=== PATIENT | male | born 1955 | race Caucasian/White ===

== ENCOUNTER → 2017-11-30 15:04 | Outpatient (CLI) | payer OTHER, SELFPAY ==
[2017-11-30 15:15] LABS: Mucous, Urine 0 SEEN /hpf (<or=2+)
[2017-11-30 15:37] LABS: Color, Urine Yellow (Yellow); Glucose, Dipstick Normal (Normal); Ketone-Dipstick Negative (Negative); Leukocyte Esterase-Dipstick 500 /ul (Negative); Nitrite-Dipstick Negative (Negative); Occult Blood-Urine 250 /ul (Negative); Protein-Dipstick 30 mg/dl (Negative); Urine Bilirubin Dipstick Negative (Negative); Urine Clarity Cloudy (Clear); Urine Urobilinogen Normal (Normal)
[2017-11-30 15:51] LABS: Bacteria 2+ /hpf (None Seen); Red Blood Cells-Urine 50-100 SEEN /hpf (0-5); Squamous Epithelial Cells - UA 0-5 SEEN /hpf (0-5); White Blood Cells >100 SEEN /hpf (0-5)
== END ==
PROVIDERS: Visit Provider Physician Assistant Medical
DX: R10.9 Unspecified abdominal pain (principal)
CPT/HCPCS: 81001; 87077; 87086; 87088; 87186

== ENCOUNTER → 2020-01-17 | Outpatient (CLI) | payer MEDICARE, OTHER, SELFPAY ==
[2017-12-10 15:55] VITALS: BMI 29.0
== END | disposition home or self-care (01) ==
LOC: LABSPEC 15:14
PROVIDERS: PCP Family Medicine; Referring Provider Otolaryngology Otolaryngology/Facial Plastic Surgery; Visit Provider Otolaryngology Otolaryngology/Facial Plastic Surgery
DX: J32.9 Chronic sinusitis, unspecified (principal)
CPT/HCPCS: 87070; 87205

== ENCOUNTER 2021-11-28 07:51 | Outpatient (RCR) | payer MEDICARE, OTHER, SELFPAY ==
--- NOTE | 2021-11-28 10:20 | HP.PTEVAL_ITS ---
Patient's Visit Information FLORIAN STRONG is a 66 year old M referred to Physical Therapy by DEE CHILDRESS with a diagnosis of NEUROPATHIC PAIN , DDD ,LS,SPONDYLOSIS OF LUMBAR. Date of Evaluation: 11/28/21 Physical Therapist: Lennox Judd, PT, Cert MDT, OCS - Visit Plan Frequency: 2x /Week Duration: 4 Weeks Plan: PT INTERVENTIONS LUMBAR FLEXION ,DLS ,POSTURAL EX'S AND LOWER EXTREMITY FLEXABLITY - Subjective This 66 y/o male presents to physical therapy for low back pain. Patient has had lumbar radiculopathy 2019 with no apparent reason or mechanism of injury. Patient had MRI several years had spondylothesis . Patient seen DR Childress pain management. Patient symptoms symmetrical lumbar with tingling in feet and calf. Aggravating factors walking, standing ,bending ,extension and twisting. Alleviating factors sitting and rest. Coughing/sneezing -. Bowel bladder-. C/O tingling/paresthesia/tingling feet. Patient sleeping okay . Patient stopped ex's. Patient has had injections in past 2019. No MEDS or recent diagnostics. Pa tient symptoms affects QOL and function. SOCIAL: single. VOCATION: retired - Pain Bilateral Back Pain Intensity (Out of 10): 1 Pain Intensity Range: 10 - Objective POSTURE: mild forward posture. GAIT: reciprocal pattern. NEURO: c/o paresthesia/tingling feet ,reflexes L3-4,L4-5,L5-S1 2/3. PALAPTION: unremarkable. SYMMETRIES: align. FLEXABILITY: hamstrings severe tight. LUMBAR ROM: flexion mod tight ,extension mod/severe ,side glides mod tight - Special Tests L/S Slump test left side: Negative L/S Slump test right side: Negative L/S Left Straight Leg Raise: Negative L/S Right Straight Leg Raise: Negative - Balance/Special Test Scores Oswestry Low Back Score: 24 - Goals Goal 1:: This patient will be I with HEP Goal Time Frame: 4-6 Weeks Goal 2:: Patient will demonstrate 50% improvement with decrease pain and improved function with ADL's Goal Time Frame: 4-6 Weeks Goal 3:: Patient improve lumbar ROM for function of recovery to aid in lifting Goal Time Frame: 4-6 Weeks Goal 4:: Patient demonstrate improvement of flexibility hamstrings to aid in function of recovery to tie shoes Goal Time Frame: 4-6 Weeks Goal 5:: Patient to improve in back oswestry score by 5 points to improve QOL. Goal Time Frame: 4-6 Weeks - Rehabilitation Potential Physical Therapy Diagnosis: This patient has LUMBAR RADICULOPATHY with symptoms in bilateral feet increases with position, motion testing ,better with siting and worse with walking and standing thus benefit from skilled PT Rehabilitation Potential: Good - Anticipated Interventions Patient/Client Instruction: Educate patient on: Condition, Plan of Care For the Purpose of:: To decrease pain, To increase ROM, To improve muscle performance and motor function, To improve ability to perform ADL's, To increase tolerance to activity/condition/position, To improve ability of physical actions for home/community/work/leisure, To improve health of tissue, To decrease soft tissue restriction, To increase flexibility/ROM, To prevent re-injury Therapeutic Exercise to Include: Strength training, Body mechanics, Postural training, Flexibilty training, Dynamic Lumbar Stabilization For the Purpose of:: To decrease pain, To increase ROM, To improve muscle performance and motor function, To increase tolerance to activity/condition/position, To improve ability of physical actions for home/community/work/leisure, To improve health of tissue, To decrease soft tissue restriction, To increase flexibility/ROM, To prevent re-injury, To improve tolerance to ADL's Thank you for the opportunity to evaluate your patient. For Medicare and Medicare HMO plans, please review the plan of care and approve it. It will need to be FAXED BACK to us at [phone] for Medicare purposes. For Medicare only, by signing this I certify the plan of care. Please let me know if there are questions or concerns regarding this plan of care. Physician Signature: Date:
--- NOTE | 2022-03-12 12:48 | HP.PT.NRP ---
FLORIAN STRONG was seen in my office for initial evaluation on 11/28/21. The following Plan of Care was established for this patient: Initial Frequency: 2x /Week Initial Duration: 4 Weeks Patient/Client Instruction: Educate patient on: Condition, Plan of Care For the Purpose of:: To decrease pain, To increase ROM, To improve muscle performance and motor function, To improve ability to perform ADL's, To increase tolerance to activity/condition/position, To improve ability of physical actions for home/community/work/leisure, To improve health of tissue, To decrease soft tissue restriction, To increase flexibility/ROM, To prevent re-injury Therapeutic Exercise to Include: Strength training, Body mechanics, Postural training, Flexibilty training, Dynamic Lumbar Stabilization For the Purpose of:: To decrease pain, To increase ROM, To improve muscle performance and motor function, To increase tolerance to activity/condition/position, To improve ability of physical actions for home/community/work/leisure, To improve health of tissue, To decrease soft tissue restriction, To increase flexibility/ROM, To prevent re-injury, To improve tolerance to ADL's This patient was last seen in our office . Pertinent comments regarding their Physical therapy will appear below: Patient seen for PT for intial evaluation and HEP At this point I will be discontinuing this patient from physical therapy. I would be happy to see this patient again in the future if found appropriate by the physician. Thank you! Lennox Judd, PT, Cert MDT, OCS Balance/Gait/Functional tests - Balance/Special Test Scores Oswestry Low Back Score: 24
== END 2021-11-28 19:00 | disposition home or self-care (01) ==
LOC: PT 07:51
PROVIDERS: PCP Family Medicine
DX: M79.2 Neuralgia and neuritis, unspecified (principal); M51.37 Other intervertebral disc degeneration, lumbosacral region; M47.816 Spondylosis without myelopathy or radiculopathy, lumbar region
CPT/HCPCS: 97110; 97161

== ENCOUNTER → 2023-02-04 | Outpatient (CLI) | payer MEDICARE, OTHER, SELFPAY ==
--- NOTE | 2023-02-04 13:25 | CT_ITS ---
STUDY: CT MAXILLOFACIAL SINUSES REASON FOR EXAM: Male, 67 years old. SINUSITIS RADIATION DOSAGE (If Supplied By Facility): CTDIvol = ( 33.06 ) mGy, DLP = ( 862.77 ) mGycm TECHNIQUE: The patient was scanned in a multi detector CT scanner. High resolution axial imaging was performed without the administration of intravenous contrast material. Sagittal and coronal images were reconstructed. Individualized dose optimization techniques were used for this CT. COMPARISON: None. FINDINGS: FRONTAL SINUSES: Normal aeration, without mucosal inflammatory disease. ETHMOIDAL SINUSES: Normal aeration, without mucosal inflammatory disease. MAXILLARY SINUSES: Normal aeration, without mucosal inflammatory disease. SPHENOIDAL SINUSES: Normal aeration, without mucosal inflammatory disease. There is patency of the bilateral maxillary infundibuli with normal uncinate processes, ethmoid bullae, and hiatus semilunaris. Normal bilateral middle turbinates. Normal bilateral inferior turbinates. There is a right sided nasal septal deviation, but without a nasal septal spur. There is a 1.1 cm x 1.3 cm soft tissue prominence in the left anterior nasal airway. This may represent polyposis. The visualized osseous structures are normal. The visualized bilateral orbital contents are normal. CT/Sinus/Facial Bone IMPRESSION: Focal soft tissue density in the anterior left nasal cavity as described. Nasal septal deviation towards the right side of the midline. Electronically Signed: Syed Gonsalez MD at 14:28 EST ,
== END | disposition home or self-care (01) ==
PROVIDERS: Referring Provider Otolaryngology; Visit Provider Otolaryngology
DX: J33.0 Polyp of nasal cavity (principal); J32.8 Other chronic sinusitis
CPT/HCPCS: 70486

== ENCOUNTER 2023-02-28 08:48 | Emergency (ER) | payer MEDICARE, OTHER, SELFPAY ==
[2023-02-28 08:49] VITALS: BP 151/89; PULSE 81; RESP 14; TEMP 36.8; O2SAT 98; BMI 25.4
--- NOTE | 2023-02-28 09:15 | ED.VIS.GI ---
HPI HPI - GI History of Present Illness Chief Complaint: Abd Pain Informant: patient Narrative Narrative: Patient has been having intermittent abdominal pain for the last 3 to 4 days that he has never had before. It is within 15 minutes of eating some things but not everything. He states he does not have a very poor diet and he is healthy, takes no prescriptions. He noticed that he gets a lot of rumbling in his abdomen and then pain just left of epigastrium. No radiation or migration, seems to always occur at the same area feels like an ache. Denies any nausea or vomiting, no changes in bowel movements including blood or melena, no urine issues. No back pain. No chest discomfort, fevers. He states his left costal margin hurts, at the same area where he states his abdominal pain occurs, which is not currently present, but he states he accidentally fell against this area of his rib cage about a month ago. Patient states he tried to get into his PCP but he is going on vacation and the patient is leaving town to go to [place] to see his children after this weekend, which is the reason he presents here to have this evaluated. He has not tried any home treatments. This morning he had a smoothie with some vegetables in it and experienced no discomfort. Last night he had a smoothie that he made with cranberries and it reproduce the discomfort fairly significantly again without any nausea or vomiting. He states he has been under an immense amount of stress lately. He takes no anti-inflammatories [id number] and does not drink any alcohol. PFSH PFS Medical History no medical history no medical history Home Medications NK 12/10/17 [History Last Taken Unknown] pantoprazole 40 mg tablet,delayed release 40 mg PO DAILY #30 tabs 02/28/23 [Rx Last Taken Unknown] sucralfate 1 gram tablet (Carafate) 1 g PO TID 1 week #21 tabs 02/28/23 [Rx Last Taken Unknown] Allergy/AdvReac Type Severity Reaction Status Date / Time No Known Allergies Allergy Verified 02/28/23 08:49 Social History Smoking Status: Never smoker alcohol intake: never ROS ROS ED Constitutional Constitutional ED: Denies chills or fever(s) Eyes Eyes: Denies change in vision or diplopia ENT ENT ED: Denies rhinorrhea or sore throat Cardiovascular Cardiovascular: Denies chest pain or palpitations Respiratory/Chest Respiratory/Chest: Denies cough or dyspnea Gastrointestinal Gastrointestinal: Reports abdominal pain; Denies diarrhea, melena, nausea or vomiting Genitourinary Genitourinary ED: Denies dysuria or hematuria Musculoskeletal Musculoskeletal: Denies back pain or neck pain Integumentary Denies abscess or rash Neurologic Neurologic: Denies headache(s), paresthesias or weakness Psychiatric Psychiatric: Denies anxiety or suicidal thoughts EXAM Physical Exam Const Vital Signs: 02/28/23 08:49 Temperature 98.2 F Temperature Source Temporal Pulse Rate 81 Respiratory Rate 14 Blood Pressure 151/89 H Blood Pressure Mean 109 Pulse Ox 98 Oxygen Delivery Method Room Air Positive well nourished and well developed General Appearance ED: well developed and NAD HEENT Reports moist mucous membranes normocephalic and atraumatic Eyes PERRL and EOMs intact bilaterally Neck full ROM and supple Resp normal respiratory effort and clear to auscultation bilaterally Cardio regular rate, regular rhythm and no murmurs GI non-tender and non-distended Auscultation: normoactive bowel sounds Palpation: soft Back/Spine no CVA tenderness General Back: other FROM Extremity normal to inspection General Extremety ED: Negative for edema, pulses abnormal or tenderness General Extremity: Negative for edema or pulses abnormal Neuro oriented x3, CN's II-XII intact bilaterally and no sensory deficits noted Sensorium / Orientation: awake and alert Motor Exam: strength 5/5 throughout Skin no rashes or lesions noted and no wounds MDM MDM MDM Narrative Medical decision making narrative: Labs obtained and are all noted and unremarkable. This includes liver enzymes and lipase. While we were waiting for these results we gave him oral Protonix 40 mg and he states about an hour later he noticed he was feeling much better from it although he admitted to me prior to getting this that he was not having any stomach discomfort at that time. He is reassured, he will be prescribed a month of pantoprazole and 5-7 days of Carafate and advised to follow-up when he gets back from his trip. He is comfortable with that plan. Lab Data Attestation: I reviewed the patient's lab results. Labs: Laboratory Results - last 24 hr 02/28/23 09:15 WBC 8.6 RBC 5.57 Hgb 17.6 H Hct 52.2 MCV 93.7 MCH 31.6 MCHC 33.7 RDW Std Deviation 48.2 H RDW Coeff of Leda 14.0 Plt Count 195 MPV 11.9 Immature Gran % (Auto) 0.300 Neut % (Auto) 66.5 Lymph % (Auto) 24.1 [place] % (Auto) 7.8 Eos % (Auto) 0.7 Baso % (Auto) 0.6 Absolute Neuts (auto) 5.7 Absolute Lymphs (auto) 2.08 Nucleated RBC % 0 Sodium 137 Potassium 3.9 Chloride 105 Carbon Dioxide 29.0 Anion Gap 3 L BUN 21 H Creatinine 0.96 Estim Creat Clear Calc 77.35 Est GFR (MDRD) Af Amer 100 Est GFR (MDRD) Non-Af 82 BUN/Creatinine Ratio 21.9 H Glucose 103 Calcium 9.8 Total Bilirubin 1.10 H AST 15 ALT 33 Alkaline Phosphatase 53 Total Protein 7.8 Albumin 4.2 Globulin 3.6 Albumin/Globulin Ratio 1.2 Lipase 29 Discharge Plan Triage Chief Complaint: Abd Pain ED Provider: Karlo Calderon Dx/Rx/DC Orders Clinical Impression: Abdominal pain, acute, left upper quadrant, Dyspepsia Instructions: Abdominal Pain, ED Gastritis Ulcer No Abx Prescriptions: New pantoprazole 40 mg tablet,delayed release (DR/EC) 40 mg PO DAILY Qty: 30 1RF sucralfate [Carafate] 1 gram tablet 1 g PO TID 7 Days Qty: 21 0RF No Action NK Primary Care Provider: Care Physician,No Primary Referrals: Jovi Gallo DO [Non-Staff] - 1-2 Weeks Disposition Disposition: Home, Self Care
[2023-02-28] MEDS: Pantoprazole Sodium 40 MG Tablet PO (09:18)
[2023-02-28 09:24] LABS: Absolute Lymphocyte Count 2.08 X10^3/uL (0.83-4.51); Absolute Neutrophil Count 5.7 X10^3/uL (2.0-7.7); Basophil# 0.05 X10^3/uL; Basophil% 0.6 % (0-1); Eosinophil# 0.06 X10^3/uL; Eosinophils% 0.7 % (0-5); Hematocrit 52.2 % (40-54); Hemoglobin 17.6 g/dL (13.0-16.5); Lymphocyte # 2.08 X10^3/ul (0.83-4.51); Lymphocyte % 24.1 % (19-41); Mean Corp Hgb Conc 33.7 g/dL (32-36); Mean Corpuscular Hgb 31.6 pg (27.0-32.0); Mean Corpuscular Volume 93.7 fL (80-94); Mean Platelet Vol. 11.9 fl (6.2-12.0); Monocyte# 0.67 X10^3/uL; Monocyte% 7.8 % (0-10); NRBC Flagged by Analyzer 0 % (0-5); Neutrophil # 5.74 X10^3/uL (2.7-7.7); Neutrophil % 66.5 % (47-70); Platelet Count 195 K/mm3 (150-450); RBC Distribution Width SD 48.2 fl (35.1-43.9); Red Blood Count 5.57 M/mm3 (4.6-6.2); White Blood Count 8.6 K/mm3 (4.4-11.0)
[2023-02-28 09:42] LABS: ALB/GLOB Ratio 1.2 RATIO (0.9-2.4); AST(SGOT) 15 U/L (15-37); Alanine Aminotransfer ALT/SGPT 33 U/L (16-61); Albumin, Serum 4.2 g/dL (3.2-5.0); Alkaline Phosphatase 53 U/L (45-117); Anion Gap 3 (5-15); BUN 21 mg/dL (7-18); BUN/Creat Ratio 21.9 RATIO (10-20); Calcium,Total 9.8 mg/dL (8.5-10.1); Chloride 105 mmol/L (98-107); Creatinine, Serum 0.96 mg/dL (0.70-1.30); EST Glomerular Filtration Rate 82 mL/min (>60); Est Glom Filt Rate - Afr Amer 100 mL/min (>60); Estimated Creatinine Clearance 77.35 ml/min; Globulin 3.6 g/dL (2.2-4.2); Glucose 103 mg/dL (74-106); Lipase 29 U/L (13-75); Potassium 3.9 mmol/L (3.5-5.1); Protein, Total 7.8 g/dL (6.4-8.2); Sodium Level 137 mmol/L (136-145)
[2023-02-28 10:45] VITALS: RESP 16
[2023-02-28 11:00] VITALS: RESP 16
== END 2023-02-28 11:01 | disposition home or self-care (01) ==
PROVIDERS: Emergency Provider Emergency Medicine; Visit Provider Emergency Medicine
DX: R10.12 Left upper quadrant pain (principal); R10.13 Epigastric pain
CPT/HCPCS: 80053; 83690; 85025; 99282

== ENCOUNTER 2023-03-05 07:46 | Emergency (ER) | payer MEDICARE, OTHER, SELFPAY ==
[2023-03-05 07:47] VITALS: BP 134/78; PULSE 86; RESP 14; TEMP 36.6; O2SAT 98; BMI 25.0
--- NOTE | 2023-03-05 07:54 | EX.ED.DYSGE1 ---
HPI History of Present Illness Chief Complaint: Abd [facility] Home Medications NK 12/10/17 [History Last Taken Unknown] pantoprazole 40 mg tablet,delayed release 40 mg PO DAILY #30 tabs 02/28/23 [Rx Last Taken Unknown] sucralfate 1 gram tablet (Carafate) 1 g PO TID 1 week #21 tabs 02/28/23 [Rx Last Taken Unknown] Allergy/AdvReac Type Severity Reaction Status Date / Time No Known Allergies Allergy Verified 02/28/23 08:49 Social History Smoking Status: Never smoker alcohol intake: never EXAM Physical Exam Const Vital Signs: 03/05/23 07:47 Temperature 97.8 F Temperature Source Temporal Pulse Rate 86 Respiratory Rate 14 Blood Pressure 134/78 H Blood Pressure Mean 96 Pulse Ox 98 Oxygen Delivery Method Room Air MDM MDM MDM Narrative Medical decision making narrative: HISTORY OF PRESENT ILLNESS: 67-year-old male here for abdominal pain. States he was seen recently for similar and had blood work done. He states he is leaving for vacation and is concerned that he continues to have intermittent stomachache and loudness. Pain is not worse with exertion. It is worse after food. Intermittent. Is located in epigastrium. Denies history abdominal surgeries. Does not drink alcohol. States is concerned because he is travel to [place] and wants to be checked out before this occurs. REVIEW OF SYSTEMS: Pertinent positives: Abdominal pain Pertinent negatives: Chest pain, shortness of breath, urinary complaints, melena hematochezia PHYSICAL EXAM: Nursing triage notes reviewed, Vital signs reviewed Constitutional: please see mdm HENT: MMM Eyes: Pupils equal round and reactive to light, Extraocular muscles intact Neck: No stridor, no JVD, full neck ROM Lungs: Clear to auscultation, No wheezing or rales. No increased work of breathing, no conversational dyspnea, no accessory muscle use, no nasal flaring. No respiratory distress noted Heart: Regular rate and rhythm, No murmurs, No rubs and No gallops, 2+ distal pulses (radial, femoral, posterior tibial) in all extremities Abdomen: Soft, there is no tenderness, rigidity, rebound or guarding, no obvious peritoneal signs, no palpable pulsatile abdominal masses, no auscultated abdominal bruit : No CVAT Extremities: No edema Neuro: No focal neurological deficits, cranial nerves II through XII intact, 5/5 strength in all extremities. Intact sensation to light touch in all extremities, 2+ reflexes bilateral patella tendons. Normal gait. No ataxia. Skin: No rash or lesions noted MEDICAL DECISION MAKING: Chief Complaint: Abdominal pain External records reviewed: Seen in the ED on 02/28/2023. Abdominal exam at that time was benign he was diagnosed with dyspepsia left upper quadrant pain. Labs at that time showed no leukocytosis, no significant anemia, no signs of hepatobiliary pathology, no signs of electrolyte disturbance, no sign of pancreatitis. Patient was discharged Factors affecting care: GERD, dyspepsia Social determinants of health: Denies alcohol History obtained from others: none Consults: none MDM Narrative: Patient was hemodynamically stable, afebrile, nontoxic-appearing. No focal cardiopulmonary normalities. Abdomen soft nontender with mild epigastric discomfort. I considered the following differential diagnosis: Ruptured viscus, small bowel obstruction, hepatobiliary production, GERD, gastritis, atypical presentation of ACS I obtained a broad lab and imaging workup to further elucidate etiology patient complaints. I gave symptomatic treatments for fluids, Zofran, Pepcid and a GI cocktail. Patient refused medicines. ALL IMAGES (IF OBTAINED) HAVE BEEN PERSONALLY REVIEWED AND INTERPRETED BY MYSELF. EKG with normal sinus rhythm, normal axis, normal intervals, no STEMI CBC without leukocytosis, severe anemia, no thrombocytopenia. CMP without evidence of acute kidney injury, significant electrolyte abnormality, anion gap, no evidence hepatobiliary pathology. High-sensitivity troponin is negative, no evidence of myocardial ischemia CT scan abdomen pelvis shows no evidence of acute intra-abdominal pathology such as perforation or obstruction. The synthesis of the patient's history, physical exam, labs and images suggest no acute life-limiting etiology including occult ACS, obstruction perforation, hepatobiliary pathology etc. No clear aspiration with patient's pain I suspect he is got gastritis versus peptic ulcer disease and requires close GI follow-up. I further recommend the patient continue home PPI. The patient and/or family, caregivers express understanding. The patient and/or family, caregivers agrees with the plan. Shared decision making: I will have a discussion with the patient and or visitors regarding risk/benefits of further testing or admission. They will be made aware of of the risk/benefits inherent in this decision they will be given the opportunity to voice understanding. Total critical care time today provided was at least 0 minutes. This excludes separately billable procedures. Critical care time (if documented) is secondary to the patient having high probability of clinically significant/life threatening deterioration in the patient's condition which required my urgent intervention. Impression: 1. Epigastric abdominal pain 2. History of GERD 3. Fatty liver 4. Diverticulosis Dispo: Discharge Lab Data Labs: Laboratory Results - last 24 hr 03/05/23 08:45 WBC 6.6 RBC 5.35 Hgb 17.5 H Hct 50.7 MCV 94.8 H MCH 32.7 H MCHC 34.5 RDW Std Deviation 47.8 H RDW Coeff of Leda 13.8 Plt Count 187 MPV 11.9 Immature Gran % (Auto) 0.300 Neut % (Auto) 69.8 Lymph % (Auto) 20.1 Bland % (Auto) 8.4 Eos % (Auto) 0.8 Baso % (Auto) 0.6 Absolute Neuts (auto) 4.6 Absolute Lymphs (auto) 1.32 Nucleated RBC % 0 Sodium 137 Potassium 3.9 Chloride 104 Carbon Dioxide 29.0 Anion Gap 4 L BUN 15 Creatinine 0.92 Estim Creat Clear Calc 80.71 Est GFR (MDRD) Af Amer 104 Est GFR (MDRD) Non-Af 86 BUN/Creatinine Ratio 16.3 Glucose 102 Calcium 9.6 Total Bilirubin 0.70 AST 17 ALT 27 Alkaline Phosphatase 51 Troponin I High Sens 42 Total Protein 7.9 Albumin 4.2 Globulin 3.7 Albumin/Globulin Ratio 1.1 Radiography Diagnostic Testing: Clinical Impression(s) from Imaging Studies Abdomen/Pelvis CT 03/05/23 08:30 IMPRESSION: Fatty infiltration of the liver. Scattered sigmoid diverticula. Prostatic enlargement with indentation of the bladder base. Mild degree of diffuse bladder wall thickening. Electronically Signed: Syed Gonsalez MD at 10:03 EST , Discharge Plan Triage Chief Complaint: Abd Pain ED Provider: Luke Stout Dx/Rx/DC Orders Instructions: ED Abdominal Pain Unkn Cause Male... Prescriptions: No Action NK pantoprazole 40 mg tablet,delayed release (DR/EC) 40 mg PO DAILY Qty: 30 1RF sucralfate [Carafate] 1 gram tablet 1 g PO TID 7 Days Qty: 21 0RF Primary Care Provider: Pan Barba Referrals: Friend,DO Sid [Med Staff - Active Staff] - Activity Restrictions/Additional Instructions: Thank you for trusting us with your care today! Please take Tylenol (2 pills, 650 mg), ibuprofen (2 pills, 400 mg) every 6 hours as needed for pain and fever control. Please return to the emergency department if your symptoms change or worsen. Please follow with your primary care physician for further outpatient evaluation and management. Disposition Disposition: Home, Self Care
--- NOTE | 2023-03-05 08:30 | CT_ITS ---
STUDY: CT ABDOMEN AND PELVIS WITH CONTRAST REASON FOR EXAM: Male, 67 years old. Epigastric abdominal pain RADIATION DOSAGE (If Supplied By Facility): CTDIvol = ( 14.74 ) mGy, DLP = ( 982.54 ) mGycm TECHNIQUE: Transaxial images were obtained from the dome of the diaphragm to the symphysis pubis without oral contrast. IV 100mL Isovue-300 was administered. Sagittal and coronal images were reconstructed. Individualized dose optimization techniques were used for this CT. COMPARISON: None. FINDINGS: The visualized lung bases are unremarkable. The visualized portions of the heart are within normal limits. There is decreased attenuation of the liver consistent with steatosis. Normal gallbladder and extrahepatic biliary system. Normal spleen. Normal pancreas. Normal bilateral adrenal glands. Normal right kidney. Normal left kidney. Normal visualized stomach. Normal small intestine. There are scattered colonic diverticula consistent with diverticulosis. The appendix is visualized and appears normal. There is scattered atherosclerotic calcification of the abdominal aorta, without a demonstrated aneurysm. Normal inferior vena cava. Normal retroperitoneum. Mild degree of diffuse bilateral wall thickening. There is enlargement of the prostate gland. The prostate measures 4.3 cm x 5.7 cm. This causes indentation at the bladder base. There is a right-sided inguinal hernia containing adipose tissue. There are mild degenerative changes of the visualized lumbar spine. CT/Abdomen/Pelvis W IV Cont ONLY IMPRESSION: Fatty infiltration of the liver. Scattered sigmoid diverticula. Prostatic enlargement with indentation of the bladder base. Mild degree of diffuse bladder wall thickening. Electronically Signed: Syed Gonsalez MD at 10:03 RUST ,
--- NOTE | 2023-03-05 08:30 | EKG12_ITS ---
Test Reason : ABD PAIN Blood Pressure : / mmHG Vent. Rate : 064 BPM Atrial Rate : 064 BPM P-R Int : 150 ms QRS Dur : 088 ms QT Int : 400 ms P-R-T Axes : 006 001 001 degrees QTc Int : 412 ms Normal sinus rhythm Normal ECG Confirmed by MINI SAENZ, PADMINI ([id number]), managing editor MEGAN GRIMES ([id number]) on 03/10/2023 1:45:15 P M Referred By: Confirmed By:WARREN MORSE MD
--- NOTE | 2023-03-05 08:32 | NURSING ---
NO OLD EKGS
[2023-03-05 08:51] LABS: Absolute Lymphocyte Count 1.32 X10^3/uL (0.83-4.51); Absolute Neutrophil Count 4.6 X10^3/uL (2.0-7.7); Basophil# 0.04 X10^3/uL; Basophil% 0.6 % (0-1); Eosinophil# 0.05 X10^3/uL; Eosinophils% 0.8 % (0-5); Hematocrit 50.7 % (40-54); Hemoglobin 17.5 g/dL (13.0-16.5); Lymphocyte # 1.32 X10^3/ul (0.83-4.51); Lymphocyte % 20.1 % (19-41); Mean Corp Hgb Conc 34.5 g/dL (32-36); Mean Corpuscular Hgb 32.7 pg (27.0-32.0); Mean Corpuscular Volume 94.8 fL (80-94); Mean Platelet Vol. 11.9 fl (6.2-12.0); Monocyte# 0.55 X10^3/uL; Monocyte% 8.4 % (0-10); NRBC Flagged by Analyzer 0 % (0-5); Neutrophil % 69.8 % (47-70); Platelet Count 187 K/mm3 (150-450); RBC Distribution Width CV 13.8 % (11.6-14.6); RBC Distribution Width SD 47.8 fl (35.1-43.9); Red Blood Count 5.35 M/mm3 (4.6-6.2); White Blood Count 6.6 K/mm3 (4.4-11.0)
[2023-03-05 09:08] LABS: ALB/GLOB Ratio 1.1 RATIO (0.9-2.4); AST(SGOT) 17 U/L (15-37); Alanine Aminotransfer ALT/SGPT 27 U/L (16-61); Albumin, Serum 4.2 g/dL (3.2-5.0); Alkaline Phosphatase 51 U/L (45-117); Anion Gap 4 (5-15); BUN 15 mg/dL (7-18); BUN/Creat Ratio 16.3 RATIO (10-20); Calcium,Total 9.6 mg/dL (8.5-10.1); Chloride 104 mmol/L (98-107); Creatinine, Serum 0.92 mg/dL (0.70-1.30); EST Glomerular Filtration Rate 86 mL/min (>60); Est Glom Filt Rate - Afr Amer 104 mL/min (>60); Estimated Creatinine Clearance 80.71 ml/min; Globulin 3.7 g/dL (2.2-4.2); Glucose 102 mg/dL (74-106); Potassium 3.9 mmol/L (3.5-5.1); Protein, Total 7.9 g/dL (6.4-8.2); Sodium Level 137 mmol/L (136-145); Troponin-I HS 42 pg/mL (3.0-78.0)
[2023-03-05 11:31] LABS: Bacteria 0 SEEN /hpf (None Seen); Mucous, Urine 0 SEEN /hpf (<or=2+); Red Blood Cells-Urine 0 SEEN /hpf (0-5); White Blood Cells 0 SEEN /hpf (0-5)
[2023-03-05 11:33] LABS: Color, Urine Yellow (Yellow); Glucose, Dipstick Normal (Normal); Ketone-Dipstick 15 mg/dl (Negative); Leukocyte Esterase-Dipstick 25 /ul (Negative); Nitrite-Dipstick Negative (Negative); Occult Blood-Urine Negative /ul (Negative); Protein-Dipstick 30 mg/dl (Negative); Urine Bilirubin Dipstick Negative (Negative); Urine Clarity Sl. Cloudy (Clear); Urine Urobilinogen Normal (Normal); Urine pH 6.5 (5.0 - 8.0)
[2023-03-05] MEDS: Mag Hydrox/Al Hydrox/Simeth 30 ML UDC PO (11:35)
[2023-03-05 11:57] LABS: Squamous Epithelial Cells - UA 0-5 SEEN /hpf (0-5)
== END 2023-03-05 12:00 | disposition home or self-care (01) ==
PROVIDERS: Emergency Provider Emergency Medicine; PCP Family Medicine; Visit Provider Emergency Medicine
DX: K21.9 Gastro-esophageal reflux disease without esophagitis (principal); K57.30 Diverticulosis of large intestine without perforation or abscess without bleeding; K76.0 Fatty (change of) liver, not elsewhere classified; Z79.899 Other long term (current) drug therapy
CPT/HCPCS: 74177; 80053; 81001; 84484; 85025; 93005; 99282; J7030; Q9967; A4216; J2405; J3490

== ENCOUNTER 2024-02-25 11:48 | Emergency (ER) | payer MEDICARE, OTHER, SELFPAY ==
[2024-02-25 11:49] VITALS: BP 169/89; PULSE 92; RESP 15; TEMP 36.4; O2SAT 97; BMI 25.1
--- NOTE | 2024-02-25 12:54 | EKG12_ITS ---
Test Reason : GEN ILLNESS Blood Pressure : */* mmHG Vent. Rate : 80 BPM Atrial Rate : 80 BPM P-R Int : 156 ms QRS Dur : 84 ms QT Int : 384 ms P-R-T Axes : 61 56 38 degrees QTcB Int : 442 ms Normal sinus rhythm Nonspecific ST abnormality Abnormal ECG Confirmed by Kel Valdovinos ([id number]), subeditor LINA FLORES ([id number]) on 02/26/2024 1:06:41 PM Referred By: Confirmed By: Kel Valdovinos
[2024-02-25 13:20] LABS: Bacteria 0 SEEN /hpf (None Seen); Mucous, Urine 0 SEEN /hpf (<or=2+); Red Blood Cells-Urine 0 SEEN /hpf (0-5); Squamous Epithelial Cells - UA 0 SEEN /hpf (0-5); White Blood Cells 0 SEEN /hpf (0-5)
[2024-02-25 13:20] LABS: Absolute Lymphocyte Count 1.77 X10^3/uL (0.83-4.51); Absolute Neutrophil Count 4.9 X10^3/uL (2.0-7.7); Basophil# 0.05 X10^3/uL; Basophil% 0.7 % (0-1); Eosinophil# 0.16 X10^3/uL; Eosinophils% 2.2 % (0-5); Hematocrit 51.5 % (40-54); Hemoglobin 17.9 g/dL (13.0-16.5); Lymphocyte # 1.77 X10^3/ul (0.83-4.51); Lymphocyte % 23.8 % (19-41); Mean Corp Hgb Conc 34.8 g/dL (32-36); Mean Corpuscular Volume 94.8 fL (80-94); Mean Platelet Vol. 11.8 fl (6.2-12.0); Monocyte# 0.55 X10^3/uL; Monocyte% 7.4 % (0-10); NRBC Flagged by Analyzer 0 % (0-5); Neutrophil # 4.87 X10^3/uL (2.7-7.7); Neutrophil % 65.4 % (47-70); Platelet Count 187 K/mm3 (150-450); RBC Distribution Width CV 13.8 % (11.6-14.6); RBC Distribution Width SD 48.3 fl (35.1-43.9); Red Blood Count 5.43 M/mm3 (4.6-6.2); White Blood Count 7.4 K/mm3 (4.4-11.0)
[2024-02-25 13:28] LABS: Color, Urine Yellow (Yellow); Glucose, Dipstick Normal (Normal); Ketone-Dipstick Negative (Negative); Leukocyte Esterase-Dipstick 25 /ul (Negative); Nitrite-Dipstick Negative (Negative); Occult Blood-Urine Negative /ul (Negative); Protein-Dipstick 30 mg/dl (Negative); Urine Bilirubin Dipstick Negative (Negative); Urine Clarity Clear (Clear); Urine Urobilinogen Normal (Normal)
[2024-02-25 13:30] LABS: Anion Gap 5 (5-15); BUN 26 mg/dL (7-18); BUN/Creat Ratio 31.6 RATIO (10-20); Calcium,Total 9.5 mg/dL (8.5-10.1); Chloride 104 mmol/L (98-107); Creatinine, Serum 0.82 mg/dL (0.70-1.30); EST Glomerular Filtration Rate 98 mL/min (>60); Est Glom Filt Rate - Afr Amer 119 mL/min (>60); Estimated Creatinine Clearance 89.28 ml/min; Glucose 110 mg/dL (74-106); Potassium 3.6 mmol/L (3.5-5.1); Sodium Level 139 mmol/L (136-145)
[2024-02-25 14:39] VITALS: BP 135/81; PULSE 76; RESP 15; O2SAT 96
--- NOTE | 2024-02-25 14:46 | EX.ED.DYSGE1 ---
HPI History of Present Illness Chief Complaint: General Illness Narrative Narrative: Patient presents for evaluation well check. 6 months ago lost his father, he has had retina surgery x 2 along with cataracts. He is planning on visiting his children in [place] for which there is [address] Plans on driving leaving tomorrow. He has been having increasing anxiety thoughts. There is no suicidal homicidal ideations. He states a week ago had a screening stress test out of his choice without symptoms that were negative. States yesterday had tingling around his mouth and he was breathing fast. He states he had plans of driving himself straight to [place] not make any stops. He states he was going to ask a friend if they would go with him. Denies cough symptoms denies recent vomiting diarrhea denies urinary symptoms. Denies chest pains. He states he was seen here a year ago for GI symptoms seen and evaluated felt better with the medicines denies abdominal pain. PFSH PFS Home Medications ?Medication ?Instructions ?Recorded ?Last Taken ?Type NK 12/10/17 Unknown History pantoprazole 40 mg tablet,delayed 40 mg PO DAILY #30 tabs 02/28/23 Unknown Rx release sucralfate 1 gram tablet (Carafate) 1 g PO TID 1 week #21 tabs 02/28/23 Unknown Rx Allergy/AdvReac Type Severity Reaction Status Date / Time No Known Allergies Allergy Verified 02/25/24 11:49 Social History Smoking Status: Never smoker alcohol intake: never ROS ROS ED Constitutional Constitutional ED: Denies chills, fever(s) or sweats Eyes Eyes: Denies change in vision ENT ENT ED: Denies dysphagia or sore throat Cardiovascular Cardiovascular: Denies chest pain, leg edema, palpitations or racing heartbeat Respiratory/Chest Respiratory/Chest: Denies cough, dyspnea or dyspnea on exertion Gastrointestinal Gastrointestinal: Denies abdominal pain, diarrhea, nausea or vomiting Genitourinary Genitourinary ED: Denies dysuria, hematuria or urinary frequency Musculoskeletal Musculoskeletal: Denies back pain, extremity pain or neck pain Integumentary Denies rash or wounds Neurologic Neurologic: Denies headache(s), paresthesias or weakness Psychiatric Psychiatric: Reports anxiety; Denies suicidal ideation or suicidal thoughts EXAM Physical Exam Const Vital Signs: 02/25/24 11:49 12/04/24 12:53 02/25/24 14:39 Temperature 97.5 F L Temperature Source Temporal Pulse Rate 92 76 Respiratory Rate 15 15 Respiratory Effort Normal Non-Labored Respiratory Pattern Normal Blood Pressure 169/89 H 135/81 H Blood Pressure Mean 115 99 Pulse Ox 97 96 Oxygen Delivery Method Room Air Room Air Positive well nourished and well developed General Appearance ED: well developed and NAD HEENT Reports moist mucous membranes normocephalic and atraumatic Eyes EOMs intact bilaterally and conjunctivae normal General Eye ED: Yes normal appearance of both eyes Neck no lymphadenopathy and supple General: Negative for tenderness Chest Wall Chest: Negative for tenderness Resp normal respiratory effort and normal air movement Effort and Inspection: symmetric chest movement; Negative for respiratory distress Cardio regular rate, regular rhythm and no murmurs Peripheral Pulses: pulses 2+ throughout GI normal to inspection, nondistended, normoactive bowel sounds and non-tender Palpation: Negative for guarding or rebound tenderness present Back/Spine no CVA tenderness and no thoracic nor lumbar tenderness Extremity normal to inspection General Extremety ED: Negative for edema or tenderness General Extremity: Negative for edema Neuro oriented x3 and no sensory deficits noted Sensorium / Orientation: awake and alert Psych Psych Narrative: No suicidal homicidal ideations. Cooperative, answering questions appropriately. Skin no rashes or lesions noted and no wounds MDM MDM MDM Narrative Medical decision making narrative: Interventions / MDM: Differential diagnosis: Will check, anxiety Diagnosis considered but do not suspect: N/A My EKG interpretation: Sinus rate of 80, no ST or T wave changes. Imaging independently reviewed and interpreted by myself: N/A External documents reviewed: N/A Test considered but not ordered:N/A ED course: Presenting for a well check increased anxiety. He does not have any suicidal homicidal ideations. He lost his father 6 months ago, recent surgeries and plan to travel to see his children in [place]. Will check EKG labs and urine. 1400: Labs are normal hemoglobin 7.9 stable from previous white count 7.4. Electrolytes are normal urine test negative for any infections. EKG with no acute findings. Reassured he states he wanted some referrals with his anxiety symptoms. Discussed with social work in the ED who will discuss with him. We discussed the possibility of flying to see his children side of driving, he states since being in the ED he contact his children and his plan is to fly out to see them. 1515: Patient evaluate by social work, he was given additional resources locally and in [place] for him to follow-up with. He is happy with his care here. All his questions were answered. Re-evaluation: stable Disposition discussed with patient/family/significant other: Patient Case discussed with consulting clinician: work This note was generated with [employer] dictation software. It may contain incorrect words, spelling, and punctuation that were not noted in checking the note before signing. Lab Data Attestation: I reviewed the patient's lab results. Labs: Laboratory Results - last 24 hr 02/25/24 02/25/24 13:10 13:16 WBC 7.4 RBC 5.43 Hgb 17.9 H Hct 51.5 MCV 94.8 H MCH 33.0 H MCHC 34.8 RDW Std Deviation 48.3 H RDW Coeff of Leda 13.8 Plt Count 187 MPV 11.8 Immature Gran % (Auto) 0.500 Neut % (Auto) 65.4 Lymph % (Auto) 23.8 [place] % (Auto) 7.4 Eos % (Auto) 2.2 Baso % (Auto) 0.7 Absolute Neuts (auto) 4.9 Absolute Lymphs (auto) 1.77 Nucleated RBC % 0 Sodium 139 Potassium 3.6 Chloride 104 Carbon Dioxide 29.0 Anion Gap 5 BUN 26 H Creatinine 0.82 Estim Creat Clear Calc 89.28 Est GFR (MDRD) Af Amer 119 Est GFR (MDRD) Non-Af 98 BUN/Creatinine Ratio 31.6 H Glucose 110 H Calcium 9.5 Urine Color Yellow Urine Clarity Clear Urine pH 6.0 Ur Specific [place] 1.020 Urine Protein 30 H Urine Glucose (UA) Normal Urine Ketones Negative Urine Occult Blood Negative Urine Nitrite Negative Urine Bilirubin Negative Urine Urobilinogen Normal Ur Leukocyte Esterase 25 H Urine RBC 0 SEEN Urine WBC 0 SEEN Ur Squamous Epith Cells 0 SEEN Urine Bacteria 0 SEEN Urine Mucus 0 SEEN Discharge Plan Triage Chief Complaint: General Illness ED Provider: Iker Brink Dx/Rx/DC Orders Clinical Impression: Visit for well man health check, Anxiety Instructions: Anxiety Disorders Tx Prescriptions: No Action NK pantoprazole 40 mg tablet,delayed release (DR/EC) 40 mg PO DAILY Qty: 30 1RF sucralfate [Carafate] 1 gram tablet 1 g PO TID 7 Days Qty: 21 0RF Primary Care Provider: Care Physician,No Primary Referrals: Care Physician,No Primary [Primary Care Provider] - Activity Restrictions/Additional Instructions: EKG normal. Labs normal hemoglobin 17.9. This is stable from previous. EKG normal. You were seen by social work in the ED to help with additional resources. As discussed you plan on flying to see your children in [place]. I recommend this plan. Print Language: Tongan Disposition Disposition: Home, Self Care
[2024-02-25 15:29] VITALS: BP 139/77; PULSE 62; RESP 15; TEMP 36.4; O2SAT 99
--- NOTE | 2024-02-25 18:36 | CM.ED ---
Social Work Reason for visit: ED provider felt patient would benefit from counseling resources Patient told SW that he was planning a trip to [place] to see his kids but was feeling anxious the last few days and decided to come to the ER to get checked out to ensure he was medically healthy enough to travel. Patient shared that his anxiety is not new, that he has had anxious feelings on and off throughout his life.? Patient stated he had seen a counselor about ten years ago and did find it helpful.?? Resources for local counseling offered, patient accepting of same.? Patient also given information regarding coping skills for anxiety, [facility] resources and a crisis number in [place], [place] should he need immediate resources on his trip. Erin Paz, SENIOR [employer]BILE APPLICATION DEVELOPER, BUILDING ESTIMATOR
== END 2024-02-25 15:30 | disposition home or self-care (01) ==
PROVIDERS: Emergency Provider Emergency Medicine; Visit Provider Emergency Medicine
DX: Z00.00 Encounter for general adult medical examination without abnormal findings (principal); Z71.84 Encounter for health counseling related to travel; F41.9 Anxiety disorder, unspecified
CPT/HCPCS: 80048; 81001; 85025; 93005; 99283; A4216

== ENCOUNTER 2024-10-25 08:49 | Emergency (ER) | payer MEDICARE, OTHER, SELFPAY ==
[2024-10-25 08:49] VITALS: BP 139/86; PULSE 90; RESP 14; TEMP 36.2; O2SAT 98; BMI 25.6
--- NOTE | 2024-10-25 09:20 | EDS_ITS ---
HPI History of Present Illness Chief Complaint: Back Narrative Narrative: Patient is a 69-year-old male presenting to the emergency department for left- sided back pain for the past 2 weeks. Patient has a past medical history of back pain for the past 5 or 6 years that comes and goes. Patient also has a past medical history of peptic ulcer. Patient denies any trauma to his back. Denies any IV drug use, saddle anesthesia, bowel or bladder retention or incontinence. Denies any weakness in his lower extremities. Denies any fever or chills. States that the pain worsens when he is ambulating and improves when he is at rest. Denies taking any medications for his symptoms prior to arrival. States that the pain is mainly on the left lower back and radiates down the side of his leg. No significant weight loss recently. PFSH [facility] Home Medications ?Medication ?Instructions ?Recorded ?Last Taken ?Type pantoprazole 40 mg tablet,delayed 40 mg PO DAILY #30 t abs 02/28/23 Unknown Rx release sucralfate 1 gram tablet (Carafate) 1 g PO TID 1 week #21 tabs 02/28/23 Unknown Rx cyclobenzaprine 5 mg tablet 5 mg PO QHS PRN muscle spa sm #14 10/25/24 Unknown Rx tabs ibuprofen 200 mg capsule (Motrin 400 mg (2 x 200 mg) P O Q6H PRN 10/25/24 Unknown Rx IB) pain #30 caps lidocaine 5 % topical patch 1 patch topical DAILY #15 ea 10/25/24 Unknown Rx (Lidoderm) Allergy/AdvReac Type Severity Reaction Status Date / Time No Known Allergies Allergy Verified 10/25/24 08:50 Social History Smoking Status: Never smoker alcohol intake: never ROS ROS ED ROS Narrative See HPI EXAM Physical Exam Narrative Exam Narrative: Vital signs: Reviewed General: Alert and oriented. No acute distress HEENT: Head is normocephalic and atraumatic, sinuses nontender, pupils equal round and reactive. Nares are patent. Oropharynx and throat exams normal. Neck: Supple without lymphadenopathy nontender Cardiovascular: Regular rate and rhythm, no murmurs. No rubs or gallops. Normal S1 and S2 Respiratory: Clear to auscultation bilaterally. No wheezes, rales, rhonchi Abdominal: Soft and tender. Normal bowel sounds. No guarding or rebound. Nonsurgical abdomen. No CVA tenderness. Extremities: No tenderness. No bruising. Normal range of motion. Normal sensation. Skin: No rash or redness. Neurological: Cranial nerves II through XII are grossly intact. Normal strength and sensation. Strength in bilateral lower extremities is 5 out of 5. Normal flexion extension at the hips and knees. Sensation intact in bilateral lower extremities. Normal cerebellar function The rest of the physical exam is unremarkable Back: No midline cervical, thoracic or lumbar spinal tenderness to palpation. No step-offs or deformities. There is mild paraspinal tenderness to palpation in the left lumbar region and some SI joint tenderness. No erythema or overlying skin changes. Const Vital Signs: 10/25/24 08:49 Temperature 97.1 F L Temperature Source Temporal Pulse Rate 90 Respiratory Rate 14 Blood Pressure 139/86 H Blood Pressure Mean 103 Pulse Ox 98 Oxygen Delivery Method Room Air MDM MDM MDM Narrative Medical decision making narrative: States patient is a 69-year-old male presenting to emergency department for acute on chronic back pain. Patient was seen and examined. Vitals are stable. Patient resting bed comfortably in no acute distress. Patient has no red flag back pain signs described in the HPI. He states the pain is worse with ambulation. There is no midline spinal tenderness on exam and it is all in the SI joint and in the paraspinal muscles. I suspect this is MSK with a component of sciatica. Patient states that he is had side effects to steroids in the past and does not want these. He has had a peptic ulcer in the past but this was years ago and it was nonbleeding. Patient states that he is not been taking any medications for his pain due to concerns about side effects with the peptic ulcer. I explained that a short dose of NSAIDs is appropriate for this. I prescribed him Tylenol, Toradol and a lidocaine patch here in the ED. For home I prescribed him these medications along with Flexeril. At this time I do not think patient needs any imaging of the spine. He does not have any fever, midline tenderness or any weight loss concerning for any malignancy or abscess. Patient is feeling better with the Toradol. A BMP was also added on given the patient was endorsing some intermittent tingling down his leg which I explained is likely sciatica however yes that his electrolytes be checked. They are within normal limits. Kidney function around his baseline. Patient was prescribed a medication for home and instructed to return to the ED with any new or worsening symptoms as discussed. Patient struck to follow-up with PCP as soon as possible. Patient agreeable to plan. Ambulated out of department without difficulty. Lab Data Labs: Laboratory Results - last 24 hr 10/25/24 10:18 Sodium 135 Potassium 4.9 Chloride 101 Carbon Dioxide 22.3 Anion Gap 12 BUN 25 H Creatinine 0.79 Estim Creat Clear Calc 90.20 Est GFR (MDRD) Non-Af 95 BUN/Creatinine Ratio 32.2 H Glucose 97 Calcium 9.5 Discharge Plan Triage Chief Complaint: Back ED Provider: Bernadine Haile Dx/Rx/DC Orders Clinical Impression: Back pain of lumbar region with sciatica Instructions: ED Back Pain (Acute or Chronic), ED Back Sprain/Strain, ED Sciatica Prescriptions: New ibuprofen [Motrin IB] 200 mg capsule 400 mg PO Q6H PRN (Reason: pain) Qty: 30 0RF cyclobenzaprine 5 mg tablet 5 mg PO QHS PRN (Reason: muscle spasm) Qty: 14 0RF lidocaine [Lidoderm] 5 % adhesive patch,medicated 1 patch topical DAILY Qty: 15 0RF Rx Instructions: leave on most painful area for up to 12 hrs No Action pantoprazole 40 mg tablet,delayed release (DR/EC) 40 mg PO DAILY Qty: 30 1RF sucralfate [Carafate] 1 gram tablet 1 g PO TID 7 Days Qty: 21 0RF Primary Care Provider: Care Physician,No Primary Referrals: Care Physician,No Primary [Primary Care Provider] - Activity Restrictions/Additional Instructions: Please follow-up with your primary care doctor in the next 3 to 5 days. Return to the ED with any new or worsening symptoms as discussed including fever, chills, worsening back pain, issues urinating or having bowel movements or numbness/weakness in your legs. You can take 650 mg of Tylenol every 6 hours as needed. You can also take ibuprofen 600 mg every 8 hours. Apply the lidocaine patch for 12 hours and make sure to remove it after this time. You can take the Flexeril as well however do not take it prior to driving it can make you sleepy, dizzy and lightheaded. Print Language: Telugu Disposition Disposition: Home, Self Care
[2024-10-25] MEDS: Lidocaine 5% Patch 1 PATCH TOPICAL (09:24)
[2024-10-25 10:51] LABS: Anion Gap 12 (5-15); BUN 25 mg/dL (4-19); BUN/Creat Ratio 32.2 RATIO (10-20); Calcium,Total 9.5 mg/dL (7.6-11.0); Carbon Dioxide 22.3 mmol/L (21.0-32.0); Chloride 101 mmol/L (98-108); Estimated Creatinine Clearance 90.20 ml/min (50-250); Glucose 97 mg/dL (70-99); Potassium 4.9 mmol/L (3.3-5.1)
[2024-10-25 11:25] VITALS: BP 132/84; PULSE 86; RESP 16; TEMP 36.6; O2SAT 99
--- OUTSIDE RECORDS SUMMARY | 2024-10-25 18:32 | XMS RPT_ITS | CCD ---
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 Name Role Phone JORDEN, JAYRAM Unavailable Unavailable JORDEN, JAYRAM Unavailable Unavailable JORDEN, JAYRAM Unavailable Unavailable [facility] Unavailable Unavailable [facility] Unavailable Unavailable JORDEN, JAYRAM Unavailable Unavailable SCOTT CASILLAS JR Unavailable Unavailable LAVELLE FRENCH Referring Unavailable No, Referral Unavailable Unavailable Demian Barba MD Primary Care Provider Demian Barba MD Primary Care Provider No, Referral Unavailable Unavailable Demian Barba MD Primary Care Provider No, Referral Unavailable Unavailable Sabino Hernandez DO, Anthony Victor Primary Care Provi santo Sabino Hernandez DO, Anthony Victor Primary Care Provi santo Unavailable Primary Care Provider Unavailabl BETY Harrell Attending Unavailable SELF, SELF Referring Unavailable KUMINS, LUIS F Primary Care Unavailable SHAHZAD PEREZ Attending Unavailable KUMINS, LUIS F Primary Care Unavailable JARVIS STACK Attending Unavailable YADY HERRERA Referring Unavailable KUMINS, LUIS F Primary Care Unavailable KUMINS, LUIS F Primary Care Unavailable FELIPE GALLO Attending Unavailable THI PINO Attending Unavailable KUMINS, LUIS F Primary Care Unavailable KUMINS, LUIS F Primary Care Unavailable CHARLEEN MORALEZ Attending Unavailable KUMINS, LUIS F Primary Care Unavailable CHARLEEN MORALEZ Attending Unavailable FELIPE GALLO Referring Unavailable KUMINS, LUIS F Primary Care Unavailable KUMINS, LUIS F Primary Care Unavailable YADY HERRERA Referring Unavailable SELF Referring Unavailable KUMINS, LUIS F Primary Care Unavailable MARJAN GAR Attending Unavailable KUMINS, LUIS F Primary Care Unavailable RICCI ARIZA Attending Unavailable MICHAEL GALLEGOS Attending Unavailable JOVI GALLO JR Primary Care Unavail able Iker Brink Attending Unavailable Care Physician, No Primary Primary Care Unava ilable Care Physician, No Primary Primary Care Unava ilable RAMON STOLL Attending Unavailable RAMON STOLL Referring Unavailable RAMON STOLL Attending Unavailable RAMON STOLL Referring Unavailable Pan Barba Primary Care Unavailable JOSE FRANCISCO ZAMORANO Attending Unavaillucina GALLO JR, JOVI ANAYA Primary Care Unavail able Care Physician, No Primary Primary Care Provider Unavailable Lazara SAENZ, Dr. Colindres Emergency Provider Unavailab le Allergies Allergy Classification Reported Allergen(s) Allergy Type Date of Onset Reaction(s) Facility (20 sources) [facility]; Translations: [[facility]] Propensity to adverse reactions (disorder) 8 Intolerance [facility] Repository (20 sources) gabapentin; Translations: [GABAPENTIN] Drug Allergy 9 Mental Status Change [facility] Work Phone: Medications Current Medications Medication Drug Class(es) Dates Sig (Normalized) Sig (Original) amoxicillin 875 mg / clavulanate 125 mg oral tablet (1 source) Penicillin-class Antibacterial Start: 01-27-2023 End: 02-03-2023 take 1 tablet by mouth twice daily amoxicillin-clavu lanate potassium (AUGMENTIN) 875-125 mg per tablet Indications: Acute sinusitis, recurrence not specified, unspecified location Take 1 tablet by mouth two times a day for 7 days. 14 tablet 0 01/27/2023 02/03/2023 Active Comment on above: Take 1 tablet by cindy two times a day for 7 days. clindamycin 10 mg/ml topical solution (20 sources) Lincosamide Antibacterial Start: 01-13-2023 End: 02-28-2024 clindamycin (CLEOCIN) 1 % external solution Apply to affected areas on neck when needed after shaving 60 mL 3 02/28/2024 Active Start: 12-24-2021 clindamycin (C LEOCIN) 1 % external solution Apply to affected areas on neck when needed after shaving 60 mL 3 12/24/2021 Active Start: 01-29-2021 clindamycin (C LEOCIN) 1 % external solution Apply to affected areas on neck when needed after shaving 60 mL 3 01/29/2021 Active Comment on above: Apply to affected ar eas on neck when needed after shaving cyclobenzaprine hydrochloride 5 mg oral tablet (1 source) Muscle Relaxant Start: take 1 tablet by mouth at bedtime as needed for muscle spasms Cyclobenzaprine 5 mg tablet Active 5 mg PO AT BEDTIME as needed for muscle spasm 14 0 October 25, 2024 12:00am fluticasone propionate 0.05 mg/actuat metered dose nasal spray (20 sources) Corticosteroid Start: End: fluticasone 50 MCG/ACT Suspension nasal spray Indications: Chronic rhinitis 2 sprays by Nasal route 2 times daily. 16 g 03/25/2024 03/25/2025 Active Start: 01-27-2023 End: 03-03-2024 take 2 spray(s) nasal route once daily fluticasone (FLONASE ALLERGY RELIEF) 50 mcg/actuation nasal spray Indications: Acute sinusitis, recurrence not specified, unspecified location Use 2 Sprays in each nostril once daily. 16 g 01/27/2023 03/03/2024 Discontinued Comment on above: Use 2 Sprays in each nostril once daily. ibuprofen 200 mg oral capsule (1 source) Nonsteroidal Anti-inflammatory Drug Start: 10-25-2024 Ibuprofen (Motrin Ib) 200 mg capsule Active 400 mg PO EVERY 6 HOURS as needed for pain 30 0 October 25, 2024 12:00am ketoconazole 20 mg/ml medicated shampoo (20 sources) Azole Antifungal Start: 01-20-2024 ketoconazole (NIZORAL) 2 % shampoo Use as directed on affected areas of scalp and face 2-3x/week. 120 mL 3 01/20/2024 Active Start: 01-13-2023 End: 01-18-2025 ketoconazole (NIZORAL) 2 % c ream Apply generous layer to clean, dry skin 1-2 times daily. 30 g 3 01/20/2024 01/18/2025 Active Start: 01-13-2023 End: 03-07-2023 ketoconazole (NIZORAL) 2 % s hampoo Apply to affected areas on face and scalp and rinse off in the shower 120 mL 3 01/13/2023 03/07/2023 Discontinued Start: 06-18-2022 End: 06-17-2023 ketoconazole (NIZORAL) 2 % c ream Apply generous layer to clean, dry skin once daily. 30 g 3 06/18/2022 06/17/2023 Active Comment on above: Apply generous layer to clean, dry skin once daily. Apply generous layer to clean, dry skin 1-2 times daily. Apply to affected ar eas on face and scalp and rinse off in the shower lidocaine 0.05 mg/mg medicated patch (1 source) Antiarrhythmic, Amide Local Anesthetic Start: 5 Lidocaine (Lidoderm) 5 % adhesive patch,medicated Active 1 NMA TOPICAL DAILY 15 0 October 25, 2024 12:00am leave on most painful area for up to 12 hrs Grace (Nk) (4 sources) Start: 8 Grace (Nk) Active December 09, 2017 11:00pm omeprazole 40 mg delayed release oral capsule (4 sources) Proton Pump Inhibitor Start: 4 End: 5 take 1 capsule by mouth once daily omeprazole (PRILOSEC) 40 mg capsule Take 1 capsule by mouth once daily. 90 capsule 3 03/03/2024 02/26/2025 Active pantoprazole 40 mg delayed release oral tablet (8 sources) Proton Pump Inhibitor Start: 3 End: 4 take 1 tablet by mouth once daily Pantoprazole 40 mg tablet,delayed release (DR/EC) Active 40 mg PO DAILY 30 February 28, 2023 1:00am Comment on above: Take 40 mg by mouth once daily. sucralfate 1000 mg oral tablet (3 sources) Aluminum Complex Start: 3 take 1 tablet by mouth three times daily Sucralfate (Carafate) 1 gram tablet Active 1 g PO THREE TIMES A DAY 21 7 0 February 28, 2023 1:00am tamsulosin hydrochloride 0.4 mg oral capsule (1 source) alpha-Adrenergic Sarthak Start: 5 End: 5 take 1 capsule by mouth once daily at bedtime tamsulosin (FLOMAX) 0.4 mg Take 1 capsule by mouth daily at bedtime. 30 capsule 3 10/18/2024 11/17/2024 Active Completed/Discontinued Medications Medication Drug Class(es) Dates Sig (Normalized) Sig (Original) aspirin 81 mg delayed release oral tablet (2 sources) Platelet Aggregation Inhibitor, Nonsteroidal Anti-inflammatory Drug End: 10-31-2021 take 1 tablet by mouth once daily aspirin, enteric coated (ASPIRIN, ENTERIC COATED) 81 mg EC tablet Take 81 mg by mouth once daily. 0 10/31/2021 Discontinued Comment on above: Take 81 mg by mouth once daily. atorvastatin 80 mg oral tablet (2 sources) HMG-CoA Reductase Inhibitor Start: 03-25-2019 End: 10-31-2021 take 1 tablet by mouth once daily atorvastatin (LIPITOR) 80 mg tablet Indications: Mixed hyperlipidemia Take 1 tablet by mouth once daily. 30 tablet 11 03/25/2019 10/31/2021 Discontinued Comment on above: Take 1 tablet by cindy once daily. CPAP/BIPAP/OTHER (20 sources) Start: 05-16-2022 End: 03-03-2024 CPAP/BIPAP/OTHER Indications: ZULEMA (obstructive sleep apnea) [id number] [employer] [facility] [facility] ([phone]) Please start with nasal or nasal pillow mask . 1 Each 05/16/2022 03/03/2024 Discontinued Start: 05-16-2022 End: 09-30-2049 CPAP/BIPAP/OTHER Indications : ZULEMA (obstructive sleep apnea) [id number] [employer] [facility] ([phone]) Please start with nasal or nasal pillow mask . 1 Each 05/16/2022 09/30/2049 Active Start: 05-16-2022 End: 09-30-2049 CPAP/BIPAP/OTHER Indications : ZULEMA (obstructive sleep apnea) [employer] [id number] [employer] [facility] [facility] [employer] ([phone]) Please start with nasal or nasal pillow mask . 1 Each 0 05/16/2022 09/30/2049 Active Comment on above: [id number] [employer] [facility] [employer] ([phone]) Please start with nasal or nasal pillow mask . iv contrast (will be provided with radiology test) (11 sources) Start: End: inject 1 dose intravenously once iv contrast (will be provided with radiology test) MRI Brain Inject, intravenously, once for 1 dose.No IV access, insert saline lock prior to beginning of sedation, infusion, injection of imaging exam.Discontinue saline lock post exam. If Pt. has a central line or IVAD, may access for administration according to line specific nursing protocol.Once exam is complete flush line and de-access according to line specific nursing protocol in the MR contrast administration guidelines link 1 Each 11/13/2023 03/03/2024 Discontinued Start: 11-13-2023 inject 1 dose intravenously on ce iv contrast (will be provided with radiology test) MRI Brain Inject, intravenously, once for 1 dose.No IV access, insert saline lock prior to beginning of sedation, infusion, injection of imaging exam.Discontinue saline lock post exam. If Pt. has a central line or IVAD, may access for administration according to line specific nursing protocol.Once exam is complete flush line and de-access according to line specific nursing protocol in the MR contrast administration guidelines link 1 Each 11/13/2023 Active nitrofurantoin, macrocrystals 25 mg / nitrofurantoin, monohydrate 75 mg oral capsule (5 sources) Nitrofuran Antibacterial Start: 12-02-2017 End: 12-09-2017 take 1 capsule by mouth every twelve hours at mealtime Nitrofurantoin Monohyd/M-Cryst 100 mg capsule Discontinued 1 NMA PO Q12H 14 7 0 December 02, 2017 12:00am December 08, 2017 12:00am December 09, 2017 12:09am administer with a meal/food; swallow whole; do not open, crush, dissolve , or chew Problems Active Problems Problem Classification Problem Date Documented Date Episodic/Chronic Abdominal pain (7 sources) Left upper quadrant pain; Translations: [Left upper quadrant pain] 02-28-2023 Episodic Adjustment disorders (20 sources) Stress; Translations: [Reaction to severe stress, unspecified] Onset: 12-02-2019 12-02-2019 Chronic Allergic reactions (2 sources) Solar degeneration; Translations: [Other skin changes due to chronic exposure to nonionizing radiation] Onset: 07-21-2024 07-21-2024 Episodic Anxiety disorders (20 sources) Generalized anxiety disorder; Translations: [Generalized anxiety disorder] Onset: 04-05-2018 Resolved: 05-19-2018 04-05-2018 Chronic Asthma (20 sources) Asthma; Translations: [Unspecified asthma, uncomplicated] 12-26-2017 Chronic Disorders of lipid metabolism (20 sources) Mixed hyperlipidemia; Translations: [Mixed hyperlipidemia] Onset: 05-05-2018 05-05-2018 Chronic Esophageal disorders (20 sources) Gastroesophageal reflux disease; Translations: [Gastro-esophageal reflux disease without esophagitis] 12-26-2017 Chronic Esophageal disorders (1 source) Esophageal disorders; Translations: [Gastroesophageal reflux disease with esophagitis without hemorrhage] Onset: 12-26-2017 Essential hypertension (20 sources) Hypertensive disorder; Translations: [Essential (primary) hypertension] Onset: 12-26-2017 12-26-2017 Chronic Genitourinary symptoms and ill-defined conditions (6 sources) Nocturia; Translations: [Nocturia] Onset: 10-18-2024 02-28-2024 Episodic Hyperplasia of prostate (3 sources) Benign prostatic hypertrophy with outflow obstruction; Translations: [Benign prostatic hyperplasia with lower urinary tract symptoms] Onset: 10-18-2024 02-27-2024 Chronic Miscellaneous mental health disorders (20 sources) Psychophysiologic insomnia; Translations: [Psychophysiologic insomnia] Onset: 09-16-2016 09-16-2016 Chronic Other and unspecified benign neoplasm (5 sources) Multiple benign melanocytic nevi ; Translations: [Melanocytic nevi, unspecified] Episodic Other and unspecified benign neoplasm (1 source) Lipoma of back; Translations: [Benign lipomatous neoplasm of skin and subcutaneous tissue of trunk] Episodic Other and unspecified benign neoplasm (1 source) Blue nevus of skin; Translations: [Other benign neoplasm of skin, unspecified] Episodic Other and unspecified benign neoplasm (4 sources) Senile angioma; Translations: [Hemangioma of skin and subcutaneous tissue] Episodic Other and unspecified benign neoplasm (1 source) Hemangioma of skin and subcutaneous tissue; Translations: [Carranza angioma] Onset: 07-21-2024 Episodic Other and unspecified benign neoplasm (1 source) Melanocytic nevi, unspecified; Translations: [Multiple benign nevi] Onset: 07-21-2024 Episodic Other ear and sense organ disorders (20 sources) Sensorineural hearing loss, bilateral; Translations: [Sensorineural hearing loss, bilateral] Onset: 06-05-2018 06-05-2018 Chronic Other ear and sense organ disorders (1 source) Hearing loss; Translations: [Other specified hearing loss, unspecified ear] 10-16-2023 Chronic Other ear and sense organ disorders (1 source) Asymmetrical sensorineural hearing loss; Translations: [Sensorineural hearing loss, bilateral] 11-13-2023 Chronic Other ear and sense organ disorders (1 source) Bilateral hearing loss; Translations: [Sensorineural hearing loss, unilateral, right ear, with restricted hearing on the contralateral side] 11-13-2023 Chronic Other ear and sense organ disorders (1 source) Asymmetrical hearing loss; Translations: [Other specified hearing loss, bilateral] 03-25-2024 Chronic Other ear and sense organ disorders (3 sources) Other specified hearing loss, bilateral; Translations: [Other specified hearing loss, bilateral] Onset: 03-25-2024 Chronic Other ear and sense organ disorders (1 source) Sensorineural hearing loss, bilateral; Translations: [Sensorineural hearing loss (SNHL) of both ears] Onset: 06-05-2018 Chronic Other ear and sense organ disorders (1 source) Bilateral tinnitus; Translations: [Tinnitus, bilateral] Episodic Other ear and sense organ disorders (1 source) Tinnitus of vascular origin; Translations: [Pulsatile tinnitus, left ear] 11-13-2023 Episodic Other ear and sense organ disorders (1 source) Hyperacusis; Translations: [Hyperacusis, unspecified ear] 11-13-2023 Episodic Other ear and sense organ disorders (1 source) Bilateral subjective tinnitus of ears; Translations: [Tinnitus, bilateral] 02-03-2024 Episodic Other ear and sense organ disorders (1 source) Ear sensations - finding; Translations: [Other specified disorders of ear, bilateral] 03-25-2024 Episodic Other ear and sense organ disorders (1 source) Bilateral hyperacusis of ears; Translations: [Hyperacusis, bilateral] 03-25-2024 Episodic Other ear and sense organ disorders (2 sources) Other specified disorders of ear, bilateral; Translations: [Other specified disorders of ear, bilateral] Onset: 03-25-2024 Episodic Other ear and sense organ disorders (2 sources) Hyperacusis, bilateral; Translations: [Hyperacusis, bilateral] Onset: 03-25-2024 Episodic Other inflammatory condition of skin (3 sources) Seborrheic dermatitis; Translations: [Seborrheic dermatitis, unspecified] Episodic Other inflammatory condition of skin (1 source) Intertrigo; Translations: [Erythema intertrigo] 07-02-2023 Episodic Other male genital disorders (1 source) Hemospermia; Translations: [Hematospermia] 10-18-2024 Episodic Other male genital disorders (1 source) Hematospermia; Translations: [Hematospermia] Onset: 10-18-2024 Episodic Other nervous system disorders (20 sources) Piriformis syndrome; Translations: [Lesion of sciatic nerve, unspecified lower limb] Onset: 11-25-2018 11-25-2018 Chronic Other screening for suspected conditions (not mental disorders or infectious disease) (20 sources) Cardiovascular stress test abnormal; Translations: [Abnormal result of other cardiovascular function study] Onset: 05-05-2018 05-05-2018 Episodic Other screening for suspected conditions (not mental disorders or infectious disease) (1 source) Elevated prostate specific antigen [PSA]; Translations: [Elevated prostate specific antigen (PSA)] Onset: 01-23-2018 Other skin disorders (5 sources) Seborrheic keratosis; Translations: [Other seborrheic keratosis] Episodic Other skin disorders (3 sources) Lentiginosis; Translations: [Other melanin hyperpigmentation] Episodic Other skin disorders (2 sources) Actinic keratosis; Translations: [Actinic keratosis] 07-10-2023 Episodic Other skin disorders (1 source) Other seborrheic keratosis; Translations: [Seborrheic keratosis] Onset: 07-21-2024 Episodic Other skin disorders (1 source) Other melanin hyperpigmentation; Translations: [Lentigines] Onset: 07-21-2024 Episodic Other skin disorders (1 source) Actinic keratosis; Translations: [Actinic keratosis] Onset: 07-21-2024 Episodic Other upper respiratory disease (20 sources) Allergic disposition; Translations: [Other allergic rhinitis] 12-26-2017 Chronic Other upper respiratory disease (2 sources) Chronic rhinitis; Translations: [Chronic rhinitis] Onset: 03-25-2024 03-25-2024 Chronic Other upper respiratory disease (1 source) Chronic rhinitis; Translations: [Chronic rhinitis] Onset: 03-25-2024 Chronic Other upper respiratory disease (1 source) Other allergic rhinitis; Translations: [Environmental and seasonal allergies] Onset: 12-26-2017 Chronic Other upper respiratory disease (2 sources) Deviated nasal septum; Translations: [Deviated nasal septum] 01-27-2023 Episodic Other upper respiratory infections (1 source) Chronic sinusitis; Translations: [Other chronic sinusitis] 02-07-2023 Chronic Other upper respiratory infections (1 source) Acute sinusitis; Translations: [Acute sinusitis, unspecified] 01-27-2023 Episodic Residual codes; unclassified (3 sources) Obstructive sleep apnea syndrome; Translations: [Obstructive sleep apnea (adult) (pediatric)] Chronic Residual codes; unclassified (1 source) Insomnia co-occurrent and due to medical condition; Translations: [Insomnia due to medical condition] Chronic Residual codes; unclassified (1 source) Obstructive sleep apnea (adult) (pediatric); Translations: [ZULEMA (obstructive sleep apnea)] Onset: 09-19-2023 Chronic Residual codes; unclassified (20 sources) Insomnia; Translations: [Insomnia, unspecified] 12-26-2017 Episodic Residual codes; unclassified (1 source) Frequent night waking; Translations: [Insomnia, unspecified] Episodic Spondylosis; intervertebral disc disorders; other back problems (20 sources) Lumbar spondylosis; Translations: [Spondylosis without myelopathy or radiculopathy, lumbar region] Onset: 07-28-2018 07-28-2018 Chronic Spondylosis; intervertebral disc disorders; other back problems (20 sources) Radiculopathy, lumbar region; Translations: [Spinal stenosis of lumbar region] Onset: 07-24-2018 07-28-2018 Episodic Spondylosis; intervertebral disc disorders; other back problems (1 source) Spinal stenosis, lumbar region without neurogenic claudication; Translations: [Spinal stenosis of lumbar region, unspecified whether neurogenic claudication present] Onset: 07-24-2018 Unclassified (2 sources) Unknown / UNK(Unknown) Onset: 01-02-2018 Unclassified (1 source) Full Body Skin Check Onset: 01-20-2024 Varicose veins of lower extremity (20 sources) Varicose veins of bilateral lower limbs; Translations: [Asymptomatic varicose veins of bilateral lower extremities] Onset: 07-01-2018 07-01-2018 Episodic Past or Other Problems Problem Classification Problem Date Documented Da te Episodic/Chronic Inflammatory conditions of male genital organs (20 sources) Prostatitis; Translations: [Inflammatory disease of prostate, unspecified] Onset: 03-24-2003 12-26-2017 Episodic Other acquired deformities (20 sources) Lumbar spondylolisthesis; Translations: [Spondylolisthesis, lumbar region] Onset: 07-28-2018 07-28-2018 Episodic Other connective tissue disease (20 sources) Pain in buttock; Translations: [Myalgia, other site] Onset: 06-09-2018 06-09-2018 Episodic Other ear and sense organ disorders (20 sources) Subjective tinnitus; Translations: [Tinnitus, unspecified ear] Onset: 09-16-2016 09-16-2016 Episodic Other ear and sense organ disorders (20 sources) Tinnitus of right ear; Translations: [Tinnitus, right ear] Onset: 06-05-2018 06-05-2018 Episodic Other ear and sense organ disorders (1 source) Tinnitus, bilateral; Translations: [Subjective tinnitus of both ears] Onset: 09-16-2016 Episodic Other non-epithelial cancer of skin (20 sources) History of malignant neoplasm of skin excluding melanoma; Translations: [Personal history of other malignant neoplasm of skin] Onset: 03-24-2014 Episodic Other upper respiratory disease (20 sources) Mass of nose; Translations: [Other specified disorders of nose and nasal sinuses] Onset: 01-31-2023 01-31-2023 Episodic Residual codes; unclassified (2 sources) Other specified health status; Translations: [Other specified conditions influencing health status] Onset: 09-19-2023 09-19-2023 Episodic Unclassified (1 source) Elevated prostate specific antigen (PSA) Onset: 01-23-2018 Results Test Name Value Interpretation Reference Range Facility Anion gap in Serum or Plasma Ordered By: Bernadine Haile on 10-25-2024 Anion gap [Moles/Vol] 12 mmol/L - [facility] BUN/creatinine ratioOrdered By: Bernadine Haile on 10-25-2024 Urea nitrogen/Creatinine [Mass ratio] 32.2 mg/mg High 01-10 [facility] Carbon dioxide, total [Moles /volume] in Central venous bloodOrdered By: Bernadine Haile on 10-25-2024 CO2 [Moles/Vol] 22.3 mmol/L 21.0-32.0 [facility] Chloride assayOrdered By: Cezar Haile on 10-25-2024 Chloride [Moles/Vol] 101 mmol/L 98-108 [facility] Glomerular filtration rate ( GFR) estimation/1.73 sq m using serum, plasma, or whole bOrdered By: Bernadine Haile on 10-25-2024 GFR/1.73 sq M.predicted among non-blacks MDRD (S/P/Bld) [Vol rate/Area] 95 mL/min/{1.73_m2} >60 [facility] Comment on above: mL/min/1.73m2 CKD-EP I Creatinine Equation (2020) Potassium measurement (mass/ volume)Ordered By: Bernadine Haile on 10-25-2024 Potassium (Unsp spec) [Mass/Vol] 4.9 mmol/L 3.3-5.1 [facility] Comment on above: Hemolysis present, R esults could be affected. Serum creatinine measurement (mass/volume)Ordered By: Bernadine Haile on 10-25-2024 Creatinine [Mass/Vol] 0.79 mg/dL 0.70-1.20 [facility] Serum glucose measurement (m ass/volume)Ordered By: Bernadine Haile on 10-25-2024 Glucose [Mass/Vol] 97 mg/dL 70-99 [facility] Serum or plasma calcium edu urement (mass/volume)Ordered By: Bernadine Haile on 10-25-2024 Calcium [Mass/Vol] 9.5 mg/dL 7.6-11.0 [facility] Serum or plasma urea nitroge n measurement (mass/volume)Ordered By: Bernadine Haile on 10-25-2024 Urea nitrogen [Mass/Vol] 25 mg/dL High 4-19 [facility] Sodium levelOrdered By: Meir Haile on 10-25-2024 Sodium [Moles/Vol] 135 mmol/L 133-145 [facility] CNOVon 10-18-2024 CNOV Office Visit ([facility] ) -- OVIATT,FLORIAN ([id number]) 1955 M Date Time Provider Department 10/18/24 1:00 PM JOSE FRANCISCO ZAMORANO During your visit today, we recorded the following information about you: Jose Francisco Zamorano MD 10/18/2024 10:46 PM Signed [facility] UROLOGY ESTABLISHED PATIENT CLINIC NOTE [facility]OL [place] [facility] Recording using [employer] software for draft documentation of the visit was discussed with the patient/authorized bilingual inside sales representative; all questions welcomed and answered. Patient/authorized bilingual inside sales representative agreed to proceed PATIENT INFO: Florian Portillo AGE: [id number] year old PCP: Jovi Gallo Jr, DO IMPRESSION/PLAN: 1. Hematospermia - ICD9: 608.82, ICD10: R36.1 (primary diagnosis) -Reassurance provided that this should resolve on its own. Encourage patient to ejaculate at least 10 times between now and follow-up in 6 weeks, with close observation 2. Urinary frequency - ICD9: 788.41, ICD10: R35.0 -Possibly induced by BPH. Recommend trial of tamsulosin 0.4 mg nightly. 3. Microscopic hematuria - ICD9: 599.72, ICD10: R31.29 -Send urine for microscopy 4. Benign prostatic hyperplasia with incomplete bladder emptying - ICD9: 600.01, 788.21, ICD10: N40.1, R39.14 -Recommend starting tamsulosin as above 5. Prostate cancer screening - ICD9: V76.44, ICD10: Z12.5 REASON FOR VISIT: blood in semen HPI: Florian Portillo returns for continuing evaluation and management. Hematopsermia: - Noticed dark discoloration in semen after a single recent ejaculation; no visible hematuria or hematospermia prior to this episode. - Denies associated pain during ejaculation. - No history of hematospermia. - Denies use of anticoagulants. Urinary Frequency: - Nocturia 1-2 times per night. - Daytime urinary frequency with small volumes. - Symptoms present for several years; patient has adapted to them. - Recent digital rectal exam by Dr. Gallo revealed an enlarged prostate. - PSA levels stable over the past 6 years. - Denies previous use of medication for urinary symptoms. Obstructive Sleep Apnea: - Diagnosed with ZULEMA; difficulty adapting to CPAP mask. - Currently having a sleep device made by a dentist. - Reports waking up 8-10 times per night, not always due to the need to urinate. history: Previous elevation in PSA, last followed by urology in February 2024 Remote history of prostatitis 2017 MRI showed PI-RADS 3 lesion UROLOGICAL DATA: Urinalysis: GLUCOSE UA (POCT) Negative 10/18/2024 BILIRUBIN UA (POCT) Negative 10/18/2024 KETONE UA (POCT) Negative 10/18/2024 SPECIFIC GRAVITY UA (POCT) 1.015 10/18/2024 HEMOGLOBIN/BLOOD UA (POCT) Value: Trace-intact 10/18/2024 PH UA (POCT) 6.0 10/18/2024 PROTEIN UA (POCT) Negative 10/18/2024 UROBILINOGEN UA (POCT) 0.2 10/18/2024 NITRITE UA (POCT) Negative 10/18/2024 LEUKOCYTES UA (POCT) Negative 10/18/2024 COLOR UA (POCT) Yellow 10/18/2024 CLARITY UA (POCT) Clear 10/18/2024 Post Void Residual, Ultrasound: N/A cc OTHER DATA: PSA (ng/mL) Date Value 02/27/2024 6.63 12/26/2017 6.14 PSA, Percent Free (%) Date Value 12/26/2017 14 No results found for: ISOPSA Creatinine Date Value Ref Range Status 06/30/2018 0.97 0.73 - 1.22 mg/dL Final 12/26/2017 0.89 0.73 - 1.22 mg/dL Final Testosterone (ng/dL) Date Value 12/26/2017 441 PMHx/PSHx: see above, otherwise unchanged Rx: reviewed and unchanged ROS: see above, otherwise unchanged Labs: None Imaging: None MEDICATIONS: Current Outpatient Medications Medication Sig omeprazole (PRILOSEC) 40 mg capsule Take 1 capsule by mouth once daily. clindamycin (CLEOCIN) 1 % external solution Apply to affected areas on neck when needed after shaving ketoconazole (NIZORAL) 2 % shampoo Use as directed on affected areas of scalp and face 2-3x/week. ketoconazole (NIZORAL) 2 % cream Apply generous layer to clean, dry skin 1-2 times daily. tamsulosin (FLOMAX) 0.4 mg Take 1 capsule by mouth daily at bedtime. No current facility-administered medications for this visit. PHYSICAL EXAM: There were no vitals taken for this visit. There is no height or weight on file to calculate BMI. General: Well masculinized, well nourished male Psych: euthymic, NAD Neuro: AANDOx3 Inguinal: No lesions, adenopathy, or hernias Phallus: normal, circumcised, no lesions Meatus: orthotopic, patent, no discharge Scrotum: no lesions, normal rugae Testes: Descended, nontender, and no masses bilaterally DENILSON reveals a 35 g prostate without nodularity or tenderness, normal anal sphincter tone FOLLOW UP: 6 weeks Jose Francisco Zamorano M.D, MS Associate Staff [facility] Jose Francisco Zamorano MD 10/18/2024 1:27 PM Signed The drug you're being put on is TAMSULOSIN It is used to treat Benign Prostatic Hyperplasia (BPH), otherwi (more content not included)... Normal [facility] UA DIP, URINE (POC)on 2024 BILIRUBIN UA (POCT) Negative Negative [facility] CLARITY UA (POCT) Clear [facility] COLOR UA (POCT) Yellow [facility] GLUCOSE UA (POCT) Negative Negative mg/dL [facility] Hemoglobin Ql (U) Trace-intact Abnormal Negative [facility] Interpretation and review of laboratory results Abnormal [facility] KETONE UA (POCT) Negative Negative mg/dL [facility] LEUKOCYTES UA (POCT) Negative [facility] NITRITE UA (POCT) Negative [facility] PH UA (POCT) 6 4.5 - 8.0 [facility] Protein Ql (U) Negative Negative mg/dL [facility] SPECIFIC GRAVITY UA (POCT) 1.015 1.005 - 1.030 [facility] UROBILINOGEN UA (POCT) 0.2 Lisa l E.U./dL [facility] Location:[facility], [address] [facility], [place], [place], [id number] [place] [address] POINT OF CARE [facility] Urinalysis complete panel (U )Ordered By: Sonya Abad on 10-18-2024 Bacteria LM.HPF (Urine sed) [#/Area] None Seen None Seen /HPF [facility] Bilirubin Ql (U) Negative Negative [facility] Clarity (Unsp spec) Clear Clear [facility] Color (U) Yellow Yellow [facility] Epithelial cells LM.HPF (Urine sed) [#/Area] None Seen /HPF [facility] Glucose Test strip (U) [Mass/Vol] Negative Negative [facility] Hemoglobin Ql (U) Negative Negative [facility] Ketones Ql (U) Negative Negative [facility] Leukocyte esterase Test strip Ql (U) Negative Negative [facility] Nitrite Ql (U) Negative Negative [facility] pH (U) 6 [pH] 5.0 - 8.0 [facility] Protein (U) [Mass/Vol] Negative Negative [facility] RBC LM.HPF (Urine sed) [#/Area] 0-3 /HPF 0-3 /HPF [facility] Specific gravity (U) [Rel density] 1.015 1.005 - 1.030 [facility] Urobilinogen Ql (U) Negative Negative [facility] WBC LM.HPF (Urine sed) [#/Area] 0-5 /HPF 0-5 /HPF [facility] Urinalysis complete panel (U )on 10-18-2024 Bacteria LM.HPF (Urine sed) [#/Area] None Seen Normal None Seen [facility] Comment on above: Order Comment: Speci men Type: URINE SPECIMEN Ordering Facility: [facility] Address: [address] [place] [address] Performed By: #### 2 4356-8 #### [facility] CLIA [id number] [address] [place] [address] [place] Bilirubin Ql (U) Negative Normal Negative [facility] Comment on above: Order Comment: Speci men Type: URINE SPECIMEN Ordering Facility: [facility] Address: [address] [place] [address] Performed By: #### 2 4356-8 #### [facility] CLIA [id number] [address] [place] [address] [place] Clarity (Unsp spec) Clear Normal Clear [facility] Comment on above: Order Comment: Speci men Type: URINE SPECIMEN Ordering Facility: [facility] Address: [address] [place] [address] Performed By: #### 2 4356-8 #### [facility] CLIA [id number] [address] [place] [address] [place] Color (U) Yellow Normal Yellow [facility] Comment on above: Order Comment: Speci men Type: URINE SPECIMEN Ordering Facility: [facility] Address: [address] [place] [address] Performed By: #### 2 4356-8 #### [facility] CLIA [id number] [address] [place] [address] [place] Epithelial cells LM.HPF (Urine sed) [#/Area] None Seen Normal [facility] Comment on above: Order Comment: Speci men Type: URINE SPECIMEN Ordering Facility: [facility] Address: [address] [place] [address] Performed By: #### 2 4356-8 #### [facility] CLIA [id number] [address] [place] [address] [place] Glucose Test strip (U) [Mass/Vol] Negative Normal Negative [facility] Comment on above: Order Comment: Speci men Type: URINE SPECIMEN Ordering Facility: [facility] Address: [address] [place] [address] Performed By: #### 2 4356-8 #### [facility] CLIA [id number] [address] [place] [address] [place] Hemoglobin Ql (U) Negative Normal Negative [facility] Comment on above: Order Comment: Speci men Type: URINE SPECIMEN Ordering Facility: [facility] Address: [address] [place] [address] Performed By: #### 2 4356-8 #### [facility] CLIA [id number] [address] [place] [address] [place] Ketones Ql (U) Negative Normal Negative [facility] Comment on above: Order Comment: Speci men Type: URINE SPECIMEN Ordering Facility: [facility] Address: [address] [place] [address] Performed By: #### 2 4356-8 #### [facility] CLIA [id number] [address] [place] [address] Leukocyte esterase Test strip Ql (U) Negative Normal Negative [facility] Comment on above: Order Comment: Speci men Type: URINE SPECIMEN Ordering Facility: [facility] Address: [address] [place] [address] Performed By: #### 2 4356-8 #### [facility] CLIA [id number] [address] [place] [address] [place] Nitrite Ql (U) Negative Normal Negative [facility] Comment on above: Order Comment: Speci men Type: URINE SPECIMEN Ordering Facility: [facility] Address: [address] [place] [address] Performed By: #### 2 4356-8 #### [facility] CLIA [id number] [address] [place] [address] [place] pH (U) 6.0 [pH] Normal 5.0-8.0 [facility] Comment on above: Order Comment: Speci men Type: URINE SPECIMEN Ordering Facility: [facility] Address: [address] [place] [address] Performed By: #### 2 4356-8 #### [facility] CLIA [id number] [address] [place] [address] [place] Protein (U) [Mass/Vol] Negative Normal Negative [facility] Comment on above: Order Comment: Speci men Type: URINE SPECIMEN Ordering Facility: [facility] Address: [address] [place] [address] Performed By: #### 2 4356-8 #### [facility] CLIA [id number] [address] [place] [address] [place] RBC LM.HPF (Urine sed) [#/Area] 0-3 /HPF Normal 0-3 /HPF [facility] Comment on above: Order Comment: Speci men Type: URINE SPECIMEN Ordering Facility: [facility] Address: [address] [place] [address] Performed By: #### 2 4356-8 #### [facility] CLIA [id number] [address] [place] [address] Specific gravity (U) [Rel density] 1.015 Normal 1.005-1.030 [facility] Comment on above: Order Comment: Speci men Type: URINE SPECIMEN Ordering Facility: [facility] Address: [address] [place] [address] Performed By: #### 2 4356-8 #### [facility] CLIA [id number] [address] [place] [address] [place] Urobilinogen Ql (U) Negative Normal Negative [facility] Comment on above: Order Comment: Speci men Type: URINE SPECIMEN Ordering Facility: [facility] Address: [address] [place] [address] Performed By: #### 2 4356-8 #### [facility] CLIA [id number] [address] [place] [address] [place] WBC LM.HPF (Urine sed) [#/Area] 0-5 /HPF Normal 0-5 /HPF [facility] Comment on above: Order Comment: Speci men Type: URINE SPECIMEN Ordering Facility: [facility] Address: [address] [place] [address] Performed By: #### 2 4356-8 #### [facility] CLIA [id number] [address] [place] [address] [place] CNOVon 07-21-2024 CNOV Office Visit (DERMBD ) -- FLORIAN PORTILLO ([id number]) 1955 [place] Date Time Provider Department 07/21/24 9:15 AM THI PINO During your visit today, we recorded the following information about you: Melvin VivMARY 07/21/2024 9:[address] Pino's Favorite Daily Sunscreens For Dry skin - Olay sensitive mineral SPF sunscreen SPF 30 Vanicream Broad Spectrum SPF 50+ (mineral)- Best for sensitive skin. Makeup may not set well when applying over this product. [place] Posay Toleriane Double Repair Face Moisturizer UV (chemical) solarsciences tinted mineral (mineral)- we have [facility] at [facility] Vanicream face moisturizer with mineral sunscreen SPF 30 CeraVe Hydrating mineral sheer tint sunscreen (check that it has tint)- 30 SPF. Has iron oxide tint For Normal/ Oily Glassie Joshua's zinc oxide sunscreen lotion SPF 40 Neutrogena mineral invisible daily defense face liquid (has iron oxide tint) Cetaphil Sheer Mineral Face Sunscreen [place] Niya-Posay Anthelios GUTIÉRREZ Mineral Elta UV Clear Maelove The Sun Protector (SPF 30)- can also work as a primer under makeup For Darker Skintypes - [place] Posay tinted mineral (mineral)- has iron oxide tint - Neutrogena UV tint (comes in 4 tint levels)- Mineral Has iron oxide tint Sunscreens that are a little easier to put on kids Vanicream Broad spectrum SPF 50- See above. Just rubs in very easily and is good for sensitive skin Neutrogena Sheer Zinc Mineral Sunscreen Stick Glassie Joshua's mineral spray (has fragrance, so I do not recommend for anyone with sensitive skin) Olay sensitive mineral SPF sunscreen SPF 30 Scalp Sunscreen - Color Science Allgood on mineral sunscreen SPF 50 Reapplication during the day over makeup - Color Science Allgood on Mineral sunscreen SPF 50 Department of Dermatology SKIN CARE AFTER CRYOSURGERY Post - Operative Instructions The skin's response to cryosurgery (freezing) can be mild to more severe, depending on the depth of the freeze and the location of the area treated. You may have only mild redness and swelling with a little discomfort of significant discoloration and blistering with considerable discomfort. A burning sensation in the skin may last from several minutes to several hours after the procedure. Follow these instructions when caring for an area treated by cryosurgery: MINOR RESPONSE: The area may sting or burn for a short time after treatment. The treated area will be red in color at first then turn brown and flaky as it heals and the upper layer of skin sloughs off. Gently cleanse the area with soap and water. Pat dry and apply a thin film of: Vaseline. Do this at least once a day to prevent infection. MAJOR RESPONSE: Follow instructions as stated for minor response. The area may sting and burn for several hours after treatment. To relieve throbbing and pain, elevate the treatment area. Acetaminophen (Tylenol) may be taken every 3 to 4 hours for discomfort. A blister will form in the area of freezing. It may be filled with clear fluid or blood. This response is not unusual. Do not break the blister unless it becomes uncomfortable. You may prick the blister with a sterile needle or pin to remove the fluid. Leave the skin intact. Cleanse twice a day with soap and water and apply Vaseline to prevent infection and a thick scab from forming. All treated areas usually heal within 3 to 4 weeks. Please call [phone] to speak to one of the nurses if you have any question. For emergencies after 4:30 PM or weekends, please call [phone] and ask for the dermatology surgical fellow regional marketing manager Thi Pino DO 07/21/2024 10:09 AM Signed [facility] Department of Dermatology Chief Complaint: Patient presents with: Full Body Skin Check Date of last visit to [facility] Dermatology: 01-20-2024 Dr.Jon Perez (New to Thi Pino DO) History of Present Illness: Florian Portillo is a 68 year old male Patient is here for: # FBSC PERTINENT PAST DERMATOLOGIC HISTORY: - Personal History of Skin Cancer: Yes - 2020 BCC- Left Nasal Tip- Mohs- Dr.Jon Perez - Personal History of Atypical Moles: No - Personal History of Extensive Sun Exposure/Blistering Sunburns:No - History of tanning bed usage: No - Does patient use sunscreen Yes - Is the patient immunosuppressed: No FAMILY HISTORY: - Family History of Skin Cancer: Yes- Father BCC REVIEW OF SYSTEMS: Patient feels well and denies any recent fevers, chills, or night sweats. PHYSICAL EXAM: - General: well appearing, in no acute distress - Neurology: alert and oriented times three - Psychiatry: appropriate mood/affect Skin: Pierre phototype: II Skin exam performed of Face (including eyes, ears, lips), Scalp/hair, Neck, Chest, Abdomen, Back, Bilateral upper extremities, Hands/nails, Bilateral lower extremities, Feet/toenails, Buttoc (more content not included)... Normal [facility] 03-03-2024 [facility] Telephone (GASTPE) -- FLORIAN PORTILLO ([id number]) 1955 M Date Time Provider Department 03/03/24 [facility], PROVIDER GASTPE During your visit today, we recorded the following information about you: Keara Fraire MA 03/03/2024 12:28 PM Signed Pt called regarding upcoming appt at 1pm and said he is having an issue accessing Zoom through [employer]. It sounds like possibly his internet is not working / is being very slow. He said he was on his ipad but has zoom on his phone, I told him to try accessing it through his phone, he said he would try and call back. Keara Fraire MA Allergies As of Date: 03/03/2024 Noted Allergy Reaction GABAPENTIN 03/03/2019 1 - Mental Status Change Comments: Foggy, dizzyness RAGWEED 01/02/2018 5 - Intolerance Date Reviewed: 02/27/2024 Reviewed by: Marialuisa Kang MA - Fully Assessed Reason for Visit: Appointment [[id number]] Prescriptions as of 03/03/2024 - clindamycin (CLEOCIN) 1 % external solution Apply to affected areas on neck when needed after shaving - ketoconazole (NIZORAL) 2 % shampoo Use as directed on affected areas of scalp and face 2-3x/week. - ketoconazole (NIZORAL) 2 % cream Apply generous layer to clean, dry skin 1-2 times daily. - iv contrast (will be provided with radiology test) MRI Brain Inject, intravenously, once for 1 dose.No IV access, insert saline lock prior to beginning of sedation, infusion, injection of imaging exam.Discontinue saline lock post exam. If Pt. has a central line or IVAD, may access for administration according to line specific nursing protocol.Once exam is complete flush line and de-access according to line specific nursing protocol in the MR contrast administration guidelines link - fluticasone (FLONASE ALLERGY RELIEF) 50 mcg/actuation nasal spray Use 2 Sprays in each nostril once daily. - CPAP/BIPAP/OTHER New [employer] [id number] ([phone]) Please start with nasal or nasal pillow mask . Meds Comments as of 05/26/2018: 05/26/18 The medications are managed by this patient by: PATIENT LUANN CLINTON, COA Problem List As Of Date 03/03/2024 Noted Resolved Subjective tinnitus [H93.19] 09/16/2016 Psychophysiologic insomnia [F51.04] 09/16/2016 Chronic insomnia [F51.04] 06/12/2017 Anxiety disorder [F41.9] 05/19/2018 GERD (gastroesophageal reflux disease) [K21.9] HTN (hypertension) [I10] Insomnia [G47.00] Environmental and seasonal allergies [J30.89] Asthma [J45.909] Basal cell carcinoma [C44.91] 03/24/2014 Prostatitis [N41.9] 03/24/2003 Generalized anxiety disorder [F41.1] 04/05/2018 Obsessive thinking [F42.8] 04/05/2018 Abnormal stress test [R94.39] 05/05/2018 Mixed hyperlipidemia [E78.2] 05/05/2018 Sensorineural hearing loss (SNHL) of both ears *06/05/2018 Tinnitus of right ear [H93.11] 06/05/2018 Gluteal pain [M79.18] 06/09/2018 Elevated PSA [R97.20] Varicose veins of both lower extremities [I83.9* Spondylolisthesis of lumbar region [M43.16] 07/28/2018 Spinal stenosis, lumbar region without neurogen*07/28/2018 Foraminal stenosis of lumbar region [M48.061] 07/28/2018 Bilateral lumbar radiculopathy [M54.16] 07/28/2018 Lumbar spondylosis [M47.816] 07/28/2018 Sacroiliitis (HCC) [M46.1] 11/25/2018 Piriformis syndrome [G57.00] 11/25/2018 Situational stress [F43.9] 12/02/2019 History of basal cell carcinoma [Z85.828] 09/06/2020 Nasal mass [J34.89] 01/31/2023 Encounter Status:Closed by EKARA FRAIRE on 03/03/24 [facility] Stu 03-02-2024 CNPN Telephone (UROLIN) -- FLORIAN PORTILLO ([id number]) 1955 M Date Time Provider Department 03/02/24 FELIPE GALLO During your visit today, we recorded the following information about you: Gladis Iglesias 03/02/2024 1:22 PM Signed Patient walked in and need his lab test results from 02/27/2024 Patient is having issues with mychart and need to know the results before leaving town Please contact patient at [phone] Maia Arias RN 03/03/2024 1:16 PM Signed Called and spoke to patient. Patient was inquiring about his lab results. Could not see due to mychart. Read message from dr Gallo indicating patient PSA was stable and that patient was okay to not pursue further at this time. Recommend follow up in one year per office visit note. Patient notified. No further questions verbalized understanding Maia Arias RN Allergies As of Date: 03/02/2024 Noted Allergy Reaction GABAPENTIN 03/03/2019 1 - Mental Status Change Comments: Foggy, dizzyness RAGWEED 01/02/2018 5 - Intolerance Date Reviewed: 02/27/2024 Reviewed by: Marialuisa Kang MA - Fully Assessed Reason for Visit: Results, Lab [1201] Prescriptions as of 03/03/2024 - omeprazole (PRILOSEC) 40 mg capsule Take 1 capsule by mouth once daily. - clindamycin (CLEOCIN) 1 % external solution Apply to affected areas on neck when needed after shaving - ketoconazole (NIZORAL) 2 % shampoo Use as directed on affected areas of scalp and face 2-3x/week. - ketoconazole (NIZORAL) 2 % cream Apply generous layer to clean, dry skin 1-2 times daily. Meds Comments as of 05/26/2018: 05/26/18 The medications are managed by this patient by: PATIENT LUANN JONNYJAIRO, COA Problem List As Of Date 03/02/2024 Noted Resolved Subjective tinnitus [H93.19] 09/16/2016 Psychophysiologic insomnia [F51.04] 09/16/2016 Chronic insomnia [F51.04] 06/12/2017 Anxiety disorder [F41.9] 05/19/2018 GERD (gastroesophageal reflux disease) [K21.9] HTN (hypertension) [I10] Insomnia [G47.00] Environmental and seasonal allergies [J30.89] Asthma [J45.909] Basal cell carcinoma [C44.91] 03/24/2014 Prostatitis [N41.9] 03/24/2003 Generalized anxiety disorder [F41.1] 04/05/2018 Obsessive thinking [F42.8] 04/05/2018 Abnormal stress test [R94.39] 05/05/2018 Mixed hyperlipidemia [E78.2] 05/05/2018 Sensorineural hearing loss (SNHL) of both ears *06/05/2018 Tinnitus of right ear [H93.11] 06/05/2018 Gluteal pain [M79.18] 06/09/2018 Elevated PSA [R97.20] Varicose veins of both lower extremities [I83.9* Spondylolisthesis of lumbar region [M43.16] 07/28/2018 Spinal stenosis, lumbar region without neurogen*07/28/2018 Foraminal stenosis of lumbar region [M48.061] 07/28/2018 Bilateral lumbar radiculopathy [M54.16] 07/28/2018 Lumbar spondylosis [M47.816] 07/28/2018 Sacroiliitis (HCC) [M46.1] 11/25/2018 Piriformis syndrome [G57.00] 11/25/2018 Situational stress [F43.9] 12/02/2019 History of basal cell carcinoma [Z85.828] 09/06/2020 Nasal mass [J34.89] 01/31/2023 Encounter Status:Closed by MAIA ARIAS on 03/03/24 Normal [facility] Stu 03-01-2024 CNPN Telephone (GASTPE) -- FLORIAN PORTILLO ([id number]) 1955 M Date Time Provider Department 03/01/24 [facility], PROVIDER GASTPE During your visit today, we recorded the following information about you: Keara Fraire MA 03/01/2024 9:11 AM Signed Pt called to schedule OV due to ulcer. Scheduled with BS on 03/[address] [facility]. Keara Fraire MA Allergies As of Date: 03/01/2024 Noted Allergy Reaction GABAPENTIN 03/03/2019 1 - Mental Status Change Comments: Foggy, dizzyness RAGWEED 01/02/2018 5 - Intolerance Date Reviewed: 02/27/2024 Reviewed by: Marialuisa Kang MA - Fully Assessed Reason for Visit: Appointment [186] Prescriptions as of 03/01/2024 - clindamycin (CLEOCIN) 1 % external solution Apply to affected areas on neck when needed after shaving - ketoconazole (NIZORAL) 2 % shampoo Use as directed on affected areas of scalp and face 2-3x/week. - ketoconazole (NIZORAL) 2 % cream Apply generous layer to clean, dry skin 1-2 times daily. - iv contrast (will be provided with radiology test) MRI Brain Inject, intravenously, once for 1 dose.No IV access, insert saline lock prior to beginning of sedation, infusion, injection of imaging exam.Discontinue saline lock post exam. If Pt. has a central line or IVAD, may access for administration according to line specific nursing protocol.Once exam is complete flush line and de-access according to line specific nursing protocol in the MR contrast administration guidelines link - fluticasone (FLONASE ALLERGY RELIEF) 50 mcg/actuation nasal spray Use 2 Sprays in each nostril once daily. - CPAP/BIPAP/OTHER New Autopap [id number] [employer] ([phone]) Please start with nasal or nasal pillow mask . Meds Comments as of 05/26/2018: 05/26/18 The medications are managed by this patient by: PATIENT LUANN MARY BETH, COA Problem List As Of Date 03/01/2024 Noted Resolved Subjective tinnitus [H93.19] 09/16/2016 Psychophysiologic insomnia [F51.04] 09/16/2016 Chronic insomnia [F51.04] 06/12/2017 Anxiety disorder [F41.9] 05/19/2018 GERD (gastroesophageal reflux disease) [K21.9] HTN (hypertension) [I10] Insomnia [G47.00] Environmental and seasonal allergies [J30.89] Asthma [J45.909] Basal cell carcinoma [C44.91] 03/24/2014 Prostatitis [N41.9] 03/24/2003 Generalized anxiety disorder [F41.1] 04/05/2018 Obsessive thinking [F42.8] 04/05/2018 Abnormal stress test [R94.39] 05/05/2018 Mixed hyperlipidemia [E78.2] 05/05/2018 Sensorineural hearing loss (SNHL) of both ears *06/05/2018 Tinnitus of right ear [H93.11] 06/05/2018 Gluteal pain [M79.18] 06/09/2018 Elevated PSA [R97.20] Varicose veins of both lower extremities [I83.9* Spondylolisthesis of lumbar region [M43.16] 07/28/2018 Spinal stenosis, lumbar region without neurogen*07/28/2018 Foraminal stenosis of lumbar region [M48.061] 07/28/2018 Bilateral lumbar radiculopathy [M54.16] 07/28/2018 Lumbar spondylosis [M47.816] 07/28/2018 Sacroiliitis (HCC) [M46.1] 11/25/2018 Piriformis syndrome [G57.00] 11/25/2018 Situational stress [F43.9] 12/02/2019 History of basal cell carcinoma [Z85.828] 09/06/2020 Nasal mass [J34.89] 01/31/2023 Encounter Status:Closed by KEARA FRAIRE on 03/01/24 [facility] Stu 02-29-2024 CNPN Telephone (HLPRAD) -- FLORIAN PORTILLO ([id number]) 1955 Date Time Provider Department 02/29/24 KATJA KAHN ENOC During your visit today, we recorded the following information about you: Katja Kahn MD 02/29/2024 4:29 PM Signed 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 Called back left voicemail. Katja Kahn MD (This note may have been partially generated using Palmer Hargreaves voice recognition system and could be subject to dictation errors. If clarification is needed regarding the context or content of this note please contact me). Keara Muhammad 2024 3:01 PM Signed Seen with Charleen Moralez CNP on 04/15/2024. Keara Muhammad Allergies As of Date: 02/29/2024 Noted Allergy Reaction GABAPENTIN 03/03/2019 1 - Mental Status Change Comments: Foggy, dizzyness RAGWEED 01/02/2018 5 - Intolerance Date Reviewed: 02/27/2024 Reviewed by: Marialiusa Kang MA - Fully Assessed Prescriptions as of 2024 - omeprazole (PRILOSEC) 40 mg capsule Take 1 capsule by mouth once daily. - clindamycin (CLEOCIN) 1 % external solution Apply to affected areas on neck when needed after shaving - ketoconazole (NIZORAL) 2 % shampoo Use as directed on affected areas of scalp and face 2-3x/week. - ketoconazole (NIZORAL) 2 % cream Apply generous layer to clean, dry skin 1-2 times daily. Meds Comments as of 05/26/2018: 05/26/18 The medications are managed by this patient by: PATIENT LUANN MARY BETH, COA Problem List As Of Date 02/29/2024 Noted Resolved Subjective tinnitus [H93.19] 09/16/2016 Psychophysiologic insomnia [F51.04] 09/16/2016 Chronic insomnia [F51.04] 06/12/2017 Anxiety disorder [F41.9] 05/19/2018 GERD (gastroesophageal reflux disease) [K21.9] HTN (hypertension) [I10] Insomnia [G47.00] Environmental and seasonal allergies [J30.89] Asthma [J45.909] Basal cell carcinoma [C44.91] 03/24/2014 Prostatitis [N41.9] 03/24/2003 Generalized anxiety disorder [F41.1] 04/05/2018 Obsessive thinking [F42.8] 04/05/2018 Abnormal stress test [R94.39] 05/05/2018 Mixed hyperlipidemia [E78.2] 05/05/2018 Sensorineural hearing loss (SNHL) of both ears *06/05/2018 Tinnitus of right ear [H93.11] 06/05/2018 Gluteal pain [M79.18] 06/09/2018 Elevated PSA [R97.20] Varicose veins of both lower extremities [I83.9* Spondylolisthesis of lumbar region [M43.16] 07/28/2018 Spinal stenosis, lumbar region without neurogen*07/28/2018 Foraminal stenosis of lumbar region [M48.061] 07/28/2018 Bilateral lumbar radiculopathy [M54.16] 07/28/2018 Lumbar spondylosis [M47.816] 07/28/2018 Sacroiliitis (HCC) [M46.1] 11/25/2018 Piriformis syndrome [G57.00] 11/25/2018 Situational stress [F43.9] 12/02/2019 History of basal cell carcinoma [Z85.828] 09/06/2020 Nasal mass [J34.89] 01/31/2023 Encounter Status:Closed by [facility]MAD [facility]UR[facility] -- BANDARFLORIAN ([id number]) 1955 M Date Time Provider Department 02/27/24 9:00 AM FELIPE GALLO During your visit today, we recorded the following information about you: Felipe Gallo MD 02/28/2024 11:48 PM Signed [facility] UROLOGY NEW PATIENT CLINIC NOTE SERVICE DATE: 02/26/2024 SERVICE TIME: 3:44 PM NAME: Florian Portillo ASSESSMENT/PLAN 1. Nocturia - ICD9: 788.43, ICD10: R35.1 (primary diagnosis) 2. Encounter for prostate cancer screening - ICD9: V76.44, ICD10: Z12.5 3. BPH with obstruction/lower urinary tract symptoms - ICD9: 600.01, 599.69, ICD10: N40.1, N13.8 68 year old/male with isolated nocturia. ZULEMA. Hx elevated PSA and remote prostatitis. MRI 2018 with PIRADs3 lesion. -Agree with ZULEMA treatment -Discussed isolated NTF 1x - not concerning - likely due to ZULEMA and age -Check PSA given Hx elevated PSA and PIRADs3 lesion on MRI (never worked up) - stop checking if normal/stable -Reassurance provided re testicular sensitivity - this is not bothersome to him and does not necessarily need intervention until it becomes so -Try scrotal support -Avoid NSAIDs if this flares up given Hx ulcer recently - tylenol ok -RTC 1 year Felipe Gallo MD PhD Time: I spent a total of 30 minutes on the date of the service reviewing patient history and preparing for the visit, gathering a history, performing an examination, ordering and interpreting tests, prescribing medication, counseling the patient, coordinating care, and/or completing appropriate documentation. Subjective CHIEF COMPLAINT I've got sleep apnea real bad HISTORY OF PRESENT ILLNESS Mr. Portillo is a 68 year old male who presents for evaluation for urinary frequency for 6 months. -Hx ZULEMA - unable to use CPAP -Reports difficulty sleeping as a result -Reports NTF 1x per night - this does not wake him up, but rather out of convenience -No daytime urinary issues -No hematuria -Nonsmoker -No recent PSA -Does report testicular sensitivity when exercising - NOT pain, just sensitive PAST MEDICAL HISTORY PAST MEDICAL HISTORY Diagnosis Date Anxiety disorder sertraline discontinued in 2014 Basal cell carcinoma [address] Aleman Environmental and seasonal allergies flonase effective HTN (hypertension) Prostatitis 2003, 2014 Raynaud disease Varicose veins of both lower extremities PAST SURGICAL HISTORY PAST SURGICAL HISTORY Procedure Laterality Date CARDIAC CATH 2003 EGD BIOPSY SING OR MULT 03/07/2023 LASIK Bilateral 2004 SCRN COLONOSCOP 2007, 2018 normal SKIN BIOPSY HX 2015 basal cell, right posterior neck TONSILLECTOMY HX 1963 FAMILY HISTORY FAMILY HISTORY Problem Relation Age of Onset Alcohol/Drug Mother at 73 Hypertension Mother other (Tobacco) Mother other (Hip fracture) Mother Heart Father age 92, arrhythmia (still driving) Kidney Disease Father CRI other ( in fire) Brother at 21 None Other ages 40, 28, 24, 17 None Brother age 63 Diabetes Maternal Grandfather SOCIAL HISTORY Social History Tobacco Use Smoking status: Former Current packs/day: 0.00 Average packs/day: 1 pack/day for 1.5 years (1.5 ttl pk-yrs) Types: Cigarettes Start date: 12/31/1973 Quit date: 07/02/1975 Years since quittin.6 Smokeless tobacco: Never Vaping Use Vaping status: Never Used Substance Use Topics Alcohol use: No Drug use: Never 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 ketoconazole (NIZORAL) 2 % cream Apply generous layer to clean, dry skin 1-2 times daily. clindamycin (CLEOCIN) 1 % external solution Apply to affected areas on neck when needed after shaving iv contrast (will be provided with radiology test) MRI Brain Inject, intravenously, once for 1 dose.No IV access, insert saline lock prior to beginning of sedation, infusion, injection of imaging exam.Discontinue saline lock post exam. If Pt. has a central line or IVAD, may access for administration according to line specific nursing protocol.Once exam is complete flush line and de-access according to line specific nursing protocol in the MR contrast administration guidelines link fluticasone (FLONASE ALLERGY RELIEF) 50 mcg/actuation nasal spray Use 2 Sprays in each nostril once daily. (Patient taking differently: Use 2 Sprays in each nostril as needed (prn).) CPAP/BIPAP/OTHER New Autopap [id number] [facility] [employer] ([phone]) Please start with nasal or nasal pillow mask . (Patient not taking: Reported on 11/13/2023) No current facility-administered medications for this visit. CURRENT ALLERGIES Allergies As of Date: 02/27/2024 (more content not included)... Normal [facility] Stu 02-27-2024 [facility] Tele[facility] (ASHLEY[facility]) -- FLORIAN PORTILLO ([id number]) 1955 M Date Time Provider Department 02/27/24 SHAHZAD PEREZ During your visit today, we recorded the following information about you: Nicole Machuca 02/27/2024 4:40 PM Signed Pt is calling asking if the medication clindamycin (CLEOCIN) 1 % external solution [Pharmacy Med Name: CLINDAMYCIN PH 1% SOLUTION] could be refilled. Please advise Shahzad Perez MD 02/28/2024 2:55 PM Signed The following approved medication requests have been transmitted electronically. Requested Prescriptions Signed Prescriptions Disp Refills clindamycin (CLEOCIN) 1 % external solution 60 mL 3 Sig: Apply to affected areas on neck when needed after shaving Authorizing Provider: SHAHZAD PEREZ MD Allergies As of Date: 02/27/2024 Noted Allergy Reaction GABAPENTIN 03/03/2019 1 - Mental Status Change Comments: Foggy, dizzyness RAGWEED 01/02/2018 5 - Intolerance Date Reviewed: 02/27/2024 Reviewed by: Marialuisa Kang MA - Fully Assessed Reason for Visit: Refill Request [94] Order(s):clindamycin (CLEOCIN) 1 % external solutionApply to affected areas on neck when needed after shavingDisp: 60 mLRfl: 3 Prescriptions as of 02/28/2024 - clindamycin (CLEOCIN) 1 % external solution Apply to affected areas on neck when needed after shaving - ketoconazole (NIZORAL) 2 % shampoo Use as directed on affected areas of scalp and face 2-3x/week. - ketoconazole (NIZORAL) 2 % cream Apply generous layer to clean, dry skin 1-2 times daily. - iv contrast (will be provided with radiology test) MRI Brain Inject, intravenously, once for 1 dose.No IV access, insert saline lock prior to beginning of sedation, infusion, injection of imaging exam.Discontinue saline lock post exam. If Pt. has a central line or IVAD, may access for administration according to line specific nursing protocol.Once exam is complete flush line and de-access according to line specific nursing protocol in the MR contrast administration guidelines link - fluticasone (FLONASE ALLERGY RELIEF) 50 mcg/actuation nasal spray Use 2 Sprays in each nostril once daily. - CPAP/BIPAP/OTHER New Autopap [id number] [facility] [employer] ([phone]) Please start with nasal or nasal pillow mask . Meds Comments as of 05/26/2018: 05/26/18 The medications are managed by this patient by: PATIENT LUANN CLINTON, JAYDON Problem List As Of Date 02/27/2024 Noted Resolved Subjective tinnitus [H93.19] 09/16/2016 Psychophysiologic insomnia [F51.04] 09/16/2016 Chronic insomnia [F51.04] 06/12/2017 Anxiety disorder [F41.9] 05/19/2018 GERD (gastroesophageal reflux disease) [K21.9] HTN (hypertension) [I10] Insomnia [G47.00] Environmental and seasonal allergies [J30.89] Asthma [J45.909] Basal cell carcinoma [C44.91] 03/24/2014 Prostatitis [N41.9] 03/24/2003 Generalized anxiety disorder [F41.1] 04/05/2018 Obsessive thinking [F42.8] 04/05/2018 Abnormal stress test [R94.39] 05/05/2018 Mixed hyperlipidemia [E78.2] 05/05/2018 Sensorineural hearing loss (SNHL) of both ears *06/05/2018 Tinnitus of right ear [H93.11] 06/05/2018 Gluteal pain [M79.18] 06/09/2018 Elevated PSA [R97.20] Varicose veins of both lower extremities [I83.9* Spondylolisthesis of lumbar region [M43.16] 07/28/2018 Spinal stenosis, lumbar region without neurogen*07/28/2018 Foraminal stenosis of lumbar region [M48.061] 07/28/2018 Bilateral lumbar radiculopathy [M54.16] 07/28/2018 Lumbar spondylosis [M47.816] 07/28/2018 Sacroiliitis (HCC) [M46.1] 11/25/2018 Piriformis syndrome [G57.00] 11/25/2018 Situational stress [F43.9] 12/02/2019 History of basal cell carcinoma [Z85.828] 09/06/2020 Nasal mass [J34.89] 01/31/2023 Prescriptions ordered this encounter Disp Refills Start End CLINDAMYCIN PHOSPHATE 1 % TOPICAL SO* 60 mL 3 02/28/2024 Sig: Apply to affected areas on neck when needed after shaving Medications Discontinued During This Encounter Prescriptions - clindamycin (CLEOCIN) 1 % external solution (Discontinued) Apply to affected areas on neck when needed after shaving Encounter Status:Closed by SHAHZAD PEREZ on 02/28/24 Normal [facility] PROSTATE-SPECIFIC ANTIGEN DI AGNOSTICon 02-27-2024 Prostate specific Ag [Mass/Vol] 6.63 ng/mL High NINF - 2.60 ng/mL [facility] Comment on above: Total PSA test metho dology used is the Electrochemiluminescence Immunoassay by [employer]. Total PSA values by differing methodologies cannot be interchanged. For an individual patient, the significance of a PSA level should be interpreted in a broad clinical context, including age, race, family history, digital rectal exam, prostate size, results of prior testing (prostate biopsy, free PSA, PCA3), and use of 5-alpha reductase inhibitors. Considering the high incidence of asymptomatic cancer in the general population that may not pose an ultimate risk to a patient, the decision to recommend urological evaluation or prostate biopsy should be individualized after consideration of all these factors. REFERENCE: Robin Mancia M.D., M.P.H., Jovi Olson M.D., Ph.D., Casey Marques M.D., Kassy Delacruz, M.P.H., Lauren Garza, Sc.Armando. Effect of Verification Bias on Screening for Prostate Cancer by Measurement of Prostatic Specific Antigen. N Engl J Med 2003,349:335-42. PSA [facility] 02-27-2024 Prostate specific Ag [Mass/Vol] 6.63 ng/mL High <2.60 [facility] Comment on above: Order Comment: Speci men Type: BLOOD SPECIMENOrdering Facility: [facility] Address: [address] [place] [address] Result Comment: Radhaa alexandrea PSA test methodology used is the Electrochemiluminescence Immunoassay by [employer]. Total PSA values by differing methodologies cannot be interchanged. For an individual patient, the significance of a PSA level should be interpreted in a broad clinical context, including age, race, family history, digital rectal exam, prostate size, results of prior testing (prostate biopsy, free PSA, PCA3), and use of 5-alpha reductase inhibitors. Considering the high incidence of asymptomatic cancer in the general population that may not pose an ultimate risk to a patient, the decision to recommend urological evaluation or prostate biopsy should be individualized after consideration of all these factors. REFERENCE: Robin Mancia M.D., M.P.H., Jovi Olson M.D., Ph.D., Casey Marques M.D., Kassy Delacruz, M.P.H., Lauren Garza Sc.D. Effect of Verification Bias on Screening for Prostate Cancer by Measurement of Prostatic Specific Antigen. N Engl J Med 2003,349:335-42. Performed By: #### 2 857-1 ####[facility] LABCLIA [id number] [place] [address] [place] Prostate specific Ag [Mass/V ol]on 02-27-2024 Interpretation and review of laboratory results Abnormal [facility] UA DIP, URINE (POC)on 2023 BILIRUBIN UA (POCT) Negative Negative Ismael [facility] CLARITY UA (POCT) Clear [facility] COLOR UA (POCT) Yellow [facility] GLUCOSE UA (POCT) Negative Negative mg/dL [facility] Hemoglobin Ql (U) Negative Negative [facility] KETONE UA (POCT) Negative Negative mg/dL [facility] LEUKOCYTES UA (POCT) Negative [facility] NITRITE UA (POCT) Negative Negative [facility] PH UA (POCT) 7.5 4.5 - 8.0 [facility] Protein Ql (U) Negative Negative mg/dL [facility] SPECIFIC GRAVITY UA (POCT) 1.015 1.005 - 1.030 [facility] UROBILINOGEN UA (POCT) 0.2 Lisa l E.U./dL [facility] Location:[address], [place], [place], [address] [place] [address] POINT OF CARE [facility] 12 Lead EKGon 02-25-2024 12 Lead EKG [facility] Services [address] [place] [address] 12 Lead EKG 02/25/24 1323 MR#: [id number] Acct: [id number] Name: FLORIAN PORTILLO Rep #: [id number] : 1955 68 From: Jarvis Valdovinos MD Attending Dr: Status: DEP ER Ordering Dr: Iker Brink DO Date: 02/25/24 Location: ED Sex: M C Admitted: Test Reason : GEN ILLNESS Blood Pressure : */* mmHG Vent. Rate : 80 BPM Atrial Rate : 80 BPM P-R Int : 156 ms QRS Dur : 84 ms QT Int : 384 ms P-R-T Axes : 61 56 38 degrees QTcB Int : 442 ms Normal sinus rhythm Nonspecific ST abnormality Abnormal ECG Confirmed by Jarvis Valdovinos ([id number]), marketing editor LINA FLORES ([id number]) on 02/26/2024 1:06:41 PM Referred By: Confirmed By: Jarvis aVldovinos 02/26/24 1306 Date Jarvis Valdovinos MD CC: Dr. Iker Brink, DO; No Primary Care Physician Signed Normal [facility] Basic Metabolic Profile (BMP )on 02-25-2024 BUN/CRE 31.6 RATIO High 10-20 [facility] Comment on above: Performed By: #### L 100.0100, L500.2500 #### [facility] Laboratory [address] [place], [address] CA,Total 9.5 mg/dL Normal 8.5-10.1 [facility] Comment on above: Performed By: #### L 100.0100, L500.2500 #### [facility] [address] [place], [address] Chloride [Moles/Vol] 104 mmol/L Normal 98-107 [facility] Comment on above: Performed By: #### L 100.0100, L500.2500 #### [facility] [address] [place], [address] CO2 [Moles/Vol] 29.0 mmol/L Normal 21.0-32.0 [facility] Comment on above: Performed By: #### L 100.0100, L500.2500 #### [facility] [address] [place], [address] Creatinine [Mass/Vol] 0.82 mg/dL Normal 0.70-1.30 [facility] Comment on above: Result Comment: The validity of the calculated GFR GFRAA in patients over 70 years has not been determined. Clinical correlation is essential. Performed By: #### L 100.0100, L500.2500 #### [facility] [address] [place], [address] ECRCL 89.28 ml/min Normal [facility] Comment on above: Performed By: #### L 100.0100, L500.2500 #### [facility] [address] [place], [address] EST GFR - AA 119 mL/min Normal >60 [facility] Comment on above: Result Comment: Afri can [place] GFR Calc Performed By: #### L 100.0100, L500.2500 #### [facility] [address] [place], [address] GAP 5 Normal 5-15 [facility] Comment on above: Performed By: #### L 100.0100, L500.2500 #### [facility] [address] [place], [address] GFR/1.73 sq M.predicted among non-blacks MDRD (S/P/Bld) [Vol rate/Area] 98 mL/min/{1.73_m2} Normal >60 [facility] Comment on above: Result Comment: Non- GFR Calc Performed By: #### L 100.0100, L500.2500 #### [facility] [address] [place], [address] Glucose [Mass/Vol] 110 mg/dL High 74-106 [facility] Comment on above: Result Comment: Fast ing Glucose result from 100 to 125 mg/dL suggests IMPAIRED HOMEOSTASIS per A.D.A. criteria. Performed By: #### L 100.0100, L500.2500 #### [facility] [address] [place], [address] Potassium [Moles/Vol] 3.6 mmol/L Normal 3.5-5.1 [facility] Comment on above: Performed By: #### L 100.0100, L500.2500 #### [facility] [address] [place], [address] Sodium [Moles/Vol] 139 mmol/L Normal 136-145 [facility] Comment on above: Performed By: #### L 100.0100, L500.2500 #### [facility] [address] [place], [address] Urea nitrogen [Mass/Vol] 26 mg/dL High 7-18 [facility] Comment on above: Performed By: #### L 100.0100, L500.2500 #### [facility] [address] [place], [address] CBC W/Diff, Automatedon 12-0 4-2023 Absolute Lymph 1.77 X10 3/uL Normal 0.83-4.51 [facility] Comment on above: Performed By: #### L 100.0100, L500.2500 #### [facility] [address] [place], [address] Absolute Neut 4.9 X10 3/uL Normal 2.0-7.7 [facility] Comment on above: Performed By: #### L 100.0100, L500.2500 #### [facility] [address] [place], [address] Basophils/100 WBC (Bld) 0.7 % Normal 0-1 [facility] Comment on above: Performed By: #### L 100.0100, L500.2500 #### [facility] [address] [place], [address] Eosinophils/100 WBC (Bld) 2.2 % Normal 0-5 [facility] Comment on above: Performed By: #### L 100.0100, L500.2500 #### [facility] [address] [place], [address] Erythrocyte distribution width (RBC) [Ratio] 13.8 % Normal 11.6-14.6 [facility] Comment on above: Performed By: #### L 100.0100, L500.2500 #### [facility] [address] [place], [address] Hematocrit (Bld) [Volume fraction] 51.5 % Normal 40-54 [facility] Comment on above: Performed By: #### L 100.0100, L500.2500 #### [facility] [address] [place], [address] Hemoglobin (Bld) [Mass/Vol] 17.9 g/dL High 13.0-16.5 [facility] Comment on above: Performed By: #### L 100.0100, L500.2500 #### [facility] [address] [place], [address] IG% 0.500 Normal 0.0-0.9 [facility] Comment on above: Result Comment: IG% - Immature Granulocytes (promyelocytes, myelocytes and metamyelocytes) > 1% indicates that a LEFT SHIFT is Present. Performed By: #### L 100.0100, L500.2500 #### [facility] [address] [place], [address] Lymphocytes/100 WBC (Bld) 23.8 % Normal 19-41 [facility] Comment on above: Performed By: #### L 100.0100, L500.2500 #### [facility] [address] [place], [address] MCH (RBC) [Entitic mass] 33.0 pg High 27.0-32.0 [facility] Comment on above: Performed By: #### L 100.0100, L500.2500 #### [facility] [address] [place], [address] MCHC (RBC) [Mass/Vol] 34.8 g/dL Normal 32-36 [facility] Comment on above: Performed By: #### L 100.0100, L500.2500 #### [facility] [address] [place], [address] MCV (RBC) [Entitic vol] 94.8 fL High 80-94 [facility] Comment on above: Performed By: #### L 100.0100, L500.2500 #### [facility] [address] [place], [address] Monocytes/100 WBC (Bld) 7.4 % Normal 0-10 [facility] Comment on above: Performed By: #### L 100.0100, L500.2500 #### [facility] [address] [place], [address] Neutrophils/100 WBC (Bld) 65.4 % Normal 47-70 [facility] Comment on above: Performed By: #### L 100.0100, L500.2500 #### [facility] [address] [place], [address] Nucleated RBC (Bld) [#/Vol] 0 10*3/uL Normal 0-5 [facility] Comment on above: Performed By: #### L 100.0100, L500.2500 #### [facility] [address] [place], [address] Platelet mean volume (Bld) [Entitic vol] 11.8 fL Normal 6.2-12.0 [facility] Comment on above: Performed By: #### L 100.0100, L500.2500 #### [facility] [address] [place], [address] Platelets (Bld) [#/Vol] 187 10*3/uL Normal 150-450 [facility] Comment on above: Performed By: #### L 100.0100, L500.2500 #### [facility] [address] [place], [address] RBC (Bld) [#/Vol] 5.43 10*6/uL Normal 4.6-6.2 [facility] Comment on above: Performed By: #### L 100.0100, L500.2500 #### [facility] [address] [place], [address] RDW SD 48.3 fl High 35.1-43.9 [facility] Comment on above: Performed By: #### L 100.0100, L500.2500 #### [facility] [address] [place], [address] WBC (Bld) [#/Vol] 7.4 10*3/uL Normal 4.4-11.0 [facility] Comment on above: Performed By: #### L 100.0100, L500.2500 #### [facility] [address] [place], [address] Emergency Department Summary on 02-25-2024 Emergency Department Summary [facility] Medical Records Department [address] [place] [address] Emergency Department Summary 02/25/24 MR#: [id number] Acct: [id number] Name: FLORIAN PORTILLO Rep #: [id number] : 1955 68 From: Iker Collins PCP: Care Physician,No Primary Status:REG ER Location: ED HPI History of Present Illness Chief Complaint: General Illness Narrative Narrative: Patient presents for evaluation well check. States 6 months ago lost his father, he has had retina surgery x 2 along with cataracts. He is planning on visiting his children in [place] for which there is [address] Plans on driving leaving tomorrow. He has been having increasing anxiety thoughts. There is no suicidal homicidal ideations. He states a week ago had a screening stress test out of his choice without symptoms that were negative. States yesterday had tingling around his mouth and he was breathing fast. He states he had plans of driving himself straight to [place] not make any stops. He states he was going to ask a friend if they would go with him. Denies cough symptoms denies recent vomiting diarrhea denies urinary symptoms. Denies chest pains. He states he was seen here a year ago for GI symptoms seen and evaluated felt better with the medicines denies abdominal pain. PFSH PFSH Home Medications ???Medication ???Instructions ???Recorded ???Last Taken ???Type NK 12/10/17 Unknown History pantoprazole 40 mg tablet,delayed 40 mg PO DAILY #30 tabs 02/28/23 Unknown Rx release sucralfate 1 gram tablet (Carafate) 1 g PO TID 1 week #21 tabs 02/28/23 Unknown Rx Allergy/AdvReac Type Severity Reaction Status Date / Time No Known Allergies Allergy Verified 02/25/24 11:49 Social History Smoking Status: Never smoker alcohol intake: never ROS ROS ED Constitutional Constitutional ED: Denies chills, fever(s) or sweats Eyes Eyes: Denies change in vision ENT ENT ED: Denies dysphagia or sore throat Cardiovascular Cardiovascular: Denies chest pain, leg edema, palpitations or racing heartbeat Respiratory/Chest Respiratory/Chest: Denies cough, dyspnea or dyspnea on exertion Gastrointestinal Gastrointestinal: Denies abdominal pain, diarrhea, nausea or vomiting Genitourinary Genitourinary ED: Denies dysuria, hematuria or urinary frequency Musculoskeletal Musculoskeletal: Denies back pain, extremity pain or neck pain Integumentary Denies rash or wounds Neurologic Neurologic: Denies headache(s), paresthesias or weakness Psychiatric Psychiatric: Reports anxiety; Denies suicidal ideation or suicidal thoughts EXAM Physical Exam Const Vital Signs: 02/25/24 11:49 02/25/24 12:53 02/25/24 14:39 Temperature 97.5 F L Temperature Source Temporal Pulse Rate 92 76 Respiratory Rate 15 15 Respiratory Effort Normal Non-Labored Respiratory Pattern Normal Blood Pressure 169/89 H 135/81 H Blood Pressure Mean 115 99 Pulse Ox 97 96 Oxygen Delivery Method Room Air Room Air Positive well nourished and well developed General Appearance ED: well developed and NAD HEENT Reports moist mucous membranes normocephalic and atraumatic Eyes EOMs intact bilaterally and conjunctivae normal General Eye ED: Yes normal appearance of both eyes Neck no lymphadenopathy and supple General: Negative for tenderness Chest Wall Chest: Negative for tenderness Resp normal respiratory effort and normal air movement Effort and Inspection: symmetric chest movement; Negative for respiratory distress Cardio regular rate, regular rhythm and no murmurs Peripheral Pulses: pulses 2+ throughout GI normal to inspection, nondistended, normoactive bowel sounds and non-tender Palpation: Negative for guarding or rebound tenderness present Back/Spine no CVA tenderness and no thoracic nor lumbar tenderness Extremity normal to inspection General Extremety ED: Negative for edema or tenderness General Extremity: Negative for edema Neuro oriented x3 and no sensory deficits noted Sensorium / Orientation: awake and alert Psych Psych Narrative: No suicidal homicidal ideations. Cooperative, answering questions appropriately. Skin no rashes or lesions noted and no wounds MDM MDM MDM Narrative Medical decision making narrative: Interventions / MDM: Differential diagnosis: Will check, anxiety Diagnosis considered but do not suspect: N/A My EKG interpretation: Sinus rate of 80, no ST or T wave changes. Imaging independently reviewed and interpreted by myself: N/A External documents reviewed: N/A Test considered but not ordered:N/A ED course: Presenting for a well check increased anxiety. He does not have any suicidal homicidal ideations. He lost his father 6 months ago, recent surge (more content not included)... Normal [facility] Urinalysis, Completeon 02-24 BACTERIA 0 SEEN Normal None Seen [facility] Comment on above: Order Comment: CLEAN CATCH Performed By: #### L 400.0001 #### [facility] [address] [place], [address] EPI,SQUAMOUS 0 SEEN Normal 0-5 [facility] Comment on above: Order Comment: CLEAN CATCH Performed By: #### L 400.0001 #### [facility] [address] [place], [address] Mucus Ql (Urine sed) 0 SEEN Normal [facility] Comment on above: Order Comment: CLEAN CATCH Performed By: #### L 400.0001 #### [facility] [address] [place], [address] RBC 0 SEEN Normal 0-5 [facility] Comment on above: Order Comment: CLEAN CATCH Performed By: #### L 400.0001 #### [facility] [address] [place], [address] WBC 0 SEEN Normal 0-5 [facility] Comment on above: Order Comment: CLEAN CATCH Performed By: #### L 400.0001 #### [facility] [address] [place], [address] [facility] Ventricular Rate : 76 BPM Atrial Rate : 76 BPM P-R Interval : 184 ms QRS Duration : 86 ms Q-T Interval : 384 ms QTC Calculation(Bazett) : 432 ms Calculated P [place] : 54 degrees Calculated R [place] : 3 degrees Calculated T [place] : 7 degrees SINUS RHYTHM WITH PREMATURE ATRIAL COMPLEXES IN A PATTERN OF BIGEMINY NONSPECIFIC ST ABNORMALITY ABNORMAL ECG Confirmed by IRIS PAYNE MD ([id number]) on 04/06/2024 8:30:34 AM NAME : FLORIAN PORTILLO PID : [id number] : 1955 Gender : Male Race : ORD : [id number] Procedure Date : Feb 18 2024 11:32:02 Edit Date : Apr 06 2024 08:30:40 Diagnosis: SINUS RHYTHM WITH PREMATURE ATRIAL COMPLEXES IN A PATTERN OF BIGEMINY NONSPECIFIC ST ABNORMALITY ABNORMAL ECG Confirmed by IRIS PAYNE MD ([id number]) on 04/06/2024 8:30:34 AM Test Reason : pt gets dizzy when laying flat, slightly sitting up above 45degr Location : 314 : J14 01 Overread By : IRIS PAYNE MD Edited By : IRIS PAYNE MD Referred By : YADY HERRERA Acquired by : CASSIE UMANZOR [facility] EXEC STRESS ECHO (AMBULATORY ONLY)on 02-18-2024 EXEC STRESS ECHO (AMBULATORY ONLY) Stress ECG Report: Stress Echo [facility] J1-5 Date of service: 02/18/2024 12:53:16 PM BUREAU CHIEF Ordering physician: YADY HERRERA presidential support specialist: Idalia Lopez Fellow: Arun Lance MD Interpreting physician: Mendel Verma MD Patient name: MR. FLORIAN PORTILLO Age: 68 years Gender: M History of hypertension and dyslipidemia. Height: 180.30 cm BSA: 2.02 m Weight: 81.50 kg BMI: 25.1 kg/m Indication: Abnormal result of cardiovascular function study Stress ECG Conclusion: Conclusion: Abnormal due to ST depression Stress ECG Summary: The patient's resting heart rate was 86 bpm and blood pressure was 138/82 mmHg. The patient exercised according to the cycle protocol. The estimated end-exercise MET level achieved was 5.9, which is within the 50th to 70th percentile for age and sex. The test was terminated due to general fatigue and the total exercise time was 12 minutes and 9 seconds. No symptoms provoked during stress. The maximum heart rate was 164 bpm, which is 110% of the predicted heart rate for age. This is an adequate heart rate response. Peak blood pressure was 196/80 mmHg. The double product achieved was [id number]. Resting ECG: Normal Sinus Rhythm Exercise Protocol: cycle Cycle work-rate increment: 10 [place]/min Cycle Exercise Table: +------+----+-----+------- ---+---+---+---+----+---+- ---+ Stage RPM VILLALTA Time (min) HR SYS VINCE RPE SOB METS +------+----+-----+------- ---+---+---+---+----+---+- ---+ 1 60.0 20.0 2.0 101 134 76 6.0 0.0 1.0 +------+----+-----+------- ---+---+---+---+----+---+- ---+ 2 60.0 40.0 4.0 110 158 80 7.0 1.0 1.9 +------+----+-----+------- ---+---+---+---+----+---+- ---+ 3 60.0 60.0 6.0 127 170 82 9.0 2.0 2.9 +------+----+-----+------- ---+---+---+---+----+---+- ---+ 4 60.0 80.0 8.0 137 182 82 11.0 2.0 3.9 +------+----+-----+------- ---+---+---+---+----+---+- ---+ 5 60.0 100.0 10.0 151 188 86 13.0 4.0 4.8 +------+----+-----+------- ---+---+---+---+----+---+- ---+ 6 60.0 120.0 12.0 164 196 80 15.0 5.0 5.8 +------+----+-----+------- ---+---+---+---+----+---+- ---+ +-----+----+-----+-------- --+---+---+---+----+---+-- --+ RPM VILLALTA Time (min) HR SYS VINCE RPE SOB METS +-----+----+-----+-------- --+---+---+---+----+---+-- --+ Final 60.0 140.0 12.15 164 196 80 18.0 6.0 5.9 +-----+----+-----+-------- --+---+---+---+----+---+-- --+ +------+ ---+ + Stage ST: Lead, [place], MM Arrhythmias +------+ ---+ + 2 Rare PVC (<3/min) +---+---------+---+ INF [place] 0.5 +---+---------+---+ +------+ ---+ + 3 Occas PVC (3-7/min) and Rare V.Couplet +---+---------+---+ INF [place] 0.5 +---+---------+---+ V5 [place] 0.5 +---+---------+---+ V6 [place] 0.5 +---+---------+---+ +------+ ---+ + 4 +---+---------+---+ INF [place] 0.5 +---+---------+---+ V5 [place] 0.5 +---+---------+---+ V6 [place] 0.5 +---+---------+---+ ANT [place] 0.5 +---+---------+---+ +------+ ---+ + 5 +---+---------+---+ INF [place] 0.5 +---+---------+---+ V5 [place] 0.5 +---+---------+---+ V6 [place] 0.5 +---+---------+---+ ANT [place] 0.5 +---+---------+---+ +------+ ---+ + 6 Rare PVC (<3/min) +---+ +---+ INF [place]sloping 1.0 +---+ +---+ V5 [place]sloping 1.0 +---+ +---+ V6 [place]sloping 1.0 +---+ +---+ ANT [place]sloping 1.0 +---+ +---+ +------+ ---+ + +-----+ --+ ST: Lead, [place], MM +-----+ --+ Final +---+ +-- -+ INF [place]sloping 1.0 +---+ +---+ V5 [place]sloping 1.0 +---+ +---+ V6 [place]sl[place] 1.0 +---+ +---+ ANT [place] 1.0 +---+ +---+ +-----+ --+ Recovery Table: +------+ +---+--- +---+ Stage Time (min) HR SYS VINCE +------+ +---+--- +---+ 1 1.0 142 +------+ +---+--- +---+ 2 2.0 122 +------+ +---+--- +---+ 3 3.0 111 +------+ +---+--- +---+ 4 5.0 107 118 72 +------+ +---+--- +---+ 5 7.0 104 +------+ +---+--- +---+ +----- (more content not included)... Normal [facility] CNPNon 02-16-2024 CNPN Telephone (LIZA) -- LULFLORIAN HOLDEN ([id number]) 1955 M Date Time Provider Department 02/16/24 JARVIS STACK During your visit today, we recorded the following information about you: Scarlet Spencer 02/16/2024 8:07 AM Addendum Patient would like lab requests per Dr. Stack sent to the [facility]. Thank you Pt called again looking for these blood work labs to be put in from Dr. Stack. Please call the patient when the orders are placed to save him another trip to the lab without the orders being there. Ph.[phone] Thanks, Remi Salgado 02/18/2024 2:20 PM Signed pt has came to Q-2 About Labs not being in the system. Sent message to Aristeo Santiago MA 02/20/2024 8:29 AM Signed Patient is seen in [facility] by Dr. tSack. Allergies As of Date: 02/16/2024 Noted Allergy Reaction GABAPENTIN 03/03/2019 1 - Mental Status Change Comments: Foggy, dizzyness RAGWEED 01/02/2018 5 - Intolerance Date Reviewed: 02/05/2024 Reviewed by: Joslyn Betancur OCCA - Fully Assessed Reason for Visit: Orders [541] Cmt: Patient is requesting labs to be sent to the [facility] so he can have them drawn. Prescriptions as of 02/24/2024 - ketoconazole (NIZORAL) 2 % shampoo Use as directed on affected areas of scalp and face 2-3x/week. - ketoconazole (NIZORAL) 2 % cream Apply generous layer to clean, dry skin 1-2 times daily. - iv contrast (will be provided with radiology test) MRI Brain Inject, intravenously, once for 1 dose.No IV access, insert saline lock prior to beginning of sedation, infusion, injection of imaging exam.Discontinue saline lock post exam. If Pt. has a central line or IVAD, may access for administration according to line specific nursing protocol.Once exam is complete flush line and de-access according to line specific nursing protocol in the MR contrast administration guidelines link - fluticasone (FLONASE ALLERGY RELIEF) 50 mcg/actuation nasal spray Use 2 Sprays in each nostril once daily. - clindamycin (CLEOCIN) 1 % external solution Apply to affected areas on neck when needed after shaving - CPAP/BIPAP/OTHER New [id number] ([phone]) Please start with nasal or nasal pillow mask . Meds Comments as of 05/26/2018: 05/26/18 The medications are managed by this patient by: PATIENT LUANN MARY BETH, COA Problem List As Of Date 02/16/2024 Noted Resolved Subjective tinnitus [H93.19] 09/16/2016 Psychophysiologic insomnia [F51.04] 09/16/2016 Chronic insomnia [F51.04] 06/12/2017 Anxiety disorder [F41.9] 05/19/2018 GERD (gastroesophageal reflux disease) [K21.9] HTN (hypertension) [I10] Insomnia [G47.00] Environmental and seasonal allergies [J30.89] Asthma [J45.909] Basal cell carcinoma [C44.91] 03/24/2014 Prostatitis [N41.9] 03/24/2003 Generalized anxiety disorder [F41.1] 04/05/2018 Obsessive thinking [F42.8] 04/05/2018 Abnormal stress test [R94.39] 05/05/2018 Mixed hyperlipidemia [E78.2] 05/05/2018 Sensorineural hearing loss (SNHL) of both ears *06/05/2018 Tinnitus of right ear [H93.11] 06/05/2018 Gluteal pain [M79.18] 06/09/2018 Elevated PSA [R97.20] Varicose veins of both lower extremities [I83.9* Spondylolisthesis of lumbar region [M43.16] 07/28/2018 Spinal stenosis, lumbar region without neurogen*07/28/2018 Foraminal stenosis of lumbar region [M48.061] 07/28/2018 Bilateral lumbar radiculopathy [M54.16] 07/28/2018 Lumbar spondylosis [M47.816] 07/28/2018 Sacroiliitis (HCC) [M46.1] 11/25/2018 Piriformis syndrome [G57.00] 11/25/2018 Situational stress [F43.9] 12/02/2019 History of basal cell carcinoma [Z85.828] 09/06/2020 Nasal mass [J34.89] 01/31/2023 Encounter Status:Closed by ARISTEO LOZADA on 02/20/24 [facility] 02-06-2024 CNPN Telephone (DDQ) -- FLORIAN PORTILLO ([id number]) 1955 M Date Time Provider Department 02/06/24 ANNIE CRUZ DDQ During your visit today, we recorded the following information about you: Brandan Sheets 02/06/2024 4:31 PM Signed Pt symptom free x 1 year. Recent cervical strain injury, Steroid or NSAID being prescribed/recommended by ortho (Dr. Griffin not [facility] [phone]) and pt wondering if he should avoid and if so what alternatives he could consider in light of last year's scope and subsequent treatment. Please advise. Annie Cruz MD 02/06/2024 4:59 PM Signed Discussed with patient Avoid nsaids (History of duodenal ulcer) Recommend tylenol/acetaminophen Allergies As of Date: 02/06/2024 Noted Allergy Reaction GABAPENTIN 03/03/2019 1 - Mental Status Change Comments: Foggy, dizzyness RAGWEED 01/02/2018 5 - Intolerance Date Reviewed: 02/05/2024 Reviewed by: Joslyn Betancur OCCA - Fully Assessed Prescriptions as of 04/20/2024 - omeprazole (PRILOSEC) 40 mg capsule Take 1 capsule by mouth once daily. - clindamycin (CLEOCIN) 1 % external solution Apply to affected areas on neck when needed after shaving - ketoconazole (NIZORAL) 2 % shampoo Use as directed on affected areas of scalp and face 2-3x/week. - ketoconazole (NIZORAL) 2 % cream Apply generous layer to clean, dry skin 1-2 times daily. Meds Comments as of 05/26/2018: 05/26/18 The medications are managed by this patient by: PATIENT LUANN MARY BETH, COA Problem List As Of Date 02/06/2024 Noted Resolved Subjective tinnitus [H93.19] 09/16/2016 Psychophysiologic insomnia [F51.04] 09/16/2016 Chronic insomnia [F51.04] 06/12/2017 Anxiety disorder [F41.9] 05/19/2018 GERD (gastroesophageal reflux disease) [K21.9] HTN (hypertension) [I10] Insomnia [G47.00] Environmental and seasonal allergies [J30.89] Asthma [J45.909] Basal cell carcinoma [C44.91] 03/24/2014 Prostatitis [N41.9] 03/24/2003 Generalized anxiety disorder [F41.1] 04/05/2018 Obsessive thinking [F42.8] 04/05/2018 Abnormal stress test [R94.39] 05/05/2018 Mixed hyperlipidemia [E78.2] 05/05/2018 Sensorineural hearing loss (SNHL) of both ears *06/05/2018 Tinnitus of right ear [H93.11] 06/05/2018 Gluteal pain [M79.18] 06/09/2018 Elevated PSA [R97.20] Varicose veins of both lower extremities [I83.9* Spondylolisthesis of lumbar region [M43.16] 07/28/2018 Spinal stenosis, lumbar region without neurogen*07/28/2018 Foraminal stenosis of lumbar region [M48.061] 07/28/2018 Bilateral lumbar radiculopathy [M54.16] 07/28/2018 Lumbar spondylosis [M47.816] 07/28/2018 Sacroiliitis (HCC) [M46.1] 11/25/2018 Piriformis syndrome [G57.00] 11/25/2018 Situational stress [F43.9] 12/02/2019 History of basal cell carcinoma [Z85.828] 09/06/2020 Nasal mass [J34.89] 01/31/2023 Encounter Status:Closed by BRANDAN SHEETS on 04/20/24 [facility] CNPN Telephone (EXEPMN) -- FLORIAN PORTILLO ([id number]) 1955 Date Time Provider Department 02/06/24 YADY HERRERA EXEPMN During your visit today, we recorded the following information about you: Edd Beckett RN 02/06/2024 10:09 AM Signed Previsit call completed. confirmed. Reviewed department guidelines/changes with pt in regard to covid 19-pt verbalized understanding. Additional consults: none Q: sent by email to pt during call *Pt needs scheduled for stress echo and CT calcium score per nursing note from 03/2023. Noted on triage sheet. Edd Beckett RN 02/06/2024 10:53 AM Signed Called to inform pt stress echo was scheduled for 2:30PM on 02/09. Pt very appreciative. Allergies As of Date: 02/06/2024 Noted Allergy Reaction GABAPENTIN 03/03/2019 1 - Mental Status Change Comments: Foggy, dizzyness RAGWEED 01/02/2018 5 - Intolerance Date Reviewed: 02/05/2024 Reviewed by: Joslyn Betancur OCCA - Fully Assessed Reason for Visit: Nurse Triage Call [185] Cmt: [facility] Prescriptions as of 02/06/2024 - ketoconazole (NIZORAL) 2 % shampoo Use as directed on affected areas of scalp and face 2-3x/week. - ketoconazole (NIZORAL) 2 % cream Apply generous layer to clean, dry skin 1-2 times daily. - iv contrast (will be provided with radiology test) MRI Brain Inject, intravenously, once for 1 dose.No IV access, insert saline lock prior to beginning of sedation, infusion, injection of imaging exam.Discontinue saline lock post exam. If Pt. has a central line or IVAD, may access for administration according to line specific nursing protocol.Once exam is complete flush line and de-access according to line specific nursing protocol in the MR contrast administration guidelines link - fluticasone (FLONASE ALLERGY RELIEF) 50 mcg/actuation nasal spray Use 2 Sprays in each nostril once daily. - clindamycin (CLEOCIN) 1 % external solution Apply to affected areas on neck when needed after shaving - CPAP/BIPAP/OTHER New Autopap [id number] [employer] ([phone]) Please start with nasal or nasal pillow mask . Meds Comments as of 05/26/2018: 05/26/18 The medications are managed by this patient by: PATIENT LUANN MARY BETH, COA Problem List As Of Date 02/06/2024 Noted Resolved Subjective tinnitus [H93.19] 09/16/2016 Psychophysiologic insomnia [F51.04] 09/16/2016 Chronic insomnia [F51.04] 06/12/2017 Anxiety disorder [F41.9] 05/19/2018 GERD (gastroesophageal reflux disease) [K21.9] HTN (hypertension) [I10] Insomnia [G47.00] Environmental and seasonal allergies [J30.89] Asthma [J45.909] Basal cell carcinoma [C44.91] 03/24/2014 Prostatitis [N41.9] 03/24/2003 Generalized anxiety disorder [F41.1] 04/05/2018 Obsessive thinking [F42.8] 04/05/2018 Abnormal stress test [R94.39] 05/05/2018 Mixed hyperlipidemia [E78.2] 05/05/2018 Sensorineural hearing loss (SNHL) of both ears *06/05/2018 Tinnitus of right ear [H93.11] 06/05/2018 Gluteal pain [M79.18] 06/09/2018 Elevated PSA [R97.20] Varicose veins of both lower extremities [I83.9* Spondylolisthesis of lumbar region [M43.16] 07/28/2018 Spinal stenosis, lumbar region without neurogen*07/28/2018 Foraminal stenosis of lumbar region [M48.061] 07/28/2018 Bilateral lumbar radiculopathy [M54.16] 07/28/2018 Lumbar spondylosis [M47.816] 07/28/2018 Sacroiliitis (HCC) [M46.1] 11/25/2018 Piriformis syndrome [G57.00] 11/25/2018 Situational stress [F43.9] 12/02/2019 History of basal cell carcinoma [Z85.828] 09/06/2020 Nasal mass [J34.89] 01/31/2023 Encounter Status:Closed by EDD BECKETT on 02/06/24 [facility] CNOVon 02-05-2024 CNOV Office Visit (WELLMQ ) -- FLORIAN PORTILLO ([id number]) 1955 M Date Time Provider Department 02/05/24 1:30 PM JARVIS STACK [facility] During your visit today, we recorded the following information about you: Pulse Blood pressure Weight Height 99/minute 152/73 81.5 kg 1.803 m Jarvis Stack MD 02/05/2024 2:47 PM Signed Pt seen, and assessments reviewed I spent a total of 75 minutes on the date of the service which included 10 min of chart review Pt got here by driving Florian Portillo 68 year old male has relatively recent onset of feeling he Subjective AND CC: wants to be optimal health and worries about losing aspects of memory going forward has purpose of taking care of self 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 loves to exercise and to watch CAVs Social History Tobacco Use Smoking status: Former Current packs/day: 0.00 Average packs/day: 1 pack/day for 1.5 years (1.5 ttl pk-yrs) Types: Cigarettes Start date: 12/31/1973 Quit date: 07/02/1975 Years since quittin.6 Smokeless tobacco: Never Vaping Use Vaping status: Never Used Substance Use Topics Alcohol use: No Drug use: Never 22 yrs with 3 daughters and 1 son (44 first marriage [place], 34 [place] ,30 ,23 [place] 2nd ) children who live in ; no 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 ketoconazole (NIZORAL) 2 % cream Apply generous layer to clean, dry skin 1-2 times daily. iv contrast (will be provided with radiology test) MRI Brain Inject, intravenously, once for 1 dose.No IV access, insert saline lock prior to beginning of sedation, infusion, injection of imaging exam.Discontinue saline lock post exam. If Pt. has a central line or IVAD, may access for administration according to line specific nursing protocol.Once exam is complete flush line and de-access according to line specific nursing protocol in the MR contrast administration guidelines link fluticasone (FLONASE ALLERGY RELIEF) 50 mcg/actuation nasal spray Use 2 Sprays in each nostril once daily. (Patient not taking: Reported on 11/13/2023) clindamycin (CLEOCIN) 1 % external solution Apply to affected areas on neck when needed after shaving CPAP/BIPAP/OTHER New Autopap [id number] [employer] [facility] [employer] ([phone]) Please start with nasal or nasal pillow mask . (Patient not taking: Reported on 11/13/2023) ALLERGIES Allergen Reactions Gabapentin Mental Status Change Foggy, dizzyness Ragweed Intolerance Practitoner referral note: ZULEMA (obstructive sleep apnea) +2 more Dx Sleep Apnea; Referred by Self Reason for Visit Progress Notes Ricci Ariza APRN.LAND SURVEYOR ASSISTANT (Nurse Practitioner) Neurology Expand All Collapse All [facility] Virtual Visit Follow up/ Established patient visit Date of last visit : 10/31/2021 I have communicated my name and active licensure. The patient's identity and physical location were verified at the time of this visit. Either the patient or their legal bilingual inside sales representative has been informed of the risks and benefits of -- and alternatives to -- treatment through a remote evaluation and consents to proceed with the evaluation remotely. IMPRESSION: Zulema (obstructive sleep apnea) (primary encounter diagnosis) Insomnia due to medical condition Frequent nocturnal awakening Florian Portillo is a 66 year old male with a PMH of HTN, HLD, asthma, hearing loss, GERD, spinal stenosis, OCD and anxiety who [facility] U[facility] and insomnia follow up. A Polysomnogram performed on 03/11/2021 revealed UARS with AHI of 0, however of note RDIs in the moderate to severe range (15.6-90). Of note sleep efficiency of 14%. -Mr. Portillo presents today to discuss his sleep study results. He had a lot of difficulty sleeping the night of the study with a sleep efficiency of 14%. He knows sleep continues to cause him problems and would like to get it treated. UARS was diagnosed the night of his previous study. He'd like to avoid in lab as he has a 95 year old parent that he helps caregive for. -Continue to suspect ZULEMA from his symptoms of nocturnal awakenings, severe snoring and un refreshing sleep. Will have HST ordered for multiple days at home as he's worried he will not be able to sleep well the night of the study. Order [facility] sent to [facility] PLAN: - Home Sleep Apnea Test (HST) to evaluate for obstructive sleep apnea. Order sent to [facility] - Discussed with the patient the possible diagnosis, causes, and conditions associated with (more content not included)... Normal [facility] CNOVon 01-20-2024 CNOV Office Visit (DERBMN ) -- FLORIAN PORTILLO ([id number]) 1955 M Date Time Provider Department 01/20/24 8:40 AM SHAHZAD PEREZ During your visit today, we recorded the following information about you: Shahzad Perez MD 02/01/2024 12:32 PM Signed Established Patient DAKOTAH: 07/02/2023 Chief Complaint: FBSC History of Present Ilness: Florian Portillo is a 68 year old male Patient is here for: 1) FBSC with no LOC's. - intermittent scaling bilateral eyebrows -Rash on chin (was prescribed ketoconazole and that helps at times) Pertinent Past Medical History: -Personal History of Skin Cancer: Yes BCC nasal tip 2020 Specialty Problems Dermatology Problems Basal cell carcinoma History of basal cell carcinoma Pertinent Family medical history: History of melanoma No Review of Systems: Constitutional: Denies fever, chills, night sweats, unintentional weight loss. Skin per HPI. No other new/concerning skin growth. Physical Exam: General: well appearing, of stated age, in no acute distress Neurology: alert and oriented times three Psychiatry: in a happy mood Skin: Pierre skin type: II Skin exam performed of face, scalp, ears, eyelids, lips, neck, chest, abdomen, back, bilateral upper extremities, hands, fingers, fingernails, bilateral lower extremities, feet, toes, toenails. Skin exam normal with the exception of: Assessment and Plan: # (L21.9) Seborrheic dermatitis - discussed that condition could possible worsen with weather or stress - Continue ketoconazole 2% shampoo or cream a few times weekly - Continue hydrocortisone 1% cream BID as needed for flares (Z85.828) Hx of nonmelanoma skin cancer (primary encounter diagnosis) Comment: No suspicious lesions noted today - reassured Plan: Discussed signs of melanoma and non-melanoma skin cancer. Educated self skin exam. Discussed importance of sun protection. (L82.1) Seborrheic keratosis Benign nevi Carranza angiomas Comment: Discussed the benign nature of these lesions Plan: Reassurance - no treatment needed Patient verbalizes understanding and agrees with treatment plan and will contact us with any further questions or concerns. Return to clinic 6 or sooner if something concerning arises. The documentation for this note was completed by Patricia Catherine RN acting as scribe for Shahzad Perez MD. January 20, 2024 9:11 AM. I agree with the Chief Complaint, ROS, and Past Histories independently gathered by the clinical direct support worker and the remaining scribed note accurately describes my personal service to the patient. 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 - ketoconazole (NIZORAL) 2 % cream Apply generous layer to clean, dry skin 1-2 times daily. - iv contrast (will be provided with radiology test) MRI Brain Inject, intravenously, once for 1 dose.No IV access, insert saline lock prior to beginning of sedation, infusion, injection of imaging exam.Discontinue saline lock post exam. If Pt. has a central line or IVAD, may access for administration according to line specific nursing protocol.Once exam is complete flush line and de-access according to line specific nursing protocol in the MR contrast administration guidelines link - fluticasone (FLONASE ALLERGY RELIEF) 50 mcg/actuation nasal spray Use 2 Sprays in each nostril once daily. - clindamycin (CLEOCIN) 1 % external solution Apply to affected areas on neck when needed after shaving - CPAP/BIPAP/OTHER New Autopap [id number] [facility] [employer] ([phone]) Please start with nasal or nasal pillow mask . Meds Comments as of 05/26/2018: 05/26/18 The medications are managed by this patient by: PATIENT LUANN CLINTONJAYDON Problem List As Of Date 01/20/2024 Noted Resolved Subjective tinnitus [H93.19] 09/16/2016 Psychophysiologic insomnia [F51.04] 09/16/2016 Chronic insomnia [F51.04] 06/12/2017 Anxiety disorder [F41.9] 05/19/2018 GERD (gastroesophageal reflux disease) [K21.9] HTN (hypertension) [I10] Insomnia [G47.00] (more content not included)... Normal [facility] CNOVon 11-13-2023 CNOV Office Visit (OTOLMN ) -- FLORIAN PORTILLO ([id number]) 1955 M Date Time Provider Department 11/13/23 9:30 AM MARJAN GAR OTOLMN During your visit today, we recorded the following information about you: Marjan Gar MD 11/13/2023 12:30 PM Signed New Otology Patient Visit [facility] AND Neurotology 11/13/2023 Referral Consultation requested by Self found for an opinion regarding {Hearing Loss ,otalgia, and ear fullness . My final recommendations will be communicated back to the requesting physician by way of shared Medical record or letter to requesting physician via US mail. Chief Complaint:New Patient Visit for otalgia, ear fullness, and hearing loss History of Present Illness: Florian Portillo is a 68 year old male who presents with a medical history of ear fullness, otalgia, tinnitus and hearing loss. Was seen by local ENT and was given nasal steroid spray. This did not help. Cerumen was removed. Left worse than right. Patient scheduled to see Dr. Mims on 12/04/23 for tinnitus evaluation. 1 month ago began hearing thumping sound in left ear. He notes this is intermittent, symptom was not present during visit. He wears ear plugs. He denies loudness causing dizziness or hearing his own pulse. He adds that these symptoms are affecting his social life as well as his work.Was seen by ENT and they removed cerumen from the ears. Now he reports that everything is loud, such as his voice and chewing. Was prescribed Flonase, which he used for one week and reports that it seemed to help. He stopped using it due to being unsure if he was supposed to continue. He was diagnosed with hearing loss approximately 10 years ago, but adds that he does not notice a decrease in his ability to hear. Hearing Loss: Audiogram revealed hearing loss approximately 10 years ago Tinnitus: Right ear for 10 years Vertigo/ Dysequilibrium: denies Facial Movement: Intact Facial Sensation: Intact Headache: denies Otalgia: fullness that is more like pressure but not defined pain Otorrhea: denies FH Intracranial Tumors: denies having any Otologic Risk Factors: Noise Exposure: reports barking dogs, playing loud music Ototoxin Exposure: denies Head Trauma: denies Otologic Family History: denies Otitis Media: denies Otologic Surgery: reports PMH: PAST MEDICAL HISTORY No date: Anxiety disorder Comment: sertraline discontinued in 2014 2015: Basal cell carcinoma No date: Elevated PSA Comment: Dr. Aleman No date: Environmental and seasonal allergies Comment: flonase effective No date: HTN (hypertension) 2003, 2015: Prostatitis No date: Raynaud disease No date: Varicose veins of both lower extremities PSH: PAST SURGICAL HISTORY 2004: CARDIAC CATH 03/07/2023: EGD BIOPSY SING OR MULT 2004: LASIK; Bilateral 2007, 2019: SCRN COLONOSCOP Comment: normal 2014: SKIN BIOPSY HX Comment: basal cell, right posterior neck 1963: TONSILLECTOMY HX Meds: Current Outpatient Medications Medication Instructions clindamycin (CLEOCIN) 1 % external solution Apply to affected areas on neck when needed after shaving CPAP/BIPAP/OTHER New Autopap [id number] [facility] [employer] ([phone]) Please start with nasal or nasal pillow mask . fluticasone (FLONASE ALLERGY RELIEF) 50 mcg/actuation nasal spray 2 Sprays, EACH NOSTRIL, DAILY ketoconazole (NIZORAL) 2 % cream Apply generous layer to clean, dry skin 1-2 times daily. Allergies: ALLERGIES Allergen Reactions Gabapentin Mental Status Change Foggy, dizzyness Ragweed Intolerance SH -Smoking: Tobacco Use: Medium Risk (09/19/2023) Patient History Smoking Tobacco Use: Former Smokeless Tobacco Use: Never Passive Exposure: Not on file FH family history includes Alcohol/Drug in his mother; Diabetes in his maternal grandfather; in fire in his brother; Heart in his father; Hip fracture in his mother; Hypertension in his mother; Kidney Disease in his father; None in his brother and another family member; Tobacco in his mother. Review of Systems A review of systems was performed and was negative except as indicated above. Physical Exam There were no vitals taken for this visit. Constitutional: Well appearing, no acute distress, oriented, conversant Ears: Patient?s ears were examined under the microscope given prior complex history of ear symptoms necessitating use. Left Pinna:normal External auditory canal:ear canal exam:impacted by cerumen. Removed under the microscope with curette atraumatically. Tympanic membrane: intact without perforation without retraction Right Pinna:normal External auditory canal: impacted by cerumen. Removed under the microscope with curette atraumatically. Tympanic membrane: intact without perforation without retraction Neuro: Extraocular movements intact V1-V3 (more content not included)... Normal [facility] 11-10-2023 [facility] Tele[facility] (OTOLMN) -- FLORIAN PORTILLO ([id number]) 1955 M Date Time Provider Department 11/10/23 ALANA CONRAD OTOLAZ During your visit today, we recorded the following information about you: Alana Conrad RN 11/10/2023 5:26 PM Signed Spoke with patient who confirmed he will bring his outside audiogram to the 11/13/[address] Gar. Alana Conrad RN Allergies As of Date: 11/10/2023 Noted Allergy Reaction GABAPENTIN 03/03/2019 1 - Mental Status Change Comments: Foggy, dizzyness RAGWEED 01/02/2018 5 - Intolerance Date Reviewed: 09/19/2023 Reviewed by: Ricci Ariza APRN.LAND SURVEYOR ASSISTANT - Fully Assessed Prescriptions as of 11/10/2023 - ketoconazole (NIZORAL) 2 % cream Apply generous layer to clean, dry skin 1-2 times daily. - fluticasone (FLONASE ALLERGY RELIEF) 50 mcg/actuation nasal spray Use 2 Sprays in each nostril once daily. - clindamycin (CLEOCIN) 1 % external solution Apply to affected areas on neck when needed after shaving - CPAP/BIPAP/OTHER New [employer]opap [id number] [employer] ([phone]) Please start with nasal or nasal pillow mask . Facility-Administered Medications as of 11/10/2023 - lidocaine (PF) 10 mg/mL (1 %) 1-2 mg injection (XYLOCAINE) - lactated ringers iv infusion Meds Comments as of 05/26/2018: 05/26/18 The medications are managed by this patient by: PATIENT LUANN MARY BETH, CO[place] Problem List As Of Date 11/10/2023 Noted Resolved Subjective tinnitus [H93.19] 09/16/2016 Psychophysiologic insomnia [F51.04] 09/16/2016 Chronic insomnia [F51.04] 06/12/2017 Anxiety disorder [F41.9] 05/19/2018 GERD (gastroesophageal reflux disease) [K21.9] HTN (hypertension) [I10] Insomnia [G47.00] Environmental and seasonal allergies [J30.89] Asthma [J45.909] Basal cell carcinoma [C44.91] 03/24/2014 Prostatitis [N41.9] 03/24/2003 Generalized anxiety disorder [F41.1] 04/05/2018 Obsessive thinking [F42.8] 04/05/2018 Abnormal stress test [R94.39] 05/05/2018 Mixed hyperlipidemia [E78.2] 05/05/2018 Sensorineural hearing loss (SNHL) of both ears *06/05/2018 Tinnitus of right ear [H93.11] 06/05/2018 Gluteal pain [M79.18] 06/09/2018 Elevated PSA [R97.20] Varicose veins of both lower extremities [I83.9* Spondylolisthesis of lumbar region [M43.16] 07/28/2018 Spinal stenosis, lumbar region without neurogen*07/28/2018 Foraminal stenosis of lumbar region [M48.061] 07/28/2018 Bilateral lumbar radiculopathy [M54.16] 07/28/2018 Lumbar spondylosis [M47.816] 07/28/2018 Sacroiliitis (HCC) [M46.1] 11/25/2018 Piriformis syndrome [G57.00] 11/25/2018 Situational stress [F43.9] 12/02/2019 History of basal cell carcinoma [Z85.828] 09/06/2020 Nasal mass [J34.89] 01/31/2023 Encounter Status:Closed by ALANA CONRAD on 11/10/23 [facility] 10-28-2023 CNPN Telephone (HNQ) -- FLORIAN PORTILLO ([id number]) 1955 M Date Time Provider Department 10/28/23 MARJAN GAR A HNQ During your visit today, we recorded the following information about you: Raisa Jacques 10/28/2023 2:10 PM Signed Spoke with pt and clarified that he needs to be seen for tinnitus, pt had an audiogram done locally and elected to cancel all his audiograms he had scheduled at [facility]. Pt was given email address to email audiogram results, pt understood. Allergies As of Date: 10/28/2023 Noted Allergy Reaction GABAPENTIN 03/03/2019 1 - Mental Status Change Comments: Foggy, dizzyness RAGWEED 01/02/2018 5 - Intolerance Date Reviewed: 09/19/2023 Reviewed by: Ricci Ariza APRN.LAND SURVEYOR ASSISTANT - Fully Assessed Reason for Visit: Appointment [186] Prescriptions as of 10/28/2023 - ketoconazole (NIZORAL) 2 % cream Apply generous layer to clean, dry skin 1-2 times daily. - fluticasone (FLONASE ALLERGY RELIEF) 50 mcg/actuation nasal spray Use 2 Sprays in each nostril once daily. - clindamycin (CLEOCIN) 1 % external solution Apply to affected areas on neck when needed after shaving - CPAP/BIPAP/OTHER New [employer] [id number] [employer] ([phone]) Please start with nasal or nasal pillow mask . Facility-Administered Medications as of 10/28/2023 - lidocaine (PF) 10 mg/mL (1 %) 1-2 mg injection (XYLOCAINE) - lactated ringers iv infusion Meds Comments as of 05/26/2018: 05/26/18 The medications are managed by this patient by: PATIENT LUANN CLINTON, [facility] Problem List As Of Date 10/28/2023 Noted Resolved Subjective tinnitus [H93.19] 09/16/2016 Psychophysiologic insomnia [F51.04] 09/16/2016 Chronic insomnia [F51.04] 06/12/2017 Anxiety disorder [F41.9] 05/19/2018 GERD (gastroesophageal reflux disease) [K21.9] HTN (hypertension) [I10] Insomnia [G47.00] Environmental and seasonal allergies [J30.89] Asthma [J45.909] Basal cell carcinoma [C44.91] 03/24/2014 Prostatitis [N41.9] 03/24/2003 Generalized anxiety disorder [F41.1] 04/05/2018 Obsessive thinking [F42.8] 04/05/2018 Abnormal stress test [R94.39] 05/05/2018 Mixed hyperlipidemia [E78.2] 05/05/2018 Sensorineural hearing loss (SNHL) of both ears *06/05/2018 Tinnitus of right ear [H93.11] 06/05/2018 Gluteal pain [M79.18] 06/09/2018 Elevated PSA [R97.20] Varicose veins of both lower extremities [I83.9* Spondylolisthesis of lumbar region [M43.16] 07/28/2018 Spinal stenosis, lumbar region without neurogen*07/28/2018 Foraminal stenosis of lumbar region [M48.061] 07/28/2018 Bilateral lumbar radiculopathy [M54.16] 07/28/2018 Lumbar spondylosis [M47.816] 07/28/2018 Sacroiliitis (HCC) [M46.1] 11/25/2018 Piriformis syndrome [G57.00] 11/25/2018 Situational stress [F43.9] 12/02/2019 History of basal cell carcinoma [Z85.828] 09/06/2020 Nasal mass [J34.89] 01/31/2023 Encounter Status:Closed by RAISA JACQUES on 10/28/23 [facility] 09-23-2023 CNPN Telephone (EXEPMN) -- FLORIAN PORTILLO ([id number]) 1955 M Date Time Provider Department 09/23/23 YADY HERRERA EXEPMN During your visit today, we recorded the following information about you: Lauren Clay 09/23/2023 9:59 AM Signed Opened in error Allergies As of Date: 09/23/2023 Noted Allergy Reaction GABAPENTIN 03/03/2019 1 - Mental Status Change Comments: Foggy, dizzyness RAGWEED 01/02/2018 5 - Intolerance Date Reviewed: 09/19/2023 Reviewed by: Ricci Ariza APRN.LAND SURVEYOR ASSISTANT - Fully Assessed Prescriptions as of 10/27/2023 - ketoconazole (NIZORAL) 2 % cream Apply generous layer to clean, dry skin 1-2 times daily. - fluticasone (FLONASE ALLERGY RELIEF) 50 mcg/actuation nasal spray Use 2 Sprays in each nostril once daily. - clindamycin (CLEOCIN) 1 % external solution Apply to affected areas on neck when needed after shaving - CPAP/BIPAP/OTHER New Autopap [id number] [facility] [employer] ([phone]) Please start with nasal or nasal pillow mask . Facility-Administered Medications as of 10/27/2023 - lidocaine (PF) 10 mg/mL (1 %) 1-2 mg injection (XYLOCAINE) - lactated ringers iv infusion Meds Comments as of 05/26/2018: 05/26/18 The medications are managed by this patient by: PATIENT LUANN CLINTON, [place] Problem List As Of Date 09/23/2023 Noted Resolved Subjective tinnitus [H93.19] 09/16/2016 Psychophysiologic insomnia [F51.04] 09/16/2016 Chronic insomnia [F51.04] 06/12/2017 Anxiety disorder [F41.9] 05/19/2018 GERD (gastroesophageal reflux disease) [K21.9] HTN (hypertension) [I10] Insomnia [G47.00] Environmental and seasonal allergies [J30.89] Asthma [J45.909] Basal cell carcinoma [C44.91] 03/24/2014 Prostatitis [N41.9] 03/24/2003 Generalized anxiety disorder [F41.1] 04/05/2018 OCD (obsessive compulsive disorder) [F42.9] 04/05/2018 Abnormal stress test [R94.39] 05/05/2018 Mixed hyperlipidemia [E78.2] 05/05/2018 Sensorineural hearing loss (SNHL) of both ears *06/05/2018 Tinnitus of right ear [H93.11] 06/05/2018 Gluteal pain [M79.18] 06/09/2018 Anxiety disorder [F41.9] Elevated PSA [R97.20] Varicose veins of both lower extremities [I83.9* Spondylolisthesis of lumbar region [M43.16] 07/28/2018 Spinal stenosis, lumbar region without neurogen*07/28/2018 Foraminal stenosis of lumbar region [M48.061] 07/28/2018 Bilateral lumbar radiculopathy [M54.16] 07/28/2018 Lumbar spondylosis [M47.816] 07/28/2018 Sacroiliitis (HCC) [M46.1] 11/25/2018 Piriformis syndrome [G57.00] 11/25/2018 Situational stress [F43.9] 12/02/2019 History of basal cell carcinoma [Z85.828] 09/06/2020 Nasal mass [J34.89] 01/31/2023 Encounter Status:Closed by LAUREN CLAY on 10/27/23 Normal [facility] SURGICAL PATHOLOGYOrdered By : Scott Prado on 03-10-2023 Case Report Surgical Pathology R eport Case: [id number] Authorizing Provider: Annie Cruz MD Collected: 03/07/2023 12:49 PM Ordering Location: [facility] Received: 03/07/2023 09:41 PM [place] Pathologist: Scott Prado MD Specimens: A) - STOMACH BIOPSY, cb r/o hpylori B) - ESOPHAGUS BIOPSY, distal cb [facility] Work Phone: FINAL DIAGNOSIS s0eafAVxQKQgqZTsEXAi NFxhbn IyJVCrsIGcQ5BqscbgADljUI0w LJ8bbAupwGThkIDhKYRoMjNtx2 xzr513jSQjv6rkTDTzJwD4bFEj OGQutPJfC103j8zen8ofetUfpV C9tBeuFRCkwqmiPgA5RTuaCHUp swwpUTq7BDxgHNNzlWZ9OYJvhS RjZ3GqVWFmCA2lxnr1PPG0VZmt JVLaGcS1PZJfzFDkTOKotSqtXP whn487YVR7SoBxQJXtuyYjxEft fN6rOeCgFLJYPxARrZ6tSRIdCF AfuH9ry8l0FEytaeLuZNELWTB7 xosjLAFdfZFvbS33nRMcLKAyXX TbrJaqmDscSOB9kPLxxXUxg8Jr XPkscErmvw8yTAfqK34si2KqAc EqNi9bey9smDl9fB0xeUHwUJQh nxYQKmEBhUU1UOrwWXIfcScqI8 LuMMDmgP8bs0r9LQpvkrMiOLXV DGE8poblSDYxppEnv1B9mxQyPq 31aKJlDW40B37sUWS9fIUmRGOt bz9yjXOmjS2vmOLgqRX3cP7bYX DdRGtleRd7WOSxj8SzqM44RIH5 aY9gkVOnZPNeeMyxz7buUL7fEC A6o7ArDNZdYN3pqVNfJBOxzeYG WXjnTWEjGYzwYnNdY6roNVZ2 [facility] Work Phone: Gross Description t5ixyPScXQDwmWBlMRIk NFxhbn OjBUQmpDGtA8VvpsbbTCgfFJ1v MN5vqFwnyUBkwGXpBSIfDgFod5 gvw827oAJaa6arTMEcRfI4gYJy PNAjoKOmN748h1seu2yvlqRhpN D0yYikGLRzstyiNjI8PWvxVLSb ztaoZGm7ARlsMIMdyXQ6VODycU UaI5JaMVPeKQ8ajev6SZG7LEbx ELJiChJ7TXJwfJQfPFRsdCedCT fdg338GNJ6HwCjj6gnLQChaYDr ANJ2XOnqoZBbIOQaPVIeHGxxjX IaQEKqEHFxJEFyQRgiwyC8y2gb KAUnqTFgKDO1WBwnxPUqEJRxKF QmMFnpJjLCVmEdGsK0LJg9MEAu XWXdLJl0XCbdC7GRKLCgWLYvGM R8OeUgWgM5MFs6BMQTBm3xAPL6 MmDgEeihZjLpPSC4EGkkUDs6EB MwNKqwflDqEAakAatzUYlmB06s cGFyZFxwbGFpblxmczIyIEEuIF OGT14LM4trYlqHDAJLWEPstkhe BMIcQBXdEyLaKQQgO5zgJdSaJM LtTQipCXFlBwTbWlTsKEr8HIKq qX3dZu0lhVAwfS5tKDOlHPS4nt OkaHDzKWFok2ZpmIXxAGYst7I9 JPYcb0O3NEFwX2tbTMokaZdwWg D0zfXrWcYsdMFgPgEnpISvFaLh P35sGDZhbWUcuTbvf8VnuIv5qP ZiIUjwQX2yKSBkVOWnTBO6KV3e jJKpMFMtukTgc1AlPXjbaOooJC AiNgL0YUQcjIFiAIW4AY0bzFll NAR2BXlnFDBeT2QvA4KaJQkpTW Z2XUFsYkGtBMLhKI3ECeMqMRL7 GUobGUXbJyH5PUh1PWHJYyTjHp YjBRPjNTbwFRWtYUo3TSq6LIhH OrMmCSm4LpIdSZHkZLX0IOapPK BcXHQgMiBcXHNzIDMgXFxmbCBc KP3fwFofMWGgDNYeQVX6KRQbuF JNz4VuOAUcJnFfAbZILiXUP71T SEFHVVMgQklPUFNZXHBhclxwYX PgSISpQrTfQKXoS3ezTcBjWUTw SOkmVHHaQmNvBfPeBCc9AJWgoS 3mNq9bnRUxjP7dnJJjx12sDCHr JSZxDQ7rVLZtue9iwz77fmcif9 9dcWZ2uZYofFNslKZtc9PecD3o ZYKjZCC6KBMnJoP8OXEoVfLfrT 8xTT23YQzkeECjbJXkgBX0BMBu hA9dt02rJXHzo3ItbVThVdXwsI RaXMFgdtSbgIOkHMxmk7WyHUC8 IU3ypjQ1oB3bUVMnecYbld0nYI ZgmZYIfLT3ZJrlxfYqP7oydcpm CPD4ILGmVYS0I2asSYDGibDcAQ JMmNA4HSlpxvNkBA1KUIT0OAr1 WYWzoqjlZTHub3VdKYcxeKbbQU NhMzAgSlQgMTIvMTYvMjAyMyAz AhGmIAZSl0tdaGysn6LmjQFqAF 09TJJqvGUmJHJ5BE6pcZnfOOS2 [facility] Work Phone: Performing Lab a9utrUKqZYArmWZgZdIe MDAwXG Qvv6fpFCTdwFRtRhGrRmSjFhOf LjwoxNCnQPWbSnVby2xhg093vC Cbo5uvWMBgSrS2tGDaBTHqyZQp M736CUCzUZsun0otd6EuNTPnjJ Qnf3F5UQRQwkqaiZm1zXgtC89x d0B9FqzoG4jmNBIgTXLmG8JcBS 1eTUMtFod0HPI4FVI7USPfMQJp Q8NlYL2aFGZqbOEzRHp2r0kgyT yaZOPcCJC6u6hzUIeekgWrBH4m zk2xwZy3a4jqazLkFEIoPGStpE CCUFMmE1YiiBryXc7xlIb3kQjn OjaaTTK4Lae8OF8lwt15orv1wY agSIAmuyydAdK3GOexGZTquzer NRq3WKngEUDjeKP7SMOcsTKyO1 WtYVTyXV9fhwe7QCD2CUuzPZYf TvT6ONToyUOfTRPjfUkkAUnrs0 81PLE6GfRlRB6sK6Zfm2N6iS1t lACdQRDdgYEsNaLyRKCrzn2akK CiGMkrq2PfHTD9wjF9pNSdrFPy PPWqVL69Oppmw1CcSomqw8KxO2 0doEI9DPejo5pdCM7gNjW6eoOq URnbc0gwkD3tArJ3ERhcSI9yZN 5tXLHvbX2xcwdqJSPqKoUqswbw UKZacAzabaGpPg6zlGkoUHH2RV nkA4tqnD0lEgJ2FFlvH0lyhD8j JFn0JIlguZI0ENSizJ9pDB9oab ocq7csHYqlPRvyIUZrplS5bvC8 SKCumFMbL4VztO7lDIHbML0wdy mio0miZXF3ZQnpJNTsQBU4BuNh NAWhj9Itrvj5OrDov0ZmtUZnDG xlK64cs972AAYcgnNvP4vbuOEl dppqyIRzecmfRAqfavJ6UVCzNX BsYWluXGYxXGZzMjJcbGFuZzEw MzNcaGljaFxmMVxkYmNoXGYxXG lrS4bpUxUmWyAvQcEPiQEaxv5y oYszUDdorHZlwOJkpET1cL9cIO ZrtdErzb5lHTRmuNFArOV7IRlm pkTmP5gghykjHKQlgAO0cJO8XT teq9GrfJSqXNJbAKQhTCKSn6Qr iY4yMWGkJKFIqAP3GLdtpgCaWU 0YFST6GMMtQROfEDWFZGAtUCX9 MUP7YCz9UHuyxYJjUNTqtsqvOB JkXHBsYWluXGYwXGZzMjRccGxh sZ1jMjNtNkUpGahxDL4sDOVzW6 yirCUuIMCxQRZkK3kfXqVzyV4u aFxmMVxjZjJcZnMyMlxsdHJjaC YOIRZaaeR6b1Z5IHmyhYGguxpl MVxmczIyXGxhbmcxMDMzXGhpY2 doDzLpSLZyaNfzBWwmh2PzBALm UOTmIoEaJCmdRCO5p1G0RZ4fkd ouSg1aDIGqCQKlH64pBYINSoUy XHBhcn0= [facility] Work Phone: [facility] Work Phone: EGD Study observation Paola barrera 03-07-2023 [facility] Patient Name: Florian Portillo Procedure Date: 03/07/2023 11:55 AM Date of : 1955 Admit Type: Outpatient Age: 67 Room: [place] [address] Gender: Male Note Status: Finalized Attending MD: Annie Cruz MD, [id number] Procedure: Upper GI endoscopy Indications: Epigastric abdominal distress, Abdominal bloating, Eructation Providers: Annie Cruz MD, Yumiko Mayers RN, Missy Iyer RN Patient Profile: Refer to note in patient chart for documentation of history and physical. Referring Physician: Jovi Gallo Jr (Referring MD) Medicines: Monitored Anesthesia Care Complications: No immediate complications. Requesting Provider: Procedure: Pre-Anesthesia Assessment: - Prior to the procedure, a History and Physical was performed, and patient medications, allergies and sensitivities were reviewed. The patient's tolerance of previous anesthesia was reviewed. - The risks and benefits of the procedure and the sedation options and risks were discussed with the patient. All questions were answered and informed consent was obtained. - Patient identification and proposed procedure were verified prior to the procedure by the physician, the nurse, the fitness specialist and the electrical instrumentation technician. The procedure was verified in the procedure room. - ASA Grade Assessment: II - A patient with mild systemic disease. - After reviewing the risks and benefits, the patient was deemed in satisfactory condition to undergo the procedure in an ambulatory setting. - Monitored anesthesia care was determined to be medically necessary for this procedure based on review of the patient's medical history, medications, and prior anesthesia history. After obtaining informed consent, the endoscope was passed under direct vision. Throughout the procedure, the patient's blood pressure, pulse, and oxygen saturations were monitored continuously. The Endoscope was introduced through the mouth, and advanced to the second part of duodenum. I was present and participated during the entire procedure, including non-shah portions, and during the administration and monitoring of Moderate Sedation. The upper GI endoscopy was accomplished without difficulty. The patient tolerated the procedure well. Moderate Sedation: MAC anesthesia was administered by the anesthesia team. Total Procedure Duration: 0 hours 3 minutes 33 seconds Findings: Localized mucosal changes characterized by velvet appearnce patchy mucosa (two) were found in the upper third of the esophagus. LA Grade A (one or more mucosal breaks less than 5 mm, not extending between tops of 2 mucosal folds) esophagitis was found at the gastroesophageal junction. Biopsies were taken with a cold forceps for histology. Estimated blood loss was minimal. The entire examined stomach was normal. Biopsies were taken with a cold forceps for Helicobacter pylori testing. Estimated blood loss was minimal. One non-bleeding linear duodenal ulcer with no stigmata of bleeding was found in the duodenal bulb. The lesion was 4 mm in largest dimension. The second portion of the duodenum was normal. Impression: - Velvet appearnce patchy mucosa (two) mucosa in the esophagus consistent with esophageal inlet patch (benign). - LA Grade A esophagitis. Biopsied. - Normal stomach. Biopsied. - Non-bleeding duodenal ulcer with no stigmata of bleeding. - Normal second portion of the duodenum. Recommendation: - Discharge patient to home (ambulatory). - Patient has a contact number available for emergencies. The signs and symptoms of potential delayed complications were discussed with the patient. Return to normal acti (more content not included)... [employer] [facility] Radiology Study observation (narrative) [facility] Absolute lymphocyte countOrd ered By: Luke Stout on 03-05-2023 Lymphocytes Auto (Unsp spec) [#/Vol] 1.32 10*3/uL 0.83-4.51 [facility] Basophil percentageOrdered B y: Luke Stout on 03-05-2023 Basophil percentage 0 SEEN /hpf 0-5 [facility] Basophils/100 WBC (Bld) 0.6 % 0-1 [facility] Bilirubin [Mass/Vol] 0.70 mg/dL 0.20-1.00 [facility] Comment on above: For patients on eltr ombopag therapy, use of [employer] TBIL is not recommended. Chloride [Moles/Vol] 104 mmol/L 98-107 [facility] Eosinophils/100 WBC (Bld) 0.8 % 0-5 [facility] Glucose [Mass/Vol] 102 mg/dL 74-106 [facility] Comment on above: Fasting Glucose resu lt from 100 to 125 mg/dL suggests IMPAIRED HOMEOSTASIS per A.D.A. criteria. Neutrophils (Bld) [#/Vol] 4.6 10*3/uL 2.0-7.7 [facility] Neutrophils/100 WBC (Bld) 69.8 % 47-70 [facility] Potassium [Moles/Vol] 3.9 mmol/L 3.5-5.1 [facility] Protein [Mass/Vol] 7.9 g/dL 6.4-8.2 [facility] Sodium [Moles/Vol] 137 mmol/L 136-145 [facility] WBC (Bld) [#/Vol] 6.6 10*3/uL 4.4-11.0 [facility] Bilirubin Test strip Ql (U)O rdered By: Luke Stout on 03-05-2023 Bilirubin Ql (U) Negative Negative [facility] Blood erythrocytes count (nu mber/volume)Ordered By: Luke Stout on 03-05-2023 RBC (Bld) [#/Vol] 5.35 10*6/uL 4.6-6.2 [facility] Blood hemoglobin measurement (mass/volume)Ordered By: Luke Stout on 03-05-2023 Hemoglobin (Bld) [Mass/Vol] 17.5 g/dL 13.0-16.5 [facility] Blood lymphocytes/100 leukoc ytesOrdered By: Luke Stout on 03-05-2023 Lymphocytes/100 WBC (Bld) 20.1 % 19-41 [facility] Blood monocytes/100 leukocyt esOrdered By: Luke Stout on 03-05-2023 Monocytes/100 WBC (Bld) 8.4 % 0-10 [facility] Blood platelet mean volumeOr dered By: Luke Stout on 03-05-2023 Platelet mean volume (Bld) [Entitic vol] 11.9 fL 6.2-12.0 [facility] Determination of erythrocyte mean corpuscular volume (MCV)Ordered By: Luke Stout on 03-05-2023 MCV (RBC) [Entitic vol] 94.8 fL 80-94 [facility] Hematocrit Auto (Bld) [Volum e fraction]Ordered By: Luke Stout on 03-05-2023 Hematocrit (Bld) [Volume fraction] 50.7 % 40-54 [facility] Ketones Test strip Ql (U)Ord ered By: Luke Stout on 03-05-2023 Ketones Ql (U) 15 mg/dl Negative [facility] Laboratory - Chemistry and C hemistry - challengeOrdered By: Luke Stout on 03-05-2023 ALP [Catalytic activity/Vol] 51 U/L 45-117 [facility] ALT [Catalytic activity/Vol] 27 U/L 16-61 [facility] CO2 [Moles/Vol] 29.0 mmol/L 21.0-32.0 [facility] Globulin (S) [Mass/Vol] 3.7 g/dL 2.2-4.2 [facility] Urea nitrogen/Creatinine [Mass ratio] 16.3 mg/mg 10-20 [facility] Laboratory - Hematology and Cell countsOrdered By: Luke Stout on 03-05-2023 Erythrocyte distribution width (RBC) [Entitic vol] 47.8 fL 35.1-43.9 [facility] Erythrocyte distribution width (RBC) [Ratio] 13.8 % 11.6-14.6 [facility] Immature granulocytes/100 WBC (Bld) 0.300 % 0.0-0.9 [facility] Comment on above: IG% - Immature Granu locytes (promyelocytes, myelocytes and metamyelocytes) > 1% indicates that a LEFT SHIFT is Present. MCH (RBC) [Entitic mass] 32.7 pg 27.0-32.0 [facility] Nucleated RBC/100 WBC (Bld) [Ratio] 0 % 0-5 [facility] MCHC Auto (RBC) [Mass/Vol]Or dered By: Luke Stout on 03-05-2023 MCHC (RBC) [Mass/Vol] 34.5 g/dL 32-36 [facility] Mucus LM Ql (Urine sed)Order ed By: Luke Stout on 03-05-2023 Mucus Ql (Urine sed) 0 SEEN /hpf [facility] Nitrite Test strip Ql (U)Ord ered By: Luke Stout on 03-05-2023 Nitrite Ql (U) Negative Negative [facility] No Panel InformationOrdered By: Luke Stout on 03-05-2023 Estimated Creatinine Clearance Calc 80.71 ml/min [facility] Estimated GFR (MDRD) Amer 104 mL/min >60 [facility] Comment on above: GFR Calc Estimated GFR (MDRD) Non-Af Amer 86 mL/min >60 [facility] Comment on above: Non- GFR Calc Troponin I High Sensitivity 42 pg/mL 3.0-78.0 [facility] Comment on above: Please Note: New [employer] t Units and Gender Specific Reference Ranges. For more information see Policy Stat [employer] High Sensitivity Troponin (TNIH) and attachments. Platelets bldOrdered By: Maxi Stout on 03-05-2023 Platelets (Bld) [#/Vol] 187 10*3/uL 150-450 [facility] Protein Test strip Ql (U)Ord ered By: Luke Stout on 03-05-2023 Protein Ql (U) 30 mg/dl Negative [facility] Serum or plasma albumin edu urement (mass/volume)Ordered By: Luke Stout on 03-05-2023 Albumin [Mass/Vol] 4.2 g/dL 3.2-5.0 [facility] Serum or plasma albumin/glob ulin mass ratioOrdered By: Luke Stout on 03-05-2023 Albumin/Globulin [Mass ratio] 1.1 {ratio} 0.9-2.4 [facility] Serum or plasma calcium edu urement (mass/volume)Ordered By: Luke Stout on 03-05-2023 Calcium [Mass/Vol] 9.6 mg/dL 8.5-10.1 [facility] Serum or plasma creatinine m easurement (mass/volume)Ordered By: Luke Stout on 03-05-2023 Creatinine [Mass/Vol] 0.92 mg/dL 0.70-1.30 [facility] Comment on above: The validity of the calculated GFR & GFRAA in patients over 70 years has not been determined. Clinical correlation is essential. Serum or plasma urea nitroge n measurement (mass/volume)Ordered By: Luke Stout on 03-05-2023 Urea nitrogen [Mass/Vol] 15 mg/dL 7-18 [facility] Squamous epithelial cells de tection in urine sediment by light microscopyOrdered By: Luke Stout on 03-05-2023 Epithelial cells.squamous LM Ql (Urine sed) 0-5 SEEN /hpf 0-5 [facility] Thin prep Papanicolaou smear with manual screeningOrdered By: Luke Stout on 03-05-2023 Thin prep Papanicolaou smear with manual screening 17 U/L 15-37 [facility] Thin prep Papanicolaou smear with manual screening 4 5-15 [facility] Urine blood detectionOrdered By: Luke Stout on 03-05-2023 RBC Ql (U) Negative Negative [facility] RBC Ql (U) 0 SEEN /hpf 0-5 [facility] Urine clarityOrdered By: Maxi Stout on 03-05-2023 Clarity (U) Sl. Cloudy Clear [facility] Urine color determinationOrd ered By: Luke Stout on 03-05-2023 Color (U) Yellow Yellow [facility] Urine glucose detectionOrder ed By: Luke Stout on 03-05-2023 Glucose Ql (U) Normal mg/dl Normal [facility] Urine leukocyte esterase det ection by dipstickOrdered By: Luke Stout on 03-05-2023 Leukocyte esterase Test strip Ql (U) 25 /ul Negative [facility] Urine pHOrdered By: Luke vincent on 03-05-2023 pH (U) 6.5 [pH] 5.0 - 8.0 [facility] Urine sediment bacteria coun t by microscopy (number/high power field)Ordered By: Luke Stout on 03-05-2023 Bacteria LM.HPF (Urine sed) [#/Area] 0 /[HPF] None Seen [facility] Urine specific gravity measu rementOrdered By: Luke Stout on 03-05-2023 Specific gravity (U) [Rel density] 1.010 1.002-1.030 [facility] Urobilinogen Auto test strip Ql (U)Ordered By: Luke Stout on 03-05-2023 Urobilinogen Ql (U) Normal mg/dl Normal [facility] Absolute lymphocyte countOrd ered By: Karlo Calderon on 02-28-2023 Lymphocytes Auto (Unsp spec) [#/Vol] 2.08 10*3/uL 0.83-4.51 [facility] Basophil percentageOrdered B y: Karlo Calderon on 02-28-2023 Basophils/100 WBC (Bld) 0.6 % 0-1 [facility] Bilirubin [Mass/Vol] 1.10 mg/dL 0.20-1.00 [facility] Comment on above: For patients on eltr ombopag therapy, use of [employer] TBIL is not recommended. Chloride [Moles/Vol] 105 mmol/L 98-107 [facility] Eosinophils/100 WBC (Bld) 0.7 % 0-5 [facility] Glucose [Mass/Vol] 103 mg/dL 74-106 [facility] Comment on above: Fasting Glucose resu lt from 100 to 125 mg/dL suggests IMPAIRED HOMEOSTASIS per A.D.A. criteria. Neutrophils (Bld) [#/Vol] 5.7 10*3/uL 2.0-7.7 [facility] Neutrophils/100 WBC (Bld) 66.5 % 47-70 [facility] Potassium [Moles/Vol] 3.9 mmol/L 3.5-5.1 [facility] Protein [Mass/Vol] 7.8 g/dL 6.4-8.2 [facility] Sodium [Moles/Vol] 137 mmol/L 136-145 [facility] WBC (Bld) [#/Vol] 8.6 10*3/uL 4.4-11.0 [facility] Blood erythrocytes count (nu mber/volume)Ordered By: Karlo Calderon on 02-28-2023 RBC (Bld) [#/Vol] 5.57 10*6/uL 4.6-6.2 [facility] Blood hemoglobin measurement (mass/volume)Ordered By: Karlo Calderon on 02-28-2023 Hemoglobin (Bld) [Mass/Vol] 17.6 g/dL 13.0-16.5 [facility] Blood lymphocytes/100 leukoc ytesOrdered By: Karlo Calderon on 02-28-2023 Lymphocytes/100 WBC (Bld) 24.1 % 19-41 [facility] Blood monocytes/100 leukocyt esOrdered By: Karlo Calderon on 02-28-2023 Monocytes/100 WBC (Bld) 7.8 % 0-10 [facility] Blood platelet mean volumeOr dered By: Karlo Calderon on 02-28-2023 Platelet mean volume (Bld) [Entitic vol] 11.9 fL 6.2-12.0 [facility] Determination of erythrocyte mean corpuscular volume (MCV)Ordered By: Karlo Calderon on 02-28-2023 MCV (RBC) [Entitic vol] 93.7 fL 80-94 [facility] Hematocrit Auto (Bld) [Volum e fraction]Ordered By: Karlo Calderon on 02-28-2023 Hematocrit (Bld) [Volume fraction] 52.2 % 40-54 [facility] Laboratory - Chemistry and C hemistry - challengeOrdered By: Karlo Calderon on 02-28-2023 ALP [Catalytic activity/Vol] 53 U/L 45-117 [facility] ALT [Catalytic activity/Vol] 33 U/L 16-61 [facility] CO2 [Moles/Vol] 29.0 mmol/L 21.0-32.0 [facility] Globulin (S) [Mass/Vol] 3.6 g/dL 2.2-4.2 [facility] Lipase [Catalytic activity/Vol] 29 U/L 13-75 [facility] Comment on above: Please note:LIPASE r evised reference range effective 22. New Lipase methodology. Expected to produce lower values than the previous assay method. NEW Reference Range: 13 - 75 U/L Urea nitrogen/Creatinine [Mass ratio] 21.9 mg/mg 10-20 [facility] Laboratory - Hematology and Cell countsOrdered By: Karlo Calderon on 02-28-2023 Erythrocyte distribution width (RBC) [Entitic vol] 48.2 fL 35.1-43.9 [facility] Erythrocyte distribution width (RBC) [Ratio] 14.0 % 11.6-14.6 [facility] Immature granulocytes/100 WBC (Bld) 0.300 % 0.0-0.9 [facility] Comment on above: IG% - Immature Granu locytes (promyelocytes, myelocytes and metamyelocytes) > 1% indicates that a LEFT SHIFT is Present. MCH (RBC) [Entitic mass] 31.6 pg 27.0-32.0 [facility] Nucleated RBC/100 WBC (Bld) [Ratio] 0 % 0-5 [facility] MCHC Auto (RBC) [Mass/Vol]Or dered By: Karlo Calderon on 02-28-2023 MCHC (RBC) [Mass/Vol] 33.7 g/dL 32-36 [facility] No Panel InformationOrdered By: Karlo Calderon on 02-28-2023 Estimated Creatinine Clearance Calc 77.35 ml/min [facility] Estimated GFR (MDRD) Amer 100 mL/min >60 [facility] Comment on above: GFR Calc Estimated GFR (MDRD) Non-Af Amer 82 mL/min >60 [facility] Comment on above: Non- GFR Calc Platelets bldOrdered By: Brenda Calderon on 02-28-2023 Platelets (Bld) [#/Vol] 195 10*3/uL 150-450 [facility] Serum or plasma albumin edu urement (mass/volume)Ordered By: Karlo Calderon on 02-28-2023 Albumin [Mass/Vol] 4.2 g/dL 3.2-5.0 [facility] Serum or plasma albumin/glob ulin mass ratioOrdered By: Karlo Calderon on 02-28-2023 Albumin/Globulin [Mass ratio] 1.2 {ratio} 0.9-2.4 [facility] Serum or plasma calcium edu urement (mass/volume)Ordered By: Karlo Calderon on 02-28-2023 Calcium [Mass/Vol] 9.8 mg/dL 8.5-10.1 [facility] Serum or plasma creatinine m easurement (mass/volume)Ordered By: Karlo Calderon on 02-28-2023 Creatinine [Mass/Vol] 0.96 mg/dL 0.70-1.30 [facility] Comment on above: The validity of the calculated GFR & GFRAA in patients over 70 years has not been determined. Clinical correlation is essential. Serum or plasma urea nitroge n measurement (mass/volume)Ordered By: Karlo Calderon on 02-28-2023 Urea nitrogen [Mass/Vol] 21 mg/dL 7-18 [facility] Thin prep Papanicolaou smear with manual screeningOrdered By: Karlo Calderon on 02-28-2023 Thin prep Papanicolaou smear with manual screening 15 U/L 15-37 [facility] Thin prep Papanicolaou smear with manual screening 3 5-15 [facility] HISTORY PHYSICALon 9 HISTORY PHYSICAL HNO ID: [id number] Author: Julia Quan Service: Pain Management Author Type: Physician Type: HANDP Filed: 01/29/2019 11:48 AM Note Text: PROCEDURAL SEDATION HISTORY AND PHYSICAL EXAM SERVICE DATE: 01/29/2019 SERVICE TIME: 11:00 Subjective HPI: This is a 63 year old male who presents with intermittent, aching low back pain with tingling to bilateral feet, especially to toesL>R, and numbness to bottom of feet. Pain is rated as a 4/10 currently. PAST ANESTHESIA HISTORY: No history of adverse event PAST MEDICAL HISTORY Diagnosis Date - Anxiety disorder sertraline discontinued in 2014 - Asthma childhood - Basal cell carcinoma 2014 - Elevated PSA Dr. Aleman - Environmental and seasonal allergies flonase effective - GERD (gastroesophageal reflux disease) - HTN (hypertension) - Insomnia seeing Rachelle Fernandez in sleep med - Prostatitis 2003, 2014 - Raynaud disease - Varicose veins of both lower extremities PAST SURGICAL HISTORY Procedure Laterality Date - CARDIAC CATH 2004 - LASIK Bilateral 2003 - SCRN COLONOSCOP 2007, 2018 normal - SKIN BIOPSY HX 2015 basal cell, right posterior neck - TONSILLECTOMY HX 1963 Prior to Admission medications as of 11/25/18 1146 Medication Sig Last Dose Taking meloxicam (MOBIC) 15 mg tablet Take 1 tablet by mouth once daily. as necessary gabapentin (NEURONTIN) 300 mg capsule Take 1 capsule by mouth daily at bedtime for 30 days. aspirin, enteric coated (ASPIRIN, ENTERIC COATED) 81 mg EC tablet Take 81 mg by mouth once daily. multivitamin tablet Take 1 tablet by mouth once daily. fluticasone propionate (FLONASE NASAL) Use in the nose once daily. ALLERGIES Allergen Reactions - Ragweed Intolerance REVIEW OF SYSTEMS GENERAL: No weight loss, malaise or fevers RESPIRATORY: Negative for cough, hemoptysis, wheezing, COPD, dyspnea or shortness of breath CARDIOVASCULAR: Negative for chest pain, CHF or palpitations GI: No nausea, vomiting, or diarrhea Objective PHYSICAL EXAM: GENERAL: Alert, no distress, cooperative AIRWAY: Airway Visualization of Uvula: Yes Mouth opening greater than 2 fingerbreadths: Yes Neck Full Range of Motion: Yes LUNGS: Lungs clear to auscultation, Good diaphragmatic excursion CARDIAC: Normal S1 and S2; no rubs, murmurs, or gallops Assessment/Plan ASA Class: ASA Class:: Patient with mild systemic disease Active Problems: * No active hospital problems. * Resolved Problems: * No resolved hospital problems. * Provisional Diagnosis/Treatment Plan: Bilateral lumbar radiculopathy/Transforamin al SI SIGNATURE: Jasmina Judd APRN.CNP PATIENT NAME: Florian Portillo DATE: January 29, 2019 TIME: 10:41 AM PAGER: The History and Physical (completed in the past 30 days) has been reviewed and the patient has been examined. The contents accurately reflect the patient's condition with the following additions or revisions since the HANDP was completed. Today?s examination indicates no changes. This HANDP can be found in the attached. I have personally reviewed the risks, benefits, alternatives, expectations and personnel with the patient and have answered their questions. We are ready to proceed with the procedure as planned. SIGNATURE: Dr. Quan PATIENT NAME: Florian Portillo DATE: January 29, 2019 11:48 AM [facility] NURSING PROGon 01-29-2019 NURSING PROG HNO ID: [id number] Author: Caro Castro (Rn) MALIKA Rhodes Service: Nursing Author Type: Registered Nurse Type: Nursing Progress Note Filed: 01/29/2019 1:57 PM Note Text: 1215 Pt states he was told by office that he could drive home after procedure. Dr. Quan here and spoke with pt. Pt states he lives in [facility], and has no one to pick him up today. Instructed pt that he will be able to drive himself home after several hours of observation. 1245 Pt doing well, ambulated in Phase II and to BR. No weakness or tingling noted. 1345 Continues to do well. No weakness in extremities. Ambulates well. Dr. Quan notified. OK for discharge if condition undchanged [facility] OPERATIVE NOon 01-29-2019 OPERATIVE NO HNO ID: [id number] Author: Julia Quan Service: Pain Management Author Type: Physician Type: Operative Report Filed: 01/29/2019 12:16 PM Note Text: OPERATIVE/PROCEDURE REPORT LOG ID: [id number] SURGERY/PROCEDURE DATE: 01/29/2019 INCISION/PROCEDURE START TIME: 12:07 PM INCISION CLOSE/PROCEDURE END TIME: 12:12 PM PRE-OP/PRE-PROCEDURE DIAGNOSIS: Bilateral lumbar radiculopathy [M54.16] POST-OP/POST-PROCEDURE DIAGNOSIS: Bilateral lumbar radiculopathy [M54.16] SURGERY/PROCEDURE(S): Procedure(s) (LRB): INJECTION(S) STEROID TRANSFORAMINAL EPIDURAL W/ IMAGING GUIDANCE LUMBAR (Bilateral) SURGEON(S)/PROCEDURALIST(S ) AND BOATBUILDER APPRENTICE WOOD(S): Surgeon(s) and Role: * Julia Quan - Primary No Additional Casing Soaker(s): None, I performed the entire procedure. ANESTHESIA: Local SEDATION: None SEDATION START TIME: SEDATION END TIME: SUBJECTIVE: Florian Portillo is a 63 year old male presents to [facility] with complaints of lower back pain and lower extremity pain. The patient is overall improved with the injections. INDICATIONS: suspected radicular pain at the L4-L5 SURGERY/PROCEDURE DETAILS: The patient was transported to the fluoroscopy suite and was placed in a prone position on the fluoroscopy table with a pillow under the abdomen to reduce the lumbar lordosis.The patient was monitored using pulse oximetry, intermittent blood pressure reading and 3-lead EKG. Using sterile technique, the skin over the lumbar spine was prepped with povidone-iodine and draped. The bilateral L4-L5 neural foramen/foramina was/were identified under fluoroscopy in an oblique view with the superior articular process of the inferior vertebral body aligned with the pedicle. The skin and the subcutaneous tissues at the entry site were anesthetized with 2 ml of lidocaine 0.5%.A 20 gauge, 6 inch Tuohy needle was advanced coaxially under intermittent AP and lateral fluoroscopic guidance toward the 6 o?clock position of the pedicle. The final needle position in the neural foramen was confirmed using a PA lateral fluoroscopic imaging. After negative aspiration of blood or CSF, 1 ml of iohexal 300 was injected with live fluoroscopy. An outline of the spinal nerve with proximal spread of the contrast through the neural foramen into the anterior epidural space was confirmed. A solution of 0.5% lidocaine 2 ml and 20 mg triamcinolone was injected at each side for a total volume of 4 ml and 40 mg steroid. The injection site was cleaned and dried and a sterile dressing was applied. The patient was taken to the post-block recovery area for further observation. FINDINGS: Technically adequate procedure COMPLICATIONS: None ESTIMATED BLOOD LOSS: minimal SPECIMENS: None IMPLANTABLE DEVICES: None DRAINS: None ASSESSMENT: Bilateral lumbar radiculopathy [M54.16] PLAN: The effect of the procedure will be evaluated at the next visit. Follow-up Appointment: 3-4 weeks for an office visit SIGNATURE: Julia Quan MD PATIENT NAME: Florian Portillo DATE: January 29, 2019 TIME: 12:14 PM PAGER/CONTACT #: [facility] HOSPon 11-25-2018 [facility] Patient:Jatinder Portillo MRN: Height:5' 11(1.803 m) Weight:No patient weight recorded within the last 30 days. Outpatient Medications as of 01/29/19: meloxicam (MOBIC) 15 mg tablet gabapentin (NEURONTIN) 300 mg capsule aspirin, enteric coated (ASPIRIN, ENTERIC COATED) 81 mg EC tablet multivitamin tablet fluticasone propionate (FLONASE NASAL) Admission/Clinic Administered Medications as of 01/29/19: lactated ringers infusion Problem List: Subjective tinnitus [H93.19] Psychophysiologic insomnia [F51.04] Chronic insomnia [F51.04] GERD (gastroesophageal reflux disease) [K21.9] HTN (hypertension) [I10] Insomnia [G47.00] Environmental and seasonal allergies [J30.89] Asthma [J45.909] Basal cell carcinoma [C44.91] Prostatitis [N41.9] Generalized anxiety disorder [F41.1] OCD (obsessive compulsive disorder) [F42.9] Abnormal stress test [R94.39] Mixed hyperlipidemia [E78.2] Sensorineural hearing loss (SNHL) of both ears [H90.3] Tinnitus of right ear [H93.11] Gluteal pain [M79.18] Anxiety disorder [F41.9] Elevated PSA [R97.20] Varicose veins of both lower extremities [I83.93] Spondylolisthesis of lumbar region [M43.16] Spinal stenosis, lumbar region without neurogenic claudication [M48.061] Foraminal stenosis of lumbar region [M48.061] Bilateral lumbar radiculopathy [M54.16] Lumbar spondylosis [M47.816] Sacroiliitis (HCC) [M46.1] Piriformis syndrome [G57.00] Allergies: Ragweed Date Verified: 01/29/19 Lab Values No results within the last 30 days for the following basenames: K,HCT Progress Notes ([facility]): Princess Dietrich CMA 01/28/2019 2:50 PM Sign at close encounter PHMA TEAMLET DOCUMENTATION Provider Action/FYI: PSR Action/FYI: - due for BP nurse visit Health Maintenance Due: BP CONTROLLED (<130/80) due on 08/10/1971 PNEUMOVAX AGE 65 AND OVER WITH 5YR LOOKBACK(1) due on 2018 Teamlet has identified patient by name and date of . Team: Dr. Freda Sánchez ? Last Office Visit:09/02/2018 ? Next Office Visit: Visit date not found ? Last BP/Labs: Blood Pressure: Last 3 Encounter BP Readings: Date: BP: 11/25/2018 140/80 08/19/2018 144/90 07/28/2018 135/78 Lipids: Cholesterol, Total (mg/dL) Date Value 12/26/2017 166 HDL Cholesterol (mg/dL) Date Value 12/26/2017 53 LDL Cholesterol (mg/dL) Date Value 12/26/2017 91 Triglyceride (mg/dL) Date Value 12/26/2017 108 HGB A1C: Lab Results Component Value Date HBA1C 5.4 12/26/2017 TSH: TSH (uU/mL) Date Value 06/30/2018 1.650 12/26/2017 2.710 ) Care Gap: HTN Hyperlipidemia Asthma Plan: ? Confirm PCP / Status - unknwon ? Type of appointment needed: bp nurse visit ? Consultation Appointments: n/a Labs, HM and Immunization: Health Maintenance Due: BP CONTROLLED (<130/80) due on 08/10/1971 PNEUMOVAX AGE 65 AND OVER WITH 5YR LOOKBACK(1) due on 2018 LINDA Tao CMA 01/28/2019 2:50 PM Sign at close encounter POPULATION HEALTH LICENSED DISPENSING OPTICIAN QUICKNOTE Provider Action/FYI: 1st attempt - [employer] message sent. Patient identified by name and . Princess Dietrich CMA Progress Notes ([facility] Luis F Hickman MD 01/15/2019 7:50 PM Signed Telemedicine Visit - [facility] Virtual Visit Note Patient seen on [facility] Online platform. Location of patient: [place] Demian Barba MD History of Present Illness Florian Portillo is a 63 year old year old male who presents for the past 1 day(s) with symptoms that are: Constant Patient had influenza and zoster vaccines yesterday. Mild soreness at site of injection. No redness or swelling. Last night, he developed generalized bodyaches, generalized GUTIÉRREZ, low grade fevers and chills. No URI symptoms. Tmax 99.6. Denies trouble breathing, wheezing, swelling of throat/lips/tongue/face, hives. Hydrating well. Tylenol with relief. PAST MEDICAL HISTORY Diagnosis Date - Anxiety disorder sertraline discontinued in 2014 - Asthma childhood - Basal cell carcinoma 2014 - Elevated PSA Dr. Aleman - Environmental and seasonal allergies flonase effective - GERD (gastroesophageal reflux disease) - HTN (hypertension) - Insomnia seeing Rachelle Fernandez in sleep med - Prostatitis 2003, 2014 - Raynaud disease - Varicose veins of both lower extremities PAST SURGICAL HISTORY Procedure Laterality Date - CARDIAC CATH 2004 - LASIK Bilateral 2003 - SCRN COLONOSCOP 2007, 2018 normal - SKIN BIOPSY HX 2015 basal cell, right posterior neck - TONSILLECTOMY HX 1963 FAMILY HISTORY Problem Relation Age of Onset - Alcohol/Drug Mother at 73 - Hypertension Mother - other (Tobacco) Mother - other (Hip fracture) Mother - Heart Father age 90, arrhythmia (still driving) - Kidney Disease Father CRI - other ( in fire) Brother at 21 - None Other ages 40, 28, 24, 17 - None Brother age 63 - Diabetes Maternal Grandfather Social History Socioeconomic History Marital status: Spouse name: Not on file Number of children: Not on file Years of education: Not on file Highest education level: Not on file Occupational History 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, 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 [employer] Social Needs Financial resource strain: Not on file Food insecurity: Worry: Not on file Inability: Not on file Transportation needs: Medical: Not on file Non-medical: Not on file Tobacco Use Smoking status: Former Smoker Packs/day: 1.00 Years: 1.50 Pack years: 1.5 Types: Cigarettes Quit date: 07/02/1975 Years since quittin.5 Smokeless tobacco: Never Used Substance and Sexual Activity Alcohol use: No Drug use: Never Sexual activity: Not Currently Partners: Female Lifestyle Physical activity: Days per week: Not on file Minutes per session: Not on file Stress: Not on file Relationships Social connections: Talks on phone: Not on file Gets together: Not on file Attends sabianism service: Not on file Active member of club or organization: Not on file Attends meetings of clubs or organizations: Not on file Relationship status: Not on file Intimate partner violence: Fear of current or ex partner: Not on file Emotionally abused: Not on file Physically abused: Not on file Forced sexual activity: Not on file Other Topics Concerns: Not on file Social History Narrative in 2002 to Susan in good health. living in [place] due to job. Daughters Shahana thompson 1977 (from first marriage), Yvette thompson 1989, June; son Casey thompson 2000 (all from second marriage). Special diet DASH diet Sleep concerns 6-8 hours, working with Dr Fernandez Exercise regimen cardio 1 hr 3x/wk, weights 1 hr 3x/wk Daily Caffeine intake 1+ bottles unsweetened green tea daily. Current Outpatient Medications: meloxicam (MOBIC) 15 mg tablet Take 1 tablet by mouth once daily. as necessary gabapentin (NEURONTIN) 300 mg capsule Take 1 capsule by mouth daily at bedtime for 30 days. aspirin, enteric coated (ASPIRIN, ENTERIC COATED) 81 mg EC tablet Take 81 mg by mouth once daily. multivitamin tablet Take 1 tablet by mouth once daily. fluticasone propionate (FLONASE NASAL) Use in the nose once daily. No current facility-administered medications for this visit. ALLERGIES Allergen Reactions - Ragweed Intolerance Video Exam (Examination performed via Video enabled technology) General appearance: Alert, oriented, pleasant, in NAD :Yes Ill appearing :No Lethargic appearing :No Respiratory distress :No ASSESSMENT/PLAN: 1. Immunization reaction, initial encounter - ICD9: E949.9, ICD10: T50.Z95A Suspect immunization reaction Hydration, symptomatic treatments - Return if symptoms persist or worsen, or if new symptoms develop. Luis F Hickman MD If you let us know who your primary care provider is, we will send them a notification of today's visit through our electronic medical records system. Since not all providers have access to our notifications, we strongly encourage you to share the following record of today's visit with your primary care provider at your next visit. This will help in providing you the best care. [facility] HISTORY PHYSICALon 9 HISTORY PHYSICAL HNO ID: [id number] Author: Sandra Lee Service: General Internal Medicine Author Type: Nurse Practitioner Type: HANDP Filed: 08/07/2018 1:45 PM Note Text: PROCEDURAL SEDATION HISTORY AND PHYSICAL EXAM SERVICE DATE: 08/07/2018 SERVICE TIME: 1333 Subjective HPI: This is a 62 year old male who presents with CC of intermittent numbness and tingling in bilateral toes, feet and lower legs at times, positional. He currently is not having this in his current position in the bed. Denies CP, SOB and any recent illness PAST ANESTHESIA HISTORY: No history of adverse event PAST MEDICAL HISTORY Diagnosis Date - Anxiety disorder sertraline discontinued in 2014 - Asthma childhood - Basal cell carcinoma 2014 - Elevated PSA Dr. Aleman - Environmental and seasonal allergies flonase effective - GERD (gastroesophageal reflux disease) - HTN (hypertension) - Insomnia seeing Rachelle Fernandez in sleep med - Prostatitis 2003, 2014 - Raynaud disease - Varicose veins of both lower extremities PAST SURGICAL HISTORY Procedure Laterality Date - CARDIAC CATH 2004 - LASIK Bilateral 2003 - SCRN COLONOSCOP 2007, 2018 normal - SKIN BIOPSY HX 2015 basal cell, right posterior neck - TONSILLECTOMY HX 1963 Prior to Admission medications as of 08/07/18 1330 Medication Sig Last Dose Taking Omeprazole 40 mg capsule Take 1 capsule by mouth once daily. 08/07/2018 at Unknown time Yes aspirin, enteric coated (ASPIRIN, ENTERIC COATED) 81 mg EC tablet Take 81 mg by mouth once daily. 08/06/2018 at Unknown time Yes meloxicam (MOBIC) 15 mg tablet Take 1 tablet by mouth once daily. as necessary Unknown at Unknown time gabapentin (NEURONTIN) 300 mg capsule Take 1 capsule by mouth daily at bedtime for 30 days. Unknown at Unknown time NIFEDipine 16% Apply to toes daily Unknown at Unknown time atorvastatin (LIPITOR) 10 mg tablet Take 1 tablet by mouth once daily. Unknown at Unknown time multivitamin tablet Take 1 tablet by mouth once daily. Unknown at Unknown time fluticasone propionate (FLONASE NASAL) Use in the nose once daily. Unknown at Unknown time ALLERGIES Allergen Reactions - Ragweed Intolerance Objective 151/88 100% 77bpm PHYSICAL EXAM: The remainder of the physical exam is noncontributory. GENERAL: Alert, no distress, cooperative AIRWAY: Airway Visualization of Uvula: Yes Mouth opening greater than 2 fingerbreadths: Yes Neck Full Range of Motion: Yes LUNGS: Lungs clear to auscultation, Good diaphragmatic excursion CARDIAC: Normal S1 and S2; no rubs, murmurs, or gallops Assessment/Plan ASA Class: ASA Class:: Patient with mild systemic disease Provisional Diagnosis/Treatment Plan: per Dr. Quan: Foraminal stenosis of lumbar region, bilateral lumbar radiculopathy SEDATION GOAL: Moderate SIGNATURE: Sandra Lee APRN.CNP PATIENT NAME: Florian Portillo DATE: August 07, 2018 TIME: 1:33 PM PAGER: [phone] [facility] OPERATIVE NOon 08-07-2018 OPERATIVE NO HNO ID: [id number] Author: Julia Quan Service: Pain Management Author Type: Physician Type: Operative Report Filed: 08/07/2018 2:09 PM Note Text: OPERATIVE/PROCEDURE REPORT LOG ID: [id number] SURGERY/PROCEDURE DATE: 08/07/2018 INCISION/PROCEDURE START TIME: 1:58 PM INCISION CLOSE/PROCEDURE END TIME: 2:04 PM PRE-OP/PRE-PROCEDURE DIAGNOSIS: Bilateral lumbar radiculopathy [M54.16] POST-OP/POST-PROCEDURE DIAGNOSIS: Bilateral lumbar radiculopathy [M54.16] SURGERY/PROCEDURE(S): Procedure(s) (LRB): INJECTION(S) STEROID TRANSFORAMINAL EPIDURAL W/ IMAGING GUIDANCE LUMBAR (Bilateral) SURGEON(S)/PROCEDURALIST(S ) AND BOATBUILDER APPRENTICE WOOD(S): Surgeon(s) and Role: * Julia Quan - Primary No Additional Casing Soaker(s): None, I performed the entire procedure. ANESTHESIA: Local SEDATION: None SEDATION START TIME: SEDATION END TIME: 2:06 PM SUBJECTIVE: Florian Portillo is a 62 year old male presents to the Pain Management Center with complaints of lower back pain and lower extremity pain. INDICATIONS: suspected radicular pain at the L4-L5 SURGERY/PROCEDURE DETAILS: The patient was transported to the fluoroscopy suite and was placed in a prone position on the fluoroscopy table with a pillow under the abdomen to reduce the lumbar lordosis.The patient was monitored using pulse oximetry, intermittent blood pressure reading and 3-lead EKG. Using sterile technique, the skin over the lumbar spine was prepped with povidone-iodine and draped. The bilateral L4-L5 neural foramen/foramina was/were identified under fluoroscopy in an oblique view with the superior articular process of the inferior vertebral body aligned with the pedicle. The skin and the subcutaneous tissues at the entry site were anesthetized with 2 ml of lidocaine 0.5%.A 20 gauge, 6 inch Tuohy needle was advanced coaxially under intermittent AP and lateral fluoroscopic guidance toward the 6 o?clock position of the pedicle. The final needle position in the neural foramen was confirmed using a PA lateral fluoroscopic imaging. After negative aspiration of blood or CSF, 1 ml of iohexal 300 was injected with live fluoroscopy. An outline of the spinal nerve with proximal spread of the contrast through the neural foramen into the anterior epidural space was confirmed. A solution of 0.5% lidocaine 2 ml and 20 mg triamcinolone was injected at each side for a total volume of 4 ml and 40 mg steroid. The injection site was cleaned and dried and a sterile dressing was applied. The patient was taken to the post-block recovery area for further observation. FINDINGS: Technically adequate procedure COMPLICATIONS: None ESTIMATED BLOOD LOSS: minimal SPECIMENS: None IMPLANTABLE DEVICES: None DRAINS: None ASSESSMENT: Bilateral lumbar radiculopathy [M54.16] PLAN: The effect of the procedure will be evaluated at the next visit. Follow-up Appointment: 3-4 weeks for an office visit SIGNATURE: Julia Quan MD PATIENT NAME: Florian Portillo DATE: August 07, 2018 TIME: 2:08 PM PAGER/CONTACT #: [facility] 07-28-2018 [facility] Patient:Jatinder Portillo MRN: Height:5' 9.291(1.76 m) Weight:182 lb 11.2 oz (82.872 kg) Outpatient Medications as of 08/07/18: meloxicam (MOBIC) 15 mg tablet gabapentin (NEURONTIN) 300 mg capsule Omeprazole 40 mg capsule aspirin, enteric coated (ASPIRIN, ENTERIC COATED) 81 mg EC tablet NIFEDipine 16% atorvastatin (LIPITOR) 10 mg tablet multivitamin tablet fluticasone propionate (FLONASE NASAL) Admission/Clinic Administered Medications as of 08/07/18: Patient has no admission medications. Problem List: Subjective tinnitus [H93.19] Psychophysiologic insomnia [F51.04] Chronic insomnia [F51.04] GERD (gastroesophageal reflux disease) [K21.9] HTN (hypertension) [I10] Insomnia [G47.00] Environmental and seasonal allergies [J30.89] Asthma [J45.909] Basal cell carcinoma [C44.91] Prostatitis [N41.9] Generalized anxiety disorder [F41.1] OCD (obsessive compulsive disorder) [F42.9] Abnormal stress test [R94.39] Mixed hyperlipidemia [E78.2] Sensorineural hearing loss (SNHL) of both ears [H90.3] Tinnitus of right ear [H93.11] Gluteal pain [M79.18] Anxiety disorder [F41.9] Elevated PSA [R97.20] Varicose veins of both lower extremities [I83.93] Spondylolisthesis of lumbar region [M43.16] Spinal stenosis, lumbar region without neurogenic claudication [M48.061] Foraminal stenosis of lumbar region [M99.83] Bilateral lumbar radiculopathy [M54.16] Lumbar spondylosis [M47.816] Allergies: Ragweed Date Verified: 08/07/18 Lab Values No results within the last 30 days for the following basenames: K,HCT Progress Notes ([facility]): Ban Sykes Mgr 07/31/2018 10:59 AM Signed /Patient scheduled for 08/07/18.Ban Freemanr Progress Notes ([facility]): Erlin Jackman RN 07/31/2018 9:02 AM Signed Patient scheduled 08/04 for transforaminal epidural at the L4 5 level bilaterally . He lives in [place] and his is out of town. He has no one can drive him home. He can drive himself here. He offers to stay in a local Hotel if that would help. I said we still would need a familiy member or friend or someone to be with him post injection. He was offered to be done under Local , but I will check with Dr. Quan and get back to patient. I asked him to continue to look for someone to be with him. Erlin Jackman RN 07/31/2018 11:00 AM Signed Patient secured ride on 08/07. Per Dr. Quan We can do him under local. ?Keep him in recovery for at least an hour. ?No driving on that day he would need to spend the night in a hotel nearby. ?Maybe can take a taxi or over from the center to the [facility]. ?There is some small hotels less than a mile from the surgery Center . But since patient secured ride we will just go with that date change. [facility] MRI LUMBAR SPINE WO IVCONon 07-24-2018 MRI LUMBAR SPINE WO IVCON * * *Final Report* * * DATE OF EXAM: Jul 24 2018 10:33AM LUM 0303 - MRI LUMBAR SPINE WO IVCON / PROCEDURE REASON: multiple diagnoses * * * * Physician Interpretation * * * * EXAMINATION: MRI LUMBAR SPINE WO IVCON CLINICAL HISTORY: Lumbar stenosis, lumbar radiculopathy. TECHNIQUE: Routine lumbosacral spine MR protocol without gadolinium. MQ: [id number] COMPARISON: Prior lumbar spine radiographs dated 06/08/2018. RESULT: Counting reference: Lumbosacral junction. For the purposes of this report, L4-5 is considered the level of the iliac crest and assume there are 5 lumbar-type vertebrae. Anatomic variant: None. Alignment: Grade 1 anterolisthesis of L4 on L5 is seen measuring approximately 4 mm. Bone marrow signal/fracture: No evidence of pathologic marrow infiltration. No evidence of prior fracture. Conus: The conus is within normal limits of signal intensity and morphology. Paraspinal soft tissues: Paraspinal soft tissues are within normal limits. Lower thoracic spine: Visualized lower thoracic canal and foramina are patent. T12-L1: Canal and foramina are patent. L1-L2: Canal and foramina are patent. L2-L3: Canal and foramina are patent L3-L4: Mild bulging annulus and mild facet degenerative change. No canal or foraminal narrowing. L4-L5: Disc uncovering associated with above-described anterolisthesis is seen. Moderate left and mild right foraminal narrowing. Mild canal stenosis. Moderate facet degenerative changes. L5-S1: Mild bulging annulus and mild facet degenerative change noted. Mild right foraminal narrowing. No canal stenosis or left foraminal narrowing. Sacrum and iliac wings: The visualized sacrum and iliac wings are within normal limits. IMPRESSION: Degenerative changes, most significant at the lower lumbar levels. Moderate left and mild right foraminal narrowing as well as mild canal stenosis seen at L4-L5. Mild right foraminal narrowing seen at L5-S1. Otherwise, unremarkable MRI lumbar spine without contrast. Anatomic Thoracic/Lumbar Variant: None. L4-5 is considered the level of the iliac crest and assume there are 5 lumbar-type vertebrae. Health Promotion Coordinator: [facility] Transcribe Date/Time: Jul 24 2018 10:39A Dictated by : MUKESH TRUJILLO MD This examination was interpreted and the report reviewed and electronically signed by: MUKESH TRUJILLO MD on Jul 24 2018 10:42AM EST [id number] [facility] 01-23-2018 [facility] ([facility]) FLORIAN PORTILLO ([id number]) 1955 MDate Time Provider Dxsrjqqwpa83/2/18 1:00 PM CONCHITA ALEMAN During your visit today, we recorded the following information about you:Conchita Aleman DO, MBA 01/23/2018 1:35 PM Signed??[facility]CH[facility] UROLOGYVIRTUAL PATIENT VISITPATIENT INFO: Florian Portillo 62 year oldREFERRING M.D.: SelfPCP: Scott Casillas Jr, [facility] Complaint: Elevated PSAHPIVIRTUAL VISIT TO REVIEW MRI RESULTSNo complaintsHere for evaluation for elevated PSAHx of prostatitis in the pastRecently [facility] the [facility] previous medical recordsNegative prostate biopsy 14 [place]TI about [place] month ago - treated with CiproExecutive Physical done last week - PSA 6.14States that his PSA was as high as 20 in the pastNo hematuria1-Duration: 04399-Fyuyylxy: prostate3-Severity: N/A4-Quality: Not applicable5-Context: N/A6-Timing: N/A7-Modifying factors: No treatment prior to referral8-Associated signs AND symptoms: no additional symptomsIPSS: HIM: PATHOLOGY:N/ALAB:WBC (k/uL)Date Value12/26/2017 6.19RBC (m/uL)Date Value12/26/2017 5.46Hemoglobin (g/dL)Date Value12/26/2017 17.5 (H)Hematocrit (%)Date Value12/26/2017 51.2 (H)MCV (fL)Date Value12/26/2017 93.8MCH (pG)Date Value12/26/2017 32.1MCHC (g/dL)Date Value12/26/2017 34.2RDW-CV (%)Date Value12/26/2017 13.7Platelet Count (k/uL)Date Value12/26/2017 200MPV (fL)Date Value12/26/2017 12.2Neut% (%)Date Value12/26/2017 55.9Lymph% (%)Date Value12/26/2017 31.8Mono% (%)Date Value12/26/2017 8.6Eosin% (%)Date Value12/26/2017 2.9Baso% (%)Date Value12/26/2017 0.8Abs Neut (ANC) (k/uL)Date Value12/26/2017 3.45Abs [place] (k/uL)Date Value12/26/2017 0.53Abs Eosin (k/uL)Date Value12/26/2017 0.18Abs Baso (k/uL)Date Value12/26/2017 0.05CreatinineDate Value Ref Range Zdmcyp4012/26/2017 0.89 0.73 - 1.22 mg/dL Final PSA (ng/mL)Date Value12/26/2017 6.14 pH, UrineDate Value Ref Range Anvtka9312/26/2017 6.0 4.5 - 8.0 Final Specific [place], UrDate Value Ref Range Fijxzv7212/26/2017 1.016 1.005 - 1.030 Final Glucose, UrineDate Value Ref Range Degwvf1412/26/2017 Negative Negative mg/dL Final Bilirubin, UrineDate Value Ref Range Jyfknp2012/26/2017 Negative Negative Final Ketones, UrineDate Value Ref Range Idhypr6912/26/2017 Negative Negative Final Hemoglobin/ Blood,UrDate Value Ref Range Vibzau8012/26/2017 Negative Negative Final Protein, UrineDate Value Ref Range Fhiigx1812/26/2017 Negative Negative mg/dL Final Urobilinoge nDate Value Ref Range Oaurwi7912/26/2017 Normal Normal Final NitritesDat e Value Ref Range Eqdcbh4112/26/2017 Negative Negative Final WBC, UrineDate Value Ref Range Nhjulf3812/26/2017 0-5 0 - 5 /HPF Final IMAGING:MRI PROSTATE:IMPRESSION:0.6 CM PI-RADS 3 LESION OF THE LEFT MIDPOSTERIOR MEDIAL PERIPHERAL ZONEWITHOUT EXTRA PROSTATIC INVOLVEMENT.NO OSSEOUS METASTATIC LESION.ALLERGIES:ALLERGIES Allergen Reactions- Ragweed IntoleranceMEDICATIONS:iv contrast (will be provided with radiology test) MRI Prostate Inject,intravenously, once for 1 dose. No IV access, insert saline lock prior to thebeginning of sedation, infusion, injection of imaging exam. Discontinue salinelock post exam. If Pt. has a central line or IVAD, may access foradministration according to line specific nursing protocol. Once exam iscomplete flush line and de-access according to line specific nursing protocolin the MR contrast administration guidelines link.atorvastatin (LIPITOR) 10 mg tablet Take 1 tablet by mouth once daily.multivitamin tablet Take 1 tablet by mouth once daily.fluticasone propionate (FLONASE NASAL) Use in the nose once daily.omega-3/dha/epa/fish oil (OMEGA-3 FISH OIL ORAL) Take by mouth.sertraline (ZOLOFT) 25 mg tablet Take 1 tablet by mouth once daily.NAPROXEN SODIUM (ALEVE ORAL) Take by mouth as needed.Does the patient take any herbal medications?: NoMedication list reviewed and reconciled with patient: YesHISTORIESPAST MEDICAL HISTORYDiagnosis Date- Anxiety disorder sertraline discontinued in 2014- Asthma childhood- Basal cell carcinoma 2014- Environmental and seasonal allergies flonase effective- GERD (gastroesophageal reflux disease)- HTN (hypertension)- Insomnia seeing Rachelle Fernandez in sleep med- Prostatitis 2003, 2014PAST SURGICAL HISTORYProcedure Laterality Date- CARDIAC CATH 2003- LASIK Bilateral 2003- SCRN COLONOSCOP 2007 normal- SKIN BIOPSY HX 2014 basal cell, right posterior neck- TONSILLECTOMY HX 1963FAMILY HISTORYProblem Relation Age of Onset- Alcohol/Drug Mother at 73- Hypertension Mother- other (Tobacco) Mother- other (Hip fracture) Mother- Heart Father age 90, arrhythmia (still driving)- Kidney Disease Father CRI- other ( in fire) Brother at 21- None Other ages 40, 28, 24, 17- None Brother age 63- Diabetes Maternal GrandfatherNegative family history: NoSOCIAL HISTORYSocial HistorySubstance Use Topics- Smoking status: Former Smoker Packs/day: 1.00 Years: 2.00 Types: Cigarettes Quit date: 1981- Smokeless tobacco: Never Used- Alcohol use NoSmoking Status Reviewed: YesNo question data found.REVIEW OF SYSTEMSGeneral:No weight loss, malaise or fevers., SEE HPIHEENT:Negative for frequent or significant headaches, No changes in hearing orvision, no nose bleeds or other nasal problemsNeck:Negative for lumps, goiter, pain and significant neck swellingRespiratory: Negative for cough, wheezing or shortness of breath.Cardiovascular: Negative for chest pain, leg swelling or palpitations.Gastrointesti nal: Negative for abdominal discomfort, blood in stools or blackstools or change in bowel habitsGenitourinary: No history of dysuria, frequency or incontinenceMusculoskeleta l: Negative for joint pain or swelling, back pain or muscle pain.Skin:Negative for lesions, rash, and itching.Psychologic: No dissatisfaction with life, depression or suicidal thoughtsThe remainder of the ROS was negative.PHYSICAL EXAMINATIONVIRTUAL VISITPVR: NAIMPRESSION/PLAN:Elevated PSA6.14Previous hx of negative prostate biopsy in the pastNo family hx of prostate cancerPSA has been as high as 20 but no records to reviewNo records from previous urologist - Dr. Iris Tylerstate MRI - one 6 mm PI-RADS 3 lesionWe have discussed the role of MRI fusion biopsyLikely this lesion is scar tissue and will be difficult to find since it is 6 mmRecommend PSA in 6 monthsDO Rosa M Horvath to: Scott Casillas Jr, MDReferring Provider: SCOTT CASILLAS JR [[id number]]Allergies As of Date: 01/23/2018 Noted Allergy ReactionRAGWEED 01/02/2018 5 - IntoleranceDate Reviewed: 01/23/2018Reviewed by: Conchita Aleman - Fully AssessedPrimary Visit Diagnosis:Elevated prostate specific antigen (PSA) [R97.20]Order(s):PSA/PROST SPECAG DIAG [SQPSA] Order #: [id number] FUTUREPrescriptions as of 01/23/2018 Sig: IV CONTRAST (RADIOLOGY PROCED* MRI Prostate Inject, intraven* ATORVASTATIN 10 MG TABLET Take 1 tablet by mouth once d* MULTIVITAMIN TABLET Take 1 tablet by mouth once d* FLONASE NASAL Use in the nose once daily. OMEGA-3 FISH OIL ORAL Take by mouth. SERTRALINE 25 MG TABLET Take 1 tablet by mouth once d* Patient not taking: Reported on 12/10/2017 ALEVE ORAL Take by mouth as needed.Problem List As Of Date 01/23/2018 Noted Resolved Subjective tinnitus [H93.19] INVALID FOR* Psychophysiologic insomnia [F51.04] INVALID FOR* Chronic insomnia [F51.04] INVALID FOR* More... Anxiety disorder [F41.9] GERD (gastroesophageal reflux disease) [K21.9] HTN (hypertension) [I10] Insomnia [G47.00] Environmental and seasonal allergies [J30.89] More... Asthma [J45.909] More... Basal cell carcinoma [C44.91] INVALID FOR* Prostatitis [N41.9] INVALID FOR*Follow-up and Disposition History RecordedLetter TextEncounter Number: [id number] Status:Closed by CONCHITA ALEMAN on 01/23/18 Normal [facility] PROGRESSon 01-23-2018 Protein mass conc HNO ID: [id number] thor: Conchita AlemanSerewelinae: (none)Author Type: PhysicianType: Progress NotesFiled: 01/23/2018 1:35 PMNote Text:??[facility] InstituteCH[facility] UROLOGYVIRTUAL PATIENT VISITPATIENT INFO: Florian Portillo 62 year oldREFERRING Elsa: SelfPCP: Scott Casillas Jr, [facility] Complaint: Elevated PSAHPIVIRTUAL VISIT TO REVIEW MRI RESULTSNo complaintsHere for evaluation for elevated PSAHx of prostatitis in the pastRecently moved to the [facility] previous medical recordsNegative prostate biopsy 14 [place] ago [place]Recent UTI about a month ago - treated with CiproExecutive Physical done last week - PSA 6.14States that his PSA was as high as 20 in the pastNo hematuria1-Duration: 32701-Ekjtuwsc: prostate3-Severity: N/A4-Quality: Not applicable5-Context: N/A6-Timing: N/A7-Modifying factors: No treatment prior to referral8-Associated signs AND symptoms: no additional symptomsIPSS: HIM: PATHOLOGY:N/ALAB:WBC (k/uL)Date Value12/26/2017 6.19RBC (m/uL)Date Value12/26/2017 5.46Hemoglobin (g/dL)Date Value12/26/2017 17.5 (H)Hematocrit (%)Date Value12/26/2017 51.2 (H)MCV (fL)Date Value12/26/2017 93.8MCH (pG)Date Value12/26/2017 32.1MCHC (g/dL)Date Value12/26/2017 34.2RDW-CV (%)Date Value12/26/2017 13.7Platelet Count (k/uL)Date Value12/26/2017 200MPV (fL)Date Value12/26/2017 12.2Neut% (%)Date Value12/26/2017 55.9Lymph% (%)Date Value12/26/2017 31.8Mono% (%)Date Value12/26/2017 8.6Eosin% (%)Date Value12/26/2017 2.9Baso% (%)Date Value12/26/2017 0.8Abs Neut (ANC) (k/uL)Date Value12/26/2017 3.45Abs [place] (k/uL)Date Value12/26/2017 0.53Abs Eosin (k/uL)Date Value12/26/2017 0.18Abs Baso (k/uL)Date Value12/26/2017 0.05CreatinineDate Value Ref Range Dhvqrk7912/26/2017 0.89 0.73 - 1.22 mg/dL Final PSA (ng/mL)Date Value12/26/2017 6.14 pH, UrineDate Value Ref Range Rgvkii1112/26/2017 6.0 4.5 - 8.0 Final Specific [place], UrDate Value Ref Range Pppvxv7612/26/2017 1.016 1.005 - 1.030 Final Glucose, UrineDate Value Ref Range Tnhqei6912/26/2017 Negative Negative mg/dL Final Bilirubin, UrineDate Value Ref Range Vhoeon5912/26/2017 Negative Negative Final Ketones, UrineDate Value Ref Range Eodbuk9812/26/2017 Negative Negative Final Hemoglobin/ Blood,UrDate Value Ref Range Bhdivp0712/26/2017 Negative Negative Final Protein, UrineDate Value Ref Range Twqoax8512/26/2017 Negative Negative mg/dL Final Urobilinoge nDate Value Ref Range Aivlsu9212/26/2017 Normal Normal Final NitritesDat e Value Ref Range Jiezkv7012/26/2017 Negative Negative Final WBC, UrineDate Value Ref Range Mfnsqz7412/26/2017 0-5 0 - 5 /HPF Final IMAGING:MRI PROSTATE:IMPRESSION:0.6 CM PI-RADS 3 LESION OF THE LEFT MIDPOSTERIOR MEDIAL PERIPHERAL ZONEWITHOUT EXTRA PROSTATIC INVOLVEMENT.NO OSSEOUS METASTATIC LESION.ALLERGIES:ALLERGIES Allergen Reactions- Ragweed IntoleranceMEDICATIONS:iv contrast (will be provided with radiology test) MRI Prostate Inject,intravenously, once for 1 dose. No IV access, insert saline lock prior tothe beginning of sedation, infusion, injection of imaging exam.Discontinue saline lock post exam. If Pt. has a central line or IVAD, mayaccess for administration according to line specific nursing protocol.Once exam is complete flush line and de-access according to line specificnursing protocol in the MR contrast administration guidelines link.atorvastatin (LIPITOR) 10 mg tablet Take 1 tablet by mouth once daily.multivitamin tablet Take 1 tablet by mouth once daily.fluticasone propionate (FLONASE NASAL) Use in the nose once daily.omega-3/dha/epa/fish oil (OMEGA-3 FISH OIL ORAL) Take by mouth.sertraline (ZOLOFT) 25 mg tablet Take 1 tablet by mouth once daily.NAPROXEN SODIUM (ALEVE ORAL) Take by mouth as needed.Does the patient take any herbal medications?: NoMedication list reviewed and reconciled with patient: YesHISTORIESPAST MEDICAL HISTORYDiagnosis Date- Anxiety disorder sertraline discontinued in 2014- Asthma childhood- Basal cell carcinoma 2014- Environmental and seasonal allergies flonase effective- GERD (gastroesophageal reflux disease)- HTN (hypertension)- Insomnia seeing Rachelle Fernandez in sleep med- Prostatitis 2003, 2014PAST SURGICAL HISTORYProcedure Laterality Date- CARDIAC CATH 2003- LASIK Bilateral 2003- SCRN COLONOSCOP 2007 normal- SKIN BIOPSY HX 2014 basal cell, right posterior neck- TONSILLECTOMY HX 1963FAMILY HISTORYProblem Relation Age of Onset- Alcohol/Drug Mother at 73- Hypertension Mother- other (Tobacco) Mother- other (Hip fracture) Mother- Heart Father age 90, arrhythmia (still driving)- Kidney Disease Father CRI- other ( in fire) Brother at 21- None Other ages 40, 28, 24, 17- None Brother age 63- Diabetes Maternal GrandfatherNegative family history: NoSOCIAL HISTORYSocial HistorySubstance Use Topics- Smoking status: Former Smoker Packs/day: 1.00 Years: 2.00 Types: Cigarettes Quit date: 1981- Smokeless tobacco: Never Used- Alcohol use NoSmoking Status Reviewed: YesNo question data found.REVIEW OF SYSTEMSGeneral:No weight loss, malaise or fevers., SEE HPIHEENT:Negative for frequent or significant headaches, No changes inhearing or vision, no nose bleeds or other nasal problemsNeck:Negative for lumps, goiter, pain and significant neck swellingRespiratory: Negative for cough, wheezing or shortness of breath.Cardiovascular: Negative for chest pain, leg swelling or palpitations.Gastrointesti nal: Negative for abdominal discomfort, blood in stools orblack stools or change in bowel habitsGenitourinary: No history of dysuria, frequency or incontinenceMusculoskeleta l: Negative for joint pain or swelling, back pain or musclepain.Skin:Negative for lesions, rash, and itching.Psychologic: No dissatisfaction with life, depression or suicidalthoughtsThe remainder of the ROS was negative.PHYSICAL EXAMINATIONVIRTUAL VISITPVR: NAIMPRESSION/PLAN:Elevated PSA6.14Previous hx of negative prostate biopsy in the pastNo family hx of prostate cancerPSA has been as high as 20 but no records to reviewNo records from previous urologist - Dr. Iris Israel MRI - one 6 mm PI-RADS 3 lesionWe have discussed the role of MRI fusion biopsyLikely this lesion is scar tissue and will be difficult to find since itis 6 mmRecommend PSA in 6 monthsDO Rosa M Horvath to: Scott Casillas Jr, MD Normal [facility] Vital Signs Date Time Vital Sign Value Performing Clinician Faci lity 10-25-2024 11:25-0400 Body temperature 97.9 [degF] No Primary Care Physician [facility] 10-25-2024 11:25-0400 Diastolic blood pressure 84 mm[Hg] No Primary Care Physician [facility] 10-25-2024 11:25-0400 Heart rate 86 /min No Primary Care Physician [facility] 10-25-2024 11:25-0400 Respiratory rate 16 /min No Primary Care Physician [facility] 10-25-2024 11:25-0400 SaO2% (BldA) [Mass fraction] 99 % No Primary Care Physician [facility] 10-25-2024 11:25-0400 Systolic blood pressure 132 mm[Hg] No Primary Care Physician [facility] 10-25-2024 08:49-0400 Body height 180.34 cm No Primary Care Physician [facility] 10-25-2024 08:49-0400 Body mass index (BMI) [Ratio] 25.6 kg/m2 No Primary Care Physician [facility] 10-25-2024 08:49-0400 Body weight 83.4 kg No Primary Care Physician [facility] 03-25-2024 09:43-0500 Body mass index (BMI) [Ratio] 24.97 kg/m2 Bety Guillaume MD Work Phone: [facility] 03-25-2024 09:43-0500 Body weight 81.19 kg Bety Guillaume MD Work Phone: [facility] 03-25-2024 09:43-0500 Heart rate 100 /min Bety Guillaume MD Work Phone: [facility] 03-25-2024 09:43-0500 SaO2% (BldA) [Mass fraction] 99 % Bety Guillaume MD Work Phone: [facility] 02-05-2024 13:13-0500 Body height 180.3 cm Jarvis Stack MD Work Phone: [facility] 02-05-2024 13:13-0500 Body mass index (BMI) [Ratio] 25.06 kg/m2 Jarvis Stack MD Work Phone: [facility] 02-05-2024 13:13-0500 Body weight 81.5 kg Jarvis Stack MD Work Phone: [facility] 02-05-2024 13:13-0500 Diastolic blood pressure 73 mm[Hg] Jarvis Stack MD Work Phone: [facility] 02-05-2024 13:13-0500 Heart rate 99 /min Jarvis Stack MD Work Phone: [facility] 02-05-2024 13:13-0500 Systolic blood pressure 152 mm[Hg] Jarvis Stack MD Work Phone: [facility] 03-07-2023 13:04-0500 Diastolic blood pressure 65 mm[Hg] Annie Cruz MD Work Phone: [facility] 03-07-2023 13:04-0500 Heart rate 67 /min Annie Cruz MD Work Phone: [facility] 03-07-2023 13:04-0500 Respiratory rate 18 /min Annie Cruz MD Work Phone: [facility] 03-07-2023 13:04-0500 SaO2% (BldA) [Mass fraction] 99 % Annie Cruz MD Work Phone: [facility] 03-07-2023 13:04-0500 Systolic blood pressure 117 mm[Hg] Annie Cruz MD Work Phone: [facility] 03-05-2023 07:47-0500 Body height 180.34 cm [facility] 03-05-2023 07:47-0500 Body mass index (BMI) [Ratio] 25 kg/m2 [facility] 03-05-2023 07:47-0500 Body temperature 97.8 [degF] [facility] 03-05-2023 07:47-0500 Body weight 81.46 kg [facility] 03-05-2023 07:47-0500 Diastolic blood pressure 78 mm[Hg] [facility] 03-05-2023 07:47-0500 Heart rate 86 /min [facility] 03-05-2023 07:47-0500 Respiratory rate 14 /min [facility] 03-05-2023 07:47-0500 SaO2% (BldA) [Mass fraction] 98 % [facility] 03-05-2023 07:47-0500 Systolic blood pressure 134 mm[Hg] [facility] 02-28-2023 11:00-0500 Respiratory rate 16 /min [facility] 02-28-2023 08:49-0500 Body height 180.34 cm [facility] 02-28-2023 08:49-0500 Body mass index (BMI) [Ratio] 25.4 kg/m2 [facility] 02-28-2023 08:49-0500 Body temperature 98.2 [degF] [facility] 02-28-2023 08:49-0500 Body weight 82.9 kg [facility] 02-28-2023 08:49-0500 Diastolic blood pressure 89 mm[Hg] [facility] 02-28-2023 08:49-0500 Heart rate 81 /min [facility] 02-28-2023 08:49-0500 SaO2% (BldA) [Mass fraction] 98 % [facility] 02-28-2023 08:49-0500 Systolic blood pressure 151 mm[Hg] [facility] 02-07-2023 09:14-0500 Body height 179.1 cm Mary Andrade MD Work Phone: [facility] 02-07-2023 09:14-0500 Heart rate 82 /min Mary Andrade MD Work Phone: [facility] 02-07-2023 09:14-0500 SaO2% (BldA) [Mass fraction] 100 % Mary Andrade MD Work Phone: [facility] Encounters Encounter Date Encounter Type Care Provider Facility Start: 10-25-2024 End: 10-25-2024 Emergency department patient visit No Primary Care Physician -Emergency Department Work Phone: Start: 10-18-2024 End: 10-18-2024 Patient encounter procedure Jose Francisco Zamorano MD Work Phone: Urology Comment on above: Hematospermia (Prima ry Dx); Urinary frequency; Microscopic hematuria; Benign prostatic hyperplasia with incomplete bladder emptying; Prostate cancer screening Start: 10-18-2024 End: 10-18-2024 ambulatory JOSE FRANCISCO ZAMORANO Facility:[id number] Start: 08-19-2024 ambulatory No Primary Car e Physician Facility:[facility] Start: 07-21-2024 End: 07-21-2024 Patient encounter procedure Thi Pino DO Work Phone: Dermatology Comment on above: Hx of nonmelanoma sk in cancer (Primary Dx); Skin exam, screening for cancer; Photoaging of skin; Seborrheic keratosis; Carranza angioma; Multiple benign nevi; Lentigines; Actinic keratosis Start: 07-21-2024 End: 07-21-2024 ambulatory THI PINO Facility:[facility] Start: 04-15-2024 End: 04-15-2024 ambulatory LUIS F DE PAZ Facility:[facility] Start: 04-15-2024 End: 04-15-2024 Patient encounter procedure Charleen Caban Kaleigh [employer] ASSISTANT Work Phone: [facility] Comment on above: Gastroesophageal ref lux disease, unspecified whether esophagitis present (Primary Dx) Start: 04-15-2024 End: 04-15-2024 Telemedicine consultation with patient Charleen Stoneregina BROWN Work Phone: [facility] Start: 03-27-2024 Encounter for genera l adult medical examination without abnormal findings Iker Brink [facility] Start: 03-25-2024 End: 03-25-[address] [facility] 45 minutes Bety Guillaume MD Work Phone: [facility] [place] Comment on above: Sensation of fullnes s in both ears (Primary Dx); Hyperacusis of both ears; Asymmetrical hearing loss; Chronic rhinitis Start: 03-25-2024 ambulatory BETY GUILLAUME Facility:[facility] Start: 03-03-2024 End: 03-03-2024 Telephone encounter Provider [facility] Comment on above: Appointment Start: 03-03-2024 End: 03-03-2024 ambulatory LUIS F DE PAZ Facility:[facility] Start: 03-03-2024 End: 03-03-2024 Patient encounter procedure Charleen Moralez CNP Work Phone: [facility] Comment on above: Gastroesophageal ref lux disease, unspecified whether esophagitis present (Primary Dx) Start: 03-03-2024 End: 03-03-2024 Telemedicine consultation with patient Charleen Moralez CNP Work Phone: [facility] Start: 03-02-2024 End: 03-03-2024 Telephone encounter Felipe Gallo MD Work Phone: Urology Comment on above: Results, Lab Start: 03-01-2024 End: 03-01-2024 Telephone encounter Provider [facility] Comment on above: Appointment Start: 02-29-2024 End: 2024 Telephone encounter Katja Kahn MD Work Phone: Provider Adult Start: 02-27-2024 End: 03-01-2024 Refill Shahzad Perez MD Work Phone: Dermatology Comment on above: Refill Request Start: 02-27-2024 End: 02-28-2024 Telephone encounter Shahzad Perez MD Work Phone: Dermatology Comment on above: Refill Request Start: 02-27-2024 End: 02-27-2024 ambulatory [facility] Facility:[facility] Start: 02-27-2024 End: 02-27-2024 Office outpatient new 45 minutes Felipe Gallo MD Work Phone: Urology Comment on above: Nocturia (Primary Dx ); Encounter for prostate cancer screening; BPH with obstruction/lower urinary tract symptoms Start: 02-25-2024 Physical examination No Primar y Care Physician [facility] Start: 02-25-2024 End: 02-25-2024 Emergency department patient visit Iker Brink Facility:[facility] Start: 02-18-2024 End: 02-18-2024 ambulatory [facility] Facility:[facility] Start: 02-18-2024 Encounter for genera l adult medical examination without abnormal findings LUIS F [facility] Start: 02-16-2024 End: 02-20-2024 Telephone encounter Jarvis Stack MD Work Phone: [facility] Comment on above: Orders (Patient is r equesting labs to be sent to the [facility] so he can have them drawn. ) Start: 02-06-2024 End: 04-20-2024 Telephone encounter Yady Herrera MD Work Phone: Internal Medicine Comment on above: Nurse Triage Call (E [facility]) Start: 02-05-2024 End: 02-05-2024 ambulatory [facility] Facility:[facility] Start: 02-05-2024 End: 02-05-2024 Patient encounter procedure Jarvis Stack MD Work Phone: Integrative Medicine Comment on above: Primary hypertension (Primary Dx); Chronic insomnia; Environmental and seasonal allergies; Mixed hyperlipidemia; Elevated PSA; Varicose veins of both lower extremities with pain; Abnormal stress test; Sensorineural hearing loss (SNHL) of both ears; Foraminal stenosis of lumbar region; History of basal cell carcinoma; Gastroesophageal reflux disease with esophagitis without hemorrhage; Subjective tinnitus of both ears Start: 01-20-2024 End: 01-20-2024 ambulatory [facility] Facility:[facility] Start: 01-20-2024 End: 01-20-2024 Patient encounter procedure Shahzad Perez MD Work Phone: Dermatology Comment on above: Hx of nonmelanoma sk in cancer (Primary Dx); Seborrheic keratosis; Seborrheic dermatitis; Carranza angioma; Multiple benign nevi Start: 11-13-2023 End: 11-13-2023 ambulatory [facility] Facility:[facility] Start: 11-13-2023 End: 11-13-2023 Patient encounter procedure Marjan Gar MD Work Phone: Otolaryngology Comment on above: Pulsatile tinnitus, left ear (Primary Dx); Hyperacusis, unspecified laterality; Tinnitus of right ear; Asymmetrical sensorineural hearing loss; Sensorineural hearing loss (SNHL) of right ear with restricted hearing of left ear Start: 11-10-2023 End: 11-10-2023 Telephone encounter Alana Conrad RN Otolaryngology Start: 10-28-2023 Telephone encounter Marjan hand MD Work Phone: Head and Neck Asher Comment on above: Appointment Start: 10-22-2023 End: 10-22-2023 ambulatory MICHAEL Roberts [facility] Facility:[facility] Start: 10-21-2023 End: 10-21-2023 [facility] Michael Guerreroland PSYD Work Phone: Neurology Comment on above: Generalized anxiety disorder (Primary Dx); Situational stress; Obsessive thinking Start: 10-16-2023 Orders Only Richard lin MD Work Phone: Head and Neck Asher Comment on above: Other specified hear ing loss, unspecified ear (Primary Dx) Start: 10-14-2023 ambulatory [facility] Facility :[facility] Start: 09-24-2023 Orders Only Iris Payne MD Work Phone: Cardiology Comment on above: Encounter for screen ing for cardiovascular disorders (Primary Dx) Start: 09-23-2023 Telephone encounter Yady riley MD Work Phone: Internal Medicine Start: 09-19-2023 End: 09-19-2023 Telemedicine consultation with patient Ricci Ariza APRN.LAND SURVEYOR ASSISTANT Work Phone: Neurology Start: 09-19-2023 End: 09-19-2023 ambulatory Ricci Ariza KIA.LAND SURVEYOR ASSISTANT Work Phone: Neurology Comment on above: ZULEMA (obstructive sle ep apnea) (Primary Dx); Difficulty using continuous positive airway pressure (CPAP) device; Chronic insomnia Start: 09-17-2023 ambulatory Julianna schneider PET CARE ATTENDANT.LAND SURVEYOR ASSISTANT Work Phone: Neurology Comment on above: Dental [facility] Start: 07-02-2023 End: 07-02-2023 Patient encounter procedure Shahzad Perez MD Work Phone: Dermatology Comment on above: Actinic keratosis (P rimary Dx); Multiple benign nevi; Seborrheic keratosis; Carranza angioma; Lentigines; Hx of nonmelanoma skin cancer; Skin exam, screening for cancer; Intertrigo; Seborrheic dermatitis Start: 03-10-2023 Telephone encounter Annie chadwick MD Work Phone: Gastroenterology Comment on above: Patient Question Start: 03-07-2023 End: 03-07-2023 Subsequent hospital visit by physician Annie Cruz MD Work Phone: [facility] Comment on above: Pain of upper abdome n [R10.10] Start: 03-05-2023 Telephone encounter [facility] Provider [facility] Comment on above: open access Start: 03-05-2023 End: 03-05-2023 Emergency department patient visit [facility] Work Phone: Start: 02-28-2023 End: 02-28-2023 Emergency department patient visit [facility]Emergency [facility] Work Phone: Start: 02-07-2023 End: 02-07-2023 Patient encounter procedure Mary Andrade MD Work Phone: Otolaryngology Comment on above: Nasal septal deviati on (Primary Dx); Other chronic sinusitis Start: 02-04-2023 End: 02-04-2023 ambulatory [facility] Work Phone: Start: 02-04-2023 End: 02-04-2023 Patient encounter procedure [facility]-Cat Scan, [facility] Work Phone: Start: 01-27-2023 End: 01-27-2023 Patient encounter procedure Susan Gibbs APRN.CNP Work Phone: Otolaryngology Comment on above: Acute sinusitis, rec urrence not specified, unspecified location (Primary Dx); Nasal septal deviation Start: 01-27-2023 Telephone encounter Pan Barba MD Work Phone: Family Medicine [place] Comment on above: Appointment Start: 07-03-2022 [facility] (Vis it Summary) Romero Kate External-Non[facility] Comment on above: Illness, unspecified - Other specified counseling Start: 07-03-2022 External Contact Romero Maldonado Provider EXTERNAL-NON [facility] Start: 06-17-2022 End: 06-17-2022 Patient encounter procedure Shahzad Perez MD Work Phone: Dermatology Comment on above: Seborrheic dermatiti s (Primary Dx); Carranza angioma; Lentigines; Multiple benign nevi; Seborrheic keratosis; History of nonmelanoma skin cancer Start: 05-13-2022 E-mail encounter latisha ayon caregiver Julianna Derasmalvin ADAM.KEVIN Work Phone: [facility] [place] [facility] Start: 05-13-2022 Follow-up encounter Julianna Lindsay lizy ADAM.KEVIN Work Phone: Neurology Comment on above: follow up Start: 03-12-2022 Telephone encounter Lauren Lam, CCC-A Work Phone: Otolaryngology Comment on above: model # Start: 03-07-2022 End: 03-07-2022 Patient encounter procedure Lauren Lam, CCC-A Work Phone: Audiology Comment on above: Tinnitus, bilateral (Primary Dx) Start: 11-28-2021 End: 11-28-2021 ambulatory [facility] Work Phone: Start: 11-28-2021 End: 11-28-2021 Discharged Recurring [facility]-Physical Therapy Start: 11-08-2021 ambulatory Julianna schneider APRN.KEVIN Work Phone: Neurology Comment on above: Sleep Test Start: 11-03-2021 ambulatory Julianna schneider APRN.KEVIN Work Phone: Neurology Comment on above: Home sleep Test Start: 10-31-2021 End: 10-31-2021 ambulatory Julianna Álvarez APRN.LAND SURVEYOR ASSISTANT Work Phone: Neurology Comment on above: ZULEMA (obstructive sle ep apnea) (Primary Dx); Insomnia due to medical condition; Frequent nocturnal awakening Start: 10-31-2021 End: 10-31-2021 Telemedicine consultation with patient Julianna Álvarez KIA.LAND SURVEYOR ASSISTANT Work Phone: [facility] Start: 06-25-2021 End: 06-25-2021 Patient encounter procedure Shahzad Perez MD Work Phone: Dermatology Comment on above: History of nonmelano ma skin cancer (Primary Dx); Multiple benign nevi; Seborrheic keratosis; Lipoma of back; Blue nevus Start: 07-24-2018 Patient encounter procedure [facility] Start: 01-23-2018 End: 01-23-2018 Patient encounter procedure [facility] Facility:[facility] Start: 01-02-2018 Patient encounter [facility] Procedures Date Procedure Procedure Detail Performing Clinician Start: 10-25-2024 Estimated creatinine clearance No Primar y Care Physician Start: 10-18-2024 Urnls dip stick/tablet reagent auto microscopy Jose Francisco Zamorano MD Work Phone: Start: 10-18-2024 Urnls dip stick/tablet rgnt auto w/o microscopy Jose Francisco Zamorano MD Work Phone: Start: 02-27-2024 Urnls dip stick/tablet rgnt auto w/o microscopy Felipe Gallo MD Work Phone: Start: 03-07-2023 Esophagogastroduodenoscopy transoral diagnostic Annie Cruz MD Work Phone: Start: 03-07-2023 Level iv surg pathology gross&microscopic exam Annie Cruz MD Work Phone: Start: 03-05-2023 Computed tomography of abdomen and pelvis with intravenous contrast Start: 02-04-2023 CT of face Start: 10-29-2021 Adult depression screening assessment Julianna Álvarez APRN.CNP Work Phone: Start: 12-01-2019 Adult depression screening assessment Shahzad Perez MD Work Phone: Start: 03-12-2019 Lipid 1996 panel - Serum or Plasma Teri Gibbs APRN.CNP Work Phone: Start: 06-23-2018 Colonoscopy Shahzad Perez MD Work Phone: Plan of Treatment Date Care Activity Detail Author Start: 09-30-2034 Urine microalbumin profile DTaP,Tdap,Td Vaccine (3 - Td or Tdap) [facility] Start: 06-23-2028 Colonoscopy COLONOSCOPY [facility] Start: 06-23-2028 COLORECTAL CANCER SCREENING COLORECTAL CANCER SCREENING [facility] Start: 06-23-2028 Screening for malignant neoplasm of colon [facility] Start: 01-09-2028 Tetanus vaccination TETANUS [facility] Start: 01-09-2028 Urine microalbumin profile [facility] Start: 01-20-2025 End: 01-20-2025 Patient encounter procedure 01/20/2025 9:30 AM EDT Office Visit Dermatology [address] [place] [address] [place] [address] [place], [place] [id number] [facility] Dermatology Comment on above: [facility] Start: 11-30-2024 End: 11-30-2024 Patient encounter procedure 11/30/2024 9:00 AM EDT Office Visit Urology [address] [place], [place] [id number] Jose Francisco Zamorano MD [address] [place] [address] bph follow up, new meds start Urology Comment on above: bph follow up, new meds start Start: 11-22-2024 Influenza vaccination [facility] Start: 10-25-2024 [facility] Start: 09-22-2024 End: 09-22-2024 Patient encounter procedure 09/22/2024 11:45 AM EDT Office [facility] [place] [address] [place] [address] Bety Guillaume MD [address] [place] [address] [facility] Start: 08-13-2024 End: 08-13-2024 Follow-up encounter 08/13/2024 7:00 AM EDT [facility] [address], [place] [address] Jarvis Stack MD [address] [facility] [place] [address] FOLLOW UP Integrative Medicine Comment on above: FOLLOW UP Start: 07-30-2024 End: 07-30-2024 Follow-up encounter 07/30/2024 3:00 PM EDT [facility] [address], [place] [address] Jarvis Stack MD [address] [place] [address] FOLLOW UP [facility] Comment on above: FOLLOW UP Start: 07-21-2024 End: 07-21-2024 Patient encounter procedure 07/21/2024 9:15 AM EDT Office Visit Dermatology [address] [place] [address] [address] [place] [address] [facility] Dermatology Comment on above: [facility] Start: 05-06-2024 End: 05-06-2024 Follow-up encounter 05/06/2024 3:30 PM EST [facility] [address] [place] [phone] Jarvis Stack MD [address] [place] [address] FOLLOW UP [facility] Comment on above: FOLLOW UP Start: 04-16-2024 End: 04-16-2024 Follow-up encounter 04/16/2024 3:30 PM EST [facility] [address] [place] [address] Jarvis Stack MD [address] [place] [address] FOLLOW UP [facility] Comment on above: FOLLOW UP Start: 03-25-2024 End: 03-25-2025 MR Internal auditory canal WO and W contrast IV MRI INTERNAL AUDITORY CANAL WITH AND WITHOUT CONTRAST Imaging Routine Asymmetrical hearing loss Expected: 03/25/2024, Expires: 03/25/2025 [facility] Comment on above: Expected: 03/25/2024, Expires: Start: 03-24-2024 Advance Directive Discussion Advance Directive Discussion [facility] Start: 03-12-2024 Lipid 1996 panel - Serum or Plasma Lipid Screening [facility] Start: 03-12-2024 Lipid panel Lipid Screening [facility] Start: 03-12-2024 LIPID SCREEN LIPID SCREEN [facility] Start: 03-03-2024 End: 03-03-2024 Patient encounter procedure 03/03/2024 1:00 PM EST Office Visit [facility] Gastroenterology [facility] [address] [facility] [address] [id number] Charleen Moralez, LAND SURVEYOR ASSISTANT [address] [facility] [place] [address] ulcer [facility] Gastroenterology [facility] Comment on above: ulcer Start: 02-20-2024 End: 02-20-2024 Nursing evaluation of patient and report 02/20/2024 11:00 AM EST Nurse Visit Internal Medicine [address] [address] Main, Bp [facility] [address] [place], [place] [id number] Exec Hold Bill Internal Medicine Comment on above: Exec Hold Bill Start: 02-20-2024 End: 02-20-2024 ambulatory 02/20/2024 7:15 AM EST Results Only [facility] A[facility] Station [address] [address] Exec Hold Bill [facility] A15 Draw Station Comment on above: Exec Hold Bill Start: 02-20-2024 End: 02-20-2024 Patient encounter procedure Internal Medicine Comment on above: reg self pay Exedc Hold Bill Exec Hold Bill Start: 02-11-2024 End: 02-11-2024 Patient encounter procedure 02/11/2024 9:00 AM EST Office Visit Cardiology [address] [place] [address] Abnormal stress ECG [R94.39] Cardiology Comment on above: Abnormal stress ECG [R94.39] Start: 02-11-2024 End: 02-11-2024 ambulatory 02/11/2024 8:15 AM EST Results Only Cardiology [address] [place] [address] EKG Cardiology Comment on above: EKG Start: 02-10-2024 End: 02-10-2024 Patient encounter procedure 02/10/2024 10:30 AM EST Office Visit Cardiology [address] [place] [address] Pt req bike Cardiology Comment on above: Pt req bike Start: 02-10-2024 End: 02-10-2024 ambulatory 02/10/2024 10:00 AM EST Results Only Cardiology [address] [place] [address] EKG Cardiology Comment on above: EKG Start: 02-06-2024 End: 02-06-2024 Patient encounter procedure 02/06/2024 1:00 PM EST Office Visit [facility] [address] [place] [phone] Jarvis Stack MD [address] [place] [address] NEW CONSULT [facility] Comment on above: NEW CONSULT Start: 01-20-2024 End: 01-20-2024 Patient encounter procedure 01/20/2024 8:40 AM EDT Office Visit Dermatology [address] [address] Shahzad Perez MD [address] [place] [address] [facility] Dermatology Comment on above: [facility] Start: 01-07-2024 End: 01-07-2024 Patient encounter procedure Internal Medicine Comment on above: Janet E[employer] Dysfu nction Self Pay Start: 01-06-2024 End: 01-06-2024 Patient encounter procedure 01/06/2024 8:40 AM EDT Office Visit Dermatology [address] [address] Shahzad Perez MD [address] [place] [address] [facility] Dermatology Comment on above: [facility] Start: 12-26-2023 End: 12-26-2023 Patient encounter procedure 12/26/2023 8:30 AM EDT Office Visit [facility] [address] [place] [address] Jarvis Stack MD [address] [place] [address] CONSULT Integrative Medicine Comment on above: CONSULT Start: 12-18-2023 End: 12-18-2023 Patient encounter procedure 12/18/2023 2:00 PM EDT Office Visit [facility] [address] [place] [address] Jarvis Stack MD [address] [place], [place] [id number] CONSULT Integr[facility] Comment on above: CONSULT Start: 12-08-2023 End: 12-08-2023 Patient encounter procedure 12/08/2023 8:55 AM EDT Office Visit Otolaryngology [address] [address] Mary Andrade MD [address] [place], [place] [id number] PAIN IN EARS/ETD Otolaryngology Comment on above: PAIN IN EARS/ETD Start: 12-04-2023 End: 12-04-2023 Patient encounter procedure 12/04/2023 12:30 PM EDT Office Visit Audiology [address] [address] Antonia Mims AUD [address] [place] [address] Tinnitus Eval Audiology Comment on above: Tinnitus Eval Start: 11-23-2023 COVID-19 VACCINE ( season) COVID-19 VACCINE ( season) [facility] Start: 11-23-2023 Covid-19 Vaccine ( season) Covid-19 Vaccine () [facility] Start: 11-23-2023 Covid-19 Vaccine () Covid-19 Vaccine () [facility] Start: 11-23-2023 Influenza vaccination Influenza Vaccine (#1) [facility] Start: 11-13-2023 End: 11-13-2023 Patient encounter procedure 11/13/2023 9:30 AM EDT Office Visit Otolaryngology [address] [address] Marjan Gar MD [address] [place] [address] ear pain and fullness, hearing loss Otolaryngology Comment on above: ear pain and fullness, hearing loss Start: 11-06-2023 End: 11-06-2023 Patient encounter procedure Audiology Comment on above: audio and hac - pt advised that order ne eded for medicare to pay for audio - said he would get one from his local ENT audio [facility] hac Start: 10-28-2023 End: 10-28-2023 Patient encounter procedure 10/28/2023 2:30 PM EDT Office Visit Cardiology [address] [place] [address] Chano Witt MD [address] [place] [address] cardiac evaluation Cardiology Comment on above: cardiac evaluation Start: 10-17-2023 End: 10-17-2023 Follow-up encounter 10/17/2023 1:00 PM EDT [facility] Neurology [address] [facility] [address] [place] [address] Michael Gallegos, PSYD [address] [place] [phone] follow up - struggling w/ in family Neurology Comment on above: follow up - struggling w/ in famil y Start: 10-09-2023 End: 10-09-2023 Patient encounter procedure 10/09/2023 2:15 PM EDT Office Visit Cardiology [address] [place] [address] Iris Payne MD [address] [place] [address] cardiac evaluation Cardiology Comment on above: cardiac evaluation Start: 10-09-2023 End: 10-09-2023 ambulatory 10/09/2023 1:45 PM EDT Results Only Cardiology [address] [place] [address] cardiac evaluation Cardiology Comment on above: cardiac evaluation Start: 03-24-2023 Advance Directive Discussion Advance Directive Discussion [facility] Start: 03-24-2023 Behavioral Health Screening Behavioral Health Screening [facility] Start: 03-05-2023 [facility] Start: 03-05-2023 [facility] Start: 02-28-2023 [facility] Start: 12-26-2022 PROSTATE CANCER SCREENING DISCUSSION PROSTATE CANCER SCREENING DISCUSSION [facility] Start: 11-22-2022 Covid-19 Vaccine () Covid-19 Vaccine () [facility] Start: 11-22-2022 Influenza vaccination Influenza Vaccine (#1) [facility] Start: 10-29-2022 Adult depression screening assessment DEPRESSION SCREENING [facility] Start: 03-24-2022 ADVANCE DIRECTIVE DISCUSSION ADVANCE DIRECTIVE DISCUSSION [facility] Start: 03-24-2022 DEPRESSION ASSESSMENT DEPRESSION ASSESSMENT [facility] Start: 11-22-2021 Influenza vaccination INFLUENZA (#1) [facility] Start: 06-30-2021 DIABETES SCREEN DIABETES SCREEN [facility] Start: 06-30-2021 Diabetes Screening Diabetes Screening [facility] Start: 05-18-2021 COVID-19 VACCINE (4 - Booster for Moderna series) COVID-19 VACCINE (4 - Booster for Moderna series) [facility] Start: 03-24-2021 ADVANCE DIRECTIVE DISCUSSION ADVANCE DIRECTIVE DISCUSSION [facility] Start: 03-24-2021 DEPRESSION ASSESSMENT DEPRESSION ASSESSMENT [facility] Start: 11-30-2020 Adult depression screening assessment DEPRESSION SCREENING [facility] Start: 08-20-2019 ANNUAL PCP TEAM CHRONIC DISEASE VISIT ANNUAL PCP TEAM CHRONIC DISEASE VISIT [facility] Start: 08-20-2019 PNEUMOCOCCAL: 65+ (2 - PPSV23 if available, else PCV20) PNEUMOCOCCAL: 65+ (2 - PPSV23 if available, else PCV20) [facility] Start: 08-20-2019 PNEUMOCOCCAL: 65+ (2 - PPSV23 or PCV20) PNEUMOCOCCAL: 65+ (2 - PPSV23 or PCV20) [facility] Start: 06-24-2019 Screening for malignant neoplasm of colon COLORECTAL CANCER SCREENING DISCUSSION [facility] Start: 03-11-2019 SHINGRIX VACCINE (2 of 2) SHINGRIX VACCINE (2 of 2) [facility] Start: 03-11-2019 Zoster vaccine hzv live for subcutaneous use ZOSTER (SHINGLES) VACCINE (2 of 2) [facility] Start: 10-14-2018 PNEUMOCOCCAL: 65+ (2 - PPSV23 if available, else PCV20) PNEUMOCOCCAL: 65+ (2 - PPSV23 if available, else PCV20) [facility] Start: 2018 PNEUMOVAX AGE 65 AND OVER WITH 5YR LOOKBACK (#1) PNEUMOVAX AGE 65 AND OVER WITH 5YR LOOKBACK (#1) [facility] Start: 07-22-2018 Medicare Annual Wellness Visit Medicare Annual Wellness Visit [facility] Start: 2013 RSV Vaccine (1 - 1-dose 60+ series) RSV Vaccine (1 - 1-dose 60+ series) [facility] Start: 2013 RSV Vaccine (1 - Risk 60-74 years 1-dose series) RSV Vaccine (1 - Risk 60-74 years 1-dose series) [facility] Start: 1998 COLOGUARD (FIT-DNA) COLOGUARD (FIT-DNA) [facility] Start: [address] COLONOGRAPHY [facility] Start: 1998 FECAL OCCULT BLOOD FECAL OCCULT BLOOD [facility] Start: 1998 Screening for malignant neoplasm of colon [facility] Start: 1998 SIGMOIDOSCOPY SIGMOIDOSCOPY [facility] Start: 1993 Lipid panel LIPID SCREENING [facility] Start: 08-10-1971 Annual PCP Team Chronic Disease Visit Annual PCP Team Chronic Disease Visit [facility] Start: 08-10-1971 BP CONTROLLED (<130/80) BP CONTROLLED (<130/80) [facility] Start: 08-10-1971 Depression Screening Depression Screening [facility] Start: 08-10-1971 SPIROMETRY SPIROMETRY [facility] Start: 1953 ABDOMINAL AORTIC ANEURYSM SCREENING ABDOMINAL AORTIC ANEURYSM SCREENING [facility] Start: 1953 Abdominal aortic aneurysm screening Abdominal Aortic Aneurysm Screening [facility] Start: 1953 Hepatitis C screening HEPATITIS C VIRUS SCREENING [facility] Binocular microscopy separate dx procedure IA BINOCULAR MICROSCOPY SEPARATE DX PROCEDURE IA Charge Routine Sensation of fullness in both ears 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 Ordered: 03/26/2024 [facility] Comment on above: Ordered: 03/26/2024 End: 12-12-2024 CT Temporal bone WO contrast CT TEMP BONES WO IVCON Radiology Routine Pulsatile tinnitus, left ear 1 Occurrences starting 11/13/2023 until 12/12/2024 [facility] Comment on above: 1 Occurrences starting 11/13/2023 until 12/12/2024 End: 09-23-2024 ECG COMPLETE ECG COMPLETE ECG Routine Encounter for screening for cardiovascular disorders 1 Occurrences starting 09/24/2023 until 09/23/2024 [facility] Work Phone: Comment on above: 1 Occurrences starting 09/24/2023 until 09/23/2024 End: 10-16-2024 HEARING TEST/AUDIOGRAM HEARING TEST/AUDIOGRAM Audiology Routine Other specified hearing loss, unspecified ear 1 Occurrences starting 10/16/2023 until 10/16/2024 [facility] Work Phone: Comment on above: 1 Occurrences starting 10/16/2023 until 10/16/2024 End: 10-31-2022 HOME SLEEP APNEA TEST (HSAT) HOME SLEEP APNEA TEST (HSAT) Procedures Routine ZULEMA (obstructive sleep apnea) Insomnia due to medical condition Frequent nocturnal awakening 1 Occurrences starting 10/31/2021 until 10/31/2022 [facility] Work Phone: Comment on above: 1 Occurrences starting 10/31/2021 until 10/31/2022 End: 12-13-2024 MR Brain WO and W contrast IV MRI BRAIN WO/W IVCON Radiology Routine Sensorineural hearing loss (SNHL) of right ear with restricted hearing of left ear 1 Occurrences starting 11/13/2023 until 12/13/2024 [facility] Work Phone: Comment on above: 1 Occurrences starting 11/13/2023 until 12/13/2024 End: 12-12-2024 MRA Head vessels WO contrast MRA BRAIN WO IVCON Radiology Routine Pulsatile tinnitus, left ear 1 Occurrences starting 11/13/2023 until 12/12/2024 [facility] Comment on above: 1 Occurrences starting 11/13/2023 until 12/12/2024 Patient Education [facility] Work Phone: Patient referral [facility] Work Phone: [facility] Immunizations Immunization Date Immunization Notes Care Provider [facility] 02-10-2023 influenza (aIIV4) vaccine, age 65+ yr, quadrivalent, PF (FLUAD QUAD) Yady Herrera MD Work Phone: [facility] 02-10-2023 influenza virus vacc ine, unspecified formulation Ricci Ariza PET CARE ATTENDANT.LAND SURVEYOR ASSISTANT Work Phone: [facility] 02-05-2022 influenza (aIIV4) vaccine, age 65+ yr, quadrivalent, PF (FLUAD QUAD) Yady Herrera MD Work Phone: [facility] 02-05-2022 influenza virus vacc ine, unspecified formulation Susan Gibbs APRN.LAND SURVEYOR ASSISTANT Work Phone: [facility] 02-21-2021 pneumococcal polysaccharide vaccine, 23 valent Yady Herrera MD Work Phone: [facility] 01-15-2021 influenza, high dose seasonal, preservative-free Shahzad Perez MD Work Phone: [facility] 01-14-2019 influenza, high dose seasonal, preservative-free Shahzad Perez MD Work Phone: [facility] 01-14-2019 zoster vaccine recombinant Shahzad Perez MD Work Phone: [facility] 01-14-2019 zoster vaccine, unspecified formulation Bety Guillaume MD Work Phone: [facility] 08-19-2018 pneumococcal conjuga te vaccine, 13 valent Shahzad Perez MD Work Phone: [facility] 01-08-2018 influenza, injectabl e, quadrivalent, contains preservative Shahzad Perez MD Work Phone: [facility] 01-08-2018 tetanus toxoid, redu jorge diphtheria toxoid, and acellular pertussis vaccine, adsorbed Shahzad Perez MD Work Phone: [facility] Payers Date Payer Category Payer Self-pay [id number] 2019 Private Health Insurance MMO MED ICARE SUPPLEMENT [id number] 2019 Unknown MMO MMO MEDICARE SUPPLEMENT [id number] 2019-Present [phone] [address] [place] [address] Indemnity [id number] 2018 Medicare MEDICARE MEDICAR E A AND B [id number] 2018-Present [phone] [address] [address] [place] [address] Medicare [id number] 2018 Medicare [id number] 2018 Unknown [id number] 2018 Medicare [id number] 2018 Unknown [id number] 1955 Unknown [id number] 1955 Unknown [id number] Unknown [id number] Unknown [id number] Unknown [id number] Social History Date Type Detail Facility Start: 03-14-2015 End: 02-27-2024 Tobacco smoking status NHIS Ex-smoker [facility] Start: 12-31-1973 End: 07-02-1975 History of tobacco use Current smoker [facility] Start: 12-31-1973 End: 07-02-1975 History of tobacco use Cigarette Smoker [facility] Start: 03-14-2015 End: 09-09-2022 Cigarettes smoked current (pack per day) - Reported 1 [facility] Start: 03-14-2015 End: 02-27-2024 Tobacco use and exposure Smokeless tobacco non-user [facility] Start: 01-08-2020 End: 10-18-2024 Alcohol intake Current non-drinker of alcohol (finding) [facility] Start: 1955 Sex Assigned At Not on file C [facility] Start: 10-19-2021 End: 10-29-2021 Exposure to SARS-CoV-2 (event) Not sure [facility] Start: 07-17-2018 End: 03-05-2023 Tobacco smoking status NHIS Unknown if ever smoked [facility] Start: 1955 Sex Assigned At Male [facility] Start: 10-31-2021 End: 09-09-2022 Tobacco use panel [facility] Adult Depression Screening Assessment 2 [facility] Start: 01-11-2020 End: 10-25-2024 Tobacco smoking status NHIS Never smoked tobacco [facility] Start: 04-23-2024 Alcoholic beverage intake Lifetime non-drinker (finding) [facility] How often to you hav e a drink containing alcohol? Never [facility] Start: 10-18-2024 Alcohol Comment quit 20 years ago [facility] Goals Date Patient Goal Desired Activity /State Personal health goal Clinical Notes 05-19-2018 to 10-25-2024 Patient InstructionsJose Francisco Zamorano MD - 10/18/2024 1:08 PM EDTTelephone Encounter - Keara Muhammad - 2024 3:00 PM EDTTelephone Encounter - Keara Muhammad - 2024 3:00 PM EDT Note Date & Type Note Facility 10-25-2024 Discharge summary [facility] 10-25-2024 Hospital Discharge instructions Additional Instructions Please follow-up with your primary care doctor in the next 3 to 5 days. Return to the ED with any new or worsening symptoms as discussed including fever, chills, worsening back pain, issues urinating or having bowel movements or numbness/weakness in your legs. You can take 650 mg of Tylenol every 6 hours as needed. You can also take ibuprofen 600 mg every 8 hours. Apply the lidocaine patch for 12 hours and make sure to remove it after this time. You can take the Flexeril as well however do not take it prior to driving it can make you sleepy, dizzy and lightheaded. [facility] Work Phone: 10-18-2024 Instructions Jose Francisco Zamorano MD - 10/18/2024 1:27 PM EDT The drug you're being put on is TAMSULOSIN It is used to treat Benign Prostatic Hyperplasia (BPH), otherwise known as an enlarged prostate. It is used to relax the muscles within the prostate gland. It can help to ease many symptoms associated with urinary difficulty, such as frequency, urgency, dribbling, weak urinary stream, and sensation of incomplete emptying of the bladder. Often the effects can be seen within 1 week, but can take up to 6 weeks. Your first dose of tamsulosin may make you feel dizzy or faint, so it is important that you take this medication before going to bed, unless directed otherwise. If you feel dizzy or weary, or if you start sweating, remain lying down until these symptoms have resolved. If the symptoms persist, stop the medication, and contact the prescribing doctor. A rare but known side effect of the medication may also be a reduction in your semen production. documented in this encounter [facility] 10-18-2024 Note HNO ID: [id number] Author: JOSE FRANCISCO ZAMORANO MD Service: ? Author Type: Physician Type: Progress Notes Filed: 10/18/2024 22:46 Note Text: [facility] UROLOGY ESTABLISHED PATIENT CLINIC NOTE UROL EMI SYLVESTER Recording using [employer] software for draft documentation of the visit was discussed with the patient/authorized bilingual inside sales representative; all questions welcomed and answered. Patient/authorized bilingual inside sales representative agreed to proceed PATIENT INFO: Florian Portillo AGE: [age] year old PCP: Jovi Gallo Jr, DO IMPRESSION/PLAN: 1. Hematospermia - ICD9: 608.82, ICD10: R36.1 (primary diagnosis) -Reassurance provided that this should resolve on its own. Encourage patient to ejaculate at least 10 times between now and follow-up in 6 weeks, with close observation 2. Urinary frequency - ICD9: 788.41, ICD10: R35.0 -Possibly induced by BPH. Recommend trial of tamsulosin 0.4 mg nightly. 3. Microscopic hematuria - ICD9: 599.72, ICD10: R31.29 -Send urine for microscopy 4. Benign prostatic hyperplasia with incomplete bladder emptying - ICD9: 600.01, 788.21, ICD10: N40.1, R39.14 -Recommend starting tamsulosin as above 5. Prostate cancer screening - ICD9: V76.44, ICD10: Z12.5 REASON FOR VISIT: blood in semen HPI: Florian Portillo returns for continuing evaluation and management. Hematopsermia: - Noticed dark discoloration in semen after a single recent ejaculation; no visible hematuria or hematospermia prior to this episode. - Denies associated pain during ejaculation. - No history of hematospermia. - Denies use of anticoagulants. Urinary Frequency: - Nocturia 1-2 times per night. - Daytime urinary frequency with small volumes. - Symptoms present for several years; patient has adapted to them. - Recent digital rectal exam by Dr. Gallo revealed an enlarged prostate. - PSA levels stable over the past 6 years. - Denies previous use of medication for urinary symptoms. Obstructive Sleep Apnea: - Diagnosed with ZULEMA; difficulty adapting to CPAP mask. - Currently having a sleep device made by a dentist. - Reports waking up 8-10 times per night, not always due to the need to urinate. history: Previous elevation in PSA, last followed by urology in February 2024 Remote history of prostatitis 2018 MRI showed PI-RADS 3 lesion UROLOGICAL DATA: Urinalysis: GLUCOSE UA (POCT) Negative 10/18/2024 BILIRUBIN UA (POCT) Negative 10/18/2024 KETONE UA (POCT) Negative 10/18/2024 SPECIFIC GRAVITY UA (POCT) 1.015 10/18/2024 HEMOGLOBIN/BLOOD UA (POCT) Value: Trace-intact 10/18/2024 PH UA (POCT) 6.0 10/18/2024 PROTEIN UA (POCT) Negative 10/18/2024 UROBILINOGEN UA (POCT) 0.2 10/18/2024 NITRITE UA (POCT) Negative 10/18/2024 LEUKOCYTES UA (POCT) Negative 10/18/2024 COLOR UA (POCT) Yellow 10/18/2024 CLARITY UA (POCT) Clear 10/18/2024 Post Void Residual, Ultrasound: N/A cc OTHER DATA: PSA (ng/mL) Date Value 02/27/2024 6.63 12/26/2017 6.14 PSA, Percent Free (%) Date Value 12/26/2017 14 No results found for: ISOPSA Creatinine Date Value Ref Range Status 06/30/2018 0.97 0.73 - 1.22 mg/dL Final 12/26/2017 0.89 0.73 - 1.22 mg/dL Final Testosterone (ng/dL) Date Value 12/26/2017 441 PMHx/PSHx: see above, otherwise unchanged Rx: reviewed and unchanged ROS: see above, otherwise unchanged Labs: None Imaging: None MEDICATIONS: Current Outpatient Medications Medication Sig omeprazole (PRILOSEC) 40 mg capsule Take 1 capsule by mouth once daily. clindamycin (CLEOCIN) 1 % external solution Apply to affected areas on neck when needed after shaving ketoconazole (NIZORAL) 2 % shampoo Use as directed on affected areas of scalp and face 2-3x/week. ketoconazole (NIZORAL) 2 % cream Apply generous layer to clean, dry skin 1-2 times daily. tamsulosin (FLOMAX) 0.4 mg Take 1 capsule by mouth daily at bedtime. No current facility-administered medications for this visit. PHYSICAL EXAM: There were no vitals taken for this visit. There is no height or weight on file to calculate BMI. General: Well masculinized, well nourished male Psych: euthymic, NAD Neuro: AANDOx3 Inguinal: No lesions, adenopathy, or hernias Phallus: normal, circumcised, no lesions Meatus: orthotopic, patent, no discharge Scrotum: no lesions, normal rugae Testes: Descended, nontender, and no masses bilaterally DENILSON reveals a 35 g prostate without nodularity or tenderness, normal anal sphincter tone FOLLOW UP: 6 weeks Jose Francisco Zamorano M.D, MS Associate Staff [facility] 10-18-2024 History of Present illness Narrative Images from the original note were not included. [facility] UROLOGY ESTABLISHED PATIENT CLINIC NOTE UROL [place] MOB Recording using [employer] software for draft documentation of the visit was discussed with the patient/authorized bilingual inside sales representative; all questions welcomed and answered. Patient/authorized bilingual inside sales representative agreed to proceed PATIENT INFO: Florian Portillo AGE: [age] year old PCP: Jovi Gallo Jr, DO IMPRESSION/PLAN: 1. Hematospermia - ICD9: 608.82, ICD10: R36.1 (primary diagnosis) -Reassurance provided that this should resolve on its own. Encourage patient to ejaculate at least 10 times between now and follow-up in 6 weeks, with close observation 2. Urinary frequency - ICD9: 788.41, ICD10: R35.0 -Possibly induced by BPH. Recommend trial of tamsulosin 0.4 mg nightly. 3. Microscopic hematuria - ICD9: 599.72, ICD10: R31.29 -Send urine for microscopy 4. Benign prostatic hyperplasia with incomplete bladder emptying - ICD9: 600.01, 788.21, ICD10: N40.1, R39.14 -Recommend starting tamsulosin as above 5. Prostate cancer screening - ICD9: V76.44, ICD10: Z12.5 REASON FOR VISIT: blood in semen HPI: Florian Portillo returns for continuing evaluation and management. Hematopsermia: - Noticed dark discoloration in semen after a single recent ejaculation; no visible hematuria or hematospermia prior to this episode. - Denies associated pain during ejaculation. - No history of hematospermia. - Denies use of anticoagulants. Urinary Frequency: - Nocturia 1-2 times per night. - Daytime urinary frequency with small volumes. - Symptoms present for several years; patient has adapted to them. - Recent digital rectal exam by Dr. Gallo revealed an enlarged prostate. - PSA levels stable over the past 6 years. - Denies previous use of medication for urinary symptoms. Obstructive Sleep Apnea: - Diagnosed with ZULEMA; difficulty adapting to CPAP mask. - Currently having a sleep device made by a dentist. - Reports waking up 8-10 times per night, not always due to the need to urinate. history: Previous elevation in PSA, last followed by urology in February 2024 Remote history of prostatitis 2018 MRI showed PI-RADS 3 lesion UROLOGICAL DATA: Urinalysis: GLUCOSE UA (POCT) Negative 10/18/2024 BILIRUBIN UA (POCT) Negative 10/18/2024 KETONE UA (POCT) Negative 10/18/2024 SPECIFIC GRAVITY UA (POCT) 1.015 10/18/2024 HEMOGLOBIN/BLOOD UA (POCT) Value: Trace-intact 10/18/2024 PH UA (POCT) 6.0 10/18/2024 PROTEIN UA (POCT) Negative 10/18/2024 UROBILINOGEN UA (POCT) 0.2 10/18/2024 NITRITE UA (POCT) Negative 10/18/2024 LEUKOCYTES UA (POCT) Negative 10/18/2024 COLOR UA (POCT) Yellow 10/18/2024 CLARITY UA (POCT) Clear 10/18/2024 Post Void Residual, Ultrasound: N/A cc OTHER DATA: PSA (ng/mL) Date Value 02/27/2024 6.63 12/26/2017 6.14 PSA, Percent Free (%) Date Value 12/26/2017 14 No results found for: ISOPSA Creatinine Date Value Ref Range Status 06/30/2018 0.97 0.73 - 1.22 mg/dL Final 12/26/2017 0.89 0.73 - 1.22 mg/dL Final Testosterone (ng/dL) Date Value 12/26/2017 441 PMHx/PSHx: see above, otherwise unchanged Rx: reviewed and unchanged ROS: see above, otherwise unchanged Labs: None Imaging: None MEDICATIONS: Current Outpatient Medications Medication Sig omeprazole (PRILOSEC) 40 mg capsule Take 1 capsule by mouth once daily. clindamycin (CLEOCIN) 1 % external solution Apply to affected areas on neck when needed after shaving ketoconazole (NIZORAL) 2 % shampoo Use as directed on affected areas of scalp and face 2-3x/week. ketoconazole (NIZORAL) 2 % cream Apply generous layer to clean, dry skin 1-2 times daily. tamsulosin (FLOMAX) 0.4 mg Take 1 capsule by mouth daily at bedtime. No current facility-administered medications for this visit. PHYSICAL EXAM: There were no vitals taken for this visit. There is no height or weight on file to calculate BMI. General: Well masculinized, well nourished male Psych: euthymic, NAD Neuro: A&Ox3 Inguinal: No lesions, adenopathy, or hernias Phallus: normal, circumcised, no lesions Meatus: orthotopic, patent, no discharge Scrotum: no lesions, normal rugae Testes: Descended, nontender, and no masses bilaterally DENILSON reveals a 35 g prostate without nodularity or tenderness, normal anal sphincter tone FOLLOW UP: 6 weeks Jose Francisco Zamorano M.D, MS Associate Staff [facility] documented in this encounter [facility] 2024 Telephone encounter Note Seen with Charleen Moralez CNP on 04/15/2024. Keara Muhammad [facility] 2024 Miscellaneous Notes Seen with Charleen Moralez CNP on 04/15/2024. Keara Muhammad 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 Called back left voicemail. Katja Kahn MD (This note may have been partially generated using Palmer Hargre[employer] voice recognition system and could be subject to dictation errors. If clarification is needed regarding the context or content of this note please contact me). documented in this encounter [facility] 07-21-2024 History of Present illness Narrative [facility] Department of Dermatology Chief Complaint: Patient presents with: Full Body Skin Check Date of last visit to [facility] Dermatology: 01-20-2024 Dr.Jon Perez (New to Thi Pino DO) History of Present Illness: Florian Portillo is a 68 year old male Patient is here for: # FBSC PERTINENT PAST DERMATOLOGIC HISTORY: - Personal History of Skin Cancer: Yes - 2020 BCC- Left Nasal Tip- Mohs- Dr.Jon Perez - Personal History of Atypical Moles: No - Personal History of Extensive Sun Exposure/Blistering Sunburns:No - History of tanning bed usage: No - Does patient use sunscreen Yes - Is the patient immunosuppressed: No FAMILY HISTORY: - Family History of Skin Cancer: Yes- Father BCC REVIEW OF SYSTEMS: Patient feels well and denies any recent fevers, chills, or night sweats. PHYSICAL EXAM: - General: well appearing, in no acute distress - Neurology: alert and oriented times three - Psychiatry: appropriate mood/affect Skin: Pierre phototype: II Skin exam performed of Face (including eyes, ears, lips), Scalp/hair, Neck, Chest, Abdomen, Back, Bilateral upper extremities, Hands/nails, Bilateral lower extremities, Feet/toenails, Buttocks Skin exam normal with the exception of: - Scattered reticulated light rubalcava macules in sun-exposed distribution c/w solar lentigines - Regular and symmetric brown macules and papules on the head, trunk and extremities c/w benign nevi - Scattered small carranza red papules throughout c/w carranza angioma - Few scattered brown stuck on papules and plaques on the head, trunk and extremities c/w seborrheic keratoses - Rough scaly papule to the Upper Forehead - Well healed scar to the Nasal Dorsum, no recurrence Lesions for monitoring (uniform, reassuring features under dermoscopy): 07-21-2024 Left Parietal Scalp 5 mm x 4 mm Blue Nevus ASSESSMENT AND PLAN: Photoaging and rhytides - Recommend OTC Neutrogena Rapid Wrinkle Repair - Recommend daily sun protection using broad-spectrum sunscreen (at least SPF 30 for day-to-day activities, SPF 50 or higher when outside for more prolonged periods), photoprotective clothing, and other photoprotective measures, such as seeking shade when possible. - Samples of Neutrogena Collagen Bank Moisturizer and Sunscreens provided Actinic Keratoses on the Upper Forehead -discussed premalignant etiology and tx options, recommend cryotherapy today -treated with LN2 Procedure Note Cryosurgery of pre-malignant lesion(s) Risks, benefits, alternatives, complications, and personnel required for cryosurgery reviewed with patient. Specifically, the risks of permanent scar, loss or darkening of skin color, blister and recurrence of lesion were discussed. Pt verbalizes understanding and wishes to proceed. Cryosurgery performed with Liquid Nitrogen via cryostat spray gun to Actinic Keratosis . 1 lesion(s) treated. Patient tolerated well. Post-op course explained and wound care instructions given. Return if lesions fail to fully resolve. # Benign Neoplasms (lentigines, seborrheic keratoses, angiomas) - Discussed benign etiology, no treatment needed at this time #Benign Melanocytic Nevi - Uniform appearance of dermoscopy - Reassurance to patient - No additional treatment is needed # Photoaging of skin # Screening for skin cancer # Hx of nonmelanoma skin cancer BCC - Patient inquired about SRT (Superficial Radiation Therapy)- Discussed use of treatment and answered patient questions regarding this therapy - Discussed signs of melanoma and non-melanoma skin cancer. - Recommend at least every 12 month follow up for FBSE by Dermatology and routine self examination - Advised daily sunscreen use (at least SPF30+, broad spectrum), large brimmed hat, protective clothing, and sun avoidance as often as possible - Discussed to contact clinic immediately for evaluation if any new, changing, or symptomatic lesions arise Patient verbalizes understanding and agrees with treatment plan and will contact us with any further questions or concerns. Return to clinic 6 months FBSC or sooner for any change in/worsening of condition or if any new/changing/symptomatic lesions arise. The documentation for this note was completed by Viv Charles LPN acting as scribe for Thi Pino DO. July 21, 2024 8:56 AM. I agree with the Chief Complaint, ROS, and Past Histories independently gathered by the clinical direct support worker and the remaining scribed note accurately describes my personal service to the patient. Thi Pino DO documented in this encounter [facility] 07-21-2024 Note HNO ID: [id number] Author: THI PINO DO Service: ? Author Type: Physician Type: Progress Notes Filed: 07/21/2024 10:09 Note Text: [facility] Department of Dermatology Chief Complaint: Patient presents with: Full Body Skin Check Date of last visit to [facility] Dermatology: 01-20-2024 Dr.Jon Perez (New to Thi Pino DO) History of Present Illness: Florian Portillo is a 68 year old male Patient is here for: # FBSC PERTINENT PAST DERMATOLOGIC HISTORY: - Personal History of Skin Cancer: Yes - 2020 BCC- Left Nasal Tip- Mohs- Dr.Jon Perez - Personal History of Atypical Moles: No - Personal History of Extensive Sun Exposure/Blistering Sunburns:No - History of tanning bed usage: No - Does patient use sunscreen Yes - Is the patient immunosuppressed: No FAMILY HISTORY: - Family History of Skin Cancer: Yes- Father BCC REVIEW OF SYSTEMS: Patient feels well and denies any recent fevers, chills, or night sweats. PHYSICAL EXAM: - General: well appearing, in no acute distress - Neurology: alert and oriented times three - Psychiatry: appropriate mood/affect Skin: Pierre phototype: II Skin exam performed of Face (including eyes, ears, lips), Scalp/hair, Neck, Chest, Abdomen, Back, Bilateral upper extremities, Hands/nails, Bilateral lower extremities, Feet/toenails, Buttocks Skin exam normal with the exception of: - Scattered reticulated light rubalcava macules in sun-exposed distribution c/w solar lentigines - Regular and symmetric brown macules and papules on the head, trunk and extremities c/w benign nevi - Scattered small carranza red papules throughout c/w carranza angioma - Few scattered brown stuck on papules and plaques on the head, trunk and extremities c/w seborrheic keratoses - Rough scaly papule to the Upper Forehead - Well healed scar to the Nasal Dorsum, no recurrence Lesions for monitoring (uniform, reassuring features under dermoscopy): 07-21-2024 Left Parietal Scalp 5 mm x 4 mm Blue Nevus ASSESSMENT AND PLAN: Photoaging and rhytides - Recommend OTC Neutrogena Rapid Wrinkle Repair - Recommend daily sun protection using broad-spectrum sunscreen (at least SPF 30 for day-to-day activities, SPF 50 or higher when outside for more prolonged periods), photoprotective clothing, and other photoprotective measures, such as seeking shade when possible. - Samples of Neutrogena Collagen Bank Moisturizer and Sunscreens provided Actinic Keratoses on the Upper Forehead -discussed premalignant etiology and tx options, recommend cryotherapy today -treated with LN2 Procedure Note Cryosurgery of pre-malignant lesion(s) Risks, benefits, alternatives, complications, and personnel required for cryosurgery reviewed with patient. Specifically, the risks of permanent scar, loss or darkening of skin color, blister and recurrence of lesion were discussed. Pt verbalizes understanding and wishes to proceed. Cryosurgery performed with Liquid Nitrogen via cryostat spray gun to Actinic Keratosis . 1 lesion(s) treated. Patient tolerated well. Post-op course explained and wound care instructions given. Return if lesions fail to fully resolve. # Benign Neoplasms (lentigines, seborrheic keratoses, angiomas) - Discussed benign etiology, no treatment needed at this time #Benign Melanocytic Nevi - Uniform appearance of dermoscopy - Reassurance to patient - No additional treatment is needed # Photoaging of skin # Screening for skin cancer # Hx of nonmelanoma skin cancer BCC - Patient inquired about SRT (Superficial Radiation Therapy)- Discussed use of treatment and answered patient questions regarding this therapy - Discussed signs of melanoma and non-melanoma skin cancer. - Recommend at least every 12 month follow up for FBSE by Dermatology and routine self examination - Advised daily sunscreen use (at least SPF30+, broad spectrum), large brimmed hat, protective clothing, and sun avoidance as often as possible - Discussed to contact clinic immediately for evaluation if any new, changing, or symptomatic lesions arise Patient verbalizes understanding and agrees with treatment plan and will contact us with any further questions or concerns. Return to clinic 6 months FBSC or sooner for any change in/worsening of condition or if any new/changing/symptomatic lesions arise. The documentation for this note was completed by Viv Charles LPN acting as scribe for Thi Pino DO. July 21, 2024 8:56 AM. I agree with the Chief Complaint, ROS, and Past Histories independently gathered by the clinical direct support worker and the remaining scribed note accurately describes my personal service to the patient. Thi Pino DO [facility] 07-21-2024 Instructions Viv Charels LPN - 07/21/2024 9:07 AM EDT Images from the original note were not included. Dr Pino's Favorite Daily Sunscreens For Dry skin - Olay sensitive mineral SPF sunscreen SPF 30 Vanicream Broad Spectrum SPF 50+ (mineral)- Best for sensitive skin. Makeup may not set well when applying over this product. [place] Toleriane Double Repair Face Moisturizer UV (chemical) solarsciences tinted mineral (mineral)- we have here at [facility] Vanicream face moisturizer with mineral sunscreen SPF 30 CeraVe Hydrating mineral sheer tint sunscreen (check that it has tint)- 30 SPF. Has iron oxide tint For Normal/ Oily Glassie Joshua's zinc oxide sunscreen lotion SPF 40 Neutrogena mineral invisible daily defense face liquid (has iron oxide tint) Cetaphil Sheer Mineral Face Sunscreen [place]-Posay Anthelios GUTIÉRREZ Mineral Elta UV Clear Maelove The Sun Protector (SPF 30)- can also work as a primer under makeup For Darker Skintypes - [place]ay tinted mineral (mineral)- has iron oxide tint - Neutrogena UV tint (comes in 4 tint levels)- Mineral Has iron oxide tint Sunscreens that are a little easier to put on kids Vanicream Broad spectrum SPF 50- See above. Just rubs in very easily and is good for sensitive skin Neutrogena Sheer Zinc Mineral Sunscreen Stick Glassie Joshua's mineral spray (has fragrance, so I do not recommend for anyone with sensitive skin) Olay sensitive mineral SPF sunscreen SPF 30 Scalp Sunscreen - Color Science Allgood on mineral sunscreen SPF 50 Reapplication during the day over makeup - Color Science Allgood on Mineral sunscreen SPF 50 Department of Dermatology SKIN CARE AFTER CRYOSURGERY Post - Operative Instructions The skin's response to cryosurgery (freezing) can be mild to more severe, depending on the depth of the freeze and the location of the area treated. You may have only mild redness and swelling with a little discomfort of significant discoloration and blistering with considerable discomfort. A burning sensation in the skin may last from several minutes to several hours after the procedure. Follow these instructions when caring for an area treated by cryosurgery: MINOR RESPONSE: The area may sting or burn for a short time after treatment. The treated area will be red in color at first then turn brown and flaky as it heals and the upper layer of skin sloughs off. Gently cleanse the area with soap and water. Pat dry and apply a thin film of: Vaseline. Do this at least once a day to prevent infection. MAJOR RESPONSE: Follow instructions as stated for minor response. The area may sting and burn for several hours after treatment. To relieve throbbing and pain, elevate the treatment area. Acetaminophen (Tylenol) may be taken every 3 to 4 hours for discomfort. A blister will form in the area of freezing. It may be filled with clear fluid or blood. This response is not unusual. Do not break the blister unless it becomes uncomfortable. You may prick the blister with a sterile needle or pin to remove the fluid. Leave the skin intact. Cleanse twice a day with soap and water and apply Vaseline to prevent infection and a thick scab from forming. All treated areas usually heal within 3 to 4 weeks. Please call [phone] to speak to one of the nurses if you have any question. For emergencies after 4:30 PM or weekends, please call [phone] and ask for the dermatology surgical fellow regional marketing manager documented in this encounter [facility] 04-15-2024 Note HNO ID: [id number] Author: CHARLEEN MORALEZ CNP Service: ? Author Type: Nurse Practitioner Type: Progress Notes Filed: 04/15/2024 13:20 Note Text: PATIENT NAME: Florian Portillo SERVICE DATE: 04/15/2024 SERVICE TIME: 12:42 PM REASON FOR VISIT follow up This visit was conducted as a virtual visit. I have communicated my name and active licensure. The patient's identity and physical location were verified at the time of this visit. Either the patient or their legal bilingual inside sales representative has been informed of the risks and benefits of -- and alternatives to -- treatment through a remote evaluation and consents to proceed with the evaluation remotely. ASSESSMENT AND PLAN - GERD Continue Omeprazole 40 mg daily Reviewed the reported issues with correction use Discussed with patient and all questions answered SUBJECTIVE Mr. Portillo is a 68 year old male who is seen for follow up Last visit he was having some GERD complaints and was not on a PPI Since being placed on PPI he reports he is feeling much better No nausea or vomiting Denies abdominal pain No NSAID use Moves his bowels normally No blood or rectal bleeding Weight is stable PAST MEDICAL HISTORY: PAST MEDICAL HISTORY Diagnosis Date Anxiety disorder sertraline discontinued in 2014 Basal cell carcinoma [address] Aleman Environmental and seasonal allergies flonase effective HTN (hypertension) Prostatitis 2003, 2014 Raynaud disease Varicose veins of both lower extremities PAST SURGICAL HISTORY: PAST SURGICAL HISTORY Procedure Laterality Date CARDIAC CATH 2003 EGD BIOPSY SING OR MULT 03/07/2023 LASIK Bilateral 2004 SCRN COLONOSCOP 2007, 2018 normal SKIN BIOPSY HX 2014 basal cell, right posterior neck TONSILLECTOMY HX 1963 SOCIAL HISTORY: Social History Tobacco Use Smoking status: Former Current packs/day: 0.00 Average packs/day: 1 pack/day for 1.5 years (1.5 ttl pk-yrs) Types: Cigarettes Start date: 12/31/1973 Quit date: 07/02/1975 Years since quittin.8 Smokeless tobacco: Never Vaping Use Vaping status: Never Used Substance Use Topics Alcohol use: No Drug use: Never FAMILY HISTORY: FAMILY HISTORY Problem Relation Age of Onset Alcohol/Drug Mother at 73 Hypertension Mother other (Tobacco) Mother other (Hip fracture) Mother Heart Father age 92, arrhythmia (still driving) Kidney Disease Father CRI other ( in fire) Brother at 21 None Other ages 40, 28, 24, 17 None Brother age 63 Diabetes Maternal Grandfather CURRENT ALLERGIES: Allergies As of Date: 04/15/2024 Allergen Noted Reaction GABAPENTIN 03/03/2019 Mental Status Change RAGWEED 01/02/2018 Intolerance Fully Assessed 03/03/2024 MEDICATIONS: Current Outpatient Medications on File Prior to Visit Medication Sig omeprazole (PRILOSEC) 40 mg capsule Take 1 capsule by mouth once daily. clindamycin (CLEOCIN) 1 % external solution Apply to affected areas on neck when needed after shaving ketoconazole (NIZORAL) 2 % shampoo Use as directed on affected areas of scalp and face 2-3x/week. ketoconazole (NIZORAL) 2 % cream Apply generous layer to clean, dry skin 1-2 times daily. No current facility-administered medications on file prior to visit. COMPLETE REVIEW OF SYSTEMS: GENERAL: No fever, weight loss or change in appetite RESPIRATORY: Negative for cough, wheezing or shortness of breath. CARDIOVASCULAR: No chest pain or palpitations. : No dysuria or hematuria All other systems reviewed and found to be negative except as noted above. OBJECTIVE PHYSICAL EXAM: There were no vitals taken for this visit. GENERAL: In no distress, cooperative SKIN: Skin warm, dry, pink. No jaundice. No rashes or lesions. HEAD/SINUSES: Normocephalic, atraumatic EYES: Conjunctivae pink, sclera anicteric ENT: Hearing is grossly intact. Mucous membranes pink, moist. NEURO: Alert, oriented x 3, speech clear and articulate, OVERTON, PSYCH: Mood and affect appropriate, relaxed DATA: Diagnostic tests reviewed for today's visit: 06/23/2018 Colonoscopy: Diverticulosis in the sigmoid and ascending . Stool in the sigmoid and ascending. 10 year recall 03/07/2023 EGD: Velvet appearnce patchy mucosa (two) mucosa in the esophagus consistent with esophageal inlet patch (benign). LA Grade A esophagitis. Normal stomach. Non-bleeding duodenal ulcer with no stigmata of bleeding. Normal second portion of the duodenum. SIGNATURE: Charleen Moralez CNP DATE: April 15, 2024 TIME: 12:42 PM [facility] 04-15-2024 History of Present illness Narrative PATIENT NAME: Florian Portillo SERVICE DATE: 04/15/2024 SERVICE TIME: 12:42 PM REASON FOR VISIT follow up This visit was conducted as a virtual visit. I have communicated my name and active licensure. The patient's identity and physical location were verified at the time of this visit. Either the patient or their legal bilingual inside sales representative has been informed of the risks and benefits of -- and alternatives to -- treatment through a remote evaluation and consents to proceed with the evaluation remotely. ASSESSMENT AND PLAN - GERD Continue Omeprazole 40 mg daily Reviewed the reported issues with specification manager use Discussed with patient and all questions answered SUBJECTIVE Mr. Portillo is a 68 year old male who is seen for follow up Last visit he was having some GERD complaints and was not on a PPI Since being placed on PPI he reports he is feeling much better No nausea or vomiting Denies abdominal pain No NSAID use Moves his bowels normally No blood or rectal bleeding Weight is stable PAST MEDICAL HISTORY: PAST MEDICAL HISTORY Diagnosis Date Anxiety disorder sertraline discontinued in 2014 Basal cell carcinoma [address] Aleman Environmental and seasonal allergies flonase effective HTN (hypertension) Prostatitis 2003, 2014 Raynaud disease Varicose veins of both lower extremities PAST SURGICAL HISTORY: PAST SURGICAL HISTORY Procedure Laterality Date CARDIAC CATH 2004 EGD BIOPSY SING OR MULT 03/07/2023 LASIK Bilateral 2004 SCRN COLONOSCOP 2007, 2018 normal SKIN BIOPSY HX 2015 basal cell, right posterior neck TONSILLECTOMY HX 1963 SOCIAL HISTORY: Social History Tobacco Use Smoking status: Former Current packs/day: 0.00 Average packs/day: 1 pack/day for 1.5 years (1.5 ttl pk-yrs) Types: Cigarettes Start date: 12/31/1973 Quit date: 07/02/1975 Years since quittin.8 Smokeless tobacco: Never Vaping Use Vaping status: Never Used Substance Use Topics Alcohol use: No Drug use: Never FAMILY HISTORY: FAMILY HISTORY Problem Relation Age of Onset Alcohol/Drug Mother at 73 Hypertension Mother other (Tobacco) Mother other (Hip fracture) Mother Heart Father age 92, arrhythmia (still driving) Kidney Disease Father CRI other ( in fire) Brother at 21 None Other ages 40, 28, 24, 17 None Brother age 63 Diabetes Maternal Grandfather CURRENT ALLERGIES: Allergies As of Date: 04/15/2024 Allergen Noted Reaction GABAPENTIN 03/03/2019 Mental Status Change RAGWEED 01/02/2018 Intolerance Fully Assessed 03/03/2024 MEDICATIONS: Current Outpatient Medications on File Prior to Visit Medication Sig omeprazole (PRILOSEC) 40 mg capsule Take 1 capsule by mouth once daily. clindamycin (CLEOCIN) 1 % external solution Apply to affected areas on neck when needed after shaving ketoconazole (NIZORAL) 2 % shampoo Use as directed on affected areas of scalp and face 2-3x/week. ketoconazole (NIZORAL) 2 % cream Apply generous layer to clean, dry skin 1-2 times daily. No current facility-administered medications on file prior to visit. COMPLETE REVIEW OF SYSTEMS: GENERAL: No fever, weight loss or change in appetite RESPIRATORY: Negative for cough, wheezing or shortness of breath. CARDIOVASCULAR: No chest pain or palpitations. : No dysuria or hematuria All other systems reviewed and found to be negative except as noted above. OBJECTIVE PHYSICAL EXAM: There were no vitals taken for this visit. GENERAL: In no distress, cooperative SKIN: Skin warm, dry, pink. No jaundice. No rashes or lesions. HEAD/SINUSES: Normocephalic, atraumatic EYES: Conjunctivae pink, sclera anicteric ENT: Hearing is grossly intact. Mucous membranes pink, moist. NEURO: Alert, oriented x 3, speech clear and articulate, OVERTON, PSYCH: Mood and affect appropriate, relaxed DATA: Diagnostic tests reviewed for today's visit: 06/23/2018 Colonoscopy: Diverticulosis in the sigmoid and ascending . Stool in the sigmoid and ascending. 10 year recall 03/07/2023 EGD: Velvet appearnce patchy mucosa (two) mucosa in the esophagus consistent with esophageal inlet patch (benign). LA Grade A esophagitis. Normal stomach. Non-bleeding duodenal ulcer with no stigmata of bleeding. Normal second portion of the duodenum. SIGNATURE: Charleen Moralez CNP DATE: April 15, 2024 TIME: 12:42 PM documented in this encounter [facility] 03-25-2024 History of Present illness Narrative This MA verified patients name and . DIVISION OF OTOLOGY, NEUROTOLOGY AND CRANIAL BASE SURGERY NEW PATIENT CONSULTATION Date: 03/25/2024 Patient: FLORIAN PORTILLO Attending Physician: Bety Guillaume MD PCP: No primary care provider on file. No primary provider on file. CC: Chief Complaint Patient presents with Hearing Loss Mostly right ear, left ear feels full, started in September, ringing in ears HPI: Mr. Florian Portillo is a 68 y.o. male referred by Self, Self hearing loss and tinnitus. Mr. Portillo reports the Sudden onset tinnitus in the right ear ~10 years ago. Saw an ENT at that time who dx a sudden hearing loss. He received Tinnitus since then. Tinnitus is stable and non-bothersome. Over the past 7-8 years he has heard a clicking with swallowing. This has been present since. He also reports his voice and chewing also seems louder. He described fluctuating hyperacusis and full feeling in the ear. Recently took a trip to [place] - He is intermittently sensitive to noise. Sensitivity is worse in the morning when clicking is present. Dr. Lynne recommended hearing aids. He's not sure if it may help. Left ear is more bothersome. Symptoms improves with popping his ear. Has bad sleep apneas. Did not tolerate a CPAP machine. He recently saw a dentist and is being fitted for a mouth piece. Poor sleep quality. He has used a steroid nasal spray which seemed to help. He stopped 3-4 months ago. This was Rx by a local ENT. Gordy recommended avoiding plugging his ears because it may make the nosie worse. [facility] hyperacusis clinic - considering a airline pilot/first officer study. Denies a history of headaches. No other sensitivities. No recent weight loss. Has not had an MRI. The past medical history, past surgical history, family history, social history, medications, allergies, and review of systems were reviewed today and are documented in IHIS &/or a scanned document completed by the patient (or guardian). PAST MEDICAL AND SURGICAL HISTORY Past Medical History: Diagnosis Date Skin cancer h/o Spondylisthesis 04/2018 No past surgical history on file. FAMILY HISTORY History reviewed. No pertinent family history. SOCIAL HISTORY Social History Socioeconomic History Marital status: Spouse name: Not on file Number of children: Not on file Years of education: Not on file Highest education level: Not on file Occupational History Not on file Tobacco Use Smoking status: Never Smokeless tobacco: Never Substance and Sexual Activity Alcohol use: Never Drug use: Never Sexual activity: Not on file Other Topics Concern Not on file Social History Narrative Not on file Social Determinants of Health Financial Resource Strain: Not on file Food Insecurity: Not on file Transportation Needs: Not on file Physical Activity: Not on file Stress: Not on file Social Connections: Not on file Intimate Partner Violence: Not on file Housing Stability: Not on file MEDICATIONS No current outpatient medications on file. No current facility-administered medications for this visit. ALLERGIES No Known Allergies Physical Exam: Pulse 100 Wt 81.2 kg (179 lb) SpO2 99% BMI 24.97 kg/m Smoking Status Never General: Appears healthy and comfortable. Alert, fully oriented, and cooperative. HEENT: - Eyes: Conjunctivae are clear, PERRL, EOMI, No spontaneous or gaze-evoked nystagmus - Nose: Chronic rhinitis, Severe right nasal deviation - Mouth: Moist oral mucosa - appears healthy, tonsillar fossa are symmetric, palate elevates midline - Face: Facial movements are full and symmetric Left- House-Brackman Grade 1/6 Right- House-Brackman Grade 1/6 - Neck: Soft, supple Psych: normal mood/affect Neuro: Moving all extr emities symmetrically, gait is grossly normal. Cranial nerves II-XII are grossly intact except for hearing loss as noted below. Ear Pinna: Left - External ear intact and fully developed Right - External ear intact and fully developed External canal: Left - Canal is patent, minimal cerumen, skin is healthy Right - Canal is patent, minimal cerumen, skin is healthy Tympanic Membranes: Left - Healthy - no retractions or perforations Right - Healthy - no retractions or perforations Middle Ears: Left - Appears well aerated Right - Appears well aerated Tuning Fork Exam (512 Hz): [place]: Equivocal Rinne Right: Air conduction > Bone conduction Rinne Left: Air conduction > Bone conduction Due to the patient's complaints, it was medically necessary to perform otologic examination using binocular microscopy. Procedure Note: Preoperative diagnosis: Need for Otologic Binocular Microscopy Postoperative diagnosis: Same Procedure: Bilateral Otologic Binocular Microscopy Surgeon: Bety Guillaume MD Anesthesia: None Indications and Consent: The patient is a 68 y.o. male who presents for bilateral otologic binocular microscopy. Prior to the procedure, the benefits and risks of otologic microscopy were discussed with the patient (and/or the consenting guardian), including but not limited to bleeding, infection, injury to skin of the ear canal, and the need for further procedure(s). The patient (guardian) understood and wished to proceed. Procedure/Findings: The right external auditory canal was visualized using the operating microscope. Findings are as documented in the physical exam portion of this note. A similar procedure was then performed on the left ear, and findings are documented in the physical exam portion of this note. EBL: None Complications: None Medical Decision Making: Data Reviewed: None Independent Interpretation of Tests: Audiometric Evaluation: * No recent audiometric evaluations were available for review during today's visit. Imaging: *No recent imaging of the internal auditory canals or temporal bones was available for review during the appointment. Surgical/Management Risk Factors: n/a Impression: Intermittent Eustachian tube dysfunction Described Pressure sensitivity with intermittent fullness Symptom anxiety Plan: Resume Flonase Discuss - Antianxiety med w PCP Avoid histamine blockers and Benzodiazepine Bety Guillaume MD Director Corporate Otology, Neurotology and Cranial Base Surgery Department of Otolaryngology [facility] [address] [place] [address] [facility] [address] Appointments: [phone] documented in this encounter [facility] 03-03-2024 Telephone encounter Note Called and spoke to patient. Patient was inquiring about his lab results. Could not see due to mychart. Read message from dr Gallo indicating patient PSA was stable and that patient was okay to not pursue further at this time. Recommend follow up in one year per office visit note. Patient notified. No further questions verbalized understanding Maia Arias RN [facility] 03-03-2024 Miscellaneous Notes Called and spoke to patient. Patient was inquiring about his lab results. Could not see due to mychart. Read message from dr Gallo indicating patient PSA was stable and that patient was okay to not pursue further at this time. Recommend follow up in one year per office visit note. Patient notified. No further questions verbalized understanding Maia Arias RN Patient walked in and need his lab test results from 02/27/2024 Patient is having issues with mychart and need to know the results before leaving town Please contact patient at [phone] documented in this encounter [facility] 03-03-2024 Note HNO ID: [id number] Author: CHARLEEN MORALEZ CNP Service: ? Author Type: Nurse Practitioner Type: Progress Notes Filed: 03/03/2024 13:19 Note Text: PATIENT NAME: Florian Portillo SERVICE DATE: 03/03/2024 SERVICE TIME: 1:00 PM REASON FOR VISIT GERD This visit was conducted as a virtual visit. I have communicated my name and active licensure. The patient's identity and physical location were verified at the time of this visit. Either the patient or their legal bilingual inside sales representative has been informed of the risks and benefits of -- and alternatives to -- treatment through a remote evaluation and consents to proceed with the evaluation remotely. ASSESSMENT AND PLAN - GERD Hx Esophagitis Hx non-bleeding duodenal ulcer Re-start Omeprazole 40 mg daily Follow up in 4-6 to see how patient is doing on medication Discussed diet as well All questions answered SUBJECTIVE Mr. Portillo is a 68 year old male who is seen for complaints of GERD Repotrs about a year ago was seen and had EGD and was noted he had a duodenal ulcer Was placed on Omeprazole for 2 months will improvement and resolved symptoms Currently having discomfort with eating again and burning No nausea or vomiting Is under a lot of stress with his moving and recently losing his father and he is currently living alone No NSAID use Denies change in his bowels No blood or rectal bleeding Weight is stable Reports was seen at [facility] recently for anxiety and had cardiac issues ruled out and did EKG and Stress test. Nothing in care everywhere PAST MEDICAL HISTORY: PAST MEDICAL HISTORY Diagnosis Date Anxiety disorder sertraline discontinued in 2014 Basal cell carcinoma [address] Aleman Environmental and seasonal allergies flonase effective HTN (hypertension) Prostatitis 2003, 2014 Raynaud disease Varicose veins of both lower extremities PAST SURGICAL HISTORY: PAST SURGICAL HISTORY Procedure Laterality Date CARDIAC CATH 2004 EGD BIOPSY SING OR MULT 03/07/2023 LASIK Bilateral 2004 SCRN COLONOSCOP 2007, 2018 normal SKIN BIOPSY HX 2015 basal cell, right posterior neck TONSILLECTOMY HX 1963 SOCIAL HISTORY: Social History Tobacco Use Smoking status: Former Current packs/day: 0.00 Average packs/day: 1 pack/day for 1.5 years (1.5 ttl pk-yrs) Types: Cigarettes Start date: 12/31/1973 Quit date: 07/02/1975 Years since quittin.7 Smokeless tobacco: Never Vaping Use Vaping status: Never Used Substance Use Topics Alcohol use: No Drug use: Never FAMILY HISTORY: FAMILY HISTORY Problem Relation Age of Onset Alcohol/Drug Mother at 73 Hypertension Mother other (Tobacco) Mother other (Hip fracture) Mother Heart Father age 92, arrhythmia (still driving) Kidney Disease Father CRI other ( in fire) Brother at 21 None Other ages 40, 28, 24, 17 None Brother age 63 Diabetes Maternal Grandfather CURRENT ALLERGIES: Allergies As of Date: 03/03/2024 Allergen Noted Reaction GABAPENTIN 03/03/2019 Mental Status Change RAGWEED 01/02/2018 Intolerance Fully Assessed 02/27/2024 MEDICATIONS: Current Outpatient Medications on File Prior to Visit Medication Sig clindamycin (CLEOCIN) 1 % external solution Apply to affected areas on neck when needed after shaving ketoconazole (NIZORAL) 2 % shampoo Use as directed on affected areas of scalp and face 2-3x/week. ketoconazole (NIZORAL) 2 % cream Apply generous layer to clean, dry skin 1-2 times daily. iv contrast (will be provided with radiology test) MRI Brain Inject, intravenously, once for 1 dose.No IV access, insert saline lock prior to beginning of sedation, infusion, injection of imaging exam.Discontinue saline lock post exam. If Pt. has a central line or IVAD, may access for administration according to line specific nursing protocol.Once exam is complete flush line and de-access according to line specific nursing protocol in the MR contrast administration guidelines link fluticasone (FLONASE ALLERGY RELIEF) 50 mcg/actuation nasal spray Use 2 Sprays in each nostril once daily. (Patient taking differently: Use 2 Sprays in each nostril as needed (prn).) CPAP/BIPAP/OTHER New Autopap [id number] [facility] ([phone]) Please start with nasal or nasal pillow mask . (Patient not taking: Reported on 11/13/2023) No current facility-administered medications on file prior to visit. COMPLETE REVIEW OF SYSTEMS: GENERAL: No fever, weight loss or change in appetite RESPIRATORY: Negative for cough, wheezing or shortness of breath. CARDIOVASCULAR: No chest pain or palpitations. : No dysuria or hematuria All other systems reviewed and found to be negative except as noted above. OBJECTIVE PHYSICAL EXAM: There were no vitals taken for this visit. GENERAL: In no distress, cooperative SKIN: Skin warm, dry, pink. No jaundice. No rashes or les (more content not included)... [facility] 03-03-2024 History of Present illness Narrative PATIENT NAME: Florian Portillo SERVICE DATE: 03/03/2024 SERVICE TIME: 1:00 PM REASON FOR VISIT GERD This visit was conducted as a virtual visit. I have communicated my name and active licensure. The patient's identity and physical location were verified at the time of this visit. Either the patient or their legal bilingual inside sales representative has been informed of the risks and benefits of -- and alternatives to -- treatment through a remote evaluation and consents to proceed with the evaluation remotely. ASSESSMENT AND PLAN - GERD Hx Esophagitis Hx non-bleeding duodenal ulcer Re-start Omeprazole 40 mg daily Follow up in 4-6 to see how patient is doing on medication Discussed diet as well All questions answered SUBJECTIVE Mr. Portillo is a 68 year old male who is seen for complaints of GERD Repotrs about a year ago was seen and had EGD and was noted he had a duodenal ulcer Was placed on Omeprazole for 2 months will improvement and resolved symptoms Currently having discomfort with eating again and burning No nausea or vomiting Is under a lot of stress with his moving and recently losing his father and he is currently living alone No NSAID use Denies change in his bowels No blood or rectal bleeding Weight is stable Reports was seen at [facility] recently for anxiety and had cardiac issues ruled out and did EKG and Stress test. Nothing in care everywhere PAST MEDICAL HISTORY: PAST MEDICAL HISTORY Diagnosis Date Anxiety disorder sertraline discontinued in 2014 Basal cell carcinoma [address] Aleman Environmental and seasonal allergies flonase effective HTN (hypertension) Prostatitis 2003, 2014 Raynaud disease Varicose veins of both lower extremities PAST SURGICAL HISTORY: PAST SURGICAL HISTORY Procedure Laterality Date CARDIAC CATH 2004 EGD BIOPSY SING OR MULT 03/07/2023 LASIK Bilateral 2004 SCRN COLONOSCOP 2007, 2018 normal SKIN BIOPSY HX 2015 basal cell, right posterior neck TONSILLECTOMY HX 1963 SOCIAL HISTORY: Social History Tobacco Use Smoking status: Former Current packs/day: 0.00 Average packs/day: 1 pack/day for 1.5 years (1.5 ttl pk-yrs) Types: Cigarettes Start date: 12/31/1973 Quit date: 07/02/1975 Years since quittin.7 Smokeless tobacco: Never Vaping Use Vaping status: Never Used Substance Use Topics Alcohol use: No Drug use: Never FAMILY HISTORY: FAMILY HISTORY Problem Relation Age of Onset Alcohol/Drug Mother at 73 Hypertension Mother other (Tobacco) Mother other (Hip fracture) Mother Heart Father age 92, arrhythmia (still driving) Kidney Disease Father CRI other ( in fire) Brother at 21 None Other ages 40, 28, 24, 17 None Brother age 63 Diabetes Maternal Grandfather CURRENT ALLERGIES: Allergies As of Date: 03/03/2024 Allergen Noted Reaction GABAPENTIN 03/03/2019 Mental Status Change RAGWEED 01/02/2018 Intolerance Fully Assessed 02/27/2024 MEDICATIONS: Current Outpatient Medications on File Prior to Visit Medication Sig clindamycin (CLEOCIN) 1 % external solution Apply to affected areas on neck when needed after shaving ketoconazole (NIZORAL) 2 % shampoo Use as directed on affected areas of scalp and face 2-3x/week. ketoconazole (NIZORAL) 2 % cream Apply generous layer to clean, dry skin 1-2 times daily. iv contrast (will be provided with radiology test) MRI Brain Inject, intravenously, once for 1 dose.No IV access, insert saline lock prior to beginning of sedation, infusion, injection of imaging exam.Discontinue saline lock post exam. If Pt. has a central line or IVAD, may access for administration according to line specific nursing protocol.Once exam is complete flush line and de-access according to line specific nursing protocol in the MR contrast administration guidelines link fluticasone (FLONASE ALLERGY RELIEF) 50 mcg/actuation nasal spray Use 2 Sprays in each nostril once daily. (Patient taking differently: Use 2 Sprays in each nostril as needed (prn).) CPAP/BIPAP/OTHER New Autopap [id number] [facility] ([phone]) Please start with nasal or nasal pillow mask . (Patient not taking: Reported on 11/13/2023) No current facility-administered medications on file prior to visit. COMPLETE REVIEW OF SYSTEMS: GENERAL: No fever, weight loss or change in appetite RESPIRATORY: Negative for cough, wheezing or shortness of breath. CARDIOVASCULAR: No chest pain or palpitations. : No dysuria or hematuria All other systems reviewed and found to be negative except as noted above. OBJECTIVE PHYSICAL EXAM: There were no vitals taken for this visit. GENERAL: In no distress, cooperative SKIN: Skin warm, dry, pink. No jaundice. No rashes or lesions. HEAD/SINUSES: Normocephalic, atraumatic EYES: Conjunctivae pink, sclera anicteric ENT: Hearing is grossly intact. Mucous membranes pink, moist. EXTREMITIES: No joint erythema or swelling. NEURO: Alert, oriented x 3, speech clear and articulate, [place], PSYCH: Mood and affect appropriate, relaxed DATA: Diagnostic tests reviewed for today's visit: 06/23/2018 Colonoscopy: Diverticulosis in the sigmoid and ascending . Stool in the sigmoid and ascending. 10 year recall 03/07/2023 EGD: Velvet appearnce patchy mucosa (two) mucosa in the esophagus consistent with esophageal inlet patch (benign). LA Grade A esophagitis. Normal stomach. Non-bleeding duodenal ulcer with no stigmata of bleeding. Normal second portion of the duodenum. SIGNATURE: Charleen Moralez CNP DATE: March 03, 2024 TIME: 1:00 PM documented in this encounter [facility] 03-03-2024 Telephone encounter Note Pt called regarding upcoming appt at 1pm and said he is having an issue accessing Zoom through [employer]. It sounds like possibly his internet is not working / is being very slow. He said he was on his ipad but has zoom on his phone, I told him to try accessing it through his phone, he said he would try and call back. Keara Fraire MA [facility] 03-03-2024 Miscellaneous Notes Pt called regarding upcoming appt at 1pm and said he is having an issue accessing Zoom through [employer]. It sounds like possibly his internet is not working / is being very slow. He said he was on his ipad but has zoom on his phone, I told him to try accessing it through his phone, he said he would try and call back. Keara Fraire MA documented in this encounter [facility] 03-02-2024 Telephone encounter Note Patient walked in and need his lab test results from 02/27/2024 Patient is having issues with mychart and need to know the results before leaving town Please contact patient at [phone] [facility] 03-01-2024 Telephone encounter Note Pt called to schedule OV due to ulcer. Scheduled with BS on 03/[address] [facility]. Keara Fraire MA [facility] 03-01-2024 Miscellaneous Notes Pt called to schedule OV due to ulcer. Scheduled with BS on 03/[address] [facility]. Keara Fraire MA documented in this encounter [facility] 03-01-2024 Telephone encounter Note Patient has 3 refills ordered [facility] 03-01-2024 Miscellaneous Notes Patient has 3 refills ordered documented in this encounter [facility] 02-29-2024 Telephone encounter Note 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 Called back left voicemail. Katja Kahn MD (This note may have been partially generated using [employer] voice recognition system and could be subject to dictation errors. If clarification is needed regarding the context or content of this note please contact me). [facility] Work Phone: 02-28-2024 Telephone encounter Note The following approved medication requests have been transmitted electronically. Requested Prescriptions Signed Prescriptions Disp Refills clindamycin (CLEOCIN) 1 % external solution 60 mL 3 Sig: Apply to affected areas on neck when needed after shaving Authorizing Provider: SHAHZAD PEREZ MD [facility] 02-28-2024 Miscellaneous Notes The following approved medication requests have been transmitted electronically. Requested Prescriptions Signed Prescriptions Disp Refills clindamycin (CLEOCIN) 1 % external solution 60 mL 3 Sig: Apply to affected areas on neck when needed after shaving Authorizing Provider: SHAHZAD PEREZ MD Pt is calling asking if the medication clindamycin (CLEOCIN) 1 % external solution [Pharmacy Med Name: CLINDAMYCIN PH 1% SOLUTION] could be refilled. Please advise documented in this encounter [facility] 02-27-2024 Telephone encounter Note Pt is calling asking if the medication clindamycin (CLEOCIN) 1 % external solution [Pharmacy Med Name: CLINDAMYCIN PH 1% SOLUTION] could be refilled. Please advise [facility] 02-27-2024 History of Present illness Narrative Images from the original note were not included. [facility] NEW PATIENT CLINIC NOTE SERVICE DATE: 02/26/2024 SERVICE TIME: 3:44 PM NAME: Florian Portillo ASSESSMENT/PLAN 1. Nocturia - ICD9: 788.43, ICD10: R35.1 (primary diagnosis) 2. Encounter for prostate cancer screening - ICD9: V76.44, ICD10: Z12.5 3. BPH with obstruction/lower urinary tract symptoms - ICD9: 600.01, 599.69, ICD10: N40.1, N13.8 68 year old/male with isolated nocturia. ZULEMA. Hx elevated PSA and remote prostatitis. MRI 2018 with PIRADs3 lesion. -Agree with ZULEMA treatment -Discussed isolated NTF 1x - not concerning - likely due to ZULEMA and age -Check PSA given Hx elevated PSA and PIRADs3 lesion on MRI (never worked up) - stop checking if normal/stable -Reassurance provided re testicular sensitivity - this is not bothersome to him and does not necessarily need intervention until it becomes so -Try scrotal support -Avoid NSAIDs if this flares up given Hx ulcer recently - tylenol ok -RTC 1 year Felipe Gallo MD PhD Time: I spent a total of 30 minutes on the date of the service reviewing patient history and preparing for the visit, gathering a history, performing an examination, ordering and interpreting tests, prescribing medication, counseling the patient, coordinating care, and/or completing appropriate documentation. Subjective CHIEF COMPLAINT I've got sleep apnea real bad HISTORY OF PRESENT ILLNESS Mr. Portillo is a 68 year old male who presents for evaluation for urinary frequency for 6 months. -Hx ZULEMA - unable to use CPAP -Reports difficulty sleeping as a result -Reports NTF 1x per night - this does not wake him up, but rather out of convenience -No daytime urinary issues -No hematuria -Nonsmoker -No recent PSA -Does report testicular sensitivity when exercising - NOT pain, just sensitive PAST MEDICAL HISTORY PAST MEDICAL HISTORY Diagnosis Date Anxiety disorder sertraline discontinued in 2014 Basal cell carcinoma [address] Aleman Environmental and seasonal allergies flonase effective HTN (hypertension) Prostatitis 2003, 2014 Raynaud disease Varicose veins of both lower extremities PAST SURGICAL HISTORY PAST SURGICAL HISTORY Procedure Laterality Date CARDIAC CATH 2004 EGD BIOPSY SING OR MULT 03/07/2023 LASIK Bilateral 2004 SCRN COLONOSCOP 2007, 2018 normal SKIN BIOPSY HX 2015 basal cell, right posterior neck TONSILLECTOMY HX 1963 FAMILY HISTORY FAMILY HISTORY Problem Relation Age of Onset Alcohol/Drug Mother at 73 Hypertension Mother other (Tobacco) Mother other (Hip fracture) Mother Heart Father age 92, arrhythmia (still driving) Kidney Disease Father CRI other ( in fire) Brother at 21 None Other ages 40, 28, 24, 17 None Brother age 63 Diabetes Maternal Grandfather SOCIAL HISTORY Social History Tobacco Use Smoking status: Former Current packs/day: 0.00 Average packs/day: 1 pack/day for 1.5 years (1.5 ttl pk-yrs) Types: Cigarettes Start date: 12/31/1973 Quit date: 07/02/1975 Years since quittin.6 Smokeless tobacco: Never Vaping Use Vaping status: Never Used Substance Use Topics Alcohol use: No Drug use: Never 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 ketoconazole (NIZORAL) 2 % cream Apply generous layer to clean, dry skin 1-2 times daily. clindamycin (CLEOCIN) 1 % external solution Apply to affected areas on neck when needed after shaving iv contrast (will be provided with radiology test) MRI Brain Inject, intravenously, once for 1 dose.No IV access, insert saline lock prior to beginning of sedation, infusion, injection of imaging exam.Discontinue saline lock post exam. If Pt. has a central line or IVAD, may access for administration according to line specific nursing protocol.Once exam is complete flush line and de-access according to line specific nursing protocol in the MR contrast administration guidelines link fluticasone (FLONASE ALLERGY RELIEF) 50 mcg/actuation nasal spray Use 2 Sprays in each nostril once daily. (Patient taking differently: Use 2 Sprays in each nostril as needed (prn).) CPAP/BIPAP/OTHER New Autopap [id number] [facility] ([phone]) Please start with nasal or nasal pillow mask . (Patient not taking: Reported on 11/13/2023) No current facility-administered medications for this visit. CURRENT ALLERGIES Allergies As of Date: 02/27/2024 Allergen Noted Reaction GABAPENTIN 03/03/2019 Mental Status Change RAGWEED 01/02/2018 Intolerance Fully Assessed 02/27/2024 REVIEW OF SYSTEMS A ROS was performed and pertinent negatives and positives can be found in the HPI Objective PHYSICAL EXAM There were no vitals filed for this visit. There is no height or weight on file to calculate BMI. The sensitive examination was discussed with the Patient or Patient's Authorized Livestock Buyer. As applicable, any other physician, advance practice provider, medical student, or other health professional student that will be observing or involved in the sensitive examination for educational or training purposes was discussed with the Patient or Authorized Livestock Buyer. The Patient or Authorized Livestock Buyer has agreed to proceed with the sensitive examination. (Sensitive examination includes inspection and/or palpation of the breasts, pelvis, prostate and anorectal regions) Exam: Consents Electrical Tester Battery: Declines General: Well-nourished Psychiatric: Normal affect Neurologic: A&Ox3 HEENT: Normocephalic, EOMI CV: Hemodynamically stable, warm and well-perfused Resp: Breathing comfortably on RA Abdomen: Soft, nontender, no masses, no organomegaly, no scars Extremities: No significant edema noted Skin: Skin color, texture, turgor normal Inguinal: No adenopathy, no hernia noted Phallus: circumcised, no palpable plaques, normal elasticity Meatus: Orthotopic Scrotum: No lesions, normal rugae Right Left Testicle 16mL 16mL Epididymis Palpable, unremarkable Palpable unremarkable Vas Deferens Palpable Palpable Varicocele Rectal exam: 60g prostate, symmetric, smooth, no nodules DATA Pertinent Labs Testosterone (ng/dL) Date Value 12/26/2017 441 Hematocrit (%) Date Value 06/30/2018 52.6 12/26/2017 51.2 PSA (ng/mL) Date Value 02/27/2024 6.63 12/26/2017 6.14 Hemoglobin A1C (%) Date Value 12/26/2017 5.4 UA/PVR PVR 128mL UA clear IMAGING Scrotal US Results No results found for this or any previous visit from the past [address] Scan Results No results found for this or any previous visit from the past 1095 days. MRI Prostate Results No results found for this or any previous visit from the past 1095 days. Felipe Gallo MD PhD Time: I spent a total of 30 minutes on the date of the service reviewing patient history and preparing for the visit, gathering a history, performing an examination, ordering and interpreting tests, prescribing medication, counseling the patient, coordinating care, and/or completing appropriate documentation. documented in this encounter [facility] 02-27-2024 Note HNO ID: [id number] Author: FELIPE GALLO MD Service: ? Author Type: Physician Type: Progress Notes Filed: 02/28/2024 23:48 Note Text: [facility] NEW PATIENT CLINIC NOTE SERVICE DATE: 02/26/2024 SERVICE TIME: 3:44 PM NAME: Florian Portillo ASSESSMENT/PLAN 1. Nocturia - ICD9: 788.43, ICD10: R35.1 (primary diagnosis) 2. Encounter for prostate cancer screening - ICD9: V76.44, ICD10: Z12.5 3. BPH with obstruction/lower urinary tract symptoms - ICD9: 600.01, 599.69, ICD10: N40.1, N13.8 68 year old/male with isolated nocturia. ZULEMA. Hx elevated PSA and remote prostatitis. MRI 2018 with PIRADs3 lesion. -Agree with ZULEMA treatment -Discussed isolated NTF 1x - not concerning - likely due to ZULEMA and age -Check PSA given Hx elevated PSA and PIRADs3 lesion on MRI (never worked up) - stop checking if normal/stable -Reassurance provided re testicular sensitivity - this is not bothersome to him and does not necessarily need intervention until it becomes so -Try scrotal support -Avoid NSAIDs if this flares up given Hx ulcer recently - tylenol ok -RTC 1 year Felipe Gallo MD PhD Time: I spent a total of 30 minutes on the date of the service reviewing patient history and preparing for the visit, gathering a history, performing an examination, ordering and interpreting tests, prescribing medication, counseling the patient, coordinating care, and/or completing appropriate documentation. Subjective CHIEF COMPLAINT I've got sleep apnea real bad HISTORY OF PRESENT ILLNESS Mr. Portillo is a 68 year old male who presents for evaluation for urinary frequency for 6 months. -Hx ZULEMA - unable to use CPAP -Reports difficulty sleeping as a result -Reports NTF 1x per night - this does not wake him up, but rather out of convenience -No daytime urinary issues -No hematuria -Nonsmoker -No recent PSA -Does report testicular sensitivity when exercising - NOT pain, just sensitive PAST MEDICAL HISTORY PAST MEDICAL HISTORY Diagnosis Date Anxiety disorder sertraline discontinued in 2014 Basal cell carcinoma [address] Aleman Environmental and seasonal allergies flonase effective HTN (hypertension) Prostatitis 2003, 2014 Raynaud disease Varicose veins of both lower extremities PAST SURGICAL HISTORY PAST SURGICAL HISTORY Procedure Laterality Date CARDIAC CATH 2004 EGD BIOPSY SING OR MULT 03/07/2023 LASIK Bilateral 2004 SCRN COLONOSCOP 2007, 2018 normal SKIN BIOPSY HX 2015 basal cell, right posterior neck TONSILLECTOMY HX 1963 FAMILY HISTORY FAMILY HISTORY Problem Relation Age of Onset Alcohol/Drug Mother at 73 Hypertension Mother other (Tobacco) Mother other (Hip fracture) Mother Heart Father age 92, arrhythmia (still driving) Kidney Disease Father CRI other ( in fire) Brother at 21 None Other ages 40, 28, 24, 17 None Brother age 63 Diabetes Maternal Grandfather SOCIAL HISTORY Social History Tobacco Use Smoking status: Former Current packs/day: 0.00 Average packs/day: 1 pack/day for 1.5 years (1.5 ttl pk-yrs) Types: Cigarettes Start date: 12/31/1973 Quit date: 07/02/1975 Years since quittin.6 Smokeless tobacco: Never Vaping Use Vaping status: Never Used Substance Use Topics Alcohol use: No Drug use: Never 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 ketoconazole (NIZORAL) 2 % cream Apply generous layer to clean, dry skin 1-2 times daily. clindamycin (CLEOCIN) 1 % external solution Apply to affected areas on neck when needed after shaving iv contrast (will be provided with radiology test) MRI Brain Inject, intravenously, once for 1 dose.No IV access, insert saline lock prior to beginning of sedation, infusion, injection of imaging exam.Discontinue saline lock post exam. If Pt. has a central line or IVAD, may access for administration according to line specific nursing protocol.Once exam is complete flush line and de-access according to line specific nursing protocol in the MR contrast administration guidelines link fluticasone (FLONASE ALLERGY RELIEF) 50 mcg/actuation nasal spray Use 2 Sprays in each nostril once daily. (Patient taking differently: Use 2 Sprays in each nostril as needed (prn).) CPAP/BIPAP/OTHER New Autopap [id number] [facility] ([phone]) Please start with nasal or nasal pillow mask . (Patient not taking: Reported on 11/13/2023) No current facility-administered medications for this visit. CURRENT ALLERGIES Allergies As of Date: 02/27/2024 Allergen Noted Reaction GABAPENTIN 03/03/2019 Mental Status Change RAGWEED 01/02/2018 Intolerance Fully Assessed 02/27/2024 REVIEW OF SYSTEMS A ROS was performed and pertinent negativ (more content not included)... [facility] 02-20-2024 Telephone encounter Note Patient is seen in [facility] by Dr. Stack. [facility] 02-20-2024 Miscellaneous Notes Patient is seen in [facility] by Dr. Stack. pt has came to [facility]-2 About Labs not being in the system. Sent message to clinical Patient would like lab requests per Dr. Stack sent to the [facility]. Thank you Pt called again looking for these blood work labs to be put in from Dr. Stack. Please call the patient when the orders are placed to save him another trip to the lab without the orders being there. [phone] Thanks, Melania Page documented in this encounter [facility] 02-18-2024 Telephone encounter Note pt has came to [facility]-2 About Labs not being in the system. Sent message to clinical [facility] 02-16-2024 Telephone encounter Note Patient would like lab requests per Dr. Stack sent to the [facility]. Thank you Pt called again looking for these blood work labs to be put in from Dr. Stack. Please call the patient when the orders are placed to save him another trip to the lab without the orders being there. Ph.[phone] ThanksMelania [facility] 02-06-2024 Telephone encounter Note Discussed with patient Avoid nsaids (History of duodenal ulcer) Recommend tylenol/acetaminophen [facility] Work Phone: 02-06-2024 Miscellaneous Notes Discussed with patient Avoid nsaids (History of duodenal ulcer) Recommend tylenol/acetaminophen Pt symptom free x 1 year. Recent cervical strain injury, Steroid or NSAID being prescribed/recommended by ortho (Dr. Griffin not [facility] [phone]) and pt wondering if he should avoid and if so what alternatives he could consider in light of last year's scope and subsequent treatment. Please advise. documented in this encounter [facility] [facility] encounter Note Pt symptom free x 1 year. Recent cervical strain injury, Steroid or NSAID being prescribed/recommended by ortho (Dr. Griffin not [facility] [phone]) and pt wondering if he should avoid and if so what alternatives he could consider in light of last year's scope and subsequent treatment. Please advise. [facility] 02-06-2024 Telephone encounter Note Called to inform pt stress echo was scheduled for 2:30PM on 02/09. Pt very appreciative. [facility] 02-06-2024 Miscellaneous Notes Called to inform pt stress echo was scheduled for 2:30PM on 02/09. Pt very appreciative. Previsit call completed. confirmed. Reviewed department guidelines/changes with pt in regard to covid 19-pt verbalized understanding. Additional consults: none Q: sent by email to pt during call *Pt needs scheduled for stress echo and CT calcium score per nursing note from 03/2023. Noted on triage sheet. documented in this encounter [facility] 02-06-2024 Telephone encounter Note Previsit call completed. confirmed. Reviewed department guidelines/changes with pt in regard to covid 19-pt verbalized understanding. Additional consults: none Q: sent by email to pt during call *Pt needs scheduled for stress echo and CT calcium score per nursing note from 03/2023. Noted on triage sheet. [facility] 02-05-2024 Instructions Jarvis Stack MD - 02/05/2024 2:42 PM EST 02 05 24 Plan: 1. Get an inspiratory training device and do 10 double deep breaths with nose closed and forcing belly button out twice a day Add these physical activities 2. continue to walk 10,000 steps a day, ; to do so, gradually increase from current weeks average to at least 10,000 every day but do not exceed an increase of over 10% any day. that is if you averaged 8000 last week, do not do any day that is more than 8800 (get to all 4 components of physical activity ) 3. Add resistance 4. Add cardio 5. Continue to have 2 fruits or veggies at least every day fruits associated with promoting loose stools: cranberries, raisins, apricots, prunes fruits associated with promoting constipation : bananas, whole grain rice (brown rice) , apples, whole grain toast ? best veggies for cancer prevention : broccoli, cauliflower, brussel spouts, watercrust, arugula, cabbage 6. continue protein supplement and high protein diet 7. salmon two 4 ounce (100gm) portions a week ([employer] patties) or DHA 900 mg a day with leutein and zeazanthin 8. Foods to avoid: simple sugars, added syrups, simple carbohydrates (avoid non-whole grain carbohydrates) , red and processed meats (including pork and veal), and cheese and egg yolks. 9. foods to try to establish a relationship with : any wilson, any nut (especially walnuts), any cruciferous vegetable, avocados, tomatoes, grapefruit, leafy green veggies, carrots, corn? 10. Melatonin 5 mg at bedtime if have problems getting back to sleep 11. with 400 mg of magnesium 12. Vitamin D2/3 (either D2 or D3) take at least 2000 IU a day Get Vitamin D level measured in 3 months and aim for level between 50 and 80 ng/ml 13. multivitamin 1/2 of one twice a day (one a day men's over 50) 14. aspirin 81 mg (low dose) with half a glass of warm water before and after Once in Am 15. Continue medications as previous with no changes 16 Continue to monitor BP weekly; Goal less than 125/ less than 85; LDL every 6 months Goal less than 70 mg/dL FBS every 6 months Goal less than 99 mg/dL Weight daily and waist every week: Stress as monitored by perception hsCRP every 6 months with value less than 1.0 TMAO every 6 months with value less than 2.0 MPO once a year at less than 470 17. Plan for return in 12 weeks is to monitor progress 18. Email me with questions etc [phone] [email or web address] Jarvis Stack MD February 05, 2024 documented in this encounter [facility] 02-05-2024 History of Present illness Narrative Images from the original note were not included. 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 loves to exercise and to watch CAVs Social History Tobacco Use Smoking status: Former Current packs/day: 0.00 Average packs/day: 1 pack/day for 1.5 years (1.5 ttl pk-yrs) Types: Cigarettes Start date: 12/31/1973 Quit date: 07/02/1975 Years since quittin.6 Smokeless tobacco: Never Vaping Use Vaping status: Never Used Substance Use Topics Alcohol use: No Drug use: Never 22 yrs with 3 daughters and 1 son (44 first marriage [place], 34 [place] ,30 ,23 [facility] 2nd ) children who live in ; no 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 ketoconazole (NIZORAL) 2 % cream Apply generous layer to clean, dry skin 1-2 times daily. iv contrast (will be provided with radiology test) MRI Brain Inject, intravenously, once for 1 dose.No IV access, insert saline lock prior to beginning of sedation, infusion, injection of imaging exam.Discontinue saline lock post exam. If Pt. has a central line or IVAD, may access for administration according to line specific nursing protocol.Once exam is complete flush line and de-access according to line specific nursing protocol in the MR contrast administration guidelines link fluticasone (FLONASE ALLERGY RELIEF) 50 mcg/actuation nasal spray Use 2 Sprays in each nostril once daily. (Patient not taking: Reported on 11/13/2023) clindamycin (CLEOCIN) 1 % external solution Apply to affected areas on neck when needed after shaving CPAP/BIPAP/OTHER New Autopap [id number] [employer] ([phone]) Please start with nasal or nasal pillow mask . (Patient not taking: Reported on 11/13/2023) ALLERGIES Allergen Reactions Gabapentin Mental Status Change Foggy, dizzyness Ragweed Intolerance Practitoner referral note: ZULEMA (obstructive sleep apnea) +2 more Dx Sleep Apnea; Referred by Self Reason for Visit Progress Notes Ricci Ariza APRN.LAND SURVEYOR ASSISTANT (Nurse Practitioner) Neurology Expand All Collapse All [facility] Virtual Visit Follow up/ Established patient visit Date of last visit : 10/31/2021 I have communicated my name and active licensure. The patient's identity and physical location were verified at the time of this visit. Either the patient or their legal bilingual inside sales representative has been informed of the risks and benefits of -- and alternatives to -- treatment through a remote evaluation and consents to proceed with the evaluation remotely. IMPRESSION: Zulema (obstructive sleep apnea) (primary encounter diagnosis) Insomnia due to medical condition Frequent nocturnal awakening Florian Portillo is a 66 year old male with a PMH of HTN, HLD, asthma, hearing loss, GERD, spinal stenosis, OCD and anxiety who presents via [facility] for UARS and insomnia follow up. A Polysomnogram performed on 03/11/2021 revealed UARS with AHI of 0, however of note RDIs in the moderate to severe range (15.6-90). Of note sleep efficiency of 14%. -Mr. Portillo presents today to discuss his sleep study results. He had a lot of difficulty sleeping the night of the study with a sleep efficiency of 14%. He knows sleep continues to cause him problems and would like to get it treated. UARS was diagnosed the night of his previous study. He'd like to avoid in lab as he has a 95 year old parent that he helps caregive for. -Continue to suspect ZULEMA from his symptoms of nocturnal awakenings, severe snoring and un refreshing sleep. Will have HST ordered for multiple days at home as he's worried he will not be able to sleep well the night of the study. [facility]: - Home Sleep Apnea Test (HST) to evaluate for obstructive sleep apnea. Order sent to [facility] - Discussed with the patient the possible diagnosis, causes, and conditions associated with obstructive sleep apnea. - Avoid driving when drowsy. Recommend that if you are dozing off while driving, that you do not drive until your sleepiness is appropriately treated. -Encouraged healthy lifestyle with adequate sleep ( 7-9 hours per night), diet and exercise. - Results are usually available within 7-10 business days. If you do not hear from us within 1-2 weeks after testing, please contact us directly. - Follow up visit in 2-3 weeks after your study for results. Julianna Álvarez APRN.LAND SURVEYOR ASSISTANT Interval history : Here for follow up for sleep apnea management. SLEEP APNEA Sleep apnea type : ZULEMA Most Recent Apnea-Hypopnea Index (AHI): RDI 15.6 (sleep efficiency 14 %) Treatment : PAP therapy DME: [employer] PAP History: Current PAP settin-15 cm H2O. Not using his machine. Difficulties with AutoPAP: Yes: nasal congestion, pressure intolerance, aerophagia, claustrophobia, bloating and nose bleed. Mask type: full face mask Mask issues: discomfort SLEEP HYGIENE QUESTIONS: Bedtime : 10 pm Wake up Time : 6 am Time it takes to fall sleep : < 20 mins Estimated total sleep time ( in a 24 hour period of time) : 8 hrs Naps : Yes, 15-20 mins PATIENT-ENTERED QUESTIONNAIRE SLEEP SCORES 09/18/2023 Sleep Questions Reason for visit: Sleep apnea Difficulty falling or staying asleep or poor sleep quality Excessive daytime sleepiness Average hours of CPAP per night: 0 Percent of nights CPAP used at least 4 hours: 0 10/30/2019 10/29/2021 09/18/2023 [place] Sleepiness Scale Score 13 (Excessive daytime sleepiness present) 14 (Excessive daytime sleepiness present) 10 (No clinically significant daytime sleepiness) 10/30/2019 10/29/2021 09/18/2023 PROMIS CAT Sleep Disturbance PROMIS Sleep Disturbance T-Score 62 (moderate) 65 (moderate) 64 (moderate) PROMIS Sleep Disturbance Percentile 12 7 8 10/30/2019 10/29/2021 09/18/2023 Insomnia Severity Index Score 13 13 17 14 10/29/2021 12/01/2019 10/30/2019 PHQ-9 Score 6 3 6 6 06/24/2021 10/29/2021 06/26/2023 PROMIS Global Health - (T-Scores - the mean of general population = 50. Five points is a clinically meaningful difference.) Physical T-Score 42.3 37.4 39.8 Mental T-Score 43.5 38.8 45.8 ALLERGIES ALLERGIES Allergen Reactions Gabapentin Mental Status Change Foggy, dizzyness Ragweed Intolerance CURRENT MEDICATIONS: CURRENT MEDICATIONS ketoconazole (NIZORAL) 2 % cream^Apply generous layer to clean, dry skin 1-2 times daily.^Disp: 30 g^Rfl: [address] (PROTONIX) 40 mg tablet^Take 40 mg by mouth once daily.^Disp: ^Rfl: fluticasone (FLONASE ALLERGY RELIEF) 50 mcg/actuation nasal spray^Use 2 Sprays in each nostril once daily.^Disp: 16 g^Rfl: 11 clindamycin (CLEOCIN) 1 % external solution^Apply to affected areas on neck when needed after shaving^Disp: 60 mL^Rfl: 3 CPAP/BIPAP/OTHER^New Autopap [id number] [employer] ([phone]) Please start with nasal or nasal pillow mask .^Disp: 1 Each^Rfl: 0 REVIEW OF SYSTEMS: GENERAL: no recent change in weight, no fever, activity level is normal PHYSICAL EXAMINATION: GENERAL: alert and appropriate, in no distress and well-hydrated, well nourished, interactive IMPRESSION/PLAN: Zulema (obstructive sleep apnea) (primary encounter diagnosis) Difficulty using continuous positive airway pressure (cpap) device Chronic insomnia 68 year old male with PMH of ZULEMA, Insomnia, HTN, GERD, Basal Cell Carcinoma, JANIE and OCD presents for a virtual follow up. Obstructive Sleep Apnea: - Non-compliant with PAP therapy d/t mask and pressure intolerance. - Discussed the pathophysiology of sleep apnea and risks of not treating including cardiac, stroke and drowsy driving risks. - Discussed compliance parameters with minimum goal for PAP usage>70% of nights >4 hours/night. - Discussed various desensitizatin techniques however he is interested in an oral appliance. - Consult dentistry for the evaluation for oral appliance to treat sleep apnea. - Explained if fitted for an oral appliance he will need a repeat sleep study to validate treatment. Insomnia - Chronic insomnia r/t anxiety. - He saw Dr Fernandez in the past and is scheduled to see her but wants sooner appt. - He is willing to see another sleep therapist. - Will send request to schedulers to assist. - Discussed driving precautions as hypersomnolence may contribute to accidents while driving or operating heavy equipment. - Encourage proper sleep hygiene, including avoidance of medications or substances that can relax the airway muscles (alcohol, benzodiazepines, and opioids). - Encourage 7-8 hours sleep daily. - As part of the evaluation today, the patient record has been reviewed. - Patient has been advised to call with any questions or change in symptoms. - Return Visit in 4-6 months or sooner as needed. Ricci Ariza APRN.KEVIN I spent a total of 30 minutes on the date of the service which included preparing to see the patient, completing clinical documentation, counseling and educating the patient/family/caregiver and ordering medications, tests, or procedures. Scores: 04/16/2019 01/30/2024 [facility] Physical Function PROMIS Physical Function T-Score 35 (moderate dysfunction) 38 (moderate dysfunction) 04/16/2019 [facility] Pain Interference PROMIS Pain Interference T-Score (range: 10 - 90) 59 (mild) 04/16/2019 01/30/2024 [facility] Fatigue PROMIS Fatigue T-Score 47 (within normal limits) 46 (within normal limits) 04/16/2019 01/30/2024 [facility] CAT Satisfaction with Social Roles PROMIS - Satisfaction with Participation in Social Roles T-Score 40 (Low) 52 (Average) 01/30/2024 [facility] Anxiety PROMIS Anxiety T-Score 54 (within normal limits) 10/30/2019 10/29/2021 09/18/2023 [facility] Sleep Disturbance PROMIS Sleep Disturbance T-Score 62 (moderate) 65 (moderate) 64 (moderate) 01/30/2024 PROMIS NEUROQOL COGNITIVE T-SCORE PROMIS Neuroqol Cognitive T-Score 67 (within normal limits) Exercise per week: General: walking but triggers spondolythesis Resistance: stength training but stopped due to back a month ago; 3 days a week Jumps: none Cardio: circuit and gets there Sleep problems : Time in Bed:10pm Time Asleep:within 30 mins ; wakes up 2-3 times a night falls back to sleep pretty fast Insomnia since in 30's Time of Awakening (usual):6 am doesn't feel refreshed Typical Foods involve [place]iter[place] Diet with addition or exceptions of : and high protein at each meal Typical Stress Management Practices are: not as much as need to has friends --stays in touch with 10 3 or 4 Last [place] or sex: long time due to be back void in relationship but not problematic There have been no significant changes in health in the past year. There is a recent onset of fever and infectious like symptoms relating to upper airway and gut on No Sinusitis:recurrent symptoms present; No routine Neti-Pot use Headaches--eyes hurt related to lack of sleep Pain: No chest pain, shortness of breath, palpitations, or lightheadedness with normal exertion. There have been no changes in bowel movements. There have been no changes in urination frequency, hesitancy, incontinence and dripping, stress incontinence, flow rate Has neither gained nor lost weight this past year. Objective: PHYSICAL EXAM: BP 152/73 (BP Site: Right Arm, BP Position: Sitting, BP Cuff Size: Regular Adult) Pulse 99 Ht 180.3 cm (5' 11) Wt 81.5 kg (179 lb 10.8 oz) BMI 25.06 kg/m Body mass index is 25.06 kg/m . GENERAL APPEARANCE: Normal, healthy, alert, no distress Walk normal gait One Leg standing: L:6 secs R: 15 sec Cerebellar: Prominent Lab Test results and signif abnormalities relating to this evaluation in my opinion are: pending he will send to me Assessment & Plan: Impression: 1. Primary hypertension - ICD9: 401.9, ICD10: I10 (primary diagnosis) 2. Chronic insomnia - ICD9: 780.52, ICD10: F51.04 3. Environmental and seasonal allergies - ICD9: 477.8, ICD10: J30.89 4. Mixed hyperlipidemia - ICD9: 272.2, ICD10: E78.2 5. Elevated PSA - ICD9: 790.93, ICD10: R97.20 6. Varicose veins of both lower extremities with pain - ICD9: 454.8, ICD10: I83.813 7. Abnormal stress test - ICD9: 794.39, ICD10: R94.39 8. Sensorineural hearing loss (SNHL) of both ears - ICD9: 389.18, ICD10: H90.3 9. Foraminal stenosis of lumbar region - ICD9: 724.02, ICD10: M48.061 10. History of basal cell carcinoma - ICD9: V10.83, ICD10: Z85.828 11. Gastroesophageal reflux disease with esophagitis without hemorrhage - ICD9: 530.81, 530.10, ICD10: K21.00 12. Subjective tinnitus of both ears - ICD9: 388.31, ICD10: H93.13 Medications that are taken as prescribed in med list in this epic chart which I did review with patient. 11 14 24 Plan: 1. Get an inspiratory training device and do 10 double deep breaths with nose closed and forcing belly button out twice a day Add these physical activities 2. continue to walk 10,000 steps a day, ; to do so, gradually increase from current weeks average to at least 10,000 every day but do not exceed an increase of over 10% any day. that is if you averaged 8000 last week, do not do any day that is more than 8800 (get to all 4 components of physical activity ) 3. Add resistance 4. Add cardio 5. Continue to have 2 fruits or veggies at least every day fruits associated with promoting loose stools: cranberries, raisins, apricots, prunes fruits associated with promoting constipation : bananas, whole grain rice (brown rice) , apples, whole grain toast ? best veggies for cancer prevention : broccoli, cauliflower, brussel spouts, watercrust, arugula, cabbage 6. continue protein supplement and high protein diet 7. salmon two 4 ounce (100gm) portions a week ([employer] patties) or DHA 900 mg a day with leutein and zeazanthin 8. Foods to avoid: simple sugars, added syrups, simple carbohydrates (avoid non-whole grain carbohydrates) , red and processed meats (including pork and veal), and cheese and egg yolks. 9. foods to try to establish a relationship with : any wilson, any nut (especially walnuts), any cruciferous vegetable, avocados, tomatoes, grapefruit, leafy green veggies, carrots, corn? 10. Melatonin 5 mg at bedtime if have problems getting back to sleep 11. with 400 mg of magnesium 12. Vitamin D2/3 (either D2 or D3) take at least 2000 IU a day Get Vitamin D level measured in 3 months and aim for level between 50 and 80 ng/ml 13. multivitamin 1/2 of one twice a day (one a day men's over 50) 14. aspirin 81 mg (low dose) with half a glass of warm water before and after Once in Am 15. Continue medications as previous with no changes 16 Continue to monitor BP weekly; Goal less than 125/ less than 85; LDL every 6 months Goal less than 70 mg/dL FBS every 6 months Goal less than 99 mg/dL Weight daily and waist every week: Stress as monitored by perception hsCRP every 6 months with value less than 1.0 TMAO every 6 months with value less than 2.0 MPO once a year at less than 470 17. Plan for return in 12 weeks is to monitor progress 18. Email me with questions etc [phone] [email or web address] Jarvis Stack MD February 05, 2024 documented in this encounter [facility] 02-05-2024 Note HNO ID: [id number] Author: JARVIS STACK MD Service: ? 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 loves to exercise and to watch CAVs Social History Tobacco Use Smoking status: Former Current packs/day: 0.00 Average packs/day: 1 pack/day for 1.5 years (1.5 ttl pk-yrs) Types: Cigarettes Start date: 12/31/1973 Quit date: 07/02/1975 Years since quittin.6 Smokeless tobacco: Never Vaping Use Vaping status: Never Used Substance Use Topics Alcohol use: No Drug use: Never 22 yrs with 3 daughters and 1 son (44 first marriage [place], 34 [place] ,30 ,23 [place] 2nd ) children who live in ; no 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 ketoconazole (NIZORAL) 2 % cream Apply generous layer to clean, dry skin 1-2 times daily. iv contrast (will be provided with radiology test) MRI Brain Inject, intravenously, once for 1 dose.No IV access, insert saline lock prior to beginning of sedation, infusion, injection of imaging exam.Discontinue saline lock post exam. If Pt. has a central line or IVAD, may access for administration according to line specific nursing protocol.Once exam is complete flush line and de-access according to line specific nursing protocol in the MR contrast administration guidelines link fluticasone (FLONASE ALLERGY RELIEF) 50 mcg/actuation nasal spray Use 2 Sprays in each nostril once daily. (Patient not taking: Reported on 11/13/2023) clindamycin (CLEOCIN) 1 % external solution Apply to affected areas on neck when needed after shaving CPAP/BIPAP/OTHER New [employer]opap [id number] [facility] [employer] ([phone]) Please start with nasal or nasal pillow mask . (Patient not taking: Reported on 11/13/2023) ALLERGIES Allergen Reactions Gabapentin Mental Status Change Foggy, dizzyness Ragweed Intolerance Practitoner referral note: ZULEMA (obstructive sleep apnea) +2 more Dx Sleep Apnea; Referred by Self Reason for Visit Progress Notes Ricci Ariza APRN.LAND SURVEYOR ASSISTANT (Nurse Practitioner) Neurology Expand All Collapse All [facility] Virtual Visit Follow up/ Established patient visit Date of last visit : 10/31/2021 I have communicated my name and active licensure. The patient's identity and physical location were verified at the time of this visit. Either the patient or their legal bilingual inside sales representative has been informed of the risks and benefits of -- and alternatives to -- treatment through a remote evaluation and consents to proceed with the evaluation remotely. IMPRESSION: Zulema (obstructive sleep apnea) (primary encounter diagnosis) Insomnia due to medical condition Frequent nocturnal awakening Florian Portillo is a 66 year old male with a PMH of HTN, HLD, asthma, hearing loss, GERD, spinal stenosis, OCD and anxiety who presents via [facility] for UARS and insomnia follow up. A Polysomnogram performed on 03/11/2021 revealed UARS with AHI of 0, however of note RDIs in the moderate to severe range (15.6-90). Of note sleep efficiency of 14%. -Mr. Portillo presents today to discuss his sleep study results. He had a lot of difficulty sleeping the night of the study with a sleep efficiency of 14%. He knows sleep continues to cause him problems and would like to get it treated. UARS was diagnosed the night of his previous study. He'd like to avoid in lab as he has a 95 year old parent that he helps caregive for. -Continue to suspect ZULEMA from his symptoms of nocturnal awakenings, severe snoring and un refreshing sleep. Will have HST ordered for multiple days at home as he's worried he will not be able to sleep well the night of the study. Order [facility] be sent to [facility]: - Home Sleep Apnea Test (HST) to evaluate for obstructive sleep apnea. Order sent to [facility] - Discussed with the patient the possible diagnosis, causes, and conditions associated with obstructive sleep apnea. - Avoid driving when drowsy. Recommend that if you are dozing off while driving, that you do not drive until your sleepiness is appropriately treated. -Encouraged healthy lifestyle with adequate sleep ( 7-9 hours per night), diet and exer (more content not included)... [facility] 01-20-2024 History of Present illness Narrative Established Patient DAKOTAH: 07/02/2023 Chief Complaint: FBSC History of Present Ilness: Florian Portillo is a 68 year old male Patient is here for: 1) FBSC with no LOC's. - intermittent scaling bilateral eyebrows -Rash on chin (was prescribed ketoconazole and that helps at times) Pertinent Past Medical History: -Personal History of Skin Cancer: Yes BCC nasal tip 2020 Specialty Problems Dermatology Problems Basal cell carcinoma History of basal cell carcinoma Pertinent Family medical history: History of melanoma No Review of Systems: Constitutional: Denies fever, chills, night sweats, unintentional weight loss. Skin per HPI. No other new/concerning skin growth. Physical Exam: General: well appearing, of stated age, in no acute distress Neurology: alert and oriented times three Psychiatry: in a happy mood Skin: Pierre skin type: II Skin exam performed of face, scalp, ears, eyelids, lips, neck, chest, abdomen, back, bilateral upper extremities, hands, fingers, fingernails, bilateral lower extremities, feet, toes, toenails. Skin exam normal with the exception of: Assessment and Plan: # (L21.9) Seborrheic dermatitis - discussed that condition could possible worsen with weather or stress - Continue ketoconazole 2% shampoo or cream a few times weekly - Continue hydrocortisone 1% cream BID as needed for flares (Z85.828) Hx of nonmelanoma skin cancer (primary encounter diagnosis) Comment: No suspicious lesions noted today - reassured Plan: Discussed signs of melanoma and non-melanoma skin cancer. Educated self skin exam. Discussed importance of sun protection. (L82.1) Seborrheic keratosis Benign nevi Carranza angiomas Comment: Discussed the benign nature of these lesions Plan: Reassurance - no treatment needed Patient verbalizes understanding and agrees with treatment plan and will contact us with any further questions or concerns. Return to clinic 6 or sooner if something concerning arises. The documentation for this note was completed by Patricia Catherine RN acting as scribe for Shahzad Perez MD. January 20, 2024 9:11 AM. I agree with the Chief Complaint, ROS, and Past Histories independently gathered by the clinical direct support worker and the remaining scribed note accurately describes my personal service to the patient. Shahzad Perez MD January 20, 2024 documented in this encounter [facility] 01-20-2024 Note HNO ID: [id number] Author: SHAHZAD PEREZ MD Service: ? Author Type: Physician Type: Progress Notes Filed: 02/01/2024 12:32 Note Text: Established Patient DAKOTAH: 07/02/2023 Chief Complaint: FBSC History of Present Ilness: Florian Portillo is a 68 year old male Patient is here for: 1) FBSC with no LOC's. - intermittent scaling bilateral eyebrows -Rash on chin (was prescribed ketoconazole and that helps at times) Pertinent Past Medical History: -Personal History of Skin Cancer: Yes BCC nasal tip 2020 Specialty Problems Dermatology Problems Basal cell carcinoma History of basal cell carcinoma Pertinent Family medical history: History of melanoma No Review of Systems: Constitutional: Denies fever, chills, night sweats, unintentional weight loss. Skin per HPI. No other new/concerning skin growth. Physical Exam: General: well appearing, of stated age, in no acute distress Neurology: alert and oriented times three Psychiatry: in a happy mood Skin: Pierre skin type: II Skin exam performed of face, scalp, ears, eyelids, lips, neck, chest, abdomen, back, bilateral upper extremities, hands, fingers, fingernails, bilateral lower extremities, feet, toes, toenails. Skin exam normal with the exception of: Assessment and Plan: # (L21.9) Seborrheic dermatitis - discussed that condition could possible worsen with weather or stress - Continue ketoconazole 2% shampoo or cream a few times weekly - Continue hydrocortisone 1% cream BID as needed for flares (Z85.828) Hx of nonmelanoma skin cancer (primary encounter diagnosis) Comment: No suspicious lesions noted today - reassured Plan: Discussed signs of melanoma and non-melanoma skin cancer. Educated self skin exam. Discussed importance of sun protection. (L82.1) Seborrheic keratosis Benign nevi Carranza angiomas Comment: Discussed the benign nature of these lesions Plan: Reassurance - no treatment needed Patient verbalizes understanding and agrees with treatment plan and will contact us with any further questions or concerns. Return to clinic 6 or sooner if something concerning arises. The documentation for this note was completed by Patricia Catherine RN acting as scribe for Shahzad Perez MD. January 20, 2024 9:11 AM. I agree with the Chief Complaint, ROS, and Past Histories independently gathered by the clinical direct support worker and the remaining scribed note accurately describes my personal service to the patient. Shahzad Perez MD January 20, 2024 [facility] 11-13-2023 Nurse Note Tobacco Use: 1 packs/day, for 1.5 years. Quit 07/02/1975. Types: Cigarettes Was smoking cessation packet given? N/A - Patient is a non-smoker or quit >1 year ago. Was a referral initiated?N/A Patient is a non-smoker [facility] 11-13-2023 Nurse Note Tobacco Use: 1 packs/day, for 1.5 years. Quit 07/02/1975. Types: Cigarettes Was smoking cessation packet given? N/A - Patient is a non-smoker or quit >1 year ago. Was a referral initiated?N/A Patient is a non-smoker documented in this encounter [facility] 11-13-2023 History of Present illness Narrative Images from the original note were not included. New Otology Patient Visit [facility] 11/13/2023 Referral Consultation requested by Self found for an opinion regarding {Hearing Loss ,otalgia, and ear fullness . My final recommendations will be communicated back to the requesting physician by way of shared Medical record or letter to requesting physician via [place] mail. Chief Complaint:New Patient Visit for otalgia, ear fullness, and hearing loss History of Present Illness: Florian Portillo is a 68 year old male who presents with a medical history of ear fullness, otalgia, tinnitus and hearing loss. Was seen by local ENT and was given nasal steroid spray. This did not help. Cerumen was removed. Left worse than right. Patient scheduled to see Dr. Mims on 12/04/23 for tinnitus evaluation. 1 month ago began hearing thumping sound in left ear. He notes this is intermittent, symptom was not present during visit. He wears ear plugs. He denies loudness causing dizziness or hearing his own pulse. He adds that these symptoms are affecting his social life as well as his work.Was seen by ENT and they removed cerumen from the ears. Now he reports that everything is loud, such as his voice and chewing. Was prescribed Flonase, which he used for one week and reports that it seemed to help. He stopped using it due to being unsure if he was supposed to continue. He was diagnosed with hearing loss approximately 10 years ago, but adds that he does not notice a decrease in his ability to hear. Hearing Loss: Audiogram revealed hearing loss approximately 10 years ago Tinnitus: Right ear for 10 years Vertigo/ Dysequilibrium: denies Facial Movement: Intact Facial Sensation: Intact Headache: denies Otalgia: fullness that is more like pressure but not defined pain Otorrhea: denies FH Intracranial Tumors: denies having any Otologic Risk Factors: Noise Exposure: reports barking dogs, playing loud music Ototoxin Exposure: denies Head Trauma: denies Otologic Family History: denies Otitis Media: denies Otologic Surgery: reports PMH: PAST MEDICAL HISTORY No date: Anxiety disorder Comment: sertraline discontinued in 2014 2014: Basal cell carcinoma No date: Elevated PSA Comment: Dr. Aleman No date: Environmental and seasonal allergies Comment: flonase effective No date: HTN (hypertension) 2003, 2015: Prostatitis No date: Raynaud disease No date: Varicose veins of both lower extremities PSH: PAST SURGICAL HISTORY 2004: CARDIAC CATH 03/07/2023: EGD BIOPSY SING OR MULT 2004: LASIK; Bilateral 2007, 2018: SCRN COLONOSCOP Comment: normal 2014: SKIN BIOPSY HX Comment: basal cell, right posterior neck 1963: TONSILLECTOMY HX Meds: Current Outpatient Medications Medication Instructions clindamycin (CLEOCIN) 1 % external solution Apply to affected areas on neck when needed after shaving CPAP/BIPAP/OTHER New Autopap [id number]
[facility] ([phone])
Please start with nasal or nasal pillow mask . fluticasone (FLONASE ALLERGY RELIEF) 50 mcg/actuation nasal spray 2 Sprays, EACH NOSTRIL, DAILY ketoconazole (NIZORAL) 2 % cream Apply generous layer to clean, dry skin 1-2 times daily. Allergies: ALLERGIES Allergen Reactions Gabapentin Mental Status Change Foggy, dizzyness Ragweed Intolerance SH -Smoking: Tobacco Use: Medium Risk (09/19/2023) Patient History Smoking Tobacco Use: Former Smokeless Tobacco Use: Never Passive Exposure: Not on file FH family history includes Alcohol/Drug in his mother; Diabetes in his maternal grandfather; in fire in his brother; Heart in his father; Hip fracture in his mother; Hypertension in his mother; Kidney Disease in his father; None in his brother and another family member; Tobacco in his mother. Review of Systems A review of systems was performed and was negative except as indicated above. Physical Exam There were no vitals taken for this visit. Constitutional: Well appearing, no acute distress, oriented, conversant Ears: Patient s ears were examined under the microscope given prior complex history of ear symptoms necessitating use. Left Pinna:normal External auditory canal:ear canal exam:impacted by cerumen. Removed under the microscope with curette atraumatically. Tympanic membrane: intact without perforation without retraction Right Pinna:normal External auditory canal: impacted by cerumen. Removed under the microscope with curette atraumatically. Tympanic membrane: intact without perforation without retraction Neuro: Extraocular movements intact V1-V3 symmetric to light touch symmetric shoulder shrung midline tongue protrusion symmetric palate elevation Facial nerve: Right: I/ House-Brackmann scale Left: I/ House-Brackmann scale Voice: normal with good projection and no evidence of dysphonia Respiratory Effort: unlabored without stridor or stertor Eyes: Extraocular movements intact, no lid or conjunctival inflammation or drainage Face: No gross lesions. TMJ: No crepitus, no point-tenderness externally Nose: No obvious external deformity or lesions. Oral Cavity/Oropharynx: Mucous membranes are moist and pink, tongue without lesions, no trismus, no obvious mucosal lesions Neck: No masses, adenopathy or tenderness. Trachea midline. Audiometric Testing Imaging N/A Assessment & Plans ASSESSMENT/PLAN: 1. Pulsatile tinnitus, left ear - ICD9: 388.30, ICD10: H93.A2 (primary diagnosis) 2. Hyperacusis, unspecified laterality - ICD9: 388.42, ICD10: H93.239 3. Tinnitus of right ear - ICD9: 388.30, ICD10: H93.11 4. Asymmetrical sensorineural hearing loss - ICD9: 389.16, ICD10: H90.3 5. Sensorineural hearing loss (SNHL) of right ear with restricted hearing of left ear - ICD9: 389.22, ICD10: H90.A21 - MRI BRAIN WO/W IVCON - given asymmetrical sensorineural hearing loss - CT TEMP BONES WO IVCON in light of autophony with pulsatile tinnitus to rule out superior semicircular canal dehiscence - MRA BRAIN WO IVCON to rule out arterovascular malformation - Recommended vented or musician ear plugs. Explained the disadvantage of constantly avoiding sound. - Follow up after imaging Scribe Attestation: I, Catherine Booth, am working as a Virtual medical office professional instructor, attest that this documentation has been prepared under the direction and in the presence of Marjan Gar MD. Electronically Signed: Catherine Booth, Virtual Community [employer]ment Act Officer.11/13/2023 Marjan Gar MD Otology/Neurotology/Lateral Skull-Base Surgery [facility] I spent a total of 42 minutes on the date of the service which included preparing to see the patient, [id number] patient care, completing clinical documentation, obtaining and/or reviewing separately obtained history, performing a medically appropriate examination, counseling and educating the patient/family/caregiver, ordering medications, tests, or procedures and independently interpreting results (not separately reported). The documentation for this encounter was entered by Catherine Booth, my behavioral medical director, accurately and completely reflects the service(s) I personally performed and the decisions made by me Marjan Gar MD, 11/13/2023 12:30 PM documented in this encounter [facility] 11-13-2023 Note HNO ID: [id number] Author: MARJAN GAR MD Service: ? Author Type: Physician Type: Progress Notes Filed: 11/13/2023 12:30 Note Text: New Otology Patient Visit [facility] 11/13/2023 Referral Consultation requested by Self found for an opinion regarding {Hearing Loss ,otalgia, and ear fullness . My final recommendations will be communicated back to the requesting physician by way of shared Medical record or letter to requesting physician via [place] mail. Chief Complaint:New Patient Visit for otalgia, ear fullness, and hearing loss History of Present Illness: Florian Portillo is a 68 year old male who presents with a medical history of ear fullness, otalgia, tinnitus and hearing loss. Was seen by local ENT and was given nasal steroid spray. This did not help. Cerumen was removed. Left worse than right. Patient scheduled to see Dr. Mims on 12/04/23 for tinnitus evaluation. 1 month ago began hearing thumping sound in left ear. He notes this is intermittent, symptom was not present during visit. He wears ear plugs. He denies loudness causing dizziness or hearing his own pulse. He adds that these symptoms are affecting his social life as well as his work.Was seen by ENT and they removed cerumen from the ears. Now he reports that everything is loud, such as his voice and chewing. Was prescribed Flonase, which he used for one week and reports that it seemed to help. He stopped using it due to being unsure if he was supposed to continue. He was diagnosed with hearing loss approximately 10 years ago, but adds that he does not notice a decrease in his ability to hear. Hearing Loss: Audiogram revealed hearing loss approximately 10 years ago Tinnitus: Right ear for 10 years Vertigo/ Dysequilibrium: denies Facial Movement: Intact Facial Sensation: Intact Headache: denies Otalgia: fullness that is more like pressure but not defined pain Otorrhea: denies FH Intracranial Tumors: denies having any Otologic Risk Factors: Noise Exposure: reports barking dogs, playing loud music Ototoxin Exposure: denies Head Trauma: denies Otologic Family History: denies Otitis Media: denies Otologic Surgery: reports PMH: PAST MEDICAL HISTORY No date: Anxiety disorder Comment: sertraline discontinued in 2014 2014: Basal cell carcinoma No date: Elevated PSA Comment: Dr. Aleman No date: Environmental and seasonal allergies Comment: flonase effective No date: HTN (hypertension) 2003, 2015: Prostatitis No date: Raynaud disease No date: Varicose veins of both lower extremities PSH: PAST SURGICAL HISTORY 2004: CARDIAC CATH 03/07/2023: EGD BIOPSY SING OR MULT 2004: LASIK; Bilateral 2007, 2019: SCRN COLONOSCOP Comment: normal 2015: SKIN BIOPSY HX Comment: basal cell, right posterior neck 1963: TONSILLECTOMY HX Meds: Current Outpatient Medications Medication Instructions clindamycin (CLEOCIN) 1 % external solution Apply to affected areas on neck when needed after shaving CPAP/BIPAP/OTHER New [employer] [id number] [employer] ([phone]) Please start with nasal or nasal pillow mask . fluticasone (FLONASE ALLERGY RELIEF) 50 mcg/actuation nasal spray 2 Sprays, EACH NOSTRIL, DAILY ketoconazole (NIZORAL) 2 % cream Apply generous layer to clean, dry skin 1-2 times daily. Allergies: ALLERGIES Allergen Reactions Gabapentin Mental Status Change Foggy, dizzyness Ragweed Intolerance SH -Smoking: Tobacco Use: Medium Risk (09/19/2023) Patient History Smoking Tobacco Use: Former Smokeless Tobacco Use: Never Passive Exposure: Not on file FH family history includes Alcohol/Drug in his mother; Diabetes in his maternal grandfather; in fire in his brother; Heart in his father; Hip fracture in his mother; Hypertension in his mother; Kidney Disease in his father; None in his brother and another family member; Tobacco in his mother. Review of Systems A review of systems was performed and was negative except as indicated above. Physical Exam There were no vitals taken for this visit. Constitutional: Well appearing, no acute distress, oriented, conversant Ears: Patient?s ears were examined under the microscope given prior complex history of ear symptoms necessitating use. Left Pinna:normal External auditory canal:ear canal exam:impacted by cerumen. Removed under the microscope with curette atraumatically. Tympanic membrane: intact without perforation without retraction Right Pinna:normal External auditory canal: impacted by cerumen. Removed under the microscope with curette atraumatically. Tympanic membrane: intact without perforation without retraction Neuro: Extraocular movements intact V1-V3 symmetric to light touch symmetric shoulder shrung midline tongue protrusion symmetric palate elevation Facial nerve: Right: I/ House-Brackmann scale Left: I/ House-Brackmann scale (more content not included)... [facility] 11-10-2023 Telephone encounter Note Spoke with patient who confirmed he will bring his outside audiogram to the 11/13/[address] Gar. Alana Conrad RN [facility] 11-10-2023 Miscellaneous Notes Spoke with patient who confirmed he will bring his outside audiogram to the 11/13/[address] Gar. Alana Conrad RN documented in this encounter [facility] 10-28-2023 Telephone encounter Note Spoke with pt and clarified that he needs to be seen for tinnitus, pt had an audiogram done locally and elected to cancel all his audiograms he had scheduled at [facility]. Pt was given email address to email audiogram results, pt understood. [facility] 10-28-2023 Miscellaneous Notes Spoke with pt and clarified that he needs to be seen for tinnitus, pt had an audiogram done locally and elected to cancel all his audiograms he had scheduled at [facility]. Pt was given email address to email audiogram results, pt understood. documented in this encounter [facility] 10-21-2023 Note HNO ID: [id number] Author: MICHAEL GALLEGOS PSYD Service: ? Author Type: Psychologist Type: Progress Notes Filed: 10/22/2023 08:23 Note Text: Assessment was conducted virtually. Patient is a resident of [place], and completed the assessment over the phone in [place] (pt unable to connect to [employer]). Psychologist is licensed and stationed in [place]. Informed consent was discussed and verbal assent was granted by the patient. GENERAL PSYCHOLOGY Session #: 1 (following tx hiatus) (session count starts after PSYL NEW EVAL visit) Visit Type:The patient consented to a virtual visit and their location was confirmed. SUBJECTIVE: I feel like I have some generalized anxiety. Minor hearing loss due to tinnitus (role of stress?) Vicious cycle, ruminating about tinnitus. Sources of control? How to prioritize acceptance? Importance of healthy distractions (reading, music, exercising). Recommendation: The Anxiety and Worry Workbook. as support PATIENT DATA: Generalized Anxiety Disorder Scale (JANIE-7) 12/01/2019 10/16/2023 10/18/2023 JANIE - 7 SCORES Score 3 12 13 (0-4) minimal anxiety, (5-9) mild anxiety, (10-14) moderate anxiety, (15-21) severe anxiety Patient Health Questionnaire (PHQ-9) 10/16/2023 10/18/2023 10/21/2023 PHQ-9 Score 8 8 3 (0-4) minimal depression, (5-9) mild depression, (10-14) moderate depression, (15-19) moderately severe depression, (20-27) severe depression OBJECTIVE: Utilized cognitive behavioral and solution focused treatment modalities Mental Status Exam: General/Sensorium: AO X 4 - Appearance: - Unable to assess (phone session) Eye Contact: - Unable to assess (phone session) Demeanor: Appropriately interactive and Other - Motor Activity: Normal - Speech: Appropriate - Mood: Anxious - Reported as: I feel like I have some generalized anxiety. Affect: Full range, Anxious and Congruent with mood - Thought Process: Linear, logical, and goal-directed - Associations: Normal - Thought Content: Appropriate with no SI/HI/AVH - Perceptions: The patient does not appear internally stimulated - Cognition: Appears intact in regards to memory, attention/concentration, fund of knowledge and language skills - Insight: Good - Judgment: Good - ASSESSMENT: First therapy session since 2019. Begin to explore and process pt's anxiety regarding tinnitus dx and subsequent minor hearing loss (vicious cycle, rumination regarding how to fix the condition; role of stress?). Begin to address concepts of control and acceptance as it relates to coping with anxiety, and identify healthy coping tools, distractions, and sources of support (positive self-talk, reading, music, exercising; as support system). Pt requests workbook recommendation; this clinician recommends The Anxiety and Worry Workbook (Amado [employer] William). DIAGNOSIS: PRIMARY: 1: Anxiety Disorder Generalized Anxiety Disorder Other: Situational Stress Obsessive Thinking PROVISIONAL: None TREATMENT MODALITIES: Cognitive Behavioral Therapy to behavior modifications, cognitive restructuring, self monitoring, and increasing pleasurable activities, Solution Focused Psychotherapy, Supportive Therapy PROGRESS TO DATE: Intermediate Progress: Stable Short Term Condition: Stable GOALS/OBJECTIVES/INTERVENTIONS: To identify and implement tools for effectively managing symptoms of anxiety, stress, and obsessive thinking. Approximately 35 minutes were spent with the patient doing therapy. Michael Gallegos, [facility] 10-21-2023 History of Present illness Narrative Assessment was conducted virtually. Patient is a resident of [place], and completed the assessment over the phone in [place] (pt unable to connect to [employer]). Psychologist is licensed and stationed in [place]. Informed consent was discussed and verbal assent was granted by the patient. GENERAL PSYCHOLOGY Session #: 1 (following tx hiatus) (session count starts after YL NEW EVAL visit) Visit Type:The patient consented to a virtual visit and their location was confirmed. SUBJECTIVE: I feel like I have some generalized anxiety. Minor hearing loss due to tinnitus (role of stress?) Vicious cycle, ruminating about tinnitus. Sources of control? How to prioritize acceptance? Importance of healthy distractions (reading, music, exercising). Recommendation: The Anxiety and Worry Workbook. as support PATIENT DATA: Generalized Anxiety Disorder Scale (JANIE-7) 12/01/2019 10/16/2023 10/18/2023 JANIE - 7 SCORES Score 3 12 13 (0-4) minimal anxiety, (5-9) mild anxiety, (10-14) moderate anxiety, (15-21) severe anxiety Patient Health Questionnaire (PHQ-9) 10/16/2023 10/18/2023 10/21/2023 PHQ-9 Score 8 8 3 (0-4) minimal depression, (5-9) mild depression, (10-14) moderate depression, (15-19) moderately severe depression, (20-27) severe depression OBJECTIVE: Utilized cognitive behavioral and solution focused treatment modalities Mental Status Exam: General/Sensorium: AO X 4 - Appearance: - Unable to assess (phone session) Eye Contact: - Unable to assess (phone session) Demeanor: Appropriately interactive and Other - Motor Activity: Normal - Speech: Appropriate - Mood: Anxious - Reported as: I feel like I have some generalized anxiety. Affect: Full range, Anxious and Congruent with mood - Thought Process: Linear, logical, and goal-directed - Associations: Normal - Thought Content: Appropriate with no SI/HI/AVH - Perceptions: The patient does not appear internally stimulated - Cognition: Appears intact in regards to memory, attention/concentration, fund of knowledge and language skills - Insight: Good - Judgment: Good - ASSESSMENT: First therapy session since 2019. Begin to explore and process pt's anxiety regarding tinnitus dx and subsequent minor hearing loss (vicious cycle, rumination regarding how to fix the condition; role of stress?). Begin to address concepts of control and acceptance as it relates to coping with anxiety, and identify healthy coping tools, distractions, and sources of support (positive self-talk, reading, music, exercising; as support system). Pt requests workbook recommendation; this clinician recommends The Anxiety and Worry Workbook (Amado and Thomas). DIAGNOSIS: PRIMARY: 1: Anxiety Disorder Generalized Anxiety Disorder Other: Situational Stress Obsessive Thinking PROVISIONAL: None TREATMENT MODALITIES: Cognitive Behavioral Therapy to behavior modifications, cognitive restructuring, self monitoring, and increasing pleasurable activities, Solution Focused Psychotherapy, Supportive Therapy PROGRESS TO DATE: Corporate Director Of Pharmacy Progress: Stable Short Term Condition: Stable GOALS/OBJECTIVES/INTERVENTIONS: To identify and implement tools for effectively managing symptoms of anxiety, stress, and obsessive thinking. Approximately 35 minutes were spent with the patient doing therapy. Michael Gallegos PSYD documented in this encounter [facility] 09-23-2023 Telephone encounter Note Opened in error [facility] 09-23-2023 Miscellaneous Notes Opened in error documented in this encounter [facility] 09-19-2023 Ricci Sue APRN.LAND SURVEYOR ASSISTANT - 09/19/2023 11:45 PM EDT Images from the original note were not included. Maintaining a healthy weight is shah to good sleep. Oral appliances are recommended for patients who have mild to moderate sleep apnea. In many cases of snoring or sleep apnea, oral appliances can be used as effective treatments, particularly when sleep apnea is not severe. Oral appliances are custom fitted devices that fit on the top and bottom jaw and are worn during sleep to hold the lower jaw forward, which holds the tongue away from the back of the airway. There are a range of appliances available. Appliances fitted by dentists are custom-made and adjustable. This means that they are more comfortable and more effective than [id number] appliances. As they are fitted by a dentist, you will also have the support of the fitting dentist to troubleshoot any difficulties you may have and helping you adjust the appliance so you get the most out of it. These appliances and the professional advice and assistance come at a contreras. Known Dentists who are willing to provide oral appliances to treat mild/moderate sleep apnea: - If you plan to establish with a [facility] dentist, please call to schedule with Dr. Fartun Snow or Dr. Pranav Traore ([phone]) - If you wish to establish with an outside dentist: Please visit [place] [employer] ([email or web address].aadsm.[email or web address] to find a local provider to evaluate and fit you for an oral appliance for ZULEMA treatment. - After you have seen the dentist, if the oral appliance is not going to be an option for you, call us back and schedule a follow up to discuss other options. - If you do have an oral appliance fitted for you, when you are in the final position for it, call our office to have another sleep study done to evaluate if the sleep apnea is gone and also schedule a follow up with us to discuss the results. - Encourage healthy lifestyle with adequate sleep (7-8 hours), diet and exercise. - Avoid driving when drowsy. Would recommend that if you are dozing off while driving, that you do not drive until your sleepiness is appropriately treated. - Avoid medications or substances that can relax the airway muscles (alcohol, benzodiazepines, and opioids). - Will send request for smt machine operator to schedule CBTI with Dr Rojas or Fauzia if possible for sooner appt than what you have scheduled with Dr Fernandez. documented in this encounter [facility] 09-19-2023 History of Present illness Narrative Images from the original note were not included. [facility] Virtual Visit Follow up/ Established patient visit Date of last visit : 10/31/2021 I have communicated my name and active licensure. The patient's identity and physical location were verified at the time of this visit. Either the patient or their legal bilingual inside sales representative has been informed of the risks and benefits of -- and alternatives to -- treatment through a remote evaluation and consents to proceed with the evaluation remotely. IMPRESSION: Zulema (obstructive sleep apnea) (primary encounter diagnosis) Insomnia due to medical condition Frequent nocturnal awakening Florian Portillo is a 66 year old male with a PMH of HTN, HLD, asthma, hearing loss, GERD, spinal stenosis, OCD and anxiety who presents via [facility] for UARS and insomnia follow up. A Polysomnogram performed on 03/11/2021 revealed UARS with AHI of 0, however of note RDIs in the moderate to severe range (15.6-90). Of note sleep efficiency of 14%. -Mr. Portillo presents today to discuss his sleep study results. He had a lot of difficulty sleeping the night of the study with a sleep efficiency of 14%. He knows sleep continues to cause him problems and would like to get it treated. UARS was diagnosed the night of his previous study. He'd like to avoid in lab as he has a 95 year old parent that he helps caregive for. -Continue to suspect ZULEMA from his symptoms of nocturnal awakenings, severe snoring and un refreshing sleep. Will have HST ordered for multiple days at home as he's worried he will not be able to sleep well the night of the study. [facility] to [facility] PLAN: - Home Sleep Apnea Test (HST) to evaluate for obstructive sleep apnea. Order sent to [facility] - Discussed with the patient the possible diagnosis, causes, and conditions associated with obstructive sleep apnea. - Avoid driving when drowsy. Recommend that if you are dozing off while driving, that you do not drive until your sleepiness is appropriately treated. -Encouraged healthy lifestyle with adequate sleep ( 7-9 hours per night), diet and exercise. - Results are usually available within 7-10 business days. If you do not hear from us within 1-2 weeks after testing, please contact us directly. - Follow up visit in 2-3 weeks after your study for results. Julianna Álvarez APRN.LAND SURVEYOR ASSISTANT Interval history : Here for follow up for sleep apnea management. SLEEP APNEA Sleep apnea type : ZULEMA Most Recent Apnea-Hypopnea Index (AHI): RDI 15.6 (sleep efficiency 14 %) Treatment : PAP therapy DME: [employer] PAP History: Current PAP settin-15 cm H2O. Not using his machine. Difficulties with AutoPAP: Yes: nasal congestion, pressure intolerance, aerophagia, claustrophobia, bloating and nose bleed. Mask type: full face mask Mask issues: discomfort SLEEP HYGIENE QUESTIONS: Bedtime : 10 pm Wake up Time : 6 am Time it takes to fall sleep : < 20 mins Estimated total sleep time ( in a 24 hour period of time) : 8 hrs Naps : Yes, 15-20 mins PATIENT-ENTERED QUESTIONNAIRE SLEEP SCORES 09/18/2023 Sleep Questions Reason for visit: Sleep apnea Difficulty falling or staying asleep or poor sleep quality Excessive daytime sleepiness Average hours of CPAP per night: 0 Percent of nights CPAP used at least 4 hours: 0 10/30/2019 10/29/2021 09/18/2023 [place] Sleepiness Scale Score 13 (Excessive daytime sleepiness present) 14 (Excessive daytime sleepiness present) 10 (No clinically significant daytime sleepiness) 10/30/2019 10/29/2021 09/18/2023 PROMIS CAT Sleep Disturbance PROMIS Sleep Disturbance T-Score 62 (moderate) 65 (moderate) 64 (moderate) PROMIS Sleep Disturbance Percentile 12 7 8 10/30/2019 10/29/2021 09/18/2023 Insomnia Severity Index Score 13 13 17 14 10/29/2021 12/01/2019 10/30/2019 PHQ-9 Score 6 3 6 6 06/24/2021 10/29/2021 06/26/2023 PROMIS Global Health - (T-Scores - the mean of general population = 50. Five points is a clinically meaningful difference.) Physical T-Score 42.3 37.4 39.8 Mental T-Score 43.5 38.8 45.8 ALLERGIES Allergen Reactions Gabapentin Mental Status Change Foggy, dizzyness Ragweed Intolerance CURRENT MEDICATIONS: ketoconazole (NIZORAL) 2 % cream^Apply generous layer to clean, dry skin 1-2 times daily.^Disp: 30 g^Rfl: [address] (PROTONIX) 40 mg tablet^Take 40 mg by mouth once daily.^Disp: ^Rfl: fluticasone (FLONASE ALLERGY RELIEF) 50 mcg/actuation nasal spray^Use 2 Sprays in each nostril once daily.^Disp: 16 g^Rfl: 11 clindamycin (CLEOCIN) 1 % external solution^Apply to affected areas on neck when needed after shaving^Disp: 60 mL^Rfl: 3 CPAP/BIPAP/OTHER^New Autopap [id number] [employer] ([phone]) Please start with nasal or nasal pillow mask .^Disp: 1 Each^Rfl: 0 REVIEW OF SYSTEMS: GENERAL: no recent change in weight, no fever, activity level is normal PHYSICAL EXAMINATION: GENERAL: alert and appropriate, in no distress and well-hydrated, well nourished, interactive IMPRESSION/PLAN: Zulema (obstructive sleep apnea) (primary encounter diagnosis) Difficulty using continuous positive airway pressure (cpap) device Chronic insomnia 68 year old male with PMH of ZULEMA, Insomnia, HTN, GERD, Basal Cell Carcinoma, JANIE and OCD presents for a virtual follow up. Obstructive Sleep Apnea: - Non-compliant with PAP therapy d/t mask and pressure intolerance. - Discussed the pathophysiology of sleep apnea and risks of not treating including cardiac, stroke and drowsy driving risks. - Discussed compliance parameters with minimum goal for PAP usage>70% of nights >4 hours/night. - Discussed various desensitizatin techniques however he is interested in an oral appliance. - Consult dentistry for the evaluation for oral appliance to treat sleep apnea. - Explained if fitted for an oral appliance he will need a repeat sleep study to validate treatment. Insomnia - Chronic insomnia r/t anxiety. - He saw Dr Fernandez in the past and is scheduled to see her but wants sooner appt. - He is willing to see another sleep therapist. - Will send request to schedulers to assist. - Discussed driving precautions as hypersomnolence may contribute to accidents while driving or operating heavy equipment. - Encourage proper sleep hygiene, including avoidance of medications or substances that can relax the airway muscles (alcohol, benzodiazepines, and opioids). - Encourage 7-8 hours sleep daily. - As part of the evaluation today, the patient record has been reviewed. - Patient has been advised to call with any questions or change in symptoms. - Return Visit in 4-6 months or sooner as needed. Ricci Ariza APRN.CNP I spent a total of 30 minutes on the date of the service which included preparing to see the patient, completing clinical documentation, counseling and educating the patient/family/caregiver and ordering medications, tests, or procedures. documented in this encounter [facility] 09-19-2023 Note HNO ID: [id number] Author: RICCI ARIZA APRN.CNP Service: ? Author Type: Nurse Practitioner Type: Progress Notes Filed: 09/23/2023 20:01 Note Text: [facility] Virtual Visit Follow up/ Established patient visit Date of last visit : 10/31/2021 I have communicated my name and active licensure. The patient's identity and physical location were verified at the time of this visit. Either the patient or their legal bilingual inside sales representative has been informed of the risks and benefits of -- and alternatives to -- treatment through a remote evaluation and consents to proceed with the evaluation remotely. IMPRESSION: Zulema (obstructive sleep apnea) (primary encounter diagnosis) Insomnia due to medical condition Frequent nocturnal awakening Florian Portillo is a 66 year old male with a PMH of HTN, HLD, asthma, hearing loss, GERD, spinal stenosis, OCD and anxiety who presents via [facility] for UARS and insomnia follow up. A Polysomnogram performed on 03/11/2021 revealed UARS with AHI of 0, however of note RDIs in the moderate to severe range (15.6-90). Of note sleep efficiency of 14%. -Mr. Portillo presents today to discuss his sleep study results. He had a lot of difficulty sleeping the night of the study with a sleep efficiency of 14%. He knows sleep continues to cause him problems and would like to get it treated. UARS was diagnosed the night of his previous study. He'd like to avoid in lab as he has a 95 year old parent that he helps caregive for. -Continue to suspect ZULEMA from his symptoms of nocturnal awakenings, severe snoring and un refreshing sleep. Will have HST ordered for multiple days at home as he's worried he will not be able to sleep well the night of the study. Order [facility] be sent to [facility] PLAN: - Home Sleep Apnea Test (HST) to evaluate for obstructive sleep apnea. Order sent to [facility] - Discussed with the patient the possible diagnosis, causes, and conditions associated with obstructive sleep apnea. - Avoid driving when drowsy. Recommend that if you are dozing off while driving, that you do not drive until your sleepiness is appropriately treated. -Encouraged healthy lifestyle with adequate sleep ( 7-9 hours per night), diet and exercise. - Results are usually available within 7-10 business days. If you do not hear from us within 1-2 weeks after testing, please contact us directly. - Follow up visit in 2-3 weeks after your study for results. Julianna Álvarez APRN.LAND SURVEYOR ASSISTANT Interval history : Here for follow up for sleep apnea management. SLEEP APNEA Sleep apnea type : ZULEMA Most Recent Apnea-Hypopnea Index (AHI): RDI 15.6 (sleep efficiency 14 %) Treatment : PAP therapy DME: [employer] PAP History: Current PAP settin-15 cm H2O. Not using his machine. Difficulties with AutoPAP: Yes: nasal congestion, pressure intolerance, aerophagia, claustrophobia, bloating and nose bleed. Mask type: full face mask Mask issues: discomfort SLEEP HYGIENE QUESTIONS: Bedtime : 10 pm Wake up Time : 6 am Time it takes to fall sleep : < 20 mins Estimated total sleep time ( in a 24 hour period of time) : 8 hrs Naps : Yes, 15-20 mins PATIENT-ENTERED QUESTIONNAIRE SLEEP SCORES 09/18/2023 Sleep Questions Reason for visit: Sleep apnea Difficulty falling or staying asleep or poor sleep quality Excessive daytime sleepiness Average hours of CPAP per night: 0 Percent of nights CPAP used at least 4 hours: 0 10/30/2019 10/29/2021 09/18/2023 [place] Sleepiness Scale Score 13 (Excessive daytime sleepiness present) 14 (Excessive daytime sleepiness present) 10 (No clinically significant daytime sleepiness) 10/30/2019 10/29/2021 09/18/2023 PROMIS CAT Sleep Disturbance PROMIS Sleep Disturbance T-Score 62 (moderate) 65 (moderate) 64 (moderate) PROMIS Sleep Disturbance Percentile 12 7 8 10/30/2019 10/29/2021 09/18/2023 Insomnia Severity Index Score 13 13 17 14 10/29/2021 12/01/2019 10/30/2019 PHQ-9 Score 6 3 6 6 06/24/2021 10/29/2021 06/26/2023 PROMIS Global Health - (T-Scores - the mean of general population = 50. Five points is a clinically meaningful difference.) Physical T-Score 42.3 37.4 39.8 Mental T-Score 43.5 38.8 45.8 ALLERGIES Allergen Reactions Gabapentin Mental Status Change Foggy, dizzyness Ragweed Intolerance CURRENT MEDICATIONS: ketoconazole (NIZORAL) 2 % creamApply generous layer to clean, dry skin 1-2 times daily.Disp: 30 gRfl: [address] (PROTONIX) 40 mg tabletTake 40 mg by mouth once daily.Disp: Rfl: fluticasone (FLONASE ALLERGY RELIEF) 50 mcg/actuation nasal sprayUse 2 Sprays in each nostril once daily.Disp: 16 gRfl: 11 clindamycin (CLEOCIN) 1 % external solutionApply to affected areas on neck when needed after shavingDisp: 60 mLRfl: 3 CPAP/BIPAP/OTHERNew Autopap [id number] [facility] [employer] ([phone]) Please start with nasal or nasal pillow mask .Disp: 1 EachRfl: 0 REVIE (more content not included)... [facility] 09-18-2023 Telephone encounter Note MyChardiana message sent [facility] 09-18-2023 Miscellaneous Notes MyChart message sent documented in this encounter [facility] 07-02-2023 Instructions Susan Sewell MD - 07/02/2023 4:20 PM EDT Intertrigo - groin - Start ketoconazole 2% cream twice daily to affected areas - If itchy, use over the counter hydrocortisone 1% cream twice daily for 2-3 days - If very red, recommend over the counter zinc oxide cream/paste/ointment (ie Desitin) nightly for a few nights if flaring Seborrheic dermatitis - scalp - Continue ketoconazole 2% shampoo or cream a few times weekly - Continue over the counter hydrocortisone 1% cream BID as needed for flares Cryotherapy (freezing) care instructions: - The spots may become red, tender, and blister. - Apply petroleum jelly (Vaseline) twice a day until healed. Avoid triple antibiotic (such as Neosporin) because this can cause a contact dermatitis rash. - Bandage can be applied if the area will get dirty. Next full body skin check in 6 months What to look for in a mole that is worrisome? ?Asymmetry - One half can look different than the other half. ?Border - It can have a jagged or uneven edge. ?Color - It can have different colors. ?Diameter - It is larger than the eraser on the end of a pencil. ?Evolution - Its size, color, or shape can slubber frame changer time. GENERAL SUN SAFETY Thank you for allowing me to examine you for signs of skin cancer today. We had an opportunity to discuss my findings and any treatments I recommended. I believe that there are several steps that a person can do to help prevent skin cancers and to detect them at an early, treatable stage: 1. I highly recommend that once a month you perform your own complete skin check looking for changing or unusual spots. Use a wall-mounted mirror and a hand mirror to assist in seeing body areas that are difficult to see otherwise. If you have a family member that can assist, this is often helpful. Additional information can be obtained at: www.skincancer.org/kahp-oaxvjk-mxoqds ation/early-detection 2. In many cases, skin cancer can be prevented. The best way to protect yourself is to avoid too much sun and sunburns. Health care providers believe that ultraviolet rays (UV rays) from the sun damage the skin and over time lead to skin cancer. Here are ways to protect yourself: -Don't spend long periods of time in direct sunlight. -Wear hats with brims to protect your face and ears. -Wear long-sleeved shirts and pants to protect your arms and legs. -Use broad spectrum sunscreens with a SPF (skin protection factor) of 30 or higher that protect against burning and tanning rays. Apply the lotion 30 minutes before you go outside. (Broad-spectrum sunscreens protect against UV-B and UV-A rays.) -Wear sunglasses to protect your eyes. -Use a lip balm with sunscreen. -Avoid the sun between 10am and 4pm. -Show any changing mole to your health care provider. documented in this encounter [facility] 07-02-2023 History of Present illness Narrative [facility] Department of Dermatology Chief Complaint: Patient presents with: Skin Check Date of last visit to [facility] D[facility]: 01/13/23 History of Present Illness: Florian Portillo is a 67 year old male Patient is here for: # Rash Location: Groin Duration: 1 month Symptoms (growing, itching, bleeding, tender): itching at times Current Treatments: none Past Treatments: none PERTINENT PAST DERMATOLOGIC HISTORY: -Personal History of Skin Cancer: Yes BCC nasal tip 2020 -Personal History of Atypical Moles: No -Personal History of Extensive Sun Exposure/Blistering Sunburns:Yes -History of tanning bed usage: No -Does patient use sunscreen Yes -Is the patient immunosuppressed: No FAMILY HISTORY: -Family History of Skin Cancer: Yes REVIEW OF SYSTEMS: Patient feels well and denies any recent fevers, chills, or night sweats. PHYSICAL EXAM: -General: well appearing, in no acute distress -Neurology: alert and oriented times three -Psychiatry: appropriate mood/affect Skin: Pierre phototype: II Skin exam performed of Face (including eyes, ears, lips), Scalp/hair, Neck, Chest, Abdomen, Back, Bilateral upper extremities, Hands/nails, Bilateral lower extremities, Feet/toenails, Buttocks/groin/genitalia, Lymph nodes Skin exam normal with the exception of: - [place] gritty papules on the right lateral eyebrow and left superior eyebrow - Scalp with white scale - L inguinal fold with faint erythema - Well healed scar on nasal tip without evidence of recurrence - Scattered reticulated light rubalcava macules in sun-exposed distribution c/w solar lentigines - Regular and symmetric brown macules and papules on the head, trunk and extremities c/w benign nevi - Scattered small carranza red papules throughout c/w carranza angioma - Few scattered brown stuck on papules and plaques on the head, trunk and extremities c/w seborrheic keratoses ASSESSMENT AND PLAN: # Actinic keratoses - Premalignant nature and relationship to sun exposure were discussed with the patient Cryosurgery of non-malignant lesion(s) Risks, benefits, alternatives and personnel required for cryosurgery reviewed with patient. Pt verbalizes understanding and wishes to proceed. Derm Surg Staff: Dr. Shahzad Perez Cryosurgery performed with Liquid Nitrogen via cryostat spray gun to Actinic Keratosis. 2 lesion(s) treated. Patient tolerated well. Wound care instructions provided, pt verbalizes understanding. # Intertrigo, groin - Discussed etiology and nature of condition - Start ketoconazole 2% cream twice daily to affected areas - If itchy, use hydrocortisone 1% cream twice daily for 2-3 days - Recommend OTC zinc oxide cream/paste/ointment (ie Desitin) nightly for a few nights if flaring # Seborrheic dermatitis - Continue ketoconazole 2% shampoo or cream a few times weekly - Continue hydrocortisone 1% cream BID as needed for flares # Benign Neoplasms (lentigines, seborrheic keratoses, angiomas, benign melanocytic nevi) -discussed benign etiology, no treatment needed at this time # Photoaging of skin # Screening for skin cancer # Hx of nonmelanoma skin cancer -discussed signs of melanoma and non-melanoma skin cancer. -recommend at least every 12 month follow up for FBSE by Dermatology and routine self examination -advised daily sunscreen use (at least SPF30+, broad spectrum), large brimmed hat, protective clothing, and sun avoidance as often as possible -discussed to contact clinic immediately for evaluation if any new, changing, or symptomatic lesions arise Patient verbalizes understanding and agrees with treatment plan and will contact us with any further questions or concerns. Return to clinic 6 months or sooner for any change in/worsening of condition or if any new/changing/symptomatic lesions arise. Head Banquet Waiter/Waitress Attestation: The documentation for this note was completed by Sandra House RN acting as scribe for Shahzad Perez MD. July 02, 2023 7:51 AM. Susan Sewell MD Dermatology, PGY-3 I agree with the Chief Complaint, ROS, and Past Histories independently gathered by the clinical direct support worker and the remaining scribed note accurately describes my personal service to the patient. I have seen and examined Mr. Portillo. I have discussed the case and the management of this patient's care with the Resident. I also have reviewed and agree with the assessment and plan as stated above and agree with all of its relevant components. I supervised the procedure(s) performed as documented above by the Resident. Shahzad Perez MD documented in this encounter [facility] 03-11-2023 Miscellaneous Notes Patient was informed on information Jose Carlos Taylor Please inform the patient: The ulcer can be the culprit of patient's symptom however the inflammation of the esophagus could also be the culprit Either way he needs to take the medication proton pump inhibitor treatment Patient had EGD diagnostic done 03/07 for abdominal pain. Patient wondering if the abdominal pain could possible be caused by the ulcer that was found. Or alternatively if not caused by ulcer could it just be stomach acid? Please advise Jose Carlos Taylor documented in this encounter [facility] 03-07-2023 History and physical note COMPREHENSIVE DAY OF SURGERY SURGICAL SERVICES H&P SERVICE DATE: 03/07/2023 SERVICE TIME: 12:41 PM PRIMARY CARE PHYSICIAN: Jovi Gallo Jr, DO Subjective CHIEF COMPLAINT: belching, bloating, and upset stomach HISTORY OF PRESENT ILLNESS: Mr. 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 PAST MEDICAL HISTORY Diagnosis Date Anxiety disorder sertraline discontinued in 2014 Basal cell carcinoma [address] Aleman Environmental and seasonal allergies flonase effective HTN (hypertension) Prostatitis 2003, 2014 Raynaud disease Varicose veins of both lower extremities PAST SURGICAL HISTORY Procedure Laterality Date CARDIAC CATH 2004 LASIK Bilateral 2004 SCRN COLONOSCOP 2007, 2018 normal SKIN BIOPSY HX 2014 basal cell, right posterior neck TONSILLECTOMY HX 1963 FAMILY HISTORY Problem Relation Age of Onset Alcohol/Drug Mother at 73 Hypertension Mother other (Tobacco) Mother other (Hip fracture) Mother Heart Father age 92, arrhythmia (still driving) Kidney Disease Father CRI other ( in fire) Brother at 21 None Other ages 40, 28, 24, 17 None Brother age 63 Diabetes Maternal Grandfather Social History Tobacco Use Smoking status: Former Packs/day: 1.00 Years: 1.50 Additional pack years: 0.00 Total pack years: 1.50 Types: Cigarettes Quit date: 07/02/1975 Years since quittin.7 Smokeless tobacco: Never Vaping Use Vaping Use: Never used Substance Use Topics Alcohol use: No Drug use: Never (Not in a hospital admission) Current Facility-Administered Medications Medication Dose Route Frequency lidocaine (PF) 10 mg/mL (1 %) 1-2 mg injection (XYLOCAINE) 0.1-0.2 mL INTRADERMAL PRN lactated ringers iv infusion 30 mL/hr INTRAVENOUS CONTINUOUS ALLERGIES Allergen Reactions Gabapentin Mental Status Change Foggy, dizzyness Ragweed Intolerance REVIEW OF SYSTEMS: RESPIRATORY: Negative for cough, hemoptysis, wheezing, COPD, dyspnea or shortness of breath CARDIOVASCULAR: Negative for chest pain, leg swelling, CHF or palpitations GI: No nausea, vomiting, or diarrhea Objective PHYSICAL EXAM: BP 144/74 Pulse 78 Resp 18 SpO2 99% O2 Therapy: Room Air Physical Exam Performed LUNGS: Lungs clear to auscultation, Good diaphragmatic excursion CARDIAC: Normal S1 and S2; no rubs, murmurs, or gallops GENERAL: Alert, no distress, cooperative ABDOMEN: Abdomen soft, non-tender, BS normal, No masses or organomegaly NEURO: alert and oriented X 3 DATA: Diagnostic tests reviewed for today's visit: No new labs to review Assessment/Plan Belching Bloating Upset stomach Stressors in life Esophagogastroduodenoscopy SIGNATURE: Annie Cruz MD PATIENT NAME: Florian Portillo DATE: March 07, 2023 TIME: 12:41 PM [facility] Work Phone: 03-07-2023 History and physical note COMPREHENSIVE DAY OF SURGERY SURGICAL SERVICES H&P SERVICE DATE: 03/07/2023 SERVICE TIME: 12:41 PM PRIMARY CARE PHYSICIAN: Jovi Gallo Jr, DO Subjective CHIEF COMPLAINT: belching, bloating, and upset stomach HISTORY OF PRESENT ILLNESS: Mr. 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 PAST MEDICAL HISTORY Diagnosis Date Anxiety disorder sertraline discontinued in 2014 Basal cell carcinoma [address] Aleman Environmental and seasonal allergies flonase effective HTN (hypertension) Prostatitis 2003, 2015 Raynaud disease Varicose veins of both lower extremities PAST SURGICAL HISTORY Procedure Laterality Date CARDIAC CATH 2004 LASIK Bilateral 2004 SCRN COLONOSCOP 2007, 2018 normal SKIN BIOPSY HX 2015 basal cell, right posterior neck TONSILLECTOMY HX 1963 FAMILY HISTORY Problem Relation Age of Onset Alcohol/Drug Mother at 73 Hypertension Mother other (Tobacco) Mother other (Hip fracture) Mother Heart Father age 92, arrhythmia (still driving) Kidney Disease Father CRI other ( in fire) Brother at 21 None Other ages 40, 28, 24, 17 None Brother age 63 Diabetes Maternal Grandfather Social History Tobacco Use Smoking status: Former Packs/day: 1.00 Years: 1.50 Additional pack years: 0.00 Total pack years: 1.50 Types: Cigarettes Quit date: 07/02/1975 Years since quittin.7 Smokeless tobacco: Never Vaping Use Vaping Use: Never used Substance Use Topics Alcohol use: No Drug use: Never (Not in a hospital admission) Current Facility-Administered Medications Medication Dose Route Frequency lidocaine (PF) 10 mg/mL (1 %) 1-2 mg injection (XYLOCAINE) 0.1-0.2 mL INTRADERMAL PRN lactated ringers iv infusion 30 mL/hr INTRAVENOUS CONTINUOUS ALLERGIES Allergen Reactions Gabapentin Mental Status Change Foggy, dizzyness Ragweed Intolerance REVIEW OF SYSTEMS: RESPIRATORY: Negative for cough, hemoptysis, wheezing, COPD, dyspnea or shortness of breath CARDIOVASCULAR: Negative for chest pain, leg swelling, CHF or palpitations GI: No nausea, vomiting, or diarrhea Objective PHYSICAL EXAM: BP 144/74 Pulse 78 Resp 18 SpO2 99% O2 Therapy: Room Air Physical Exam Performed LUNGS: Lungs clear to auscultation, Good diaphragmatic excursion CARDIAC: Normal S1 and S2; no rubs, murmurs, or gallops GENERAL: Alert, no distress, cooperative ABDOMEN: Abdomen soft, non-tender, BS normal, No masses or organomegaly NEURO: alert and oriented X 3 DATA: Diagnostic tests reviewed for today's visit: No new labs to review Assessment/Plan Belching Bloating Upset stomach Stressors in life Esophagogastroduodenoscopy SIGNATURE: Annie Cruz MD PATIENT NAME: Florian Portillo DATE: March 07, 2023 TIME: 12:41 PM documented in this encounter [facility] 03-07-2023 Miscellaneous Notes I am writing to advise you of the esophagus and stomach biopsies. The esophagus pathology revealed for inflammation of the esophagus consistent with reflux esophagitis. No evidence to suggest Lomas's esophagus. You should continue with your medical treatment. The stomach pathology was normal. If you have any questions or concerns, please contact our office. documented in this encounter [facility] 03-07-2023 Progress note Formatting of t his note might be different from the original. I am writing to advise you of the esophagus and stomach biopsies. The esophagus pathology revealed for inflammation of the esophagus consistent with reflux esophagitis. No evidence to suggest Lomas's esophagus. You should continue with your medical treatment. The stomach pathology was normal. If you have any questions or concerns, please contact our office. [facility] 03-06-2023 Telephone encounter Note Images from the original note were not included. [facility] 03-06-2023 Miscellaneous Notes Images from the original note were not included. Procedure Scheduling Checklist Patient called in need to schedule an EGD went [facility] and they told him to follow up with a GI Doctor to have the procedure done, patient will have recent labs and bloodwork faxed over Patient wants to do the procedure without sedation, because he does not have someone to bring him. Want to schedule as soon as possible, because he is going out of town on 03/13/23. Yelitza please review. Insurance:Payor: MEDICARE / Plan: MEDICARE A AND B / Product Type: Medicare / Orders placed in [facility] for Procedure: No Current H&P in [facility] (if no, have patient fax copy from PCP): No Last EGD: Last COLON: 06/23/2018 Are you non-ambulatory? No Are you taking any blood thinners? If yes, who is your prescribing MD? No Are you on any diabetic medication (if yes, please have prescribing MD manage)? No Do you have a Defibrillator (AICD): No Do you have a Pacemaker & what is the date of last interrogation? No Do you have a History of Heart failure or mechanical valves? No Have you had a stroke (CVA or TIA) in the last 3 months? No Home oxygen use? No Height: Last 1 Encounter Ht Readings: Date: Ht: 02/07/2023 179.1 cm (5' 10.51) Weight: Last 1 Encounter Wt Readings: Date: Wt: 03/12/2021 84.8 kg (179 lb 15.2 oz) BMI:25.7 Have you had any radiation to the neck, significant neck surgery or a history of trach? No Are you on dialysis? If yes, what days are your dialysis? No We can only book after a day you have dialysis. Do you have a Family history of colon cancer &/or colon polyps? No Do you have any GI symptoms you are concerned about? Yes stomach pain, Gurgling noise in stomach Patty Jang MA documented in this encounter [facility] 03-05-2023 Telephone encounter Note Procedure Scheduling Checklist Patient called in need to schedule an EGD went [facility] the [facility] and they told him to follow up with a GI Doctor to have the procedure done, patient will have recent labs and bloodwork faxed over Patient wants to do the procedure without sedation, because he does not have someone to bring him. Want to schedule as soon as possible, because he is going out of town on 03/13/23. Yelitza please review. Insurance:Payor: MEDICARE / Plan: MEDICARE A AND B / Product Type: Medicare / Orders placed in [facility] for Procedure: No Current H&P in [facility] (if no, have patient fax copy from PCP): No Last EGD: Last COLON: 06/23/2018 Are you non-ambulatory? No Are you taking any blood thinners? If yes, who is your prescribing MD? No Are you on any diabetic medication (if yes, please have prescribing MD manage)? No Do you have a Defibrillator (AICD): No Do you have a Pacemaker & what is the date of last interrogation? No Do you have a History of Heart failure or mechanical valves? No Have you had a stroke (CVA or TIA) in the last 3 months? No Home oxygen use? No Height: Last 1 Encounter Ht Readings: Date: Ht: 02/07/2023 179.1 cm (5' 10.51) Weight: Last 1 Encounter Wt Readings: Date: Wt: 03/12/2021 84.8 kg (179 lb 15.2 oz) BMI:25.7 Have you had any radiation to the neck, significant neck surgery or a history of trach? No Are you on dialysis? If yes, what days are your dialysis? No We can only book after a day you have dialysis. Do you have a Family history of colon cancer &/or colon polyps? No Do you have any GI symptoms you are concerned about? Yes stomach pain, Gurgling noise in stomach Patty Jang MA [facility] 03-05-2023 Discharge summary Note Date/Time March 05, 2023 7:56am [facility] Medical Records Department [address] [place] [address] Emergency Department Summary 03/05/23 MR#: [id number] Acct: [id number] Name: FLORIAN PORTILLO Rep #:[id number] : 1955 67 From: Luke Brown PCP: Dr. Pan Barba MD Status :REG ER Location: ED HPI History of Present Illness Chief Complaint: Abd Pain PFSH PFSH Home Medications NK 12/10/17 [History Last Taken Unknown] pantoprazole 40 mg tablet,delayed release 40 mg PO DAILY #30 tabs 02/28/23 [Rx Last Taken Unknown] sucralfate 1 gram tablet (Carafate) 1 g PO TID 1 week #21 tabs 02/28/23 [Rx Last Taken Unknown] Allergy/AdvReac Type Severity Reaction Status Date / Time No Known Allergies Allergy Verified 02/28/23 08:49 Social History Smoking Status: Never smoker alcohol intake: never EXAM Physical Exam Const Vital Signs: 03/05/23 07:47 Temperature 97.8 F Temperature Source Temporal Pulse Rate 86 Respiratory Rate 14 Blood Pressure 134/78 H Blood Pressure Mean 96 Pulse Ox 98 Oxygen Delivery Method Room Air MDM MDM MDM Narrative Medical decision making narrative: HISTORY OF PRESENT ILLNESS: 67-year-old male here for abdominal pain. States he was seen recently for similar and had blood work done. He states he is leaving for vacation and is concerned that he continues to have intermittent stomachache and loudness. Pain is not worse with exertion. It is worse after food. Intermittent. Is located in epigastrium. Denies history abdominal surgeries. Does not drink alcohol. States is concerned because he is travel to [place] and wants to be checked out before this occurs. REVIEW OF SYSTEMS: Pertinent positives: Abdominal pain Pertinent negatives: Chest pain, shortness of breath, urinary complaints, melenahematochezia PHYSICAL EXAM: Nursing triage notes reviewed, Vital signs reviewed Constitutional: please see mdm HENT: MMM Eyes: Pupils equal round and reactive to light, Extraocular muscles intact Neck: No stridor, no JVD, full neck ROM Lungs: Clear to auscultation, No wheezing or rales. No increased work of breathing, no conversational dyspnea, no accessory muscle use, no nasal flaring. No respiratory distress noted Heart: Regular rate and rhythm, No murmurs, No rubs and No gallops, 2+ distal pulses (radial, femoral, posterior tibial) in all extremities Abdomen: Soft, there is no tenderness, rigidity, rebound or guarding, no obviousperitoneal signs, no palpable pulsatile abdominal masses, no auscultated abdominal bruit : No CVAT Extremities: No edema Neuro: No focal neurological deficits, cranial nerves II through XII intact, 5/5strength in all extremities. Intact sensation to light touch in all extremities,2+ reflexes bilateral patella tendons. Normal gait. No ataxia. Skin: No rash or lesions noted MEDICAL DECISION MAKING: Chief Complaint: Abdominal pain External records reviewed: Seen in the ED on 02/28/2023. Abdominal exam at that time was benign he was diagnosed with dyspepsia left upper quadrant pain. Labs at that time showed no leukocytosis, no significant anemia, no signs of hepatobiliary pathology, no signs of electrolyte disturbance, no sign of pancreatitis. Patient was discharged Factors affecting care: GERD, dyspepsia Social determinants of health: Denies alcohol History obtained from others: none Consults: none [facility] Narrative: Patient was hemodynamically stable, afebrile, nontoxic-appearing. No focal cardiopulmonary normalities. Abdomen soft nontender with mild epigastric discomfort. I considered the following differential diagnosis: Ruptured viscus, small bowel obstruction, hepatobiliary production, GERD, gastritis, atypical presentation ofACS I obtained a broad lab and imaging workup to further elucidate etiology patient complaints. I gave symptomatic treatments for fluids, Zofran, Pepcid and a GI cocktail. Patient refused medicines. ALL IMAGES (IF OBTAINED) HAVE BEEN PERSONALLY REVIEWED AND INTERPRETED BY MYSELF. EKG with normal sinus rhythm, normal axis, normal intervals, no STEMI CBC without leukocytosis, severe anemia, no thrombocytopenia. CMP without evidence of acute kidney injury, significant electrolyte abnormality, anion gap, no evidence hepatobiliary pathology. High-sensitivity troponin is negative, no evidence of myocardial ischemia CT scan abdomen pelvis shows no evidence of acute intra-abdominal pathology suchas perforation or obstruction. The synthesis of the patient's history, physical exam, labs and images suggest no acute life-limiting etiology including occult ACS, obstruction perforation, hepatobiliary pathology etc. No clear aspiration with patient's pain I suspect he is got gastritis versus peptic ulcer disease and requires close GI follow-up. I further recommend the patient continue home PPI. The patient and/or family, caregivers express understanding. The patient and/orfamily, caregivers agrees with the plan. Shared decision making: I will have a discussion with the patient and or visitors regarding risk/benefits of further testing or admission. They will be made aware of of the risk/benefits inherent in this decision they will be given the opportunity to voice understanding. Total critical care time today provided was at least 0 minutes. This excludes separately billable procedures. Critical care time (if documented) is secondary to the patient having high probability of clinically significant/life threatening deterioration in the patient's condition which required my urgent intervention. Impression: 1. Epigastric abdominal pain 2. History of GERD 3. Fatty liver 4. Diverticulosis Dispo: Discharge Lab Data Labs: Laboratory Results - last 24 hr 03/05/23 08:45 WBC 6.6 RBC 5.35 Hgb 17.5 H Hct 50.7 MCV 94.8 H MCH 32.7 H MCHC 34.5 RDW Std Deviation 47.8 H RDW Coeff of Leda 13.8 Plt Count 187 MPV 11.9 Immature Gran % (Auto) 0.300 Neut % (Auto) 69.8 Lymph % (Auto) 20.1 [place] % (Auto) 8.4 Eos % (Auto) 0.8 Baso % (Auto) 0.6 Absolute Neuts (auto) 4.6 Absolute Lymphs (auto) 1.32 Nucleated RBC % 0 Sodium 137 Potassium 3.9 Chloride 104 Carbon Dioxide 29.0 Anion Gap 4 L BUN 15 Creatinine 0.92 Estim Creat Clear Calc 80.71 Est GFR (MDRD) Af Amer 104 Est GFR (MDRD) Non-Af 86 BUN/Creatinine Ratio 16.3 Glucose 102 Calcium 9.6 Total Bilirubin 0.70 AST 17 ALT 27 Alkaline Phosphatase 51 Troponin I High Sens 42 Total Protein 7.9 Albumin 4.2 Globulin 3.7 Albumin/Globulin Ratio 1.1 Radiography Diagnostic Testing: Clinical Impression(s) from Imaging Studies Abdomen/Pelvis CT 03/05/23 08:30 IMPRESSION: Fatty infiltration of the liver. Scattered sigmoid diverticula. Prostatic enlargement with indentation of the bladder base. Mild degree of diffuse bladder wall thickening. Electronically Signed: Syed Gonsalez MD at 10:03 EST , Discharge Plan Triage Chief Complaint: Abd Pain ED Provider: Luke Stout Dx/Rx/DC Orders Instructions: ED Abdominal Pain Unkn Cause Male... Prescriptions: No Action NK pantoprazole 40 mg tablet,delayed release (DR/EC) 40 mg PO DAILY Qty: 30 1RF sucralfate [Carafate] 1 gram tablet 1 g PO TID 7 Days Qty: 21 0RF Primary Care Provider: Pan Barba Referrals: FriendRaSid, DO [Med Staff - Active Staff] - Activity Restrictions/Additional Instructions: Thank you for trusting us with your care today! Please take Tylenol (2 pills, 650 mg), ibuprofen (2 pills, 400 mg) every 6 hoursas needed for pain and fever control. Please return to the emergency department if your symptoms change or worsen. Please follow with your primary care physician for further outpatient evaluationand management. Disposition Disposition: Home, Self Care What to do if you have Problems For any increased pain, shortness of breath, bleeding, nausea or vomiting, chestpain, or any unexpected problems, contact your Primary Care Provider. Call [facility] ([phone]) or report to the closest Emergency Room. Call 911 if necessary. 03/05/23 1021 <Electronically signed by Luke Stout DO> Cosigner Signature (if applicable): CC: Dr. Pan Barba MD ~ Signed [facility] Work Phone: [phone]) 168-726011-17-2023 History of Present illness Narrative* Tanya Puentes RN - 02/07/2023 10:16 AM EST AMBULATORY PATIENT EDUCATION NOTE TOPIC: Fareed Med sinus irrigationsLIFE STYLE CHANGES: Diet, Disease Education, Exercise, Safety Precautions, and Sick Day Management HEALTH PROMOTION: Complication prevention Coping skills Diet Exercise Follow up management Self management READINESS TO LEARN COGNITIVE ABILITY: Alert and oriented MOTIVATION TO LEARN: Interested FAMILY SUPPORT: Unable to assess - Family not present INSTRUCTION PROVIDED TO: Patient PATIENT LEARNS BEST BY: Written Instruction - Hand-outs Verbal Instruction FACTORS AFFECTING LEARNING: None PHYSICAL LIMITATIONS AFFECTING LEARNING: None LEARNING RESPONSE DIAGNOSIS: Nasal septal deviation METHOD OF INSTRUCTION: Written instruction - handouts Verbal instruction PATIENT / FAMILY RESPONSE: Verbalizes understanding of: SYMPTOM MANAGEMENT- Correct actions to take to manage symptoms associated with his/her disease/illness FOLLOW-UP PLAN: Complete - No need for follow-up SUPPLEMENTAL MATERIAL: None REFERRAL (RECOMMENDATION): None Electronically Signed By: Tanya Puentes RN In Department: OTOLARYNGOLOGY Time spent on patient education: 05 minutes. * Mary Andrade MD - 02/07/2023 9:30 AM EST Images from the original note were not included. SECTION OF RHINOLOGY, SINUS AND SKULL BASE SURGERY Head [facility] Neck As[facility], [facility] NOTE Chief Complaint: Florian Portillo is a 67 year old male who is here for Patient presents with: New Patient Sinus Problem ASSESSMENT/PLAN: (J34.2) Nasal septal deviation (primary encounter diagnosis) (J32.8) Other chronic sinusitis No orders found for this visit on 02/07/23. Right caudal septal deviation, non bothersome, s/p biopsy inflammatory polyp left middle meatus. Symptoms have since resolved. Flares have been once every 3 years. No symptoms in between Reviewed indications for considering surgical intervention. Path negative for malignancy. He did get a CT scan at OSH - we do not have that on file, will get release of records. Use irrigations when he flares andINCS during problematic seasons, followup PRN. Mary Andrade MD HPI: Florian Portillo is a 67 year old male here for sinus complaints, second opinion. Patient seen by our rhinology fellow and our rhinology [employer] SUPERVISOR. Patient seen by Dr Tracey on 01/31/23 HPI as follows and reviewed by me today, 02/07/23 : Previousnote: HPI: Florian Portillo is a 67 year old male About three years ago he had an episode similar to this. Awful odor in his nose. Describes it as pungent. Was given an ABX with good relief (three years ago). Does not remember what one. Noticed the smell this morning. Denies drainage but noticed a moisture in his nose. No pain or pressure noted. Denies any congestion at this time. Sometimes gets it on and off. Flonase inhaler at home - uses it PRN. No other treatments. Denies any cough or sore throat. History of sinus surgery: Denies Allergies: Denies SOB: Denies Pulmonary disease: Denies Headaches: Denies Fever, CP, chills: Denies 01/31/23 Returned to clinic today due to worsening smell in nose. He reports no facial pain or pressure. No nasal drainage. Also has had metallic taste in his mouth that he attributes to the augmentin. . Treated acute sinusitis, septal deviation, nasal mass, cultured, biopsied. Two days prior to this was seen by Kathia Whitney, Rhinology [employer] SUPER[employer]OR on 01/27/23, HPI as follows and also reviewed by me today:Florian Portillo is a 67 year old male About three years ago he had an episode similar to this. Awful odor in his nose. Describes it as pungent. Was given an ABX with good relief (three years ago). Does not remember what one. Noticed the smell this morning. Denies drainage but noticed a moisture in his nose. No pain or pressure noted. Denies any congestion at this time. Sometimes gets it on and off. Flonase inhaler at home - uses it PRN. No other treatments. Denies any cough or sore throat. History of sinus surgery: Denies Allergies: Denies SOB: Denies Pulmonary disease: Denies Headaches: Denies Fever, CP, chills: Denies TREATED: scoped, flonase, augmentin He reports not taking antibiotics as he had to transition his father to hospice care and so he forgot about his nose completely. States that the foul smell has otherwise stopped though even without antibiotics. Not on any washes, is using his flonase. Denies any baseline nasal obstruction, particularly the right side no complaints. Did not see Dr Tracey's note on his pathology - this was reviewed. ALLERGIES ALLERGIES Allergen Reactions Gabapentin Mental Status Change Foggy, dizzyness Ragweed Intolerance MEDICATIONS Current Outpatient Medications Medication Sig fluticasone (FLONASE ALLERGY RELIEF) 50 mcg/actuation nasal spray Use 2 Sprays in each nostril oncedaily. ketoconazole (NIZORAL) 2 % cream Apply generous layer to clean, dry skin 1-2 times daily. ketoconazole (NIZORAL) 2 % shampoo Apply to affected areas on face and scalp and rinse off in the shower clindamycin (CLEOCIN) 1 % external solution Apply to affected areas on neck when needed after shaving CPAP/BIPAP/OTHER New Autopap [id number] [employer] ([phone]) Please start with nasal or nasal pillow mask . No current facility-administered medications for this visit. PAST MEDICAL HISTORY PAST MEDICAL HISTORY Diagnosis Date Anxiety disorder sertraline discontinued in 2014 Basal cell carcinoma [address] Aleman Environmental and seasonal allergies flonase effective HTN (hypertension) Prostatitis 2003, 2015 Raynaud disease Varicose veins of both lower extremities SOCIAL HISTORY PAST SURGICAL HISTORY Procedure Laterality Date CARDIAC CATH 2004 LASIK Bilateral 2004 SCRN COLONOSCOP 2007, 2018 normal SKIN BIOPSY HX 2015 basal cell, right posterior neck TONSILLECTOMY HX 1963 FAMILY HISTORY FAMILY HISTORY Problem Relation Age of Onset Alcohol/Drug Mother at 73 Hypertension Mother other (Tobacco) Mother other (Hip fracture) Mother Heart Father age 92, arrhythmia (still driving) Kidney Disease Father CRI other ( in fire) Brother at 21 None Other ages 40, 28, 24, 17 None Brother age 63 Diabetes Maternal Grandfather PHYSICAL EXAM: Pulse 82 Ht 179.1 cm (5' 10.51) SpO2 100% BMI 26.44 kg/m GENERAL: no acute distress, alert, VOICE: clear, no stridor/stertor HEAD AND FACE: Physical examination of the head, neck, external nose, external ears, mouth and facefails to demonstrate any significant abnormality or asymmetry to critical face to face observation.Skin and scalp are normal. EYES: PERRL, gross vision intact, EOMI EARS: no drainage NOSE: Examination of the nasal cavity revealed a septum which is caudally deviated to the right, unable to see the IT on the right. The mucosa is pink, and the visible turbinate on left is normal on anterior rhinoscopy. There is no purulence or polyps. Crusting in middle meatus visible . External nose unremarkable ORAL CAVITY AND OROPHARYNX: The oral mucosa, hard and soft palates, tongue, tonsil area, and posterior pharyngeal wall are without lesions. NECK: soft, FROM REVIEW OF RADIOLOGICAL FILMS AND RECORDS: No pertinent records REVIEW OF LABS/TESTING/AUDIOLOGY RECORDS 01/31/23 Sinus culture Culture Rare normal respiratory saima Smear Result No organisms seen No Polymorphonuclear Leukocytes 01/31/23 nasal biopsy FINAL DIAGNOSIS Left nasal mass, excisional biopsy: - Inflammatory-type polyp with focal squamous metaplasia and reactive stromal changes. - Negative for neoplasm. - See comment. PROCEDURE Nasal endoscopy and sinus debridement SURGEON Mary Andrade MD ANESTHESIA Topical afrin and lidocaine bilateral nares FINDINGS Magdiel-Akin Endoscopic Scoring System Polyps (0 = none; 1 = MM only; 2 = beyond MM) Right: n/a Left: 0 Edema (0 = absent; 1 = mild; 2 = severe) Right: n/a Left: 1 Discharge (0 = none; 1 = thin; 2= purulent) Right: n/a Left: 0 Scarring (0 = absent; 1 = mild; 2 = severe) Right: n/a Left: 0 Crusting (0 = absent; 1 = mild; 2 = severe) Right: n/a Left: 2 TOTAL Right: n/a Left: 3 Mild edema of the middle turbinate from prior biopsy, large crust at biopsy site which was debridedwith suction and alligator INDICATIONS Mr. 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 DESCRIPTION OF PROCEDURE After verbal consent was obtained, both nares were sprayed with Afrin and lidocaine. The rigid endoscope was then used for visualization and passed from the nostrils into the sinus cavities on both sides. The above-stated findings were seen. He tolerated the procedure well. Mary Andrade MD documented in this encounterBu[facility]11-17-[facility]23 Instructions* Patient Instructions* Mary Andrade MD - 02/07/2023 9:50 AM EST Flonase daily - use during your troublesome periods Use washes whenever you have a flare After 10-14 days if still having worse symptoms, that's when you should consider oral antibiotics Saline Irrigation Instructions Bend head over a basin or sink. Irrigate half of bottle solution through upper nostril by squeezingthe bottle firmly and gently, not quickly. Do not inhale the liquid, the solution will go into yoursinuses, through one nostril and drain out the other. Irrigant solution should come out of other nostril or down back of throat. Switch sides and repeat on the opposite side. Patient should not hold b reath while irrigating. - if you have issues with your frontal sinuses (forehead) ensure you perform with head down position If you are having sinus surgery, irrigations should be performed 4x daily. If prescribed an antibiotic or steroid with the irrigation, this will be used twice daily. Instructional video: https://www.youRevolymerube.com/watch?v=WA9zmHx6Ml5 Normal Saline Recipe (1Liter or 32 ounces) Mix ingredients below together and store. Use in 3-days. - 1 liter boiled or distilled water - 3 teaspoon jack/pickling/kosher salt (non-iodized) - 1 teaspoon baking soda If you prefer to mix with each irrigation use, combine the salt and baking soda as above. Mix well and store. When ready to irrigate, pour 1-teaspoon of the combined dry-mixture into the NeilMed irrigation bottle and add 8-ounces of previously boiled or distilled water. Tip1: Microwave irrigation solution to room temperature prior to use. Warm saline is often more comfortable to use. Tip2: Keep your mouth open and do not hold your breath Tip3: The easiest method to use the proper water is to buy a gallon jug of distilled water from [employer]. Use it as described with the above recipe, boil, let it cool, and pour back into the empty distilled water jug. NeilMed Bottle Cleaning Instructions Until further evidence becomes available, cleaning after every use and replacing after 3-months is what is recommended. Rinse out bottle and wash its tip with soap and water after each use. Air dry completely. Once a week, sterilize the bottle by placing th eobttke, cap and tube in the microwave for 1 and 1/2 -minutesto disinfect. For full cleaning instructions, go to http://www.SADAR 3D/usa/use_npsr.php documented in this encounterBu[facility]11-06-2023 History of Present illness Narrative* Susan Gibbs APRN.LAND SURVEYOR ASSISTANT - 01/27/2023 3:30 PM EST Images from the original note were not included. SECTION OF RHINOLOGY, SINUS AND SKULL BASE SURGERY Head and Neck Asher, [facility] NOTE This patient is a new patient. They are seen at the request of: No referring provider defined for this encounter. CC: bad odor in nose Florian Portillo is a 67 year old male with a foul smell in his nose. ASSESSMENT: Acute sinusitis and right septal deviation PLAN: 1) Nasal Endoscopy today. 2) Flonase nasal spray - 2 sprays in both nares BID 3) Augmentin 875-125 mg PO BID for 7 days 4) Follow-up if symptoms do not resolve Susan Herrmann APRN.LAND SURVEYOR ASSISTANT HPI: Florian Portillo is a 67 year old male About three years ago he had an episode similar to this. Awful odor in his nose. Describes it as pungent. Was given an ABX with good relief (three years ago). Does not remember what one. Noticed the smell this morning. Denies drainage but noticed a moisture in his nose. No pain or pressure noted. Denies any congestion at this time. Sometimes gets it on and off. Flonase inhaler at home - uses it PRN. No other treatments. Denies any cough or sore throat. History of sinus surgery: Denies Allergies: Denies SOB: Denies Pulmonary disease: Denies Headaches: Denies Fever, CP, chills: Denies PAST MEDICAL HISTORY: PAST MEDICAL HISTORY Diagnosis Date Anxiety disorder sertraline discontinued in 2014 Basal cell carcinoma [address] Aleman Environmental and seasonal allergies flonase effective HTN (hypertension) Prostatitis 2003, 2014 Raynaud disease Varicose veins of both lower extremities PAST SURGICAL HISTORY: PAST SURGICAL HISTORY Procedure Laterality Date CARDIAC CATH 2004 LASIK Bilateral 2004 SCRN COLONOSCOP 2007, 2018 normal SKIN BIOPSY HX 2015 basal cell, right posterior neck TONSILLECTOMY HX 1963 FAMILY HISTORY Problem Relation Age of Onset Alcohol/Drug Mother at 73 Hypertension Mother other (Tobacco) Mother other (Hip fracture) Mother Heart Father age 92, arrhythmia (still driving) Kidney Disease Father CRI other ( in fire) Brother at 21 None Other ages 40, 28, 24, 17 None Brother age 63 Diabetes Maternal Grandfather Social History Tobacco Use Smoking status: Former Packs/day: 1.00 Years: 1.50 Additional pack years: 0.00 Total pack years: 1.50 Types: Cigarettes Quit date: 07/02/1975 Years since quittin.6 Smokeless tobacco: Never Vaping Use Vaping Use: Never used Substance Use Topics Alcohol use: No Drug use: Never MEDICATIONS: Current Outpatient Medications Medication Sig ketoconazole (NIZORAL) 2 % cream Apply generous layer to clean, dry skin 1-2 times daily. ketoconazole (NIZORAL) 2 % shampoo Apply to affected areas on face and scalp and rinse off in the shower clindamycin (CLEOCIN) 1 % external solution Apply to affected areas on neck when needed after shaving CPAP/BIPAP/OTHER New Autopap [id number] [facility] ([phone]) Please start with nasal or nasal pillow mask . No current facility-administered medications for this visit. ALLERGIES: ALLERGIES Allergen Reactions Gabapentin Mental Status Change Foggy, dizzyness Ragweed Intolerance ROS: Constitutional: Denies having night sweats, constant fatigue, loss of appetite, or recent substantial weight loss. Eyes: The patient denies having blurred vision or double vision. Respiratory: Denies symptoms of shortness of breath, noisy breathing, hoarseness, or a chronic cough. GI: Denies symptoms of heartburn, acid regurgitation, or the known presence of a hiatal hernia. 14 point review of systems was otherwise normal. REVIEW OF RADIOLOGICAL FILMS AND RECORDS: Previous operative, pathology, and radiological reports were reviewed and filed in the permanent chart. No pertinent data to review for this visit PHYSICAL EXAM: Constitutional: General appearance: well developed, well nourished, without obvious deformities Communication: the patient speaks with a normal voice without hoarseness Head and Face: Overall appearance: no obvious scars, lesions or masses Facial strength: normal and equal bilaterally . No tenderness to palpation Ears, Nose, Mouth, Throat: External ears and nose: normal in appearance, without scars, lesions, or masses Ears: both left and right external auditory canals and tympanic membranes are normal Nasal exam: the mucosa is pink, the septum is deviated to the right, and the visible turbinates arehypertrophic on anterior rhinoscopy Oral cavity and oropharynx:The lips, the oral mucosa, hard and soft palates, tongue, tonsil area, and posterior pharyngeal mucosa are without lesions Neck: the neck appears symmetric without scars, and on palpation is without masses or lymphadenopathy Respiratory: . Normal respirations on inspection Neurological . Normal mental status . Normal orientation . Cranial Nerves 3-12 intact PROCEDURE NOTE: Procedure: Nasal endoscopy Indication: nasal odor Findings: After topical decongestion with afrin spary, rigid endoscopy was performed using a 30degree endoscope. The septum was deviated to the right - unable to assess the right turbinate and inner structures due to deviation. Left middle meatus edema noted with scant crusting. No mucus, pus or polyps were seen. There were no complications and the patient tolerated the procedure well. Marilyn Fu APRN.CNP performed nasal endoscopy under direct supervision and guidance form Kathia Gibbs APRN-KEVIN. Susan Herrmann APRN.CNP Rhinology, Sinus and Skull Base Surgery documented in this encounterBucyrus [facility]11-06-2023 Miscellaneous Notes* Telephone Encounter - Ondina Mar - 01/27/2023 12:35 PM EST Spoke to patient in regards to message left on rn line. Patient does not have an order for ENT and sees a Dr. Barba. He is not a patient of our office. Patient will be reaching out to his PCP office to schedule. Thanks Ondina Mar * Telephone Encounter - Alondra Haque - 01/27/2023 10:48 AM EST Pt LM on [place] nurse triage line wanting to see ENT or nurse practitioner, going out of town tomorrow and checking if any cancellations, please assist thank you documented in this encounterBu[facility]04-12-2023 History of Present illness Narrative* [facility] - 07/03/2022 9:37 PM EDT Visit Summary for FLORIAN PORTILLO - Gender: Male - Date of : 1955 Date: - Duration: 9 minutes Patient: FLORIAN PORTILLO Provider: Rosendo Hunt Patient Contact Information Address [address] [place] [address] [address] [place]; [place] [address] [phone] Visit Topics Vaccine advice [Added By: Self - 2022-07-04] Triage Questions REQUIRED: Do you have Medicare or Medicaid Insurance?Answer [Yes] Do you have a cough, shortness ofbreath, difficulty breathing, fever, chills, headache, sore throat, muscles aches, acute change in smell or taste?Answer [No] Have you been in contact with anyone confirmed with COVID 19 or suspectedof having COVID 19 within the past 14 days?Answer [No] Do you have any vulnerable family members in the home (infant, , weak immune system, lung disease, active cancer, elderly)?Answer [No] Do you have any of the following: weak immune system, asthma or chronic lung disease, kidney problemsand on dialysis, active cancer, diabetes or heart disease or high blood pressure, HIV or organ transplant?Answer [No] Are you currently working in a healthcare facility?Answer [No] What is the address where you are currently located? This is important in case of a medical emergency.Answer [] Pleaseenter a number I can contact you in the event we are disconnected.Answer [] Conversation Transcripts [Notification] Miranda Castillo, Global Staff, will help you prepare for your visit. She is assisting Rosendo Hunt, Family Physician.[Miranda Castillo] [place], and thank you for connecting. While you are waiting for the doctor, are there any questions I can answer for you about our service? Please [facility] service if you have questions about billing, insurance, or technical issues. Visits work best with a stable WiFi connection, so please make sure you are connected before we begin.[Notification] Miranda Castillo has left the room.[Notification] You are connected with Rosendo Hunt, Family Physician.[Notification] FLORIAN PORTILLO is located in [place]. Diagnosis Illness, unspecified Value: R69 Code: ICD-10-CM Other specified counseling Value: Z71.89 Code: ICD-10-CM Procedures Value: [id number] Code: CPT-4 OFFICE O/P EST SF 10-19 MIN Value: 84399 Code: CPT-4 OL DIG E/M SVC 11-20 MIN Medications Prescribed No prescriptions ordered Provider Notes The caller confirms they are the patient on the registration, and that they are calling from OhVisit Mode: VideoIn between doctor due to his doctor retiring. HPI: shingrex x1 in 2019. Missed his second Shingrex shot and wonders if he should start the series again. No history of shingles. 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 Good historian. Assessment: Well visit with preventive care quesiton Plan: Get the second shot and then discussed with his new doctor if a follow up shot would be indicated, though unlikely if not immune compromised. Discussed the differential diagnosis, risks/benefits for treatment options and when to seek in person care. All questions were addressed. Patient voiced understanding andagreement with plan. 1. If you received a prescription at this visit and you have a question or problem please call [phone] for prescription assistance2. Please print a copy of this note and send it to your regular doctor, or take it to your next visit so it may be included in your medical record3. Please see your primary care provider on an annual basis or more frequently if directed Electronically signed by: Rosendo Hunt( ) documented in this encounterBucyrus [facility]03-27-2023 History of Present illness Narrative* Shahzad Perez MD - 06/17/2022 3:17 PM EDT [facility] Department [facility] Dermatology Chief Complaint: Patient presents with: Full Body Skin Check [facility] 12[facility]24/2021 History of Present Illness: Florian Portillo is a 66 year old male Patient is here for: # area of concern/rash Location: above left eyebrow Duration: 1 month Symptoms (growing, itching, bleeding, tender): itching Current Treatments: Clindamycin soln Past Treatments: same # rash/dry skin Location: in between, above, and below eyebrows Duration: couple months Symptoms (growing, itching, bleeding, tender): no Current Treatments: clindamycin soln. Not really helping. Past Treatments: same PERTINENT PAST DERMATOLOGIC HISTORY: -Personal History of Skin Cancer: Yes -Personal History of Atypical Moles: No -Personal History of Extensive Sun Exposure/Blistering Sunburns:Yes -History of tanning bed usage: No -Does patient use sunscreen Yes -Is the patient immunosuppressed: No FAMILY HISTORY: -Family History of Skin Cancer: Yes REVIEW OF SYSTEMS: Patient feels well and denies any recent fevers, chills, or night sweats. PHYSICAL EXAM: -General: well appearing, in no acute distress -Neurology: alert and oriented times three -Psychiatry: appropriate mood/affect Skin: Pierre phototype: II Skin exam performed of Face (including eyes, ears, lips), Scalp/hair, Neck, Chest, Abdomen, Back, Bilateral upper extremities, Hands/nails, Bilateral lower extremities, Feet/toenails, Buttocks. Skin exam normal with the exception of: - His glabella and medial eyebrows have mild erythema and scaling - His left nasal tip has a well healed surgical scar with unremarkable surrounding skin - His left neck has a well healed surgical scar with unremarkable surrounding skin - Scattered reticulated light rubalcava macules in sun-exposed distribution c/w solar lentigines - Regular and symmetric brown macules and papules on the head, trunk and extremities c/w benign nevi - Scattered small carranza red papules throughout c/w carranza angioma - Few scattered brown stuck on papules and plaques on the head, trunk and extremities c/w seborrheic keratoses ASSESSMENT AND PLAN: Seborrheic Dermatitis - Discussed the nature of this condition and options for treatment - will try Ketoconazole antifungal cream once daily. # Benign Neoplasms (lentigines, seborrheic keratoses, angiomas, benign melanocytic nevi) -discussed benign etiology, no treatment needed at this time # Photoaging of skin # Screening for skin cancer # Hx of nonmelanoma skin cancer Yes - Discussed signs of melanoma and non-melanoma skin cancer. -recommend at least every 12 month follow up for FBSE by Dermatology and routine self examination -advised daily sunscreen use (at least SPF30+, broad spectrum), large brimmed hat, protective clothing, and sun avoidance as often as possible -discussed to contact clinic immediately for evaluation if any new, changing, or symptomatic lesions arise Patient verbalizes understanding and agrees with treatment plan and will contact us with any further questions or concerns. Return to clinic 6 months or sooner for any change in/worsening of condition or if any new/changing/symptomatic lesions arise. Head Banquet Waiter/Waitress Attestation: The documentation for this note was completed by Nohemi Elliott RN acting as scribe for Shahzad Perez MD. June 17, 2022 3:19 PM. I agree with the Chief Complaint, ROS, and Past Histories independently gathered by the clinical direct support worker and the remaining scribed note accurately describes my personal service to the patient. Shahzad Perez MD documented in this encounterBucyrus [facility] Hospital02-23-2023 Miscellaneous Notes* Telephone Encounter - Julianna Álvarez APRN.CNP - 05/16/2022 12:20 PM EST Order signed * Telephone Encounter - Julianna Álvarez APRN.CNP - 05/15/2022 2:26 PM EST Is this smoothed over? documented in this encounterBucyrus [facility] Hospital12-20-2022 Miscellaneous Notes* Telephone Encounter - Abiola Klein Pss - 03/12/2022 1:14 PM EST Pt called He said he would like to get the model # for his hearing aid. documented in this encounterBucyrus Community Hospital12-15-2022 History of Present illness Narrative* Carole Fisher CCC-A - 03/07/2022 12:30 PM EST Head and Neck Asher HEARING AID CHECK Name: Florian Portillo [facility]CF#: [id number] Date of Service: 03/07/2022 Date of : 1955 Age: [age] year old RIGHT: Oticon Opn 3 miniRITE SN: [id number] Telecom Sales Consultant/Dome: 2x85/ 8mm DV LEFT: Oticon Opn 3 miniRITE SN: [id number] Telecom Sales Consultant/Dome: 2x85/ 8mm DV FITTING DATE: 06/05/2018 REPAIR WARRANTY: 06/05/2021 LOSS&DAMAGE WARRANTY: 06/05/2021 Fitting Air Conditioning Sheet Metal Installer: Carole Hubbard CCC/A Florian was seen today for a hearing aid check. He reported not wearing devices in a very long time.He lost right device during move. Tinnitus perception increased in the left ear recently and he would like to utilize hearing aid for tinnitus masking. He has tinnitus in both ears but perception is different. He denies concern about speech understanding or need for hearing aids for that reason. Otoscopy revealed moderate cerumen in both ears, which was removed by Carole Fisher CCC/A. Device was cleaned and checked. Tinnitus programs were confirmed with patient. Hearing aid microphones were disabled in all tinnitus programs. Volume of masking noise was increased in all tinnitus programs. He noted preference for pink noise, so this was set as program 1. Dome and wax filter replacement was reviewed and supplies were provided. Instruction and practice was completed on how to change volume and how to change between programs. Florian has 4 programs: - P1- [place] noise with hearing aid microphones disabled - P2- Shaped noise with hearing aid microphones disabled - P3- White noise with hearing aid microphones disabled - P4- Amplification alone Patient was encouraged to schedule hearing test + hearing aid evaluation to discuss binaural hearing aid options (specifically essential level for $1,300) . He was encouraged to obtain a referral from PCP for hearing test. Patient was taken to the front line leader for $50 payment (hearing aid check, short). Recommendations - Return for hearing evaluation + hearing aid evaluation. Alana Martinez, MPH, BS Audiology Civil Preparedness Training Officer This appointment was conducted under the direct supervision of Carole Fisher CCC/[employer]. Carole Fisher CCC-A documented in this encounterBucyrus [facility] Hospital08-18-2022 Miscellaneous Notes* Telephone Encounter - Franny Cruz RN - 11/08/2021 2:49 PM EDT Spoke with patient and he is asking if he should have a sleeping aid for his HSAT with [facility] on 11/12.He cancelled the HSAT with Clinic. He has concerns of not being able to sleep for the test. documented in this encounterBucyrus Community Hospital08-16-2022 Miscellaneous Notes* Telephone Encounter - Franny Cruz RN - 11/06/2021 10:07 AM EDT Secured message sent to Moiz asking if he received order for HSAT to be done over several nights. Patient is scheduled with sleep lab for HSAT. documented in this encounterBucyrus Community Hospital08-10-2022 History of Present illness Narrative* Julianna Álvarez APRN.KEVIN - 10/31/2021 11:00 AM EDT Images from the original note were not included. [facility] Follow up/ Established patient visit Visit performed virtually, with the patient's permission. 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 Florian Portillo is a 64 who [facility] regarding Obstructive Sleep Apnea. After review of his history, and physical exam he has symptoms that are suggestive of a possible sleep apnea and he would benefit from further evaluation. We discussed different options including overnight polysomnography versus home sleep apnea testing. Given his low probability of sleep-disordered breathing, I do believe an in-lab overnight polysomnography would be most appropriate to diagnose any underlying obstructive sleep apnea since a home sleep study can underestimate the severity. We will plan for a split night polysomnography with CPAP for disordered breathing demario nts, BiPAP if AHI <5 and continued hypoxemia is present, and ASV if possible treatment emergent sleep apnea or central sleep apnea is seen. He is agreeable to this. I discussed the procedure with him. Pathophysiology, risks, and complications of untreated severe sleep apnea were discussed, including the potential long-term metabolic, neurocognitive, and cardiovascular implications. He will return to discuss results after completed testing. All questions were answered. -Split Study -Follow up in 2 weeks to discuss results. I told Mr. Portillo if his study is negative this awakenings are most likely related to his insomnia and I will refer him to [facility] again For this visit, a total [id number] time with the patient comprised 45 minutes, with at least 50% of that time devoted to [id number] counseling and coordination of care, with especial emphasis placed on answering the patient s and/or family s questions in a form that they can understand and appreciate. Mago Younger MD Interval history : Been dealing with sleep issues for about ten years. Saw [facility] about five years ago, he thought it was sleep apnea. Then he saw dr. Rachelle bustamante, she thought the same thing. Was going to get a sleep test and covid hit. Makes him afraid to go outside because he lives with 95 y/o parent. Saw dr. Ching who ordered a sleep study. Got it done in February. She prescribed a light sleep aid but he forgot it. Reports it was impossible to sleep. Was very frustrated. Reports symptoms remain the same. Been active his whole life, was training for a marathon up until a year ago. Really wants to improve his sleep quality. Has a lot of anxiety regarding the sleep test then. Wants to know if there's a take home sleep study. PATIENT-ENTERED QUESTIONNAIRE SLEEP SCORES Sleep Questions 10/29/2021 Reason for visit: Difficulty falling or staying asleep or poor sleep quality, Excessive daytime sleepiness Average hours slept in 24 hours: 8 Accidents or near accidents due to drowsy drivin [place] Sleepiness Scale 10/30/2019 10/29/2021 Score 13 (present daytime sleepiness) 14 (present daytime sleepiness) PROMIS CAT Sleep Disturbance 10/30/2019 10/29/2021 PROMIS Sleep Disturbance T-Score 62 (moderate) 65 (moderate) Insomnia Severity Index 10/30/2019 10/30/2019 10/29/2021 Score 13 13 17 PHQ-9 10/30/2019 12/01/2019 10/29/2021 Score 6 3 6 PROMIS Global Health - (T-Scores - the mean of general population = 50. Five points is a clinicallymeaningful difference.) 10/30/2019 06/24/2021 10/29/2021 Physical T-Score 39.8 42.3 37.4 Mental T-Score 33.8 43.5 38.8 PMH, PSH, SH: reviewed SLEEP RELATED ROS Review of Systems Constitutional: Positive for fatigue. Musculoskeletal: Positive for back pain. Skin: Negative for rash. Psychiatric: Positive for sleep maintenance insomnia ALLERGIES Allergen Reactions Gabapentin Mental Status Change Foggy, dizzyness Ragweed Intolerance CURRENT MEDICATIONS: clindamycin (CLEOCIN) 1 % external solution Apply to affected areas on neck when needed after shaving atorvastatin (LIPITOR) 80 mg tablet Take 1 tablet by mouth once daily. (Patient not taking: Reported on 07/26/2020 ) aspirin, enteric coated (ASPIRIN, ENTERIC COATED) 81 mg EC tablet Take 81 mg by mouth once daily. (Patient not taking: Reported on 07/26/2020 ) PHYSICAL EXAMINATION: Vital Signs: Deferred due to virtual visit via Zoom. General appearance: NAD Mental status: awake and alert Constitutional: Well groomed Skin: Dry and intact Neuro: Speech fluent IMPRESSION: Zulema (obstructive sleep apnea) (primary encounter diagnosis) Insomnia due to medical condition Frequent nocturnal awakening Florian Portillo is a 66 year old male with a PMH of HTN, HLD, asthma, hearing loss, GERD, spinal stenosis, OCD and anxiety who [facility] and insomnia follow up. A Polysomnogram performed on 03/11/2021 revealed UARS with AHI of 0, however of note RDIs in the moderate to severe range (15.6-90). Of note sleep efficiency of 14%. -Mr. Portillo presents today to discuss his sleep study results. He had a lot of difficulty sleeping the night of the study with a sleep efficiency of 14%. He knows sleep continues to cause him problems and would like to get it treated. UARS was diagnosed the night of his previous study. He'd like toavoid in lab as he has a 95 year old parent that he helps caregive for. -Continue to suspect ZULEMA from his symptoms of nocturnal awakenings, severe snoring and un refreshing sleep. Will have HST ordered for multiple days at home as he's worried he will not be able to sleep well the night of the study. Order to be sent to [facility] PLAN: - Home Sleep Apnea Test (HST) to evaluate for obstructive sleep apnea. Order sent to [facility] - Discussed with the patient the possible diagnosis, causes, and conditions associated with obstructive sleep apnea. - Avoid driving when drowsy. Recommend that if you are dozing off while driving, that you do not drive until your sleepiness is appropriately treated. -Encouraged healthy lifestyle with adequate sleep ( 7-9 hours per night), diet and exercise. - Results are usually available within 7-10 business days. If you do not hear from us within 1-2 weeks after testing, please contact us directly. - Follow up visit in 2-3 weeks after your study for results. Julianna Álvarez APRN.CNP [facility] History of Present illness Narrative* Shahzad Perez MD - 06/25/2021 4:15 PM EDT [facility] Department of Dermatology Chief Complaint: 6 month full body skin exam [facility]/2021 History of Present Illness: Florian Portillo is a 65 year old male Patient is here for: Nothing of concern today # mole Location: right upper thigh Symptoms (growing, itching, bleeding, tender): none Current Treatments: none Past Treatments: none Asks about moisturizer for face. Personal Derm History: - non-melanoma skin cancer (bcc, scc): Yes: BCC - melanoma: No - atypical nevi: No - actinic keratosis: No - h/o field therapy (efudex, PDT): No Family Derm History: Father with BCC REVIEW OF SYSTEMS: Patient feels well and denies any recent fevers, chills, or night sweats. PHYSICAL EXAM: -General: well appearing, in no acute distress -Neurology: alert and oriented times three -Psychiatry: appropriate mood/affect Skin: Pierre phototype: II Skin exam performed of Face (including eyes, ears, lips), Scalp/hair, Neck, Chest, Abdomen, Back, Bilateral upper extremities, Hands/nails, Bilateral lower extremities, Feet/toenails, Buttocks/groin/genitalia, Lymph nodes Skin exam normal with the exception of: - Scattered reticulated light rubalcava macules in sun-exposed distribution c/w solar lentigines - Regular and symmetric brown macules and papules on the head, trunk and extremities c/w benign nevi - Scattered small carranza red papules throughout c/w carranza angioma - Few scattered brown stuck on papules and plaques on the head, trunk and extremities c/w seborrheic keratoses -WHSS of left nasal tip -Regular brown 0.5 cm macule of right upper thigh ASSESSMENT AND PLAN: # Benign Neoplasms (lentigines, seborrheic keratoses, angiomas, benign melanocytic nevi) -discussed benign etiology, no treatment needed at this time -recommended Retinol product for at night, provided samples # Photoaging of skin # Screening for skin cancer # Hx of nonmelanoma skin cancer - Discussed signs of melanoma and non-melanoma skin cancer. -recommend at least every 12 month follow up for FBSE by Dermatology and routine self examination -advised daily sunscreen use (at least SPF30+, broad spectrum), large brimmed hat, protective clothing, and sun avoidance as often as possible -discussed to contact clinic immediately for evaluation if any new, changing, or symptomatic lesions arise Patient verbalizes understanding and agrees with treatment plan and will contact us with any further questions or concerns. Return to clinic 6 months or sooner for any change in/worsening of condition or if any new/changing/symptomatic lesions arise. Head Banquet Waiter/Waitress Attestation: The documentation for this note was completed by Christi Love RN actingas scribe for Shahzad Perez MD. June 21, 2021 11:59 AM. I agree with the Chief Complaint, ROS, and Past Histories independently gathered by the clinical direct support worker and the remaining scribed note accurately describes my personal service to the patient. I have seen and examined Mr. Portillo. I have discussed the case and the management of this patient'scare with the Fellow. I also have reviewed and agree with the assessment and plan as stated above and agree with all of its relevant components. There were no procedures performed during this patient's visit. Shahzad Perez MD documented in [facility] History of Past illness Narrative* Problem Noted Date Resolved Date Anxiety disorder 05/19/2018 documented as of this encounter (statuses as of 06/27/2021) [address]26-2019 History of Past illness Narrative* Problem Noted Date Resolved Date Anxiety disorder 05/19/2018 documented as of this encounter (statuses as of 10/31/2021) [address]26-2019 History of Past illness Narrative* Problem Noted Date Resolved Date Anxiety disorder 05/19/2018 documented as of this encounter (statuses as of 11/06/2021) [address]26-2019 History of Past illness Narrative* Problem Noted Date Resolved Date Anxiety disorder 05/19/2018 documented as of this encounter (statuses as of 11/08/2021) [address]26-2019 History of Past illness Narrative* Problem Noted Date Resolved Date Anxiety disorder 05/19/2018 documented as of this encounter (statuses as of 03/11/2022) [address]26-2019 History of Past illness Narrative* Problem Noted Date Resolved Date Anxiety disorder 05/19/2018 documented as of this encounter (statuses as of 05/16/2022) [address]26-2019 History of Past illness Narrative* Problem Noted Date Resolved Date Anxiety disorder 05/19/2018 documented as of this encounter (statuses as of 06/20/2022) [facility] illness Narrative* Problem Noted Date Resolved Date Anxiety disorder 05/19/2018 documented as of this encounter (statuses as of 06/20/2022) [facility] Narrative* Problem Noted Date Resolved Date Anxiety disorder 05/19/2018 documented as of this encounter (statuses as of 07/04/2022) [facility] Narrative* Problem Noted Date Diagnosed Date Resolved Date Anxiety disorder 05/19/2018 documented as of this encounter (statuses as of 01/28/2023) [facility] Narrative* Problem Noted Date Diagnosed Date Resolved Date Anxiety disorder 05/19/2018 documented as of this encounter (statuses as of 02/05/2023) [address]26-2019 History of Past illness Narrative* Problem Noted Date Diagnosed Date Resolved Date Anxiety disorder 05/19/2018 documented as of this encounter (statuses as of 02/07/2023) [facility] Narrative* Problem Noted Date Diagnosed Date Resolved Date Anxiety disorder 05/19/2018 documented as of this encounter (statuses as of 03/12/2023) [address]26-2019 History of Past illness Narrative* Problem Noted Date Diagnosed Date Resolved Date Anxiety disorder 05/19/2018 documented as of this encounter (statuses as of 07/11/2023) [facility] Author Karlo Calderon [facility] February 28, 2023 10:53am Note Date/Time February 28, 2023 9 :16am [facility] Medical Records Department [address] [place] [address] Emergency Department Summary 02/28/23 MR#: [id number] Acct: [id number] Name: FLORIAN PORTILLO Rep #:[id number] : 1955 67 From: Karlo Calderon MD PCP: Care Physician,No Primary Status :REG ER Location: ED HPI HPI - GI History of Present Illness Chief Complaint: Abd Pain Informant: patient Narrative Narrative: Patient has been having intermittent abdominal pain for the last 3 to 4 days that he has never had before. It is within 15 minutes of eating some things butnot everything. He states he does not have a very poor diet and he is healthy, takes no prescriptions. He noticed that he gets a lot of rumbling in his abdomen and then pain just left of epigastrium. No radiation or migration, seems to always occur at the same area feels like an ache. Denies any nausea orvomiting, no changes in bowel movements including blood or melena, no urine issues. No back pain. No chest discomfort, fevers. He states his left costal margin hurts, at the same area where he states his abdominal pain occurs, which is not currently present, but he states he accidentally fell against this area of his rib cage about a month ago. Patient states he tried to get into his PCP but he is going on vacation and the patient is leaving town to go to [place] to see his children after this weekend,which is the reason he presents here to have this evaluated. He has not tried any home treatments. This morning he had a smoothie with some vegetables in it and experienced no discomfort. Last night he had a smoothie that he made with cranberries and it reproduce the discomfort fairly significantly again without any nausea or vomiting. He states he has been under an immense amount of stresslately. He takes no anti-inflammatories [id number] and does not drink anyalcohol. [facility] Medical History no medical history no medical history Home Medications NK 12/10/17 [History Last Taken Unknown] pantoprazole 40 mg tablet,delayed release 40 mg PO DAILY #30 tabs 02/28/23 [Rx Last Taken Unknown] sucralfate 1 gram tablet (Carafate) 1 g PO TID 1 week #21 tabs 02/28/23 [Rx Last Taken Unknown] Allergy/AdvReac Type Severity Reaction Status Date / Time No Known Allergies Allergy Verified 02/28/23 08:49 Social History Smoking Status: Never smoker alcohol intake: never ROS ROS ED Constitutional Constitutional ED: Denies chills or fever(s) Eyes Eyes: Denies change in vision or diplopia ENT ENT ED: Denies rhinorrhea or sore throat Cardiovascular Cardiovascular: Denies chest pain or palpitations Respiratory/Chest Respiratory/Chest: Denies cough or dyspnea Gastrointestinal Gastrointestinal: Reports abdominal pain; Denies diarrhea, melena, nausea or vomiting Genitourinary Genitourinary ED: Denies dysuria or hematuria Musculoskeletal Musculoskeletal: Denies back pain or neck pain Integumentary Denies abscess or rash Neurologic Neurologic: Denies headache(s), paresthesias or weakness Psychiatric Psychiatric: Denies anxiety or suicidal thoughts EXAM Physical Exam Const Vital Signs: 02/28/23 08:49 Temperature 98.2 F Temperature Source Temporal Pulse Rate 81 Respiratory Rate 14 Blood Pressure 151/89 H Blood Pressure Mean 109 Pulse Ox 98 Oxygen Delivery Method Room Air Positive well nourished and well developed General Appearance ED: well developed and NAD HEENT Reports moist mucous membranes normocephalic and atraumatic Eyes PERRL and EOMs intact bilaterally Neck full ROM and supple Resp normal respiratory effort and clear to auscultation bilaterally Cardio regular rate, regular rhythm and no murmurs GI non-tender and non-distended Auscultation: normoactive bowel sounds Palpation: soft Back/Spine no CVA tenderness General Back: other FROM Extremity normal to inspection General Extremety ED: Negative for edema, pulses abnormal or tenderness General Extremity: Negative for edema or pulses abnormal Neuro oriented x3, CN's II-XII intact bilaterally and no sensory deficits noted Sensorium / Orientation: awake and alert Motor Exam: strength 5/5 throughout Skin no rashes or lesions noted and no wounds MDM MDM MDM Narrative Medical decision making narrative: Labs obtained and are all noted and unremarkable. This includes liver enzymes and lipase. While we were waiting for these results we gave him oral Protonix 40 mg and he states about an hour later he noticed he was feeling much better from it although he admitted to me prior to getting this that he was not having any stomach discomfort at that time. He is reassured, he will be prescribed a month of pantoprazole and 5-7 days of Carafate and advised to follow-up when he gets back from his trip. He is comfortable with that plan. Lab Data Attestation: I reviewed the patient's lab results. Labs: Laboratory Results - last 24 hr 02/28/23 09:15 WBC 8.6 RBC 5.57 Hgb 17.6 H Hct 52.2 MCV 93.7 MCH 31.6 MCHC 33.7 RDW Std Deviation 48.2 H RDW Coeff of Leda 14.0 Plt Count 195 MPV 11.9 Immature Gran % (Auto) 0.300 Neut % (Auto) 66.5 Lymph % (Auto) 24.1 [place] % (Auto) 7.8 Eos % (Auto) 0.7 Baso % (Auto) 0.6 Absolute Neuts (auto) 5.7 Absolute Lymphs (auto) 2.08 Nucleated RBC % 0 Sodium 137 Potassium 3.9 Chloride 105 Carbon Dioxide 29.0 Anion Gap 3 L BUN 21 H Creatinine 0.96 Estim Creat Clear Calc 77.35 Est GFR (MDRD) Af Amer 100 Est GFR (MDRD) Non-Af 82 BUN/Creatinine Ratio 21.9 H Glucose 103 Calcium 9.8 Total Bilirubin 1.10 H AST 15 ALT 33 Alkaline Phosphatase 53 Total Protein 7.8 Albumin 4.2 Globulin 3.6 Albumin/Globulin Ratio 1.2 Lipase 29 Discharge Plan Triage Chief Complaint: Abd Pain ED Provider: Karlo Calderon Dx/Rx/DC Orders Clinical Impression: Abdominal pain, acute, left upper quadrant, Dyspepsia Instructions: Abdominal Pain, ED Gastritis Ulcer No Abx Prescriptions: New pantoprazole 40 mg tablet,delayed release (DR/EC) 40 mg PO DAILY Qty: 30 1RF sucralfate [Carafate] 1 gram tablet 1 g PO TID 7 Days Qty: 21 0RF No Action NK Primary Care Provider: Care Physician,No Primary Referrals: Jovi Gallo DO [Non-Staff] - 1-2 Weeks Disposition Disposition: Home, Self Care What to do if you have Problems For any increased pain, shortness of breath, bleeding, nausea or vomiting, chestpain, or any unexpected problems, contact your Primary Care Provider. Call [facility] ([phone]) or report to the closest Emergency Room. Call 911 if necessary. 02/28/23 1053 <Electronically signed by Karlo Calderon MD> Cosigner Signature (if applicable): CC: Dr. Jovi Gallo DO; No Primary Care Physician ~ Signed [facility] Work Phone: Discharge summary Author Bernadine Haile [facility] Note Date/Time October 25, 2024 11: 25am [facility] Medical Records Department [address] [place] [address] Emergency Department Summary 10/25/24 MR#: [id number] Acct: [id number] Name: FLORIAN PORTILLO Rep #:[id number] : 1955 69 From: Bernadine Haile MD PCP: Care Physician,No Primary Status :REG ER Location: ED HPI History of Present Illness Chief Complaint: Back Narrative Narrative: Patient is a 69-year-old male presenting to the emergency department for left- sided back pain for the past 2 weeks. Patient has a past medical history of back pain for the past 5 or 6 years that comes and goes. Patient also has a past medical history of peptic ulcer. Patient denies any trauma to his back. Denies any IV drug use, saddle anesthesia, bowel or bladder retention or incontinence. Denies any weakness in his lower extremities. Denies any fever or chills. States that the pain worsens when he is ambulating and improves whenhe is at rest. Denies taking any medications for his symptoms prior to arrival. States that the pain is mainly on the left lower back and radiates down the side of his leg. No significant weight loss recently. PFSH PFSH Home Medications ?Medication ?Instructions ?Recorded ?Last Taken ?Type pantoprazole 40 mg tablet,delayed 40 mg PO DAILY #30 t abs 02/28/23 Unknown Rx release sucralfate 1 gram tablet (Carafate) 1 g PO TID 1 week #21 tabs 02/28/23 Unknown Rx cyclobenzaprine 5 mg tablet 5 mg PO QHS PRN muscle spa sm #14 10/25/24 Unknown Rx tabs ibuprofen 200 mg capsule (Motrin 400 mg (2 x 200 mg) P O Q6H PRN 10/25/24 Unknown Rx IB) pain #30 caps lidocaine 5 % topical patch 1 patch topical DAILY #15 ea 10/25/24 Unknown Rx (Lidoderm) Allergy/AdvReac Type Severity Reaction Status Date / Time No Known Allergies Allergy Verified 10/25/24 08:50 Social History Smoking Status: Never smoker alcohol intake: never ROS ROS ED ROS Narrative See HPI EXAM Physical Exam Narrative Exam Narrative: Vital signs: Reviewed General: Alert and oriented. No acute distress HEENT: Head is normocephalic and atraumatic, sinuses nontender, pupils equal round and reactive. Nares are patent. Oropharynx and throat exams normal. Neck: Supple without lymphadenopathy nontender Cardiovascular: Regular rate and rhythm, no murmurs. No rubs or gallops. Normal S1 and S2 Respiratory: Clear to auscultation bilaterally. No wheezes, rales, rhonchi Abdominal: Soft and tender. Normal bowel sounds. No guarding or rebound. Nonsurgical abdomen. No CVA tenderness. Extremities: No tenderness. No bruising. Normal range of motion. Normal sensation. Skin: No rash or redness. Neurological: Cranial nerves II through XII are grossly intact. Normal strengthand sensation. Strength in bilateral lower extremities is 5 out of 5. Normal flexion extension at the hips and knees. Sensation intact in bilateral lower extremities. Normal cerebellar function The rest of the physical exam is unremarkable Back: No midline cervical, thoracic or lumbar spinal tenderness to palpation. No step-offs or deformities. There is mild paraspinal tenderness to palpation in the left lumbar region and some SI joint tenderness. No erythema or overlyingskin changes. Const Vital Signs: 10/25/24 08:49 Temperature 97.1 F L Temperature Source Temporal Pulse Rate 90 Respiratory Rate 14 Blood Pressure 139/86 H Blood Pressure Mean 103 Pulse Ox 98 Oxygen Delivery Method Room Air MDM MDM MDM Narrative Medical decision making narrative: States patient is a 69-year-old male presenting to emergency department for acute on chronic back pain. Patient was seen and examined. Vitals are stable. Patient resting bed comfortably in no acute distress. Patient has no red flag back pain signs described in the HPI. He states the pain is worse with ambulation. There is no midline spinal tenderness on exam and it is all in the SI joint and in the paraspinal muscles. I suspect this is MSK with a component of sciatica. Patient states that he is had side effects to steroids in the pastand does not want these. He has had a peptic ulcer in the past but this was years ago and it was nonbleeding. Patient states that he is not been taking anymedications for his pain due to concerns about side effects with the peptic ulcer. I explained that a short dose of NSAIDs is appropriate for this. I prescribed him Tylenol, Toradol and a lidocaine patch here in the ED. For home I prescribed him these medications along with Flexeril. At this time I do not think patient needs any imaging of the spine. He does not have any fever, midline tenderness or any weight loss concerning for any malignancy or abscess. Patient is feeling better with the Toradol. A BMP was also added on given the patient was endorsing some intermittent tingling down his leg which I explained is likely sciatica however yes that his electrolytes be checked. They are within normal limits. Kidney function around his baseline. Patient was prescribed a medication for home and instructed to return to the ED with any newor worsening symptoms as discussed. Patient struck to follow-up with PCP as soon as possible. Patient agreeable to plan. Ambulated out of department without difficulty. Lab Data Labs: Laboratory Results - last 24 hr 10/25/24 10:18 Sodium 135 Potassium 4.9 Chloride 101 Carbon Dioxide 22.3 Anion Gap 12 BUN 25 H Creatinine 0.79 Estim Creat Clear Calc 90.20 Est GFR (MDRD) Non-Af 95 BUN/Creatinine Ratio 32.2 H Glucose 97 Calcium 9.5 Discharge Plan Triage Chief Complaint: Back ED Provider: Bernadine Haile Dx/Rx/DC Orders Clinical Impression: Back pain of lumbar region with sciatica Instructions: ED Back Pain (Acute or Chronic), ED Back Sprain/Strain, ED Sciatica Prescriptions: New ibuprofen [Motrin IB] 200 mg capsule 400 mg PO Q6H PRN (Reason: pain) Qty: 30 0RF cyclobenzaprine 5 mg tablet 5 mg PO QHS PRN (Reason: muscle spasm) Qty: 14 0RF lidocaine [Lidoderm] 5 % adhesive patch,medicated 1 patch topical DAILY Qty: 15 0RF Rx Instructions: leave on most painful area for up to 12 hrs No Action pantoprazole 40 mg tablet,delayed release (DR/EC) 40 mg PO DAILY Qty: 30 1RF sucralfate [Carafate] 1 gram tablet 1 g PO TID 7 Days Qty: 21 0RF Primary Care Provider: Care Physician,No Primary Referrals: Care Physician,No Primary [Primary Care Provider] - Activity Restrictions/Additional Instructions: Please follow-up with your primary care doctor in the next 3 to 5 days. Return to the ED with any new or worsening symptoms as discussed including fever, chills, worsening back pain, issues urinating or having bowel movements or numbness/weakness in your legs. You can take 650 mg of Tylenol every 6 hours asneeded. You can also take ibuprofen 600 mg every 8 hours. Apply the lidocaine patch for 12 hours and make sure to remove it after this time. You can take theFlexeril as well however do not take it prior to driving it can make you sleepy,dizzy and lightheaded. Print Language: Pakistani Disposition Disposition: Home, Self Care What to do if you have Problems For any increased pain, shortness of breath, bleeding, nausea or vomiting, chestpain, or any unexpected problems, contact your Primary Care Provider. Call [facility] ([phone]) or report to the closest Emergency Room. Call 911 if necessary. 10/25/24 1125 <Electronically signed by Bernadine Haile MD> Cosigner Signature (if applicable): CC: No Primary Care Physician ~ Signed [facility] Work Phone: Evaluation note* Diagnosis History of nonmelanoma skin cancer- Primary Personal history of other malignant neoplasm of skin Multiple benign nevi Benign neoplasm of skin, site unspecified Seborrheic keratosis Other seborrheic keratosis Lipoma of back Lipoma of other specified sites Blue nevus Benign neoplasm of skin, site unspecified [facility] Diagnosis ZULEMA (obstructive sleep apnea)- Primary Obstructive sleep apnea (adult) (pediatric) Insomnia due to medical condition Insomnia due to medical condition classified elsewhere Frequent nocturnal awakening Other sleep disturbances [facility]* Diagnosis Tinnitus, bilateral- Primary Unspecified tinnitus documented in [facility] encounter [facility] noteNo assessment information availableWOhio[facility] Work Phone: Evaluation note* Diagnosis ZULEMA (obstructive sleep apnea)- Primary Obstructive sleep apnea (adult) (pediatric) [facility]* Diagnosis Seborrheic dermatitis- Primary Seborrheic dermatitis, unspecified Carranza angioma Nevus, non-neoplastic Lentigines Other dyschromia Multiple benign nevi Benign neoplasm of skin, site unspecified Seborrheic keratosis Other seborrheic keratosis History of nonmelanoma skin cancer Personal history of other malignant neoplasm of skin documented in this encounter [facility] note* Diagnosis Acute sinusitis, recurrence not specified, unspecified location- Primary Nasal septal deviation Deviated nasal septum [facility] Diagnosis Nasal septal deviation- Primary Deviated nasal septum Other chronic sinusitis [facility]* Diagnosis Actinic keratosis- Primary Multiple benign nevi Benign neoplasm of skin, site unspecified Seborrheic keratosis Other seborrheic keratosis Carranza angioma Nevus, non-neoplastic Lentigines Other dyschromia Hx of nonmelanoma skin cancer Personal history of other malignant neoplasm of skin Skin exam, screening for cancer Screening for malignant neoplasm of the skin Intertrigo Other specified erythematous condition Seborrheic dermatitis Seborrheic dermatitis, unspecified [facility]* Diagnosis ZULEMA (obstructive sleep apnea)- Primary Obstructive sleep apnea (adult) (pediatric) Difficulty using continuous positive airway pressure (CPAP) device Chronic insomnia Insomnia, unspecified [facility]* Diagnosis Encounter for screening for cardiovascular disorders- Primary Screening for other and unspecified cardiovascular conditions [facility]* Diagnosis Other specified hearing loss, unspecified ear- Primary [facility]* Diagnosis Generalized anxiety disorder- Primary Situational stress Other psychological or physical stress, not elsewhere classified Obsessive thinking Obsessive-compulsive disorders [facility]* Diagnosis Pulsatile tinnitus, left ear- Primary Hyperacusis, unspecified laterality Tinnitus of right ear Unspecified tinnitus Asymmetrical sensorineural hearing loss Sensorineural hearing loss, asymmetrical Sensorineural hearing loss (SNHL) of right ear with restricted hearing of left ear [facility]* Diagnosis Gastroesophageal reflux disease, unspecified whether esophagitis present- Primary Pain of upper abdomen Abdominal pain, other specified site [facility]* Diagnosis Hx of nonmelanoma skin cancer- Primary Personal history of other malignant neoplasm of skin Seborrheic keratosis Other seborrheic keratosis Seborrheic dermatitis Seborrheic dermatitis, unspecified Carranza angioma Nevus, non-neoplastic Multiple benign nevi Benign neoplasm of skin, site unspecified [facility]* Diagnosis Primary hypertension- Primary Unspecified essential hypertension Chronic insomnia Insomnia, unspecified Environmental and seasonal allergies Mixed hyperlipidemia Elevated PSA Elevated prostate specific antigen (PSA) Varicose veins of both lower extremities with pain Varicose veins of lower extremities with other complications Abnormal stress test Other nonspecific abnormal cardiovascular system function study Sensorineural hearing loss (SNHL) of both ears Foraminal stenosis of lumbar region Spinal stenosis, lumbar region, without neurogenic claudication History of basal cell carcinoma Personal history of other malignant neoplasm of skin Gastroesophageal reflux disease with esophagitis without hemorrhage Subjective tinnitus of both ears [facility]* Diagnosis Nocturia- Primary Encounter for prostate cancer screening Special screening for malignant neoplasm of prostate BPH with obstruction/lower urinary tract symptoms Hypertrophy of prostate with urinary obstruction and other lower urinary tract symptoms (LUTS) [facility]* Diagnosis Gastroesophageal reflux disease, unspecified whether esophagitis present- Primary [facility]* Diagnosis Gastroesophageal reflux disease, unspecified whether esophagitis present- Primary documented in this [facility]* Diagnosis Sensation of fullness in both ears- Primary Hyperacusis of both ears Hyperacusis Asymmetrical hearing loss Unspecified hearing loss Chronic rhinitis [facility] Diagnosis Hx of nonmelanoma skin cancer- Primary Personal history of other malignant neoplasm of skin Skin exam, screening for cancer Screening for malignant neoplasm of the skin Photoaging of skin Other dermatitis due to solar radiation Seborrheic keratosis Other seborrheic keratosis Carranza angioma Nevus, non-neoplastic Multiple benign nevi Benign neoplasm of skin, site unspecified Lentigines Other dyschromia Actinic keratosis [facility]* Diagnosis Hematospermia- Primary Urinary frequency Microscopic hematuria Benign prostatic hyperplasia with incomplete bladder emptying Prostate cancer screening Special screening for malignant neoplasm of prostate [facility] Additional Instructions Thank you for trusting us with your care today! Please take Tylenol (2 pills, 650 mg), ibuprofen (2 pills, 400 mg) every 6 hours as needed for pain and fever control. Please return to the emergency department if your symptoms change or worsen. Please follow with your primary care physician for further outpatient evaluation and management.[facility] Work Phone: Reason for referral (narrative)* Diagnostic Procedure Only (Routine) - Pending Review Specialty Diagnoses / Procedures Referred By Contac t Referred To Contact [facility] [place] Diagnoses ZULEMA (obstructive sleep apnea) Insomnia due to medical condition Frequent nocturnal awakening Procedures HOME SLEEP APNEA TEST (HSAT) SLEEP STD AIRFLOW HRT RATE&O2 SAT EFFORT Julianna Walters APRN.CNP [address] [place] [address] [place] [address] Referral ID Status Reason Start Date Expiration Date Visits Requested Visits Authorized [id number] Pending Review Auto-Generat ed Referral 10/31/2021 10/31/2022 1 1 [facility] for referral (narrative)* Outpatient Procedure (Routine) - Authorized Specialty Diagnoses / Procedures Referred By [facility] Referred To Contact [facility] [place] Diagnoses Encounter for screening for cardiovascular disorders Procedures ECG COMPLETE ECG ROUTINE ECG W/LEAST 12 LDS W/I&R Iris Payne MD [address] [phone] [place] [phone] Referral ID Status Reason Start Date Expiration Date Visits Requested Visits Authorized [id number] Authorized Auto-Generat ed Referral 09/24/2023 09/23/2024 1 1 [facility] for referral (narrative)* Outpatient Procedure (Routine) - Closed Specialty Diagnoses / Procedures Referred By [facility] Referred To Contact [facility] Diagnoses Pain of upper abdomen Procedures EGD DIAGNOSTIC ESOPHAGOGASTRODUODENOSC OPY TRANSORAL DIAGNOSTIC Annie Cruz MD [address] [place] [address] [facility] [address] [address] Referral ID Status Reason Start Date Expiration Date V isits Requested Visits Authorized [id number] Closed Auto-Generate d Referral 03/05/2023 03/05/2024 1 1 [facility]No reason for referral information availableWOhioHealth [facility] Work Phone: Reason for visit Narrative* Outpatient Procedure (Routine) - Closed Specialty Diagnoses / Procedures Referred By Sebastian ortiz Referred To Contact [facility] Diagnoses Pain of upper abdomen Procedures EGD DIAGNOSTIC ESOPHAGOGASTRODUODENOSC OPY TRANSORAL DIAGNOSTIC Annie Cruz MD [address] [place] [address] [facility] [address] [place] [address] Referral ID Status Reason Start Date Expiration Date V isits Requested Visits Authorized [id number] Closed Auto-Generate d Referral 03/05/2023 03/05/2024 1 1 [facility] Summary Purpose Family History No Family History Records FoundNo Family History Records FoundNo Family History Records FoundNo Family History Records FoundNo Family History Records FoundNo Family History Records FoundNo Family History Records FoundNo Family History Records FoundNo Family History Records FoundNo Family History Records Found Advance Directives Advance Directive Response Recorded Date/ Time Living Will No February 28 8:48am Power of [place]angersmith No February 28, 2023 8:48am Advance Directive Response Recorded Date/ Time Living Will No March 05, 023 8:19am Power of [place]angersmith No March 05, 2023 8:19am Advance Directive Response Recorded Date/ Time Do you have a Healthcare Power of Hangersmith? No October 25, 2024 8:49am Chief Complaint and Reason for Visit Chief Complaint DDD. RX HERE Chief Complaint SINUSITIS Chief Complaint SINUSITIS ABD Chief Complaint SINUSITIS ABD stomach Chief Complaint Admit Date SCIATICA October 25, 2024 8:4 9am Reason for Referral Specialty Diagnoses / Procedures Referred By Sebastian ortiz Referred To Contact Dentistry Diagnoses ZULEMA (obstructive sleep apnea) Difficulty using continuous positive airway pressure (CPAP) device Procedures CONSULT TO DENTISTRY OFFICE/OUTPATIENT [facility] 60 MINUTES Ricci Ariza APRN.[employer] [address] [place] [address] Referral ID Status Reason Start Date Expiration Date Visits Requested Visits Authorized [id number] Pending Review PCP Requested Referral 09/19/2023 09/18/2024 1 1 Specialty Diagnoses / Procedures Referred By Contac t Referred To Contact Diagnoses Other specified hearing loss, unspecified ear Procedures HEARING TEST/AUDIOGRAM COMPRE AUDIOMETRY THRESHOLD JODIEAL Richard Gonzales MD [address] [phone] [facility] [address] [place] [address] Referral ID Status Reason Start Date Expiration Date Visits Requested Visits Authorized [id number] Authorized Auto-Generat ed Referral 10/16/2023 10/16/2024 1 1 Specialty Diagnoses / Procedures Referred By Contac t Referred To Contact MR IMAGING Diagnoses Pulsatile tinnitus, left ear Procedures MRA BRAIN WO IVCON MRA, HEAD W/O CONTRAST Marjan Gar MD [address] [phone] [facility] [place] [address] Referral ID Status Reason Start Date Expiration Date Visits Requested Visits Authorized [id number] New Request Auto-Generat ed Referral 11/13/2023 12/12/2024 1 1 Specialty Diagnoses / Procedures Referred By Contac t Referred To Contact CT IMAGING Diagnoses Pulsatile tinnitus, left ear Procedures CT TEMP BONES WO IVCON CT ORBIT SELLA/POST FOSSA/EAR W/O CONTRAST MATRL Marjan Gar MD [phone] [facility]95 Referral ID Status Reason Start Date Expiration Date Visits Requested Visits Authorized [id number] New Request Auto-Generat ed Referral 11/13/2023 12/12/2024 1 1 Specialty Diagnoses / Procedures Referred By Contac t Referred To Contact MR IMAGING Diagnoses Sensorineural hearing loss (SNHL) of right ear with restricted hearing of left ear Procedures MRI BRAIN WO/W IVCON MRI BRAIN BRAIN STEM W/O W/CONTRAST MATERIAL Marjan Gar MD [phone] [facility]95 Referral ID Status Reason Start Date Expiration Date Visits Requested Visits Authorized [id number] New Request Auto-Generat ed Referral 11/13/2023 12/12/2024 1 1 Specialty Diagnoses / Procedures Referred By Sebastian t Referred To Contact Psychologist/Rehabilit ation Diagnoses Sensation of fullness in both ears Hyperacusis of both ears Bety Guillaume MD [address] [facility] [address] [place] [address] Vladislav Urrutia PsyD [address] [facility], [address] [place] [address] Referral ID Status Reason Start Date Expiration Date V isits Requested Visits Authorized [id number] New Request 03/25/2024 04/19/2025 1 1 Specialty Diagnoses / Procedures Referred By Sebastian t Referred To Contact Multispecialty Diagnoses Sensation of fullness in both ears Hyperacusis of both ears Bety Guillaume MD [address] [facility] [address] [place] [address] Homa Villanueva, PhD [address] [place] [address] Referral ID Status Reason Start Date Expiration Date V isits Requested Visits Authorized [id number] New Request 03/25/2024 04/19/2025 1 1 Specialty Diagnoses / Procedures Referred By Sebastian t Referred To Contact Diagnoses Asymmetrical hearing loss Procedures MRI INTERNAL AUDITORY CANAL WITH AND WITHOUT CONTRAST CHG MRI BRAIN BRAIN STEM W/O W/CONTRAST MATERIAL Bety Guillaume MD [address] [facility] [address] [place] [address] Referral ID Status Reason Start Date Expiration Date V isits Requested Visits Authorized [id number] New Request 03/25/2024 04/19/2025 1 1 Additional Source Comments (unrecognized sect ion and content) No Status Records FoundNo Status Records FoundNo Status Records FoundNo Status Records FoundNo Status Records FoundNo Status Records FoundNo Status Records FoundNo Status Records FoundNo Status Records FoundNo Status Records Found INFORMATION SOURCE (unrecogn ized section and content) DATE CREATED AUTHOR 02/04/2018 [facility] DATE CREATED AUTHOR AUTHOR'S ORGANIZ ATION 03/01/2018 [facility] DATE CREATED AUTHOR AUTHOR'S ORGANIZ ATION 03/01/2018 [facility] DATE CREATED AUTHOR AUTHOR'S ORGANIZ ATION 07/31/2018 [facility] DATE CREATED AUTHOR AUTHOR'S ORGANIZ ATION 01/29/2019 [facility] DATE CREATED AUTHOR AUTHOR'S ORGANIZ ATION 04/26/2024 [facility] DATE CREATED AUTHOR AUTHOR'S ORGANIZ ATION 07/29/2024 [facility] DATE CREATED AUTHOR AUTHOR'S ORGANIZ ATION 08/10/2024 [facility] DATE CREATED AUTHOR AUTHOR'S ORGANIZ ATION 08/20/2024 [facility] DATE CREATED AUTHOR AUTHOR'S ORGANIZ ATION 10/19/2024 [facility] Ce nter Source Comments (unrecognize d section and content) In the event this informatio n is protected by the Federal Confidentiality of Alcohol and Drug Abuse Patient Records regulations: The Federal rules restrict any use of the information to criminally investigate or prosecute any alcohol or drug abuse patient.[facility] event this information is protected by the Federal Confidentiality of Alcohol and Drug Abuse Patient Records regulations: The Federal rules restrict any use of the information to criminally investigate or prosecute any alcohol or drug abuse patient.[facility] the event this information is protected by the Federal Confidentiality of Alcohol and Drug Abuse Patient Records regulations: The Federal rules restrict any use of the information to criminally investigate or prosecute any alcohol or drug abuse patient.[facility] the event this information is protected by the Federal Confidentiality of Alcohol and Drug Abuse Patient Records regulations: The Federal rules restrict any use of the information to criminally investigate or prosecute any alcohol or drug abuse patient.[facility] the event this information is protected by the Federal Confidentiality of Alcohol and Drug Abuse Patient Records regulations: The Federal rules restrict any use of the information to criminally investigate or prosecute any alcohol or drug abuse patient.[facility] the event this information is protected by the Federal Confidentiality of Alcohol and Drug Abuse Patient Records regulations: The Federal rules restrict any use of the information to criminally investigate or prosecute any alcohol or drug abuse patient.[facility] the event this information is protected by the Federal Confidentiality of Alcohol and Drug Abuse Patient Records regulations: The Federal rules restrict any use of the information to criminally investigate or prosecute any alcohol or drug abuse patient.[facility] the event this information is protected by the Federal Confidentiality of Alcohol and Drug Abuse Patient Records regulations: The Federal rules restrict any use of the information to criminally investigate or prosecute any alcohol or drug abuse patient.[facility] the event this information is protected by the Federal Confidentiality of Alcohol and Drug Abuse Patient Records regulations: The Federal rules restrict any use of the information to criminally investigate or prosecute any alcohol or drug abuse patient.[facility] the event this information is protected by the Federal Confidentiality of Alcohol and Drug Abuse Patient Records regulations: The Federal rules restrict any use of the information to criminally investigate or prosecute any alcohol or drug abuse patient.[facility] the event this information is protected by the Federal Confidentiality of Alcohol and Drug Abuse Patient Records regulations: The Federal rules restrict any use of the information to criminally investigate or prosecute any alcohol or drug abuse patient.[facility] the event this information is protected by the Federal Confidentiality of Alcohol and Drug Abuse Patient Records regulations: The Federal rules restrict any use of the information to criminally investigate or prosecute any alcohol or drug abuse patient.[facility] the event this information is protected by the Federal Confidentiality of Alcohol and Drug Abuse Patient Records regulations: The Federal rules restrict any use of the information to criminally investigate or prosecute any alcohol or drug abuse patient.[facility] the event this information is protected by the Federal Confidentiality of Alcohol and Drug Abuse Patient Records regulations: The Federal rules restrict any use of the information to criminally investigate or prosecute any alcohol or drug abuse patient.[facility] the event this information is protected by the Federal Confidentiality of Alcohol and Drug Abuse Patient Records regulations: The Federal rules restrict any use of the information to criminally investigate or prosecute any alcohol or drug abuse patient.[facility] the event this information is protected by the Federal Confidentiality of Alcohol and Drug Abuse Patient Records regulations: The Federal rules restrict any use of the information to criminally investigate or prosecute any alcohol or drug abuse patient.[facility] the event this information is protected by the Federal Confidentiality of Alcohol and Drug Abuse Patient Records regulations: The Federal rules restrict any use of the information to criminally investigate or prosecute any alcohol or drug abuse patient.[facility] the event this information is protected by the Federal Confidentiality of Alcohol and Drug Abuse Patient Records regulations: The Federal rules restrict any use of the information to criminally investigate or prosecute any alcohol or drug abuse patient.[facility] the event this information is protected by the Federal Confidentiality of Alcohol and Drug Abuse Patient Records regulations: The Federal rules restrict any use of the information to criminally investigate or prosecute any alcohol or drug abuse patient.[facility] the event this information is protected by the Federal Confidentiality of Alcohol and Drug Abuse Patient Records regulations: The Federal rules restrict any use of the information to criminally investigate or prosecute any alcohol or drug abuse patient.[facility]In the event this information is protected by the Federal Confidentiality of Alcohol and Drug Abuse Patient Records regulations: The Federal rules restrict any use of the information to criminally investigate or prosecute any alcohol or drug abuse patient.[facility] HospitalIn the event this information is protected by the Federal Confidentiality of Alcohol and Drug Abuse Patient Records regulations: The Federal rules restrict any use of the information to criminally investigate or prosecute any alcohol or drug abuse patient.[facility]In the event this information is protected by the Federal Confidentiality of Alcohol and Drug Abuse Patient Records regulations: The Federal rules restrict any use of the information to criminally investigate or prosecute any alcohol or drug abuse patient.[facility]In the event this information is protected by the Federal Confidentiality of Alcohol and Drug Abuse Patient Records regulations: The Federal rules restrict any use of the information to criminally investigate or prosecute any alcohol or drug abuse patient.[facility] HospitalIn the event this information is protected by the Federal Confidentiality of Alcohol and Drug Abuse Patient Records regulations: The Federal rules restrict any use of the information to criminally investigate or prosecute any alcohol or drug abuse patient.[facility] HospitalIn the event this information is protected by the Federal Confidentiality of Alcohol and Drug Abuse Patient Records regulations: The Federal rules restrict any use of the information to criminally investigate or prosecute any alcohol or drug abuse patient.[facility]In the event this information is protected by the Federal Confidentiality of Alcohol and Drug Abuse Patient Records regulations: The Federal rules restrict any use of the information to criminally investigate or prosecute any alcohol or drug abuse patient.[facility]In the event this information is protected by the Federal Confidentiality of Alcohol and Drug Abuse Patient Records regulations: The Federal rules restrict any use of the information to criminally investigate or prosecute any alcohol or drug abuse patient.[facility] HospitalIn the event this information is protected by the Federal Confidentiality of Alcohol and Drug Abuse Patient Records regulations: The Federal rules restrict any use of the information to criminally investigate or prosecute any alcohol or drug abuse patient.[facility]In the event this information is protected by the Federal Confidentiality of Alcohol and Drug Abuse Patient Records regulations: The Federal rules restrict any use of the information to criminally investigate or prosecute any alcohol or drug abuse patient.[facility] HospitalIn the event this information is protected by the Federal Confidentiality of Alcohol and Drug Abuse Patient Records regulations: The Federal rules restrict any use of the information to criminally investigate or prosecute any alcohol or drug abuse patient.[facility] HospitalIn the event this information is protected by the Federal Confidentiality of Alcohol and Drug Abuse Patient Records regulations: The Federal rules restrict any use of the information to criminally investigate or prosecute any alcohol or drug abuse patient.[facility] HospitalIn the event this information is protected by the Federal Confidentiality of Alcohol and Drug Abuse Patient Records regulations: The Federal rules restrict any use of the information to criminally investigate or prosecute any alcohol or drug abuse patient.[facility] HospitalIn the event this information is protected by the Federal Confidentiality of Alcohol and Drug Abuse Patient Records regulations: The Federal rules restrict any use of the information to criminally investigate or prosecute any alcohol or drug abuse patient.[facility] HospitalIn the event this information is protected by the Federal Confidentiality of Alcohol and Drug Abuse Patient Records regulations: The Federal rules restrict any use of the information to criminally investigate or prosecute any alcohol or drug abuse patient.[facility] HospitalIn the event this information is protected by the Federal Confidentiality of Alcohol and Drug Abuse Patient Records regulations: The Federal rules restrict any use of the information to criminally investigate or prosecute any alcohol or drug abuse patient.[facility] HospitalIn the event this information is protected by the Federal Confidentiality of Alcohol and Drug Abuse Patient Records regulations: The Federal rules restrict any use of the information to criminally investigate or prosecute any alcohol or drug abuse patient.[facility] HospitalIn the event this information is protected by the Federal Confidentiality of Alcohol and Drug Abuse Patient Records regulations: The Federal rules restrict any use of the information to criminally investigate or prosecute any alcohol or drug abuse patient.[facility] HospitalIn the event this information is protected by the Federal Confidentiality of Alcohol and Drug Abuse Patient Records regulations: The Federal rules restrict any use of the information to criminally investigate or prosecute any alcohol or drug abuse patient.[facility] HospitalIn the event this information is protected by the Federal Confidentiality of Alcohol and Drug Abuse Patient Records regulations: The Federal rules restrict any use of the information to criminally investigate or prosecute any alcohol or drug abuse patient.[facility] HospitalIn the event this information is protected by the Federal Confidentiality of Alcohol and Drug Abuse Patient Records regulations: The Federal rules restrict any use of the information to criminally investigate or prosecute any alcohol or drug abuse patient.[facility] Reason for Visit (unrecogniz ed section and content) Reason Comments Skin Check Reason Comments Sleep Problem Reason Comments Full Body Skin Check Reason Comments model # Reason Comments New Patient Patient presents for foul sinus odor. Patient noticed it this morning. Reason Comments Appointment Reason Comments New Patient Sinus Problem Reason Comments Patient Question Reason Comments open access Reason Comments Sleep Apnea Reason Comments Anxiety Stress Reason Comments New Patient Hearing loss.fullnes s.ear pain Reason Comments New Patient Wellness/lifestyle a dvise. Specialty Diagnoses / Procedures Referred By Contact Referred To Contact Anesthesiology / WELLNESS Diagnoses CONSULT overall wellness Procedures NEW [place] PATIENT Self Jarvis Stack MD [address] [place] [address] Referral ID Status Reason Start Date Expiration Date Visits Requested Visits Authorized [id number] Authorized Benefit Check 12/18/2023 03/17/2024 99 99 Reason Comments Nurse Triage Call [facility] Reason Comments Orders Patient is requestin g labs to be [facility] to the [facility] [place] [facility] so he can have them drawn. Reason Comments New Patient Reason Comments Refill Request Reason Comments GERD Reason Comments Results, Lab Reason Comments Hearing Loss Mostly right ear, le ft ear feels full, started in September, ringing in ears Reason Comments semen issues Care Teams (unrecognized sec tion and content) Billiard Table Repairer Relationship Specialty Start Date End Date Demian Barba MD [address] [place] [address] PCP - General Family Practice 07/01/18 No, Referral Referring 05/08/18 Billiard Table Repairer Relationship Specialty Start Date End Date Demian Barba MD [address] [place] [address] PCP - General Family Practice 07/01/18 No, Referral Referring 05/08/18 Billiard Table Repairer Relationship Specialty Start Date End Date Demian Barba MD [address] [place] [address] PCP - General Family Practice 07/01/18 No, Referral Referring 05/08/18 Billiard Table Repairer Relationship Specialty Start Date End Date Demian Barba MD [address] [facility] [place] [address] PCP - General Family Practice 07/01/18 No, Referral Referring 05/08/18 Billiard Table Repairer Relationship Specialty Start Date End Date Demian Barba MD [address] [facility] [place] [address] PCP - General Family Medicine 07/01/18 No, Referral Referring 05/08/18 Billiard Table Repairer Relationship Specialty Start Date End Date Demian Barba MD [address] [facility] [place] [address] PCP - General Family Medicine 07/01/18 No, Referral Referring 05/08/18 Billiard Table Repairer Relationship Specialty Start Date End Date Demian Barba MD [address] [facility] [place] [address] PCP - General Family Medicine 07/01/18 No, Referral Referring 05/08/18 Billiard Table Repairer Relationship Specialty Start Date End Date Demian Barba MD [address] [facility] [place] [address] PCP - General Family Medicine 07/01/18 No, Referral Referring 05/08/18 Billiard Table Repairer Relationship Specialty Start Date End Date Demian Barba MD [address] [facility] [place] [address] PCP - General Family Medicine 07/01/18 No, Referral Referring 05/08/18 Billiard Table Repairer Relationship Specialty Start Date End Date Demian Barba MD [address] [facility] [place] [address] PCP - General Family Medicine 07/01/18 No, Referral Referring 05/08/18 Billiard Table Repairer Relationship Specialty Start Date End Date Demian Barba MD [address] [place] [address] PCP - General Family Medicine 07/01/18 No, Referral Referring 05/08/18 Team Status: Active Member Role Status Dates Dr. Pan Barba MD Family Provider Active No Primary Care Physician Primary Care Provider Active Team Status: Inactive Member Role Status Dates Dr. Demian Bailey MD Attending Provider, Refe rring Provider Active No Primary Care Physician Primary Care Provider Active GALINA MARTINEZ Other Provider Active Team Status: Inactive Member Role Status Dates No Primary Care Physician Primary Care Provider Active Dr. Karlo Calderon MD Emergency Provider Active Team Status: Active Member Role Status Dates Dr. Pan Barba MD Family Provider Active Dr. Pan Barba MD Primary Care Provider Acti ve Team Status: Inactive Member Role Status Dates Dr. Luke Stout DO Emergency Provider Active Dr. Pan aBrba MD Primary Care Provider Acti ve Billiard Table Repairer Relationship Specialty Start Date End Date Jovi Gallo Jr., [address] [place] [address] PCP - General Internal Medicine 03/07/23 No, Referral Referring 05/08/18 Billiard Table Repairer Relationship Specialty Start Date End Date Jovi Gallo Jr., [address] [place] [address] PCP - General Internal Medicine 03/07/23 No, Referral Referring 05/08/18 Billiard Table Repairer Relationship Specialty Start Date End Date Jovi Gallo Jr., [address] [place] [address] PCP - General Internal Medicine 03/07/23 No, Referral Referring 05/08/18 Billiard Table Repairer Relationship Specialty Start Date End Date Jovi Gallo Jr., DO [address] [place] [address] PCP - General Internal Medicine 03/07/23 No, Referral Referring 05/08/18 Billiard Table Repairer Relationship Specialty Start Date End Date Jovi Gallo Jr., DO [address] [place] [address] PCP - General Internal Medicine 03/07/23 No, Referral Referring 05/08/18 Billiard Table Repairer Relationship Specialty Start Date End Date Jovi Gallo Jr., DO [address] [place] [address] PCP - General Internal Medicine 03/07/23 No, Referral Referring 05/08/18 Billiard Table Repairer Relationship Specialty Start Date End Date Jovi Gallo Jr., DO [address] [place] [address] PCP - General Internal Medicine 03/07/23 No, Referral Referring 05/08/18 Billiard Table Repairer Relationship Specialty Start Date End Date Jovi Gallo Jr., DO [address] [place] [address] PCP - General Internal Medicine 03/07/23 No, Referral Referring 05/08/18 Billiard Table Repairer Relationship Specialty Start Date End Date Jovi Gallo Jr., DO [address] [place] [address] PCP - General Internal Medicine 03/07/23 No, Referral Referring 05/08/18 Billiard Table Repairer Relationship Specialty Start Date End Date Jovi Gallo Jr., DO [address] [place] [address] PCP - General Internal Medicine 03/07/23 No, Referral Referring 05/08/18 Billiard Table Repairer Relationship Specialty Start Date End Date Jovi Gallo Jr., DO [address] [place] [address] PCP - General Internal Medicine 03/07/23 No, Referral Referring 05/08/18 Billiard Table Repairer Relationship Specialty Start Date End Date Jovi Gallo Jr., DO [address] [place] [address] PCP - General Internal Medicine 03/07/23 No, Referral Referring 05/08/18 Billiard Table Repairer Relationship Specialty Start Date End Date Jovi Gallo Jr., DO [address] [place] [address] PCP - General Internal Medicine 03/07/23 No, Referral Referring 05/08/18 Billiard Table Repairer Relationship Specialty Start Date End Date Jovi Gallo Jr., DO [address] [place] [address] PCP - General Internal Medicine 03/07/23 No, Referral Referring 05/08/18 Billiard Table Repairer Relationship Specialty Start Date End Date Jovi Gallo Jr., DO [address] [place] [address] PCP - General Internal Medicine 03/07/23 No, Referral Referring 05/08/18 Billiard Table Repairer Relationship Specialty Start Date End Date Jovi Gallo Jr., DO [address] [place] [address] PCP - General Internal Medicine 03/07/23 No, Referral Referring 05/08/18 Billiard Table Repairer Relationship Specialty Start Date End Date SabinoJovi Jr., DO [address] [place] [address] PCP - General Internal Medicine 03/07/23 No, Referral Referring 05/08/18 Billiard Table Repairer Relationship Specialty Start Date End Date Sabino Jovianabel Anaya Jr., DO [address] [place] [address] PCP - General Internal Medicine 03/07/23 No, Referral Referring 05/08/18 Billiard Table Repairer Relationship Specialty Start Date End Date SabinoJovi Jr., DO [address] [place] [address] PCP - General Internal Medicine 03/07/23 No, Referral Referring 05/08/18 Team Status: Active Member Role/Relationship Status Dates No Primary Care Physician Primary Care Provider Active Team Status: Inactive Member Role/Relationship Status Dates No Primary Care Physician Primary Care Provider Active Start: October 25, 2024 End: October 25, 2024 Dr. Bernadine Haile MD Emergency Provider Active S tart: October 25, 2024 End: October 25, 2024 Goals (unrecognized section and content) Goals may be documented in a n alternate sectionGoals may be documented in an alternate sectionGoals may be documented in an alternate sectionGoals may be documented in an alternate sectionGoals may be documented in an alternate section FOR RECORDS PERTAINING TO PATIENTS WHO ARE OR HAVE BEEN ENROLLED IN A CHEMICAL DEPENDENCY/SUBSTANCEABUSE PROGRAM, SOME INFORMATION MAY BE OMITTED. This clinical summary was aggregated from multiple sources. Caution should be exercised in using it in the provision of clinical care. This summary normalizes information from multiple sources, and as a consequence, information in this document may materially change the coding, format and clinical context of patient data. In addition, data may be omitted in some cases. CLINICAL DECISIONS SHOULD BE BASED ON THE PRIMARY CLINICAL RECORDS. [facility]. provides no warranty or guarantee of the accuracy or completeness of information in this document.
== END 2024-10-25 11:29 | disposition home or self-care (01) ==
PROVIDERS: Emergency Provider Student in an Organized Health Care Education/Training Program; Visit Provider Student in an Organized Health Care Education/Training Program
DX: M54.42 Lumbago with sciatica, left side (principal)
CPT/HCPCS: 80048; 96372; 99282

== ENCOUNTER 2024-10-26 09:54 | Emergency (ER) | payer MEDICARE, OTHER, SELFPAY ==
[2024-10-26 09:56] VITALS: BP 135/80; PULSE 89; RESP 22; TEMP 36.4; O2SAT 100; BMI 25.4
--- NOTE | 2024-10-26 10:02 | ED.VIS.BACK ---
HPI History of Present Illness Chief Complaint: Back Informant: patient Onset/Context/Timing Onset: Weeks (2-3) Context: Gradual Onset Timing: Continuous Quality: Aching Location: Lumbar, Buttock and Left Leg Worsened by: improves with Ambulation Relieved by: Sitting Associated Symptoms Associated Symptoms: Numbness, Tingling and Radiation to Left Leg; Negative for Radiation to Right Leg, Fever, Abdominal Pain, Dysuria, Unable to Ambulate, Unable to Transfer, Urinary Retention, Urinary Incontinence, Constipation or Fecal Incontinence Narrative Narrative: Patient presents with left lumbar paraspinal pain that has been getting worse over the past 2 to 3 weeks. Patient states it is gradually getting worse. Patient states it is worse with ambulation. Patient states it is better with sitting. Patient admits to some numbness and tingling down his left leg. Patient denies any abdominal pain. Patient denies any bowel or bladder changes. Patient denies any saddle anesthesia. Patient denies any trauma or injury. Patient was seen here for this yesterday. Patient was given a prescription for a short course of anti-inflammatory medicine and Flexeril. Patient is concerned that the anti-inflammatory medication may flareup his stomach ulcer. Patient also admits to some fatigue. Patient denies any melena or hematochezia. [facility] Medical History Back pain Gastric ulcer Home Medications ?Medication ?Instructions ?Recorded ?Last Taken ?Type pantoprazole 40 mg tablet,delayed 40 mg PO DAILY #30 tabs 02/28/23 Unknown Rx release sucralfate 1 gram tablet (Carafate) 1 g PO TID 1 week #21 tabs 02/28/23 Unknown Rx cyclobenzaprine 5 mg tablet 5 mg PO QHS PRN muscle spasm #14 10/25/24 Unknown Rx tabs ibuprofen 200 mg capsule (Motrin 400 mg (2 x 200 mg) PO Q6H PRN 10/25/24 Unknown Rx IB) pain #30 caps lidocaine 5 % topical patch 1 patch topical DAILY #15 ea 10/25/24 Unknown Rx (Lidoderm) Allergy/AdvReac Type Severity Reaction Status Date / Time No Known Allergies Allergy Verified 10/25/24 08:50 Social History household members: spouse current occupational status: retired Smoking Status: Never smoker alcohol intake: never ROS ROS ED Constitutional Constitutional ED: Denies chills or fever(s) Eyes Eyes: Denies blurry vision or change in vision ENT ENT ED: Denies rhinorrhea or sore throat Cardiovascular Cardiovascular: Denies chest pain or palpitations Respiratory/Chest Respiratory/Chest: Denies cough or dyspnea Gastrointestinal Gastrointestinal: Denies nausea or vomiting Genitourinary Genitourinary ED: Denies dysuria or hematuria Musculoskeletal Musculoskeletal: Reports back pain; Denies neck pain Integumentary Denies abscess or rash Neurologic Neurologic: Reports paresthesias LLE; Denies headache(s) or weakness Allergic/Immunologic Allergic/Immunologic ED: Denies mouth swelling or urticaria EXAM Physical Exam Const Vital Signs: 10/26/24 09:56 Temperature 97.6 F L Temperature Source Temporal Pulse Rate 89 Respiratory Rate 22 H Blood Pressure 135/80 H Blood Pressure Mean 98 Pulse Ox 100 Oxygen Delivery Method Room Air Positive well nourished and well developed Constitutional Narrative: BMI is 25.5. General Appearance ED: well developed and NAD HEENT Reports moist mucous membranes Neck supple and no JVD Resp normal respiratory effort and clear to auscultation bilaterally Cardio regular rate and regular rhythm GI soft to palpation, non-tender and non-distended Back/Spine Back/Spine Narrative: There is mild tenderness and spasm of the left lumbar paraspinal muscles. There is no midline tenderness. There is no bony crepitance or step-off. Range of motion was slightly limited in all motions of the lumbar spine secondary to pain. Strength is 5/5 bilaterally in the lower extremities. Deep tendon reflexes are 2/4 bilaterally in the lower extremities. There are no sensory deficits noted. Lumbar Spine / Lower Back: ROM limited and straight leg raise negative bilaterally Extremity normal to inspection Neuro oriented x3 and no sensory deficits noted Sensorium / Orientation: alert Motor Exam: strength 5/5 throughout Psych mental status grossly normal MDM MDM MDM Narrative Medical decision making narrative: Patient was advised that this is most likely a sciatic Flareup. Patient was instructed to continue his anti-inflammatory and muscle relaxant medicines as prescribed. Patient was advised of symptoms of worsening peptic ulcer disease. Patient was instructed to stop taking the anti-inflammatory medication as she did not have the symptoms appear. Patient was given a prescription for a short course of [place] to take instead. Patient was instructed to use ice to the area. Patient did request that a CBC be obtained because of his fatigue. This was ordered. Patient was instructed to follow-up with his primary care physician in 5 to 7 days. Patient was instructed to return if worse in any way. Patient understood and was agreeable with the plan. All questions were answered. History & Record Review Additional record(s) reviewed:: Prior ED visit and Prior labs Lab Data Attestation: I reviewed the patient's lab results. Lab results narrative: CBC was reviewed. Hemoglobin was stable at 17.7. This was consistent with previous results. Labs: Laboratory Results - last 24 hr 10/26/24 11:13 WBC 9.8 RBC 5.44 Hgb 17.7 H Hct 51.4 MCV 94.5 H MCH 32.5 H MCHC 34.4 RDW Std Deviation 46.3 H RDW Coeff of Leda 13.3 Plt Count 174 MPV 11.6 Immature Gran % (Auto) 0.200 Neut % (Auto) 74.7 H Lymph % (Auto) 14.4 L Fleming % (Auto) 8.2 Eos % (Auto) 1.9 Baso % (Auto) 0.6 Absolute Neuts (auto) 7.3 Absolute Lymphs (auto) 1.42 Nucleated RBC % 0 Discharge Plan Triage Chief Complaint: Back ED Provider: Meir Ng Dx/Rx/DC Orders Clinical Impression: Back pain of lumbar region with sciatica, Elevated blood pressure reading Instructions: ED Sciatica Prescriptions: No Action pantoprazole 40 mg tablet,delayed release (DR/EC) 40 mg PO DAILY Qty: 30 1RF sucralfate [Carafate] 1 gram tablet 1 g PO TID 7 Days Qty: 21 0RF ibuprofen [Motrin IB] 200 mg capsule 400 mg PO Q6H PRN (Reason: pain) Qty: 30 0RF cyclobenzaprine 5 mg tablet 5 mg PO QHS PRN (Reason: muscle spasm) Qty: 14 0RF lidocaine [Lidoderm] 5 % adhesive patch,medicated 1 patch topical DAILY Qty: 15 0RF Rx Instructions: leave on most painful area for up to 12 hrs Primary Care Provider: Care Physician,No Primary Referrals: [facility] [Provider Group] - 5-7 Days Care Physician,No Primary [Primary Care Provider] - Print Language: Belarusian Disposition Disposition: Home, Self Care
[2024-10-26 11:18] LABS: Hematocrit 51.4 % (40-54); Hemoglobin 17.7 g/dL (13.0-16.5); Immature Granulocytes Count 0.020 X10^3/uL (0.0-0.0); Mean Corp Hgb Conc 34.4 g/dL (32-36); Mean Corpuscular Volume 94.5 fL (80-94); Mean Platelet Vol. 11.6 fl (6.2-12.0); NRBC Flagged by Analyzer 0 % (0-5); Platelet Count 174 K/mm3 (150-450); RBC Distribution Width CV 13.3 % (11.6-14.6); RBC Distribution Width SD 46.3 fl (35.1-43.9); Red Blood Count 5.44 M/mm3 (4.6-6.2); White Blood Count 9.8 K/mm3 (4.4-11.0)
[2024-10-26 11:35] VITALS: BP 147/80; PULSE 72; RESP 15; TEMP 36.6; O2SAT 96
--- OUTSIDE RECORDS SUMMARY | 2024-10-26 18:09 | XMS RPT_ITS ---
Author Name Auto Generated Organization OHIP Care Team Providers Care Plate Drying Machine Tender Name Role Phone FELIPE GALLO Referring Unavailable CHI JR, JOVI SIDDIQI Primary Care Unavail able CHARLEEN MORALEZ Attending Unavailable CHI JR, JOVI SIDDIQI Primary Care Unavail able SHAHZAD PEREZ Attending Unavailable CHI JR, JOVI SIDDIQI Primary Care Unavail able JARVIS STACK Attending Unavailable CHI JR, JOVI SIDDIQI Primary Care Unavail able CHARLEEN MORALEZ Attending Unavailable CHI JR, JOVI SIDDIQI Primary Care Unavail able THI PINO Attending Unavailable CHI JR, JOVI SIDDIQI Primary Care Unavail able MARJAN GAR Attending Unavailable SELF Referring Unavailable CHI JR, JOVI SIDDIQI Primary Care Unavail able YADY HERRERA Referring Unavailable CHI JR, JOVI SIDDIQI Primary Care Unavail able YADY HERRERA Referring Unavailable CHI JR, JOVI SIDDIQI Primary Care Unavail able FELIPE GALLO Attending Unavailable CHI JR, JOVI SIDDIQI Primary Care Unavail able JOSE FRANCISCO ZAMORANO Attending Unavailabl e CHI JR, JOVI SIDDIQI Primary Care Unavail able BETY VALVERDE Attending Unavailable SELF, SELF Referring Unavailable PROBLEMS DATE TYPE CONDITION / CODE ATTENDING STATUS [facility] 10/18/2024 Active Hematospermia / R36.1(ICD-10) [facility] 10/18/2024 Active Urinary frequenc y / R35.0(ICD-10) [facility] 10/18/2024 Active Microscopic alda turia / R31.29(ICD-10) [facility] 10/18/2024 Active Benign prostatic hyperplasia with incomplete bladder emptying / N40.1(ICD-10) KRISHNAMURTHI, [facility] 10/18/2024 Active Benign prostatic hyperplasia with incomplete bladder emptying / R39.14(ICD-10) [facility] Active Prostate cancer screening / Z12.5(ICD-10) [facility] Active Hx of nonmelanom a skin cancer / Z85.828(ICD-10) THI PINO Active [facility] 07/21/2024 Active Skin exam, scree moody for cancer / Z12.83(ICD-10) THI PINO Active [facility] 07/21/2024 Active Photoaging of sk in / L57.8(ICD-10) THI PINO Active [facility] 07/21/2024 Active Seborrheic kerat osis / L82.1(ICD-10) THI PINO Active [facility] 07/21/2024 Active Carranza angioma / 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(ICD-10) THI PINO Active [facility] 07/21/2024 Active Multiple benign nevi / D22.9(ICD-10) THI PINO Active [facility] 07/21/2024 Active Lentigines / L81.4(ICD-10) THI PINO Active [facility] 07/21/2024 Active Actinic keratosi s / L57.0(ICD-10) THI PINO Active [facility] 03/25/2024 Admitting diagnosis Other specified disorders of ear, bilateral / H93.8X3(ICD-10) BETY VALVERDE Active [facility] 03/25/2024 Admitting diagnosis Hyperacusis, bilateral / H93.233(ICD-10) BETY VALVERDE Active [facility] 03/25/2024 Admitting diagnosis Other specified hearing loss, bilateral / H91.8X3(ICD-10) BETY VALVERDE Active [facility] 03/25/2024 Admitting diagnosis Chronic rhinitis / J31.0(ICD-10) BETY VALVERDE Active [facility] 02/18/2024 Active Abnormal stress ECG / R94.39(ICD-10) NA Active [facility] 02/18/2024 Active Routine general medical examination at a health care facility / Z00.00(ICD-10) NA Active [facility] 09/06/2020 Active History of basal cell carcinoma / Z85.828(ICD-10) JARVIS STACK Active [facility] 07/28/2018 Active Foraminal stenos is of lumbar region / M48.061(ICD-10) JARVIS STACK Active [facility] 07/01/2018 Active Varicose veins o f both lower extremities with pain / I83.813(ICD-10) JARVIS STACK Active [facility] 07/01/2018 Active Elevated PSA / R97.20(ICD-10) JARVIS STACK Active [facility] 06/05/2018 Active Sensorineural he aring loss (SNHL) of both ears / H90.3(ICD-10) JARVIS STACK Active [facility] 05/05/2018 Active Mixed hyperlipid emia / E78.2(ICD-10) JARVIS STACK Active [facility] 05/05/2018 Active Abnormal stress test / R94.39(ICD-10) JARVIS STACK Active [facility] 12/26/2017 Active Environmental an d seasonal allergies / J30.89(ICD-10) JARVIS STACK Active [facility] 12/26/2017 Active Primary hyperten henry / I10(ICD-10) JARVIS STACK Active [facility] 12/26/2017 Active Gastroesophageal reflux disease with esophagitis without hemorrhage / K21.00(ICD-10) JARVIS STACK Active [facility] 06/12/2017 Active Chronic insomnia / F51.04(ICD-10) JARVIS STACK Active [facility] 09/16/2016 Active Subjective tinni tus of both ears / H93.13(ICD-10) JARVIS STACK Active [facility] 01/20/2024 Active Full Body Skin C heck / UNK(Unknown) SHAHZAD PEREZ Active [facility] PROCEDURES No Procedure Records Found RESULTS URINALYSIS COMPLETE PNL UR Collected: 10/18/2024 2:06 PM Status: F Source: [facility] Order Comment: Specimen Type : URINE SPECIMEN Ordering Facility: [facility] Address: [facility] [place] [address] TYPE CODE TESTS RESULT OUT OF RANGE REFERENCE UNITS LAB 5778-6(LOINC) Color Ur Yellow Yellow LAB 12469-1(LOINC) Clarity Spec Clear Clear LAB 5792-7(LOINC) Glucose Ur Strip-mCnc Negative Negative LAB 5770-3(LOINC) Bilirub Ur Ql Strip Negative Negative LAB 2514-8(LOINC) Ketones Ur Strip Negative Negative LAB 5811-5(LOINC) Sp Gr Ur Strip 1.015 1.005-1.030 LAB 5794-3(LOINC) Hgb Ur Ql Strip Negative Negative LAB 5803-2(LOINC) pH Ur Strip 6.0 5.0-8.0 LAB 5804-0(LOINC) Prot Ur Strip-mCnc Negative Negative LAB 5818-0(LOINC) Urobilinogen Ur Strip Negative Negative LAB 5802-4(LOINC) Nitrite Ur Ql Strip Negative Negative LAB 5799-2(LOINC) Leukocyte esterase Ur Ql Strip Negative Negative LAB 5821-4(LOINC) WBC #/area UrnS HPF 0-5 /HPF 0-5 /HPF LAB 93802-6(LOINC) RBC #/area UrnS HPF 0-3 /HPF 0-3 /HPF LAB 5769-5(LOINC) Bacteria #/area UrnS HPF None Seen None Seen /HPF LAB 5787-7(LOINC) Epi Cells #/area UrnS HPF None Seen /HPF Performed By: #### [id number] # ### [facility] CLIA [id number] [address] [place] [id number] [place] PROGRESS Observed: 10/18/2024 1:08 PM Status: COMPLETED Source: [facility] HNO ID: [id number] Author: JOSE FRANCISCO ZAMORANO MD Service: ? Author Type: Physician Type: Progress Notes Filed: 10/18/2024 22:46 Note Text: [facility] UROLOGY ESTABLISHED PATIENT CLINIC NOTE UROL CANTON MOB Recording using FetchDog software for draft documentation of the visit was discussed with the patient/authorized client support representative; all questions welcomed and answered. Patient/authorized client support representative agreed to proceed PATIENT INFO: Florian [...] Jose Francisco Zamorano M.D, MS Associate Staff [facility] CNOV Observed: 10/18/2024 1:00 PM Status: COMPLETED Source: [facility] Office Visit (URCANT) FLORIAN PORTILLO ([id number]) 1955 M Date Time Provider Department 10/18/24 1:00 PM JOSE FRANCISCO ZAMORANO UREDILSON During your visit today, we recorded the following information about you: Jose Francisco Zamorano MD 10/18/2024 10:46 PM Signed [facility] UROLOGY ESTABLISHED PATIENT CLINIC NOTE UROL EMI MOB Recording using FetchDog software for draft documentation of the visit was discussed with the patient/authorized client support representative; all questions welcomed and answered. Patient/authorized client support representative agreed to proceed PATIENT INFO: Florian [...] Jose Francisco Zamorano M.D, MS Associate Staff [facility] Jose Francisco Zamorano MD 10/18/2024 1:27 PM [...] be a reduction in your semen production. Allergies As of Date: 10/18/2024 Noted Allergy Reaction GABAPENTIN 03/03/2019 1 - Mental Status Change Comments: Foggy, dizzyness RAGWEED 01/02/2018 5 - Intolerance Date Reviewed: 10/18/2024 Reviewed by: Jackie Delgado MA - Fully Assessed Reason for Visit: semen issues [Other] Primary Visit Diagnosis:Hematospermia [R36.1] Other Visit Diagnoses:Urinary frequency [R35.0] Microscopic hematuria [R31.29] Benign prostatic hyperplasia with incomplete bladder emptying [N40.1, R39.14] Prostate cancer screening [Z12.5] Order(s):UA DIP, URINE (POC) [0159058] Order #: [id number]. #:[id number] URINALYSIS, WITH MICROSCOPIC [SQUAWMIC] Order #: [id number]. #:[id number] tamsulosin (FLOMAX) 0.4 mgTake 1 capsule by mouth daily at bedtime.Disp: 30 capsuleRfl: 3 Prescriptions as of 10/18/2024 - tamsulosin (FLOMAX) 0.4 mg Take 1 capsule by mouth daily at bedtime. - omeprazole (PRILOSEC) 40 mg capsule Take [...] managed by this patient by: PATIENT LUANN CLINTON [facility] Problem List As Of Date 10/18/2024 Noted Resolved Subjective tinnitus [H93.19] 09/16/2016 Psychophysiologic [...] carcinoma [Z85.828] 09/06/2020 Nasal mass [J34.89] 01/31/2023 Other instructions from your clinician: The drug you're being put on is [...] be a reduction in your semen production. Prescriptions ordered this encounter Disp Refills Start End TAMSULOSIN 0.4 MG CAPSULE 30 c* 3 10/18/2024 11/17/2024 Route: PO Sig: Take 1 capsule by mouth daily at bedtime. Disposition: Return in about 6 weeks (around 11/29/2024). Follow-up and Disposition History for Encounter Date Provider Department Center 10/18/2024 [id number] ZAMORANO Md [facility] Encounter Status:Closed by JOSE FRANCISCO ZAMORANO on 10/18/24 CNOV Observed: 07/21/2024 9:15 AM Status: COMPLETED Source: [facility] Office Visit (DERMBD) FLORIAN PORTILLO ([id number]) 1955 M Date Time Provider Department 07/21/24 9:15 AM THI PINO DERMBD During your visit today, we recorded the following information about you: Viv Charles LPN 07/21/2024 9:[address] Pino's Favorite Daily Sunscreens For Dry skin - Olay sensitive mineral SPF sunscreen SPF 30 Vanicream Broad Spectrum SPF 50+ (mineral)- Best for sensitive skin. Makeup may not set well when applying over this product. [place] Posay Toleriane Double Repair Face Moisturizer UV (chemical) solarsciences tinted mineral (mineral)- we have here at [facility] Vanicream face moisturizer with mineral sunscreen SPF 30 CeraVe Hydrating mineral sheer tint sunscreen (check that it has tint)- 30 SPF. Has iron oxide tint For Normal/ Oily Administrator Pesticide Joshua's zinc oxide sunscreen lotion SPF 40 Neutrogena mineral invisible daily defense face liquid (has iron oxide tint) Cetaphil Sheer Mineral Face Sunscreen La Niya-Posay Anthelios GUTIÉRREZ Mineral Elta MD UV Clear Maelove The Sun Protector (SPF [...] skin Neutrogena Sheer Zinc Mineral Sunscreen Stick Administrator Pesticide Joshua'amada mineral spray (has fragrance, so I do not recommend for anyone with sensitive skin) Olay sensitive mineral SPF sunscreen SPF 30 Scalp Sunscreen - Color Science [place] on mineral sunscreen SPF 50 Reapplication during the day over makeup - Color Science [place] on Mineral sunscreen SPF 50 Department of [...] within 3 to 4 weeks. Please call [phone] to speak to one of the nurses if you have any question. For emergencies after 4:30 PM or weekends, please call [phone] and ask for the dermatology surgical fellow metal extrusion supervisor Thi Pino DO 07/21/2024 10:09 AM Signed [facility] Department of Dermatology Chief Complaint: Patient presents with: Full Body Skin Check Date of last visit to [facility]: 01-20-2024 Dr.Jon Perez (New to Thi [...] AND PLAN: Photoaging and rhytides - Recommend [facility] Neutrogena Rapid Wrinkle Repair - Recommend daily sun protection using broad-spectrum sunscreen (at least SPF 30 for day-to-day activities, SPF 50 or higher when outside for more prolonged periods), photoprotective clothing, and other photoprotective measures, such as seeking shade when possible. - Samples of InvenQuery Collagen Bank Moisturizer and Sunscreens provided Actinic [...] Past Histories independently gathered by the clinical biomedical equipment support specialist and the remaining scribed note accurately describes my personal service to the patient. Thi Pino DO Allergies As of Date: 07/21/2024 Noted Allergy Reaction GABAPENTIN 03/03/2019 1 - Mental Status Change Comments: Foggy, dizzyness RAGWEED 01/02/2018 5 - Intolerance Date Reviewed: 07/21/2024 Reviewed by: Thi Pino DO - Fully Assessed Reason for Visit: Full Body Skin Check [1445] Primary Visit Diagnosis:Hx of nonmelanoma skin cancer [Z85.828] Other Visit Diagnoses:Skin exam, screening for cancer [Z12.83] Photoaging of skin [L57.8] Seborrheic keratosis [L82.1] Carranza angioma [D18.01] Multiple benign nevi [D22.9] Lentigines [L81.4] Actinic keratosis [L57.0] Prescriptions as of 07/21/2024 - omeprazole (PRILOSEC) 40 mg capsule Take [...] CLINTON, JAYDON Problem List As Of Date 07/21/2024 Noted Resolved Subjective tinnitus [H93.19] 09/16/2016 Psychophysiologic [...] carcinoma [Z85.828] 09/06/2020 Nasal mass [J34.89] 01/31/2023 Other instructions from your clinician: Dr Pino's Favorite Daily Sunscreens For Dry skin - Olay sensitive mineral SPF sunscreen SPF 30 Vanicream Broad Spectrum SPF 50+ (mineral)- Best for sensitive skin. Makeup may not set well when applying over this product. [place]ya Posay Toleriane Double Repair Face Moisturizer UV (chemical) MD solarsciences tinted mineral (mineral)- we have here at [facility] Vanicream face moisturizer with mineral sunscreen SPF 30 CeraVe Hydrating mineral sheer tint sunscreen (check that it has tint)- 30 SPF. Has iron oxide tint For Normal/ Oily Administrator Pesticide Joshua's zinc oxide sunscreen lotion SPF 40 Neutrogena mineral invisible daily defense face liquid (has iron oxide tint) Cetaphil Sheer Mineral Face Sunscreen [place]ya-Posay Anthelios GUTIÉRREZ Mineral Elta MD UV Clear Maelove The Sun Protector (SPF [...] skin Neutrogena Sheer Zinc Mineral Sunscreen Stick Administrator Pesticide Joshua'amada mineral spray (has fragrance, so I do not recommend for anyone with sensitive skin) Olay sensitive mineral SPF sunscreen SPF 30 Scalp Sunscreen - Color Science [place] on mineral sunscreen SPF 50 Reapplication during the day over makeup - Color Science [place] on Mineral sunscreen SPF 50 Department of [...] within 3 to 4 weeks. Please call [phone] to speak to one of the nurses if you have any question. For emergencies after 4:30 PM or weekends, please call [phone] and ask for the dermatology surgical fellow metal extrusion supervisor Disposition: Return in about 6 months (around 01/20/2025) for full body skin exam. Follow-up and Disposition History for Encounter Date Provider Department Center 07/21/2024 [id number], ANNE DERMBD [facility] Encounter Status:Closed by THI PINO on 07/21/24 PROGRESS Observed: 07/21/2024 9:15 AM Status: COMPLETED Source: [facility] HNO ID: [id number] Author: THI PINO DO Service: ? Author Type: Physician Type: Progress Notes Filed: 07/21/2024 10:09 Note Text: [facility] Department of Dermatology Chief Complaint: Patient presents with: Full Body Skin Check Date of last visit to [facility] Derm[facility]: 01-20-2024 Dr.Jon Perez (New to Thi [...] Charles LPN acting as scribe for Thi Pnio DO. July 21, 2024 8:56 AM. I agree with the Chief Complaint, ROS, and Past Histories independently gathered by the clinical biomedical equipment support specialist and the remaining scribed note accurately describes my personal service to the patient. Thi Pino DO PROGRESS Observed: 04/15/2024 12:41 PM Status: COMPLETED Source: [facility] HNO ID: [id number] Author: CHARLEEN MORALEZ CNP Service: ? Author [...] visit. Either the patient or their legal client support representative has been informed of the risks and benefits of -- and alternatives to -- treatment through a remote evaluation and consents to proceed with the evaluation remotely. ASSESSMENT AND PLAN - GERD Continue Omeprazole 40 mg daily Reviewed the reported issues with [place] [facility] use Discussed with patient and all questions [...] DATE: April 15, 2024 TIME: 12:42 PM PROGRESS Observed: 03/03/2024 1:00 PM Status: COMPLETED Source: [facility] HNO ID: [id number] Author: CHARLEEN MORALEZ CNP Service: ? Author [...] visit. Either the patient or their legal client support representative has been informed of the risks [...] Weight is stable Reports was seen at [facility] recently for anxiety and had cardiac issues [...] nostril as needed (prn).) CPAP/BIPAP/OTHER New Autopap [id number] Floq ([phone]) Please start with nasal or nasal pillow [...] DATE: March 03, 2024 TIME: 1:00 PM KEVINN Observed: 03/03/2024 12:00 AM Status: COMPLETED Source: [facility] Telephone (GASTPE) LIGIAFLORIAN ([id number]) 1955 M Date Time Provider Department 03/03/24 [facility], PROVIDER GASTPE During your visit today, we recorded the following information about you: Keara Fraire MA 03/03/2024 12:28 PM Signed Pt called regarding upcoming appt at 1pm and said he is having an issue accessing Zoom through [employer]. It sounds like possibly his internet is [...] nostril once daily. - CPAP/BIPAP/OTHER New Autopap [id number] [facility] ITN ([phone]) Please start with nasal or nasal pillow [...] 01/31/2023 Encounter Status:Closed by KEARA FRAIRE on 03/03/24 CHARLIE Observed: 03/02/2024 12:00 AM Status: COMPLETED Source: [facility] Telephone (UROLIN) FLORIAN PORTILLO ([id number]) 1955 M Date Time Provider Department 03/02/24 FELIPE GALLO During your visit today, we recorded the following information about you: Gladis Iglesias 03/02/2024 1:22 PM Signed Patient walked in and need his lab test results from 02/27/2024 Patient is having issues with mychart and need to know the results before leaving town Please contact patient at [phone] Maia Arias RN 03/03/2024 1:16 PM Signed [...] [place] Problem List As Of Date 03/02/2024 [...] Encounter Status:Closed by MAIA ARIAS on 03/03/24 CHARLIE Observed: 03/01/2024 12:00 AM Status: COMPLETED Source: [facility] Telephone (GASTPE) FLORIAN PORTILLO ([id number]) 1955 M Date Time Provider Department 03/01/24 [facility], PROVIDER GASTPE During your visit today, we recorded the following information about you: Keara Fraire MA 03/01/2024 9:11 AM Signed Pt called to schedule OV due to ulcer. Scheduled with BS on 03/03 at [facility]. Keara Fraire MA Allergies As of [...] nostril once daily. - CPAP/BIPAP/OTHER New Autopap [id number] Floq ([phone]) Please start with nasal or nasal pillow mask . Meds Comments as of 05/26/2018: 05/26/18 The medications are managed by this patient by: PATIENT LUANN CLINTON, [facility] Problem List As Of Date 03/01/2024 Noted [...] Encounter Status:Closed by KEARA FRAIRE on 03/01/24 CHARLIE Observed: 02/29/2024 12:00 AM Status: COMPLETED Source: [facility] Telephone (HLPRAD) FLORIAN PORTILLO ([id number]) 1955 M Date Time Provider Department 02/29/24 KATJA KAHN ENOC During your visit today, we recorded the following information about you: Katja Kahn MD 02/29/2024 4:29 PM Signed Received page metal extrusion supervisor Ulcer like symptoms. Called back left voicemail. Katja Kahn MD (This note may have been partially generated using [employer] voice recognition system and could be subject [...] by: Marialuisa Kang MA - Fully Assessed Prescriptions as [...] [place], [place] Problem List As Of Date 02/29/2024 [...] Encounter Status:Closed by KEARA MUHAMMAD on 08/09/24 PSA SERPL-MCNC Collected: 10:10 AM Status: F Source: [facility] Order Comment: Specimen Type : BLOOD SPECIMEN Ordering Facility: [facility] Address: [address] [place] [address] TYPE CODE TESTS RESULT OUT OF RANGE REFERENCE UNITS LAB 2857-1(LOINC) PSA SerPl-mCnc 6.63 High <2.60 ng/mL Result Comment: Total PSA te st methodology used is the Electrochemiluminescence Immunoassay by [employer] [place]. Total PSA values by differing methodologies cannot [...] Engl J Med 2003,349:335-42. Performed By: #### 2857-1 ## ## [facility] CLIA [id number] [address] [place] [address] [place] [address] [place] PROGRESS Observed: 02/27/2024 9:00 AM Status: COMPLETED Source: [facility] HNO ID: [id number] Author: FELIPE GALLO MD Service: ? 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 As applicable, any other physician, advance practice provider, medical student, or other health professional student that will be observing or involved in the sensitive examination for educational or training purposes was discussed with the Patient or Authorized Ends Breakage Clerk. The Patient or Authorized Ends Breakage Clerk has agreed to proceed with the sensitive examination. (Sensitive examination includes inspection and/or palpation of the breasts, pelvis, prostate and anorectal regions) Exam: Consents Rail Engineer: Declines General: Well-nourished Psychiatric: Normal affect Neurologic: AANDOx3 HEENT: Normocephalic, EOMI CV: Hemodynamically stable, warm [...] patient, coordinating care, and/or completing appropriate documentation. 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 As applicable, any other physician, advance practice provider, medical student, or other health professional student that will be observing or involved in the sensitive examination for educational or training purposes was discussed with the Patient or Authorized Ends Breakage Clerk. The Patient or Authorized Ends Breakage Clerk has agreed to proceed with the sensitive examination. (Sensitive examination includes inspection and/or palpation of the breasts, pelvis, prostate and anorectal regions) Exam: Consents Rail Engineer: Declines General: Well-nourished Psychiatric: Normal affect Neurologic: AANDOx3 HEENT: Normocephalic, EOMI CV: Hemodynamically stable, warm [...] patient, coordinating care, and/or completing appropriate documentation. Referring Provider: SELF [200] Allergies As of Date: 02/27/2024 Noted Allergy Reaction GABAPENTIN 03/03/2019 1 - Mental Status Change Comments: Foggy, dizzyness RAGWEED 01/02/2018 5 - Intolerance Date Reviewed: 02/27/2024 Reviewed by: Marialuisa Kang MA - Fully Assessed Reason for Visit: New Patient [172] Primary Visit Diagnosis:Nocturia [R35.1] Other Visit Diagnoses:Encounter for prostate cancer screening [Z12.5] BPH with obstruction/lower urinary tract symptoms [N40.1, N13.8] Order(s):UA DIP, URINE (POC) [2829733] Order #: [id number]. #:[id number] PROSTATE-SPECIFIC ANTIGEN DIAGNOSTIC [SQPSA] Order #: [id number] FUTURE Prescriptions as of 02/28/2024 - clindamycin (CLEOCIN) [...] nostril once daily. - CPAP/BIPAP/OTHER New Autopap [id number] Floq ([phone]) Please start with nasal or nasal pillow mask . Meds Comments as of 05/26/2018: 05/26/18 The medications are managed by this patient by: PATIENT LUANN MARY BETH, COA Problem List As Of Date 02/27/2024 Noted [...] carcinoma [Z85.828] 09/06/2020 Nasal mass [J34.89] 01/31/2023 Level of Service: OFFICE/OUTPATIENT NEW MODERATE MDM 45 MINUTES [04766] Additional E/M codes: VISIT CPLX INHERENT EANDM ASSOC WITH MED * Encounter Status:Closed by FELIPE GALLO on 02/28/24 CHARLIE Observed: 02/27/2024 12:00 AM Status: COMPLETED Source: [facility] Telephone (Lentigen) FLORIAN PORTILLO ([id number]) 1955 M Date Time Provider Department 02/27/24 [...] nostril once daily. - CPAP/BIPAP/OTHER New Autopap [id number] [facility] IT[facility] ([phone]) Please start with nasal or nasal pillow mask . Meds Comments as of 05/26/2018: 05/26/18 The medications are managed by this patient by: PATIENT LUANN CLINTON, COA Problem List As Of Date 02/27/2024 Noted [...] Encounter Status:Closed by SHAHZAD PEREZ on 02/28/24 EXEC STRESS ECHO (AMBULATORY ONLY) Observed: 02/18/2024 12:53 PM Status: C Source: [facility] Stress ECG Report: Stress Ec [facility] J1-5 Date of service: 02/18/2024 12:53:16 PM SUPERVISOR Ordering physician: YADY HERRERA sales order specialist: Idalia Lopez Fellow: Arun Lance MD Interpreting physician: Mendel Verma MD Patient name: MR. FLORIAN PORTILLO Age: 68 years Gender: M History of hypertension and dyslipidemia. Height: 180.30 cm BSA: 2.02 m? Weight: 81.50 kg BMI: 25.1 kg/m? Indication: Abnormal result of cardiovascular function study [...] 196/80 mmHg. The double product achieved was 37907. Resting ECG: Normal Sinus Rhythm Exercise Protocol: cycle Cycle work-rate increment: 10 Villalta/min Cycle Exercise Table: +------+----+-----+ +---+---+---+----+---+----+ Stage RPM VILLALTA Time (min) HR SYS VINCE RPE SOB METS +------+----+-----+ +---+---+---+----+---+----+ 1 60.0 20.0 2.0 101 134 76 6.0 0.0 1.0 +------+----+-----+ +---+---+---+----+---+----+ 2 60.0 40.0 4.0 110 158 80 7.0 1.0 1.9 +------+----+-----+ +---+---+---+----+---+----+ 3 60.0 60.0 6.0 127 170 82 9.0 2.0 2.9 +------+----+-----+ +---+---+---+----+---+----+ 4 60.0 80.0 8.0 137 182 82 11.0 2.0 3.9 +------+----+-----+ +---+---+---+----+---+----+ 5 60.0 100.0 10.0 151 188 86 13.0 4.0 4.8 +------+----+-----+ +---+---+---+----+---+----+ 6 60.0 120.0 12.0 164 196 80 15.0 5.0 5.8 +------+----+-----+ +---+---+---+----+---+----+ +-----+----+-----+ +---+---+---+----+---+----+ RPM VILLALTA Time (min) HR SYS VINCE RPE SOB METS +-----+----+-----+ +---+---+---+----+---+----+ Final 60.0 140.0 12.15 164 196 80 18.0 6.0 5.9 +-----+----+-----+ +---+---+---+----+---+----+ +------+ + + Stage ST: Lead, [place], MM Arrhythmias +------+ + + 2 Rare PVC (<3/min) +---+---------+---+ INF Upsloping 0.5 +---+---------+---+ +------+ + + 3 Occas PVC (3-7/min) and Rare V.Couplet +---+---------+---+ INF Upsloping 0.5 +---+---------+---+ V5 Upsloping 0.5 +---+---------+---+ V6 Upsloping 0.5 +---+---------+---+ +------+ + + 4 +---+---------+---+ INF Upsloping 0.5 +---+---------+---+ V5 Upsloping 0.5 +---+---------+---+ V6 Upsloping 0.5 +---+---------+---+ ANT Upsloping 0.5 +---+---------+---+ +------+ + + 5 +---+---------+---+ INF Upsloping 0.5 +---+---------+---+ V5 Upsloping 0.5 +---+---------+---+ V6 Upsloping 0.5 +---+---------+---+ ANT Upsloping 0.5 +---+---------+---+ +------+ + + 6 Rare PVC (<3/min) +---+ +---+ INF Downsloping 1.0 +---+ +---+ V5 Downsloping 1.0 +---+ +---+ V6 Downsloping 1.0 +---+ +---+ ANT Downsloping 1.0 +---+ +---+ +------+ + + +-----+ + ST: Lead, [place], MM +-----+ + Final +---+ +---+ INF Downsloping 1.0 +---+ +---+ V5 Downsloping 1.0 +---+ +---+ V6 Downsloping 1.0 +---+ +---+ ANT Downsloping 1.0 +---+ +---+ +-----+ + Recovery Table: +------+ +---+---+---+ Stage Time (min) HR SYS VINCE +------+ +---+---+---+ 1 1.0 142 +------+ +---+---+---+ 2 2.0 122 +------+ +---+---+---+ 3 3.0 111 +------+ +---+---+---+ 4 5.0 107 118 72 +------+ +---+---+---+ 5 7.0 104 +------+ +---+---+---+ +-----+ + Stage ST: Lead, [place], MM +-----+ + 1 +----+++ RSVN +----+++ +-----+ + 2 +----+++ RSVN +----+++ +-----+ + 3 +----+++ RSVN +----+++ +-----+ + 4 +----+++ RSVN +----+++ +-----+ + 5 +----+++ RSVN +----+++ +-----+ + Stress Observations: Resting HR: 86 bpm Peak HR: 164 bpm (110% MPHR) Resting BP: 138 / 82 mmHg Peak BP: 196 / 80 mmHg Total exercise time: 12 minutes 9 seconds METS achieved: 5.9 Heart rate recovery (HRR): 22 bpm Rate Pressure Product (RPP): 98508 Stress Exercise Observations: Reason for test termination: general fatigue, Symptoms during test: No symptoms provoked during stress, Heart rate response: Adequate heart rate response, Normal CRI (>0.8 Not on B Sarthak) and Normal HRR (>12 or >[address]/EC), Blood pressure response: Normal BP response, ST segment and T wave changes: Abnormal ST Depression (<2.0 mm) during stress and Arrhythmias: Unifocal PVCs and Isolated ventricular couplet(s) / triplet(s) with stress Comments: At rest, ~[address] depression in inferior leads. With stress, upsloping inferior ST depressions to ~ 2mm , and ~1.[address] depressions in V5- V6. Isolated PVCs with exercise. Metabolic Exercise Data Variable: Observed value [Expected Range] HGI: 1.7 [>1.06 bpm/mmHg] Final (Updated) Echocardiography Report: Stress Echo [facility] J1-5 Date of service: 02/18/2024 12:53:16 PM SUPERVISOR Ordering physician: YADY HERRERA Indication: Abnormal ECG Technologist: Damian Betancourt RDMS, RVT Fellow: Arun Lance MD Interpreting physician: Mendel Verma MD PATIENT: Name: MR. FLORIAN PORTILLO : 1955 Age: 68 years Gender: M History of hypertension and dyslipidemia. Primary rhythm: sinus. Height: 180.30 cm BSA: 2.02 m? Weight: 81.50 kg BMI: 25.1 kg/m? Heart rate 86 bpm Blood pressure 138/82 mmHg Color Doppler was utilized to interrogate the cardiac valves assessed and spectral Doppler was utilized to determine the flow velocities and pressure gradients reported in this exam. Myocardial strain analysis was performed in this exam to aid in the assessment of cardiac function. MEASUREMENTS: Value Indexed Normal Max aortic dimension 3.3 cm Ao < 3.8 Left atrial volume 50 ml (biplane A-L) 25 ml/m? Akin <= 34 LV ID (diastole) 4.6 cm (2D) 2.30 cm/m? LV ID (systole) 2.4 cm (2D) 1.20 cm/m? IVS, leaflet tips 1.2 cm (2D) Posterior wall thickness 0.7 cm (2D) Left ventricular mass 158 g (2D) 78 g/m? Global peak long strain -19.2 % LV stroke volume 61 ml (2D biplane) LV end diastolic volume 95 ml (2D biplane) 46.9 ml/m? 34<=EDVi<75 LV end systolic volume 33 ml (2D biplane) 16.6 ml/m? Ejection Fraction 65 % (2D biplane) EF > 52 FINDINGS: LEFT VENTRICLE The left ventricle is normal in size. Left ventricular systolic function is normal. Global LV myocardial strain is normal. Mitral annular lateral E/e': 6.1. Mitral annular septal E/e': 7.4. Wall Motion: Rest: All scored segments are normal. Stress: All scored segments are normal. RIGHT VENTRICLE The right ventricle is normal in size. Right ventricular systolic function is normal. LEFT ATRIUM The left atrial cavity is normal in size. RIGHT ATRIUM The right atrial cavity is normal in size. MITRAL VALVE There is trace mitral valve regurgitation. The pressure half time is 78 msec. The peak mitral E/A ratio is 0.83. The average mitral E/e' ratio is 6.7. The mitral flow deceleration time is 268 msec. TRICUSPID VALVE There is trace (trace - 1+) tricuspid valve regurgitation. AORTIC VALVE There is no aortic valve regurgitation. Tricuspid aortic valve. The peak gradient is 6 mmHg (peak velocity = 125.0 cm/s). AORTA The visualized aorta is normal in size. Measurements - Mid ascending aorta 3.3 cm. STRESS ECHO Peak HR 164 bpm. (110 % MPHR) Peak BP 196 mmHg/80 mmHg. The left ventricular cavity size is decreased with stress. Rest Stress TR velocity 260.7 cm/s 313.0 cm/s E/e' average 6.71 5.81 CONCLUSIONS: - Exam indication: Abnormal ECG - The exercise stress echo was negative for ischemia at 110 % of MPHR (5.9 METS). No regional wall motion abnormality seen at heart rate achieved. - The left ventricle is normal in size. Left ventricular systolic function is normal. EF = 65 ? 5% (2D biplane) - The right ventricle is normal in size. Right ventricular systolic function is normal. - Exam was compared with the prior echocardiographic exam performed on 05/08/2018. Similar findings. Final (Updated) Stress Pleat Taper Report: Stress Echo [facility] J1-5 Date of service: 02/18/2024 12:53:16 PM SUPERVISOR Supervising physician: Mendel Verma MD PATIENT: Name: MR. FLORIAN PORTILLO Age: 68 years Gender: M The supervising physician was in the department and immediately available. Final CC [employer] Image : [id number] See Link below for Image ECG [facility] Observed: 11:32 AM Status: F Source: [facility] Ventricular Rate : 76 BPM Atrial Rate : 76 BPM P-R Interval : 184 ms QRS Duration : 86 ms Q-T Interval : 384 ms QTC Calculation(Bazett) : 432 ms Calculated P Applegate : 54 degrees Calculated R Applegate : 3 degrees Calculated T Applegate : 7 degrees SINUS RHYTHM WITH PREMATURE ATRIAL COMPLEXES IN A PATTERN OF BIGEMINY NONSPECIFIC ST ABNORMALITY ABNORMAL ECG Confirmed by IRIS THOMAS MD ([id number]) on 04/06/2024 8:30:34 AM NAME : FLORIAN PORTILLO PID : [id number] : 1955 Gender : Male Race : ORD : [id number] Procedure Date : Feb 18 2024 11:32:02 Edit Date : Apr 06 2024 08:30:40 Diagnosis: SINUS RHYTHM WITH PREMATURE ATRIAL COMPLEXES IN A PATTERN OF BIGEMINY NONSPECIFIC ST ABNORMALITY ABNORMAL ECG Confirmed by IRIS THOMAS MD ([id number]) on 04/06/2024 8:30:34 AM Test Reason : pt gets dizzy when laying flat, slightly sitting up above 45degr Location : 314 : J14 01 Overread By : IRIS THOMAS MD Edited By : IRIS THOMAS MD Referred By : YADY HERRERA Acquired by : CASSIE UMANZOR Observed: 02/16/2024 12:00 AM Status: COMPLETED Source: [facility] Telephone (EyeEmWI) MEIFLORIAN Francis ([id number]) 1955 M Date Time Provider Department 02/16/24 JARVIS STACK During your visit today, we recorded the following information about you: Scarlet Spencer 02/16/2024 8:07 AM Addendum Patient would like lab requests per Dr. Stack sent to the [facility]. Thank you Pt called again looking for these blood work labs to be put in from Dr. Stack. Please call the patient when the orders are placed to save him another trip to the lab without the orders being there. Ph.[phone] Thanks, Remi Salgado 02/18/2024 2:20 PM Signed pt has came to Q-2 About Labs not being in the system. Sent message to Aristeo Santiago MA 02/20/2024 8:29 AM Signed Patient is seen in [facility] by Dr. Stack. Allergies As of Date: 02/16/2024 Noted Allergy Reaction GABAPENTIN 03/03/2019 1 - Mental Status Change Comments: Foggy, dizzyness RAGWEED 01/02/2018 5 - Intolerance Date Reviewed: 02/05/2024 Reviewed by: Joslyn Betancur OCCA - Fully Assessed Reason for Visit: Orders [681] Cmt: Patient is requesting labs to be sent to the [facility] so he can have them [...] needed after shaving - CPAP/BIPAP/OTHER New Autopap [id number] Floq ([phone]) Please start with nasal or nasal pillow [...] mass [J34.89] 01/31/2023 Encounter Status:Closed by ARISTEO GUDINO on 02/20/24 KEVINN Observed: 02/06/2024 12:00 AM Status: COMPLETED Source: [facility] Telephone (DDQ) FLORIAN PORTILLO ([id number]) 1955 M Date Time Provider Department 02/06/24 ANNIE CRUZ DDQ During your visit today, we recorded the following information about you: Brandan Sheets 02/06/2024 4:31 PM Signed Pt symptom free x 1 year. Recent cervical strain injury, Steroid or NSAID being prescribed/recommended by ortho (Dr. Griffin not [facility] [phone]) and pt wondering if he should avoid [...] JONNYJAIRO, COA Problem List As Of Date 02/06/2024 [...] Encounter Status:Closed by BRANDAN SHEETS on 04/20/24 KEVINN Observed: 02/06/2024 12:00 AM Status: COMPLETED Source: [facility] Telephone (EXEPMN) FLORIAN PORTILLO ([id number]) 1955 M Date Time Provider Department 02/06/24 YADY HERRERA [...] needed after shaving - CPAP/BIPAP/OTHER New Autopap [id number] Floq ([phone]) Please start with nasal or nasal pillow [...] Encounter Status:Closed by EDD BECKETT on 02/06/24 PROGRESS Observed: 02/05/2024 1:30 PM Status: COMPLETED Source: [facility] HNO ID: [id number] Author: JARVIS STACK MD Service: ? 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 (Patient not taking: Reported on 11/13/2023) ALLERGIES Allergen Reactions Gabapentin Mental Status Change Foggy, dizzyness Ragweed Intolerance Practitoner referral note: ZULEMA (obstructive sleep apnea) +2 more Dx Sleep Apnea; Referred by Self Reason for Visit Progress Notes Adore Ariza APRN.OPTICIAN (Nurse Practitioner) Neurology Expand All Collapse [facility] Virtual Visit Follow up/ Established patient visit Date of last visit : 10/31/2021 I have communicated my name and active licensure. The patient's identity and physical location were verified at the time of this visit. Either the patient or their legal client support representative has been informed of the risks [...] stenosis, OCD and anxiety who presents via [facility] for UARS and insomnia follow up. [...] the study. Order to be sent to [facility] PLAN: - Home Sleep Apnea Test (HST) to evaluate for obstructive sleep apnea. Order sent to [facility] - Discussed with the patient the [...] after your study for results. Julianna Álvarez APRN.OPTICIAN Interval history : Here for follow up for sleep apnea management. SLEEP APNEA Sleep apnea type : ZULEMA Most Recent Apnea-Hypopnea Index (AHI): RDI 15.6 (sleep efficiency 14 %) Treatment : PAP therapy DME: [employer] PAP History: Current PAP settin-15 cm H2O. [...] least 4 hours: 0 10/30/2019 10/29/2021 09/18/2023 [place] Sleepiness Scale Score 13 (Excessive daytime sleepiness [...] MEDICATIONS: CURRENT MEDICATIONS ketoconazole (NIZORAL) 2 % creamApply generous layer [...] after shavingDisp: 60 mLRfl: 3 CPAP/BIPAP/OTHERNew Autopap [id number] [facility] ITN ([phone]) Please start with nasal or nasal pillow mask .Disp: 1 EachRfl: 0 REVIEW OF SYSTEMS: GENERAL: no recent [...] in 4-6 months or sooner as needed. Adore Ariza APRN.KEVIN I spent a total of [...] touch with 10 3 or 4 Last [place] or sex: long time due to be [...] kg (179 lb 10.8 oz) BMI 25.06 kg/m? Body mass index is 25.06 kg/m?. GENERAL APPEARANCE: Normal, healthy, alert, no distress Walk normal gait One Leg standing: L:6 secs R: 15 sec Cerebellar: Prominent Lab Test results and signif abnormalities relating to this evaluation in my opinion are: pending he will send to me Assessment AND Plan: Impression: 1. Primary hypertension - ICD9: [...] progress 18. Email me with questions etc [phone] [email or web address] Jarvis Stack MD February 05, 2024 GLEN Observed: 02/05/2024 1:30 PM Status: COMPLETED Source: [facility] Office Visit (WELLMQ) ISMAELFLORIAN HOLDEN ([id number]) 1955 M Date Time Provider Department 02/05/24 1:30 PM JARVIS STACK WELLMQ During your visit today, we recorded the following information about you: Pulse Blood pressure Weight Height 99/minute 152/73 81.5 kg 1.803 m Jarvis Stack MD 02/05/2024 2:47 PM Signed Pt seen, and assessments reviewed I spent a total of 75 minutes on the date of the service which included 10 min of chart review Pt got here by driving Florian Mccartylucio 68 year old male has relatively recent [...] daughters and 1 son (44 first marriage [place], 34 [place] ,30 ,23 [facility] 2nd ) children who live in ; 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 (Patient not taking: Reported on 11/13/2023) ALLERGIES Allergen Reactions Gabapentin Mental Status Change Foggy, dizzyness Ragweed Intolerance Practitoner referral note: ZULEMA (obstructive sleep apnea) +2 more Dx Sleep Apnea; Referred by Self Reason for Visit Progress Notes Adore Ariza APRN.OPTICIAN (Nurse Practitioner) Neurology Expand All Collapse [facility] Virtual Visit Follow up/ Established patient visit Date of last visit : 10/31/2021 I have communicated my name and active licensure. The patient's identity and physical location were verified at the time of this visit. Either the patient or their legal client support representative has been informed of the risks [...] stenosis, OCD and anxiety who presents via [facility] for UARS and insomnia follow up. [...] the study. Order to be sent to [facility] PLAN: - Home Sleep Apnea Test (HST) to evaluate for obstructive sleep apnea. Order sent to [facility] - Discussed with the patient the [...] after your study for results. Julianna Álvarez APRN.OPTICIAN Interval history : Here for follow up for sleep apnea management. SLEEP APNEA Sleep apnea type : ZULEMA Most Recent Apnea-Hypopnea Index (AHI): RDI 15.6 (sleep efficiency 14 %) Treatment : PAP therapy DME: [employer] PAP History: Current PAP settin-15 cm H2O. [...] least 4 hours: 0 10/30/2019 10/29/2021 09/18/2023 [place] Sleepiness Scale Score 13 (Excessive daytime sleepiness [...] MEDICATIONS: CURRENT MEDICATIONS ketoconazole (NIZORAL) 2 % creamApply generous layer [...] after shavingDisp: 60 mLRfl: 3 CPAP/BIPAP/OTHERNew Autopap 5-09soO5U [facility] ITN ([phone]) Please start with nasal or nasal pillow mask .Disp: 1 EachRfl: 0 REVIEW OF SYSTEMS: GENERAL: no recent [...] in 4-6 months or sooner as needed. Adore Ariza APRN.KEVIN I spent a total of [...] touch with 10 3 or 4 Last [place] or sex: long time due to be [...] kg (179 lb 10.8 oz) BMI 25.06 kg/m? Body mass index is 25.06 kg/m?. GENERAL APPEARANCE: Normal, healthy, alert, no distress Walk normal gait One Leg standing: L:6 secs R: 15 sec Cerebellar: Prominent Lab Test results and signif abnormalities relating to this evaluation in my opinion are: pending he will send to me Assessment AND Plan: Impression: 1. Primary hypertension - ICD9: [...] progress 18. Email me with questions etc [phone] [email or web address] Jarvis Stack MD February 05, 2024 Jarvis Stack MD 02/05/2024 2:42 PM Signed 02 05 24 Plan: 1. Get an [...] progress 18. Email me with questions etc [phone] [email or web address] Jarvis Stack MD February 05, 2024 Referring Provider: SELF [[id number]] Allergies As of Date: 02/05/2024 Noted Allergy Reaction GABAPENTIN 03/03/2019 1 - Mental Status Change Comments: Foggy, dizzyness RAGWEED 01/02/2018 5 - Intolerance Date Reviewed: 02/05/2024 Reviewed by: Joslyn Betancur OCCA - Fully Assessed Reason for Visit: New Patient [172] Cmt: Wellness/lifestyle advise. Primary Visit Diagnosis:Primary hypertension [I10] Other Visit Diagnoses:Chronic insomnia [F51.04] Environmental and seasonal allergies [J30.89] Mixed hyperlipidemia [E78.2] Elevated PSA [R97.20] Varicose veins of both lower extremities with pain [I83.813] Abnormal stress test [R94.39] Sensorineural hearing loss (SNHL) of both ears [H90.3] Foraminal stenosis of lumbar region [M48.061] History of basal cell carcinoma [Z85.828] Gastroesophageal reflux disease with esophagitis without hemorrhage [K21.00] Subjective tinnitus of both ears [H93.13] Prescriptions as of 02/05/2024 - ketoconazole (NIZORAL) 2 % shampoo Use [...] needed after shaving - CPAP/BIPAP/OTHER New Autopap [id number] Floq ([phone]) Please start with nasal or nasal pillow mask . Meds Comments as of 05/26/2018: 05/26/18 The medications are managed by this patient by: PATIENT LUANN CLINTON, JAYDON Problem List As Of Date 02/05/2024 Noted Resolved Subjective tinnitus [H93.19] 09/16/2016 Psychophysiologic [...] carcinoma [Z85.828] 09/06/2020 Nasal mass [J34.89] 01/31/2023 Other instructions from your clinician: 11 Plan: 1. Get an inspiratory training device [...] progress 18. Email me with questions etc [phone] Jarvis Stack MD February 05, 2024 Disposition: Return in about 13 weeks (around 05/06/2024). Follow-up and Disposition History for Encounter Date Provider Department Center 02/05/2024 [id number] STACK WELLMQ [facility] Q Bldg Encounter Status:Closed by JARVIS STACK on 02/05/24 PROGRESS Observed: 01/20/2024 8:40 AM Status: COMPLETED Source: [facility] ID: [id number] Author: SHAHZAD PEREZ MD Service: ? Author [...] Past Histories independently gathered by the clinical biomedical equipment support specialist and the remaining scribed note accurately describes my personal service to the patient. Shahzad Perez MD January 20, 2024 CNOV Observed: 01/20/2024 8:40 AM Status: COMPLETED Source: [facility] Office Visit (DERBMN) FLORIAN PORTILLO ([id number]) 1955 M Date Time Provider Department 01/20/24 [...] Past Histories independently gathered by the clinical biomedical equipment support specialist and the remaining scribed note accurately describes [...] needed after shaving - CPAP/BIPAP/OTHER New Autopap [id number] Floq ([phone]) Please start with nasal or nasal pillow mask . Meds Comments as of 05/26/2018: 05/26/18 The medications are managed by this patient by: PATIENT LUANN MARY BETH, COA Problem List As Of Date 01/20/2024 Noted [...] ordered this encounter Disp Refills Start End KETOCONAZOLE 2 % SHAMPOO 120 * 3 01/20/2024 Sig: Use as directed on affected areas of scalp and face 2-3x/week. KETOCONAZOLE 2 % TOPICAL CREAM 30 g 3 01/20/2024 01/18/2025 Sig: Apply generous layer to clean, dry skin 1-2 times daily. Medications Discontinued During This Encounter Prescriptions - ketoconazole (NIZORAL) 2 % cream (Discontinued) Apply generous layer to clean, dry skin 1-2 times daily. Encounter Status:Closed by SHAHZAD PEREZ on 02/01/24 GLEN Observed: 11/13/2023 9:30 AM Status: COMPLETED Source: [facility] Office Visit (OTOLMN) FLORIAN PORTILLO ([id number]) 1955 M Date Time Provider Department 11/13/23 9:30 AM MARJAN GAR OTOLMN During your visit today, we recorded the following information about you: Marjan Gar MD 11/13/2023 12:30 PM Signed New Otology Patient Visit [facility] 11/13/2023 Referral Consultation requested [...] when needed after shaving CPAP/BIPAP/OTHER New Autopap [id number]
DME ITN ([phone])
Please start with nasal or nasal pillow [...] Trachea midline. Audiometric Testing Imaging N/A Assessment AND Plans ASSESSMENT/PLAN: 1. Pulsatile tinnitus, left ear [...] Booth, am working as a Virtual medical dosimetrist, attest that this documentation has been prepared under the direction and in the presence of Marjan Gar MD. Electronically Signed: Catherine Booth Virtual Compliance Intern.11/13/2023 Marjan Gar MD Otology/Neurotology/Lateral Skull-Base Surgery Head [facility] Ne[facility] I spent a total of 42 minutes on the date of the service which included preparing to see the patient, [id number] patient care, completing clinical documentation, obtaining and/or reviewing separately obtained history, performing a medically appropriate examination, counseling and educating the patient/family/caregiver, ordering medications, tests, or procedures and independently interpreting results (not separately reported). The documentation for this encounter was entered by Catherine Booth, my medical device, accurately and completely reflects the service(s) I personally performed and the decisions made by me Marjan Gar MD, 11/13/2023 12:30 PM Clementina Cam OCCA 11/13/2023 9:36 AM Signed Tobacco Use: 1 packs/day, for 1.5 years. Quit 07/02/1975. Types: Cigarettes Was smoking cessation packet given? N/A - Patient is a non-smoker or quit >1 year ago. Was a referral initiated?N/A Patient is a non-smoker Referring Provider: SELF [200] Allergies As of Date: 11/13/2023 Noted Allergy Reaction GABAPENTIN 03/03/2019 1 - Mental Status Change Comments: Foggy, dizzyness RAGWEED 01/02/2018 5 - Intolerance Date Reviewed: 11/13/2023 Reviewed by: Marjan Gar MD - Fully Assessed Reason for Visit: New Patient [172] Cmt: Hearing loss.fullness.ear pain Primary Visit Diagnosis:Pulsatile tinnitus, left ear [H93.A2] Other Visit Diagnoses:Hyperacusis, unspecified laterality [H93.239] Tinnitus of right ear [H93.11] Asymmetrical sensorineural hearing loss [H90.3] Sensorineural hearing loss (SNHL) of right ear with restricted hearing of left ear [H90.A21] Order(s):MRI BRAIN WO/W IVCON [[id number]] Order #: [id number] FUTURE iv contrast (will be provided with radiology test)MRI Brain Inject, intravenously, once for 1 dose.No IV access, insert saline lock prior to beginning of sedation, infusion, injection of imaging exam.Discontinue saline lock post exam. If Pt. has a central line or IVAD, may access for administration according to line specific nursing protocol.Once exam is complete flush line and de-access according to line specific nursing protocol in the MR contrast administration guidelines linkDisp: 1 EachRfl: 0 CT TEMP BONES WO IVCON [[id number]] Order #: [id number] FUTURE MRA BRAIN WO IVCON [[id number]] Order #: [id number] FUTURE Prescriptions as of 11/13/2023 - iv contrast (will be provided with [...] the MR contrast administration guidelines link - ketoconazole (NIZORAL) 2 % cream Apply generous layer to clean, dry skin 1-2 times daily. - fluticasone (FLONASE ALLERGY RELIEF) 50 mcg/actuation nasal spray Use 2 Sprays in each nostril once daily. - clindamycin (CLEOCIN) 1 % external solution Apply to affected areas on neck when needed after shaving - CPAP/BIPAP/OTHER New Autopap [id number] Floq ([phone]) Please start with nasal or nasal pillow mask . 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 Quit 07/02/1975. Types: Cigarettes Was smoking cessation packet given? N/A - Patient is a non-smoker or quit >1 year ago. Was a referral initiated?N/A Patient is a non-smoker Prescriptions ordered this encounter Disp Refills Start End IV CONTRAST (RADIOLOGY PROCEDURE) 1 Ea* 0 11/13/2023 Class: In Office Sig: MRI Brain Inject, intravenously, once for 1 [...] in the MR contrast administration guidelines link Encounter Status:Closed by MARJAN GAR on 11/13/23 PROGRESS Observed: 11/13/2023 9:30 AM Status: COMPLETED Source: [facility] HNO ID: [id number] Author: MARJAN GAR MD Service: ? Author Type: Physician Type: Progress Notes Filed: 11/13/2023 12:30 Note Text: New Otology Patient Visit [facility] 11/13/2023 Referral Consultation requested [...] when needed after shaving CPAP/BIPAP/OTHER New Autopap [id number]
DME ITN ([phone])
Please start with nasal or nasal pillow [...] Trachea midline. Audiometric Testing Imaging N/A Assessment AND Plans ASSESSMENT/PLAN: 1. Pulsatile tinnitus, left ear [...] Booth, am working as a Virtual medical dosimetrist, attest that this documentation has been prepared under the direction and in the presence of Marjan Gar MD. Electronically Signed: Catherine Booth Virtual Compliance Intern.11/13/2023 Marjan Gar MD Otology/Neurotology/Lateral Skull-Base Surgery Head [facility] Ne[facility] I spent a total of 42 minutes on the date of the service which included preparing to see the patient, [id number] patient care, completing clinical documentation, obtaining and/or reviewing separately obtained history, performing a medically appropriate examination, counseling and educating the patient/family/caregiver, ordering medications, tests, or procedures and independently interpreting results (not separately reported). The documentation for this encounter was entered by Catherine Booth, my medical device, accurately and completely reflects the service(s) I personally performed and the decisions made by me Marjan Gar MD, 11/13/2023 12:30 PM CNPN Observed: 11/10/2023 12:00 AM Status: COMPLETED Source: [facility] Telephone (OTOLMN) FLORIAN PORTILLO ([id number]) 1955 M Date Time Provider Department 11/10/23 ALANA CONRAD OTOLOH During your visit today, we recorded the [...] - Intolerance Date Reviewed: 09/19/2023 Reviewed by: Adore Ariza APRN.OPTICIAN - Fully Assessed Prescriptions as of 11/10/2023 - ketoconazole (NIZORAL) 2 % cream Apply generous layer to clean, dry skin 1-2 times daily. - fluticasone (FLONASE ALLERGY RELIEF) 50 mcg/actuation nasal spray Use 2 Sprays in each nostril once daily. - clindamycin (CLEOCIN) 1 % external solution Apply to affected areas on neck when needed after shaving - CPAP/BIPAP/OTHER New Autopap [id number] [facility] ITN ([phone]) Please start with nasal or nasal pillow mask . Facility-Administered Medications as of 11/10/2023 - lidocaine (PF) 10 mg/mL (1 %) 1-2 mg injection (XYLOCAINE) - lactated ringers iv infusion Meds Comments as of 05/26/2018: 05/26/18 The medications are managed by this patient by: PATIENT LUANN CLINTON, COA Problem List As Of Date 11/10/2023 [...] Encounter Status:Closed by ALANA CONRAD on 11/10/23 KEVINN Observed: 10/28/2023 12:00 AM Status: COMPLETED Source: [facility] Telephone (HNQ) FLORIAN PORTILLO ([id number]) 1955 M Date Time Provider Department 10/28/23 MARJAN GAR HNQ During your visit today, we recorded the following information about you: Raisa Jacques 10/28/2023 2:10 PM Signed Spoke with pt and clarified that he needs to be seen for tinnitus, pt had an audiogram done locally and elected to cancel all his audiograms he had scheduled at [facility]. Pt was given email address to email audiogram results, pt understood. Allergies As of Date: 10/28/2023 Noted Allergy Reaction GABAPENTIN 03/03/2019 1 - Mental Status Change Comments: Foggy, dizzyness RAGWEED 01/02/2018 5 - Intolerance Date Reviewed: 09/19/2023 Reviewed by: Adore Ariza APRN.OPTICIAN - Fully Assessed Reason for Visit: Appointment [...] needed after shaving - CPAP/BIPAP/OTHER New Autopap [id number] [facility] ITN ([phone]) Please start with nasal or nasal pillow mask . Facility-Administered Medications as of 10/28/2023 - lidocaine (PF) 10 mg/mL (1 %) 1-2 mg injection (XYLOCAINE) - lactated ringers iv infusion Meds Comments as of 05/26/2018: 05/26/18 The medications are managed by this patient by: PATIENT LUANN CLINTON, COA Problem List As Of Date 10/28/2023 Noted [...] Encounter Status:Closed by RAISA JACQUES on 10/28/23 ALLERGIES DATE TYPE / CODE NAME / CODE REACTION SEVERITY SOURCE 03/03/2019 DRUG INGREDI/[id number]( SNOMED CT) GABAPENTIN Mental Chg [facility] 01/02/2018 Drug Class/566884368(SN OMED CT) RAGWEED INTOLERANCE [facility] ENCOUNTERS ADMIT/DISCHARGE ACCOUNT NUMBER ADMITTING ENCOUNTER CLASS LOCATION SOURCE 10/18/2024/10/19/19 [id number] Ambulatory [id number] ding:[facility] 07/21/2024/07/22/19 [id number] [facility]BED[facility] 04/15/2024/04/15/19 [id number] [facility] 03/25/2024 [id number] [facility] 03/03/2024/03/03/20 24 [id number] Ambulatory [facility]GASTPE [facility] 02/27/2024/02/27/20 24 [id number] [facility] 02/27/2024/02/27/20 24 [id number] [facility] 02/18/2024/02/18/20 24 [id number] Ambulatory [facility]CAFL [facility] 02/18/2024/02/18/20 24 [id number] Ambulatory [facility]EKGF [facility] 02/05/2024/02/05/20 24 [id number] Ambulatory [facility]WELLMQ [facility] 01/20/2024/01/20/20 24 [id number] [facility] 11/13/2023/11/13/19 24 [id number] Ambulatory [facility]OTOL [facility] PAYERS ENCOUNTER GUARANTOR PAYER SUBSCRIBER SOURCE 10/18/2024 Primary Insurance:MEDICARE A AND BPolicy Number: [id number] Date:0752-94-55Wdeo Name:Jim HURLEYCORRIEB: [id number] [address] [place] [address] [facility] 10/18/2024 Secondary Insura nce:MMO MEDICARE SUPPLEMENTPolicy Number: [id number] Date:7054-60-39Pcgz Name:Alicia DU SALOMEB: [id number] [address] [place] [phone] [place] [address] 07/21/2024 Primary Insurance:MEDICARE A AND BPolicy Number: [id number] Date:0064-33-75Rhii Name:Jim DU SALOMEB: [id number] [address] [place] [phone] [place] [address] 07/21/2024 Secondary Insura nce:MMO MEDICARE SUPPLEMENTPolicy Number: [id number] Date:4216-67-49Qreu Name:Alicia DU SALOMEB: [id number] [address] [place] [address] [facility] 04/15/2024 Primary Insurance:MEDICARE A AND BPolicy Number: [id number] Date:7560-49-51Cdjx Name:Jim DU SALOMEB: [id number] [address] [place] [address] [facility] 04/15/2024 Secondary Insura nce:MMO MEDICARE SUPPLEMENTPolicy Number: [id number] Date:0521-32-55Chtv Name:Alicia DU SALOMEB: [id number] [address] [place] [address] [facility] 03/25/2024 FLORIAN Caban SALOMEB: [id number] [facility] [address] [place] [address]34Squ: ~(50 9 (HP) Primary Insurance:MEDICARE A AND BPolicy Number: [id number] Date:2153-55-63Btzo Name:CARE FLORIAN MCMAHONB: [id number] [facility] [facility] [address] [place] [address] 88881Vlb: (HP) [facility] 03/25/2024 Secondary Insurance:MEDICARE MMOPolicy Number: [id number] Date:7053-32-87Yzwq Name:MANAGED CARE FLORIAN MCMAHONB: [id number] [facility] [address] [place] [address] 50491Vko: (HP) [facility] 03/03/2024 Primary Insurance:MEDICARE A AND BPolicy Number: [id number] Date:3857-03-95Ijqk Name:Jim MCMAHONB: [id number] [address] [place] [phone] [place] [address] 03/03/2024 Secondary Insura nce:MMO MEDICARE SUPPLEMENTPolicy Number: [id number] Date:4066-53-24Ccaj Name:Alicia MCMAHONB: [id number] [address] [place] [phone] [place] [address] 02/27/2024 Primary Insurance:MEDICARE A AND BPolicy Number: [id number] Date:5722-76-98Ckll Name:Jim MCMAHONB: [id number] [place] [phone] [place] [address] 02/27/2024 Secondary Insura nce:MMO MEDICARE SUPPLEMENTPolicy Number: [id number] Date:8109-04-83Sphi Name:Alicia MCMAHONB: [id number] [address] [place] [phone] [place] [address] 02/27/2024 Primary Insurance:MEDICARE A AND BPolicy Number: [id number] Date:4106-30-22Zhst Name:Jim MCMAHONB: [id number] [address] [place] [phone] [place] [address] 02/27/2024 Secondary Insura nce:MMO MEDICARE SUPPLEMENTPolicy Number: [id number] Date:8368-26-06Dqnh Name:Alicia MCMAHONB: [id number] [address] [place] [phone] [place] [address] 02/18/2024 Primary Insurance:MEDICARE A AND BPolicy Number: [id number] Date:7390-55-75Bdhs Name:Jim MCMAHONB: [id number] [address] [place] [phone] [place] [address] 02/18/2024 Secondary Insura nce:MMO MEDICARE SUPPLEMENTPolicy Number: [id number] Date:5417-74-37Xmis Name:Alicia MCMAHONB: [id number] [address] [place] [phone] [place] [address] 02/18/2024 Primary Insurance:MEDICARE A AND BPolicy Number: [id number] Date:3909-57-69Cebg Name:Jim MCMAHONB: [id number] [address] [place] [phone] [place] [address] 02/18/2024 Secondary Insura nce:MMO MEDICARE SUPPLEMENTPolicy Number: [id number] Date:6915-07-57Roab Name:Alicia MCMAHONB: [id number] [address] [place] [phone] [place] [address] 02/05/2024 Primary Insurance:MEDICARE A AND BPolicy Number: [id number] Date:7271-15-91Qqfs Name:Jim MCMAHONB: [id number] [address] [place] [phone] [place] [address] 02/05/2024 Secondary Insura nce:MMO MEDICARE SUPPLEMENTPolicy Number: [id number] Date:2124-54-70Rqmv Name:Alicia MCMAHONB: [id number] [place] [address] [facility] 01/20/2024 Primary Insurance:MEDICARE A AND BPolicy Number: [id number] Date:7669-69-50Xgdj Name:Jim MCMAHONB: [id number] [address] [place] [phone] [place] [address] 01/20/2024 Secondary Insura nce:MMO MEDICARE SUPPLEMENTPolicy Number: [id number] Date:7178-32-18Zmgv Name:Alicia MCMAHONB: [id number] [address] [place] [phone] [place] [address] 11/13/2023 Primary Insurance:MEDICARE A AND BPolicy Number: [id number] Date:9059-84-37Bbne Name:Jim MCMAHONB: [id number] [place] [phone] [place] [address] 11/13/2023 Secondary Insura nce:MMO MEDICARE SUPPLEMENTPolicy Number: [id number] Date:2234-85-30Pppo Name:Alicia PORTILLOB: [id number] [place] [address] [facility]
== END 2024-10-26 11:36 | disposition home or self-care (01) ==
PROVIDERS: Emergency Provider Emergency Medicine; Visit Provider Emergency Medicine
DX: M54.40 Lumbago with sciatica, unspecified side (principal); R03.0 Elevated blood-pressure reading, without diagnosis of hypertension
CPT/HCPCS: 85025; 99282

== ENCOUNTER 2024-10-27 09:59 | Observation (INO) | payer MEDICARE, OTHER, SELFPAY ==
[2024-10-27 10:01] VITALS: BP 134/79; PULSE 75; RESP 16; TEMP 36.5; O2SAT 95
[2024-10-27 10:03] VITALS: BMI 25.3
--- NOTE | 2024-10-27 10:15 | ED.VIS.FALL ---
HPI HPI - Fall History of Present Illness Chief Complaint: Fall Informant: patient Occured/Mechanism Occurred: Yesterday Mechanism/Context: Yes same level fall Pain/Injury Location: Left lower lumbar paraspinal area and sacroiliac area Quality of Pain: Sharp and Aching Worsened by: Movement, ambulation Relieved by: Nothing Associated Symptoms Associated Symptoms: Positive for Parasthesias; Negative for Weakness, Loss of function, Inability to ambulate, Loss of consciousness or Amnesia Narrative Narrative: Patient presents after a fall that occurred last night. Patient states he got up in the [place] to go to the bathroom. Patient states he has been having sciatica pain for the past few days. Patient states that when he tried to get out of bed, his sciatica pain became worse. Patient states he fell at that time. Patient states he just lost his balance due to the pain. Patient states his pain is mainly in his lower back and radiates down his left leg. Patient describes it as sharp and aching. Patient admits to some tingling into his toes which is chronic. Patient denies any bowel or bladder changes. Patient denies any saddle anesthesia. Patient was seen here yesterday for his sciatica pain. Patient was able to ambulate here in the emergency department yesterday without difficulty. Patient wanted to go home yesterday because his he was scheduled to go on a plane trip today to [place] but had to cancel that. 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 Patient states he found out today that his lidocaine patch was approved by his insurance. Patient is now concerned about going because he lives by himself. [facility] Medical History Back pain Gastric ulcer Home Medications ?Medication ?Instructions ?Recorded ?Last Taken ?Type pantoprazole 40 mg tablet,delayed 40 mg PO DAILY #30 tabs 02/28/23 Unknown Rx release sucralfate 1 gram tablet (Carafate) 1 g PO TID 1 week #21 tabs 02/28/23 Unknown Rx cyclobenzaprine 5 mg tablet 5 mg PO QHS PRN muscle spasm #14 10/25/24 Unknown Rx tabs ibuprofen 200 mg capsule (Motrin 400 mg (2 x 200 mg) PO Q6H PRN 10/25/24 Unknown Rx IB) pain #30 caps lidocaine 5 % topical patch 1 patch topical DAILY #15 ea 10/25/24 Unknown Rx (Lidoderm) cyclosporine 0.1 % eye drops 1 drp ophthalmic (eye) 10/27/24 Unknown History (Vevye) tamsulosin 0.4 mg capsule PO 10/27/24 Unknown History Allergy/AdvReac Type Severity Reaction Status Date / Time No Known Allergies Allergy Verified 10/27/24 10:03 Social History household members: spouse current occupational status: retired Smoking Status: Never smoker alcohol intake: never ROS ROS ED Constitutional Constitutional ED: Denies chills or fever(s) Eyes Eyes: Denies blurry vision or change in vision ENT ENT ED: Denies rhinorrhea or sore throat Cardiovascular Cardiovascular: Denies chest pain or palpitations Respiratory/Chest Respiratory/Chest: Denies cough or dyspnea Gastrointestinal Gastrointestinal: Denies nausea or vomiting Genitourinary Genitourinary ED: Denies dysuria or hematuria Musculoskeletal Musculoskeletal: Reports back pain; Denies neck pain Integumentary Denies abscess or rash Neurologic Neurologic: Reports paresthesias; Denies headache(s) or weakness Allergic/Immunologic Allergic/Immunologic ED: Denies mouth swelling or urticaria EXAM Physical Exam Const Vital Signs: 10/27/24 10:01 10/27/24 10:16 Temperature 97.7 F L Temperature Source Oral Pulse Rate 75 Respiratory Rate 16 Respiratory Effort Normal Respiratory Depth Normal Respiratory Pattern Normal Blood Pressure 134/79 H Blood Pressure Mean 97 Pulse Ox 95 Oxygen Delivery Method Room Air Room Air Positive well nourished and well developed Constitutional Narrative: BMI is 25.3. General Appearance ED: well developed and NAD HEENT Reports normocephalic atraumatic Neck full ROM and supple Resp normal respiratory effort and clear to auscultation bilaterally Cardio regular rate and regular rhythm GI non-tender and non-distended Palpation: soft Back/Spine Back/Spine Narrative: There is tenderness and spasm of the left lumbar paraspinal muscles. There is tenderness over the sciatic notch. There is mild midline tenderness. There is no bony crepitance or step-off. Range of motion was limited in all motions of the lumbar spine secondary to pain. Straight leg raises were negative bilaterally. Deep tendon reflexes are 2+ or 4 bilaterally. Strength is 5/5 bilaterally in the lower extremities. Sensation was intact to light touch bilaterally in the lower extremities. Lumbar Spine / Lower Back: paraspinal muscle tenderness and straight leg raise negative bilaterally Neuro oriented x3, CN's II-XII intact bilaterally, moves all extremities, no focal motor deficits and no sensory deficits noted Jose Coma Scale: document GCS findings Spontaneous Obeys Commands Oriented 15 Sensorium / Orientation: alert Motor Exam: strength 5/5 throughout Psych mental status grossly normal MDM MDM MDM Narrative Medical decision making narrative: Differential diagnosis includes sciatica, lumbosacral strain, spondylolisthesis, degenerative disc disease, dehydration, electrolyte abnormality, viral illness, and anxiety. CBC will be obtained to assess for leukocytosis and anemia. Basic metabolic profile will be obtained to assess for electrolyte abnormality and renal function. Urinalysis will be obtained to assess for urinary tract infection and hematuria. CT scan of the lumbar spine will be obtained to assess for spondylolisthesis, occult fracture, and arthritis. History & Record Review Additional record(s) reviewed:: Prior ED visit and Prior labs Lab Data Attestation: I reviewed the patient's lab results. Lab results narrative: CBC was reviewed and was within normal limits. Basic metabolic profile was reviewed and was within normal limits. Urinalysis was reviewed. There is no evidence of urinary tract infection or hematuria. Labs: Laboratory Results - last 24 hr 10/27/24 10/27/24 10:48 11:26 WBC 9.1 RBC 5.36 Hgb 17.3 H Hct 50.5 MCV 94.2 H MCH 32.3 H MCHC 34.3 RDW Std Deviation 46.1 H RDW Coeff of Leda 13.3 Plt Count 191 MPV 11.8 Immature Gran % (Auto) 0.300 Neut % (Auto) 69.6 Lymph % (Auto) 18.0 L Greene % (Auto) 9.1 Eos % (Auto) 2.2 Baso % (Auto) 0.8 Absolute Neuts (auto) 6.3 Absolute Lymphs (auto) 1.64 Nucleated RBC % 0 Sodium 138 Potassium 4.5 Chloride 101 Carbon Dioxide 23.8 Anion Gap 13 BUN 26 H Creatinine 0.80 Estim Creat Clear Calc 90.20 Est GFR (MDRD) Non-Af 95 BUN/Creatinine Ratio 32.8 H Glucose 106 H Calcium 10.0 Urine Color Yellow Urine Clarity Clear Urine pH 7.0 Ur Specific [place] 1.015 Urine Protein 30 H Urine Glucose (UA) Normal Urine Ketones Negative Urine Occult Blood Negative Urine Nitrite Negative Urine Bilirubin Negative Urine Urobilinogen Normal Ur Leukocyte Esterase Negative Urine RBC 0 SEEN Urine WBC 0 SEEN Ur Squamous Epith Cells 0 SEEN Urine Bacteria 0 SEEN Urine Mucus 0 SEEN Radiography Diagnostic Testing: Clinical Impression(s) from Imaging Studies Lumbar Spine CT 10/27/24 10:39 IMPRESSION: Grade 1 anterolisthesis L4 on L5. No pars defects. Mild degenerative changes as above. Incidental findings: Sliding hiatus hernia. Tiny calculi in the gallbladder. Reading Location: [facility] CT scan of the lumbar spine was obtained. There is a grade 1 anterolisthesis of L4 on L5. There are degenerative changes noted. There is no acute fracture noted. This was interpreted by the radiologist and was also independently reviewed by myself. Treatment and Re-Evaluation Narrative: Patient was given morphine and Zofran. Patient was advised of his findings. Patient states she felt uncomfortable going with a walker. Patient is agreeable to admission for observation. Case was discussed with the hospitalist. She will admit the patient for observation. Patient understood and was agreeable with the plan. All questions were answered. Discharge Plan Triage Chief Complaint: Fall Other Complaint: Lower Extremity Injury ED Provider: Meir Ng Dx/Rx/DC Orders Clinical Impression: Intractable low back pain, Sciatica of left side, Elevated blood pressure reading Prescriptions: No Action pantoprazole 40 mg tablet,delayed release (DR/EC) 40 mg PO DAILY Qty: 30 1RF sucralfate [Carafate] 1 gram tablet 1 g PO TID 7 Days Qty: 21 0RF ibuprofen [Motrin IB] 200 mg capsule 400 mg PO Q6H PRN (Reason: pain) Qty: 30 0RF cyclobenzaprine 5 mg tablet 5 mg PO QHS PRN (Reason: muscle spasm) Qty: 14 0RF lidocaine [Lidoderm] 5 % adhesive patch,medicated 1 patch topical DAILY Qty: 15 0RF Rx Instructions: leave on most painful area for up to 12 hrs tamsulosin 0.4 mg capsule PO Vevye 0.1 % drops 1 drp ophthalmic (eye) Primary Care Provider: Care Physician,No Primary Referrals: Care Physician,No Primary [Primary Care Provider] - Print Language: Mexican Disposition Disposition: Acute Care Hospital [facility]
--- NOTE | 2024-10-27 10:39 | CT_ITS ---
PROCEDURE: SPINE LUMBAR WITHOUT CONTRAST 10/27/2024 REASON FOR EXAM: SCIATICA Sciatica for 3 years. Left flank pain status post fall TECHNIQUE: SPINE LUMBAR WITHOUT CONTRAST Coronal and Sagittal reconstruction series were provided. One or more dose reduction techniques were used (e.g., Automated exposure control, adjustment of the mA and/or kV according to patient size, use of iterative reconstruction technique COMPARISON: March 05, 2023 RADIATION DOSE SUMMARY: CTDlvol: 14 mGy DLP: 512 mGycm FINDINGS: Vertebrae: No fracture seen. Alignment: Grade 1 anterolisthesis L4 on L5 of approximately 6.1 mm. No pars defects. Normal lordosis. L1-2: Unremarkable L2-3: Unremarkable L3-4: Minimal facet hypertrophy. L4-5: Severe bilateral facet hypertrophy. Grade 1 anterolisthesis L4 on L5. Mild loss of disc height. L5-S1: Mild loss of disc height. Severe right facet hypertrophy. Mild left facet hypertrophy. Sacrum: No acute abnormality Incidental: Small sliding hiatus hernia. Mild aortic atherosclerosis without aneurysm. Possibly tiny stones in the dependent portion of the gallbladder. CT/Spine Lumbar without Contrast IMPRESSION: Grade 1 anterolisthesis L4 on L5. No pars defects. Mild degenerative changes as above. Incidental findings: Sliding hiatus hernia. Tiny calculi in the gallbladder. Reading Location: [id number]
[2024-10-27 11:00] LABS: Hematocrit 50.5 % (40-54); Hemoglobin 17.3 g/dL (13.0-16.5); Immature Granulocytes Count 0.030 X10^3/uL (0.0-0.0); Mean Corp Hgb Conc 34.3 g/dL (32-36); Mean Corpuscular Volume 94.2 fL (80-94); Mean Platelet Vol. 11.8 fl (6.2-12.0); NRBC Flagged by Analyzer 0 % (0-5); Platelet Count 191 K/mm3 (150-450); RBC Distribution Width CV 13.3 % (11.6-14.6); RBC Distribution Width SD 46.1 fl (35.1-43.9); Red Blood Count 5.36 M/mm3 (4.6-6.2); White Blood Count 9.1 K/mm3 (4.4-11.0)
--- NOTE | 2024-10-27 11:20 | CM.ED ---
Social Work Reason for visit: No PCP Patient verified that he does not currently have a PCP, that he has a message out to a physician at [facility] but has not heard back. [facility] provider list given to patient. No further needs identified at this time. Erin Paz, MOLD BREAKER, CANCELING AND CUTTING CONTROL CLERK
[2024-10-27 11:24] LABS: Anion Gap 13 (5-15); BUN 26 mg/dL (4-19); BUN/Creat Ratio 32.8 RATIO (10-20); Calcium,Total 10.0 mg/dL (7.6-11.0); Carbon Dioxide 23.8 mmol/L (21.0-32.0); Chloride 101 mmol/L (98-108); Estimated Creatinine Clearance 90.20 ml/min (50-250); Glucose 106 mg/dL (70-99); Potassium 4.5 mmol/L (3.3-5.1)
[2024-10-27 11:31] LABS: Mucous, Urine 0 SEEN /hpf (<or=2+); Red Blood Cells-Urine 0 SEEN /hpf (0-5); Squamous Epithelial Cells - UA 0 SEEN /hpf (0-5)
[2024-10-27 11:33] LABS: Color, Urine Yellow (Yellow); Glucose, Dipstick Normal (Normal); Ketone-Dipstick Negative (Negative); Leukocyte Esterase-Dipstick Negative /ul (Negative); Nitrite-Dipstick Negative (Negative); Occult Blood-Urine Negative /ul (Negative); Protein-Dipstick 30 mg/dl (Negative); Specific Gravity, Urine 1.015 (1.002-1.030); Urine Bilirubin Dipstick Negative (Negative)
[2024-10-27 12:00] VITALS: BP 125/80; PULSE 64; RESP 18; O2SAT 97
--- NOTE | 2024-10-27 12:09 | HP.PCM.HOS_ITS ---
HPI - General General Date of Admission: 10/27/24 Date of Service: 10/27/24 Chief Complaint: mechanical fall HPI Narrative FLORIAN STRONG, is a 69 M with a PMH as outlined who presents via the ED on 10/27/2024 with a complaint of mechanical fall. He has been having sciatica pain for the past few days and was seen in the ER over the last couple of days.The pain was mainly in his lower back, radiating down his left leg. As stated he was seen in the ED for this pain the day before this admission. HE went home and said he fell the night before admission after he got up to go to the bathroom. He denied any parasthesias, numbness, or any bladder or bowel changes. He states he has prescriptions for his muscle relaxant and lidocaine patch at the pharmacy but has not been able to pick these up on account of insurance reasons. Patient said he had a trip to [facility] today but had to cancel it because of the pain. Review of systems otherwise negative. Vitals in the ED were temperature of 97.7 Fahrenheit, blood pressure 134/79, respiratory rate of 16 and pulse rate of 75. He was saturating at 95% on room air. CBC showed hemoglobin of 17.3 with WBC of 9.1 and platelets of 191. Chemistry showed sodium of 138 with potassium of 4.5 and bicarb of 23.8. Creatinine was 0.8. Urinalysis showed no evidence of UTI. Lumbar spine CT showed grade 1 anterolisthesis of L4 on L5 and mild degenerative changes. He has been admitted to be managed for debility and weakness due to sciatica and mechanical fall. [facility] Medical History Back pain Gastric ulcer Home Medications ?Medication ?Instructions ?Recorded ?Last Taken ?Type acetaminophen 325 mg capsule 650 mg PO Q6H 10/27/24 Un known History cyclosporine 0.1 % eye drops 1 drp ophthalmic (eye) Q1 2H 10/27/24 10/27/24 History (Vevye) tamsulosin 0.4 mg capsule 0.4 mg PO Q24H 10/27/24 Unkn own History Allergy/AdvReac Type Severity Reaction Status Date / Time No Known Allergies Allergy Verified 10/27/24 10:03 Social History household members: spouse current occupational status: retired Smoking Status: Former smoker alcohol intake: never ROS Constitutional Constitutional: Reports weakness; Denies anorexia, change in weight, chills, fatigue, fever(s) or malaise Eyes Eyes: Denies change in vision ENT HEENT: Denies dysphagia or headache(s) Cardiovascular Cardiovascular: Denies edema, lightheadedness, orthopnea or rapid heart rate Respiratory/Chest Respiratory/Chest: Denies cough or dyspnea Gastrointestinal Gastrointestinal: Denies constipation, diarrhea, nausea or vomiting Genitourinary Genitourinary: Denies dysuria Musculoskeletal Musculoskeletal: Denies joint pain Neurologic Neurologic: Denies confusion, dizziness, focal weakness, headache(s) or seizures Psychiatric Psychiatric: Denies anxiety or depression Vital Signs Vital Signs Vital Signs: 10/27/24 10:01 10/27/24 10:16 Temperature 97.7 F L Temperature Source Oral Pulse Rate 75 Respiratory Rate 16 Respiratory Effort Normal Respiratory Depth Normal Respiratory Pattern Normal Blood Pressure 134/79 H Blood Pressure Mean 97 Pulse Ox 95 Oxygen Delivery Method Room Air Room Air Weight Weight: 181 lb 10.574 oz Body Mass Index (BMI) 25.3 Physical Exam Const alert, oriented x3 and no apparent distress General Appearance: cooperative HEENT normocephalic, head/scalp atraumatic, hearing grossly normal bilaterally, moist oral mucous membranes and oropharynx normal Mouth: oral and palatal mucosa normal Eyes EOMs intact bilaterally and conjunctivae normal Neck supple Resp normal respiratory effort, no retractions, no use of accessory muscles and clear to auscultation bilaterally Cardio regular rate, regular rhythm, S1 normal heart sound, S2 normal heart sound and no murmurs GI normal to inspection, nondistended, normoactive bowel sounds, soft to palpation, non-tender and non-distended Extremity normal to inspection, full ROM and no clubbing, cyanosis or edema Neuro oriented x3, CN's II-XII intact bilaterally and moves all extremities Sensorium / Orientation: awake and alert Motor Exam: strength 5/5 throughout Psych affect normal Results Lab / Micro Data 10/27/24 10:48 10/27/24 10:48 Labs: Laboratory Results - last 24 hr 10/27/24 10:48: WBC 9.1, RBC 5.36, Hgb 17.3 H, Hct 50.5, MCV 94.2 H, MCH 32.3 H, MCHC 34.3, RDW Std Deviation 46.1 H, RDW Coeff of Leda 13.3, Plt Count 191, MPV 11.8, Immature Gran % (Auto) 0.300, Neut % (Auto) 69.6, Lymph % (Auto) 18.0 L, [place] % (Auto) 9.1, Eos % (Auto) 2.2, Baso % (Auto) 0.8, Absolute Neuts (auto) 6.3, Absolute Lymphs (auto) 1.64, Nucleated RBC % 0, Sodium 138, Potassium 4.5, Chloride 101, Carbon Dioxide 23.8, Anion Gap 13, BUN 26 H, Creatinine 0.80, Estim Creat Clear Calc 90.20, Est GFR (MDRD) Non-Af 95, BUN/Creatinine Ratio 32.8 H, Glucose 106 H, Calcium 10.0 10/27/24 11:26: Urine Color Yellow, Urine Clarity Clear, Urine pH 7.0, Ur Specific [place] 1.015, Urine Protein 30 H, Urine Glucose (UA) Normal, Urine Ketones Negative, Urine Occult Blood Negative, Urine Nitrite Negative, Urine Bilirubin Negative, Urine Urobilinogen Normal, Ur Leukocyte Esterase Negative, Urine RBC 0 SEEN, Urine WBC 0 SEEN, Ur Squamous Epith Cells 0 SEEN, Urine Bacteria 0 SEEN, Urine Mucus 0 SEEN Imaging Radiology Impression Lumbar Spine CT 10/27/24 10:39 IMPRESSION: Grade 1 anterolisthesis L4 on L5. No pars defects. Mild degenerative changes as above. Incidental findings: Sliding hiatus hernia. Tiny calculi in the gallbladder. Reading Location: [id number] Assessment & Plan Assessment/Plan (1) Sciatica of left side: (2) Intractable low back pain: PLAN: Plan #Intractable lower back pain due to sciatica * Patient admitted with complaint of mechanical fall. He has been having intractable lower back pain due to sciatica and spinal stenosis and think this was the reason for his fall. He has been seen in the ED continuously for the past 3 days with similar symptoms and was discharged home because he could ambulate but subsequently came back because he was having severe back pain. * He states the only thing that has helped him in the past is an epidural short. He was due to fly to [place] today but did not because of this pain. * Patient says he has a history of ulcer and so does not want any NSAIDs. He does not also want to try any opiates and says Tylenol is not enough to deal with his pain. * Lumbar spine CT showed grade 1 anterolisthesis of L4 on L5. * will get MRI of the lumbar spine and depending on the results, will get pain management consult to see if he can get an epidural spinal shot. * will give lidocaine patch * PT/OT consult * fall precautions * DVT prophylaxis: SCDs Code status: full code * Patient counseled extensively about different types of CODE STATUS including full code, DNR CCA and DNR CCA. Patient elects to be full code. * Total [id number] time 16 minutes. # Charges/Coding Visit Charges Inpatient E&M: 36282 Init Hosp L2 Procedures Hospitalists Procedures: 10999 Advncd Care Plan 30 Min
[2024-10-27 12:54] VITALS: BP 125/80; PULSE 63; RESP 17; TEMP 36.8; O2SAT 97
--- NOTE | 2024-10-27 13:43 | MRI_ITS ---
PROCEDURE: SPINE LUMBAR (ROUTINE) 10/27/2024 REASON FOR EXAM: SEVERE SPINAL STENOSIS, SCIATICA TECHNIQUE: SPINE LUMBAR (ROUTINE) COMPARISON: Prior CT scan of the lumbar spine done earlier in the day. FINDINGS: Vertebrae: Vertebral heights are well-maintained. Alignment: Minimal anterior listhesis of L4 on L5 without spondylolysis. Conus Medullaris: The: Medullaris is seen at the T12-L1 level. L1-2: Disc space is well-maintained. There is normal hydration of the intervertebral disc at that level. L2-3: Disc space height is well-maintained. Mild degree of desiccation of the intervertebral disc at that level. L3-4: The disc height is well-maintained. There is evidence of decreased hydration of the intervertebral discs. L4-5: Minimal anterior listhesis of L4 on L5. Moderate degree of central canal stenosis due to facet joint osteoarthritis and hypertrophy of the ligamentum flava. Moderate degree of bilateral neural foraminal stenosis worse on the left side. L5-S1: Disc space height is well-maintained. No evidence of herniation. There is decreased hydration of the L5-S1 disc. Sacrum: Unremarkable MRI/Spine Lumbar (Routine) IMPRESSION: Disc space narrowing and desiccation of the L4-L5 disc. Minimal anterior listh esis of L4 on L5 with a central canal stenosis due to hypertrophy of the facet joints and ligamentum flava. Bilateral neural fora narendra stenosis worse on the left side. Reading Location: [facility]
[2024-10-27 13:49] VITALS: BMI 25.9
[2024-10-27] MEDS: 0.9% Normal Saline (1000mL) 1,000 ML 125 ML IV ×2 (15:33→23:49)
[2024-10-27 16:00] VITALS: BP 130/75; PULSE 66; RESP 18; TEMP 36.8; O2SAT 99
[2024-10-27] MEDS: Lidocaine 5% Patch 1 PATCH TOPICAL (18:33)
[2024-10-27 21:09] VITALS: BP 141/75; PULSE 64; RESP 18; TEMP 36.5; O2SAT 97
[2024-10-28 05:52] VITALS: BP 126/71; PULSE 63; RESP 18; TEMP 36.3; O2SAT 97
[2024-10-28 06:23] LABS: Hematocrit 47.1 % (40-54); Hemoglobin 16.1 g/dL (13.0-16.5); Immature Granulocytes Count 0.030 X10^3/uL (0.0-0.0); Mean Corp Hgb Conc 34.2 g/dL (32-36); Mean Corpuscular Volume 95.7 fL (80-94); Mean Platelet Vol. 11.9 fl (6.2-12.0); NRBC Flagged by Analyzer 0 % (0-5); Platelet Count 164 K/mm3 (150-450); RBC Distribution Width CV 13.2 % (11.6-14.6); RBC Distribution Width SD 47.0 fl (35.1-43.9); Red Blood Count 4.92 M/mm3 (4.6-6.2); White Blood Count 6.8 K/mm3 (4.4-11.0)
[2024-10-28 07:05] LABS: Anion Gap 9 (5-15); BUN 18 mg/dL (4-19); BUN/Creat Ratio 23.8 RATIO (10-20); Calcium,Total 8.8 mg/dL (7.6-11.0); Carbon Dioxide 23.1 mmol/L (21.0-32.0); Chloride 107 mmol/L (98-108); Estimated Creatinine Clearance 87.45 ml/min (50-250); Glucose 91 mg/dL (70-99); Potassium 4.1 mmol/L (3.3-5.1)
[2024-10-28 09:30] VITALS: BP 123/69; PULSE 66; RESP 18; TEMP 36.4; O2SAT 99
--- NOTE | 2024-10-28 10:30 | CASEMGMT ---
RN?CM?ASSESSMENT ? RN?CM?to room to meet with patient for initial transition planning/care coordination?assessment.?RN?CM?introduced self and role at [facility].? Pt voices understanding and consents to?assessment?at this time.? Pt resting in bed in no distress at this time.? Pt is A/O at this time and answers all questions appropriately.?? Care providers, pharmacy, and demographics verified/updated at this time. ? Strata: 2 PCP: No PCP. Pt has a call out to [facility] & is awaiting a return call. He is hopeful they are still taking new pt's. Pt also provided w/Physician's Directory and Mirna Maria info. Specialists: Pt recently went to [facility] in [place] Preferred Pharmacy: [facility] [facility] [place] Benefit:?yes, [employer]. Lidocaine 5% patch was sent to [facility] [place] 10/25 by ER physician. Pt unable to supervisor opening and picking d/t PA was needed. Pt made aware of Lidocaine 4% patches available OTC, 1 box (3-5 patches per box) for ~ $10 per pharmacist. He would still like to get the 5% strength, if possible. RN DAVID called [employer] Help [facility]k @ [phone] and PA initiated & requested for it to be expedited. Rx ID #: [id number]. Pt made aware decision for approval can take up to 24 hrs & that they will contact him via cell phone w/decision. Per chiara Long @ [facility], cost of Lidocaine 5% patches [id number], if insurance does not cover, is ~ $30-40 for 15 patches. Pt made aware of this as well. LNOK: Daughter, Yvette (lives in [place], [place]). Pt has 3 other children. Living Arrangements: Lives alone in ground-level apt, no steps. Independent @ baseline. He had a trip planned to go to [place], [place], yesterday but had to cancel that. He is currently in the process of getting that rescheduled. Transportation:?Pt states drives self and states no transportation concerns at this time.? DME: ? Denies using any DME and denies needs.? HHC/SNF: No hx. OP PT: Pt has been going to [place] to do OP PT (his friend is a therapist). He just started doing OP PT last week but his pain was worsening w/therapy. He plans to return to [place] for OP therapy once he is cleared to return. ? Pt wishes to return home and states has no concerns with going home at time of discharge. CM?to follow for any further discharge planning/needs.? Pt voices no further concerns/needs at this time.? Advised pt to ask for?CM?if any further questions/concerns/needs arise.? Voices understanding. ? PLAN:??Home w/resumption of OP PT when able. ? Candis BSN?RN?CM
[2024-10-28 12:20] LABS: Cholesterol 120 mg/dL (<=200); Low Density Lipoprotein Calc. 57 mg/dL; Triglycerides 79 mg/dL; Very Low Density Lipoprotein 16 mg/dL (5-40); cholesterol:hdl ratio screen 2.56
--- NOTE | 2024-10-28 14:31 | CASEMGMT ---
MALIKA CM in to complete HOWELL Form with patient. RN DAVID explained HOWELL Form to patient, patient voiced understanding. Patient signed HOWELL form and filed in chart. Patient provided with copy of signed HOWELL Form. Patient had no further questions or concerns.
--- NOTE | 2024-10-28 14:38 | DCINST_ITS ---
Discharge Instructions DC O2, CPAP, BIPAP needs Home O2 Discharge instructions: No Dressing / Incision Discharge Activity: Return to Normal Activity Weight Bearing Status: Weight bearing as tolerated Dressing / Incision Call your doctor if you observe: Fever of 101 or Higher, Shortness of breath, Swelling in the ankles and Uncontrolled pain Follow Up Care Test Results: Test results from this visit will be discussed in further detail at your follow- up appointment, if applicable. Discharge Plan Admission Admit Date/Time: 10/27/24 12:18 Primary Reason for Your Visit: debility and weakness due to back pain Attending Provider: Daysi Bustamante Primary Care Provider: Care Physician,No Primary Instructions Patient Instructions: Causes of Lumbar (Low Back) Pain Discharge Orders/Prescriptions Prescriptions: New lidocaine 5 % Adhesive Patch,Medicated 1 patch topical DAILY Qty: 30 0RF Protocol: *Topical Application Instructions APPLICATION INSTRUCTIONS: apply to lower back acetaminophen 325 mg capsule 650 mg PO Q6H PRN (Reason: pain) Qty: 30 1RF Continued tamsulosin 0.4 mg capsule 0.4 mg PO Q24H Patient Comments: has not started taking Vevye 0.1 % drops 1 drp ophthalmic (eye) Q12H Discontinued acetaminophen 325 mg capsule 650 mg PO Q6H Referrals / Follow Up: Cain Bee MD [Med Staff - Active Staff] - Within 2 Weeks (see to establish care with pain management) Annie Hassan MD [Med Staff - Active Staff] - Within 2 Weeks (see to establish care as PCP) Care Physician,No Primary [Primary Care Provider] - Disposition Disposition (needs filled in before D/C Order can be placed): Home, Self Care
--- NOTE | 2024-10-28 14:38 | DS.PCM_ITS ---
Providers Date of Admission: 10/27/24 Date of Discharge: 11/24/24 Primary Care Physician: No Primary Care Phys Reason For Visit: DEBILITY AND WEAKNESS DUE TO [facility]. FALL, SCIATICA Diagnosis Discharge Diagnosis (1) Sciatica of left side: Status: Acute Code(s): M54.32 - Sciatica, left side (2) Intractable low back pain: Status: Acute Code(s): M54.59 - Other low back pain Plan #Intractable lower back pain due to sciatica * Patient admitted with complaint of mechanical fall. He has been having intractable lower back pain due to sciatica and spinal stenosis and think this was the reason for his fall. He has been seen in the ED continuously for the past 3 days with similar symptoms and was discharged home because he could ambulate but subsequently came back because he was having severe back pain. * He states the only thing that has helped him in the past is an epidural short. He was due to fly to [place] today but did not because of this pain. * Patient says he has a history of ulcer and so does not want any NSAIDs. He does not also want to try any opiates and says Tylenol is not enough to deal with his pain. * Lumbar spine CT showed grade 1 anterolisthesis of L4 on L5. * will get MRI of the lumbar spine and depending on the results, will get pain management consult to see if he can get an epidural spinal shot. * will give lidocaine patch * PT/OT consult * fall precautions * DVT prophylaxis: SCDs Code status: full code * Patient counseled extensively about different types of CODE STATUS including full code, DNR CCA and DNR CCA. Patient elects to be full code. * Total [id number] time 16 minutes. # Medications at Discharge Home Medications cyclosporine 0.1 % eye drops (Vevye) 1 drp ophthalmic (eye) Q12H 10/27/24 tamsulosin 0.4 mg capsule 0.4 mg PO Q24H 10/27/24 acetaminophen 325 mg capsule 650 mg (2 x 325 mg) PO Q6H PRN pain #30 caps 10/28/24 lidocaine 5 % topical patch 1 patch topical DAILY #30 ea 10/28/24 Hospital Course Operations None Procedures None Summary of Care Provided Minutes Spent on Discharge: 45 Hospital Course: FLORIAN STRONG, is a 69 M with a PMH as outlined who presents via the ED on 10/27/2024 with a complaint of mechanical fall. He has been having sciatica pain for the past few days and was seen in the ER over the last couple of days.The pain was mainly in his lower back, radiating down his left leg. As stated he was seen in the ED for this pain the day before this admission. HE went home and said he fell the night before admission after he got up to go to the bathroom. He denied any parasthesias, numbness, or any bladder or bowel changes. He states he has prescriptions for his muscle relaxant and lidocaine patch at the pharmacy but has not been able to pick these up on account of insurance reasons. Patient said he had a trip to [facility] today but had to cancel it because of the pain. Review of systems otherwise negative. Vitals in the ED were temperature of 97.7 Fahrenheit, blood pressure 134/79, respiratory rate of 16 and pulse rate of 75. He was saturating at 95% on room air. CBC showed hemoglobin of 17.3 with WBC of 9.1 and platelets of 191. Chemistry showed sodium of 138 with potassium of 4.5 and bicarb of 23.8. Creatinine was 0.8. Urinalysis showed no evidence of UTI. Lumbar spine CT showed grade 1 anterolisthesis of L4 on L5 and mild degenerative changes. He was admitted to be managed for debility and weakness due to sciatica and mechanical fall. MRI of the lumbar spine showed disc space narrowing and dessication of the L4-L5 disc and minimal anterior listhesis of L4 on L5 with a central canal stenosis due to hypertrophy of the facet joints and ligamentum flava with bilateral neural foraminal stenosis worse on the left side. He worked with PT.OT and was placed on PO tylenol and lidocaine patch. Pain management was consulted but not available till the next Friday. Patient however felt well enough and wanted to be discharged home. He was therefore discharged home on 10/28/2024. He was discharged on PO tylenol and lidocaine patch. Patient did not want to use opiates and did not want to be on nsaids either due to history of peptic ulcer. He was referred to pain management on outpatient basis. Patient was seen and examined prior to discharge with his nurse by his bedside.. He felt well and had no active complaints.. Pain had resolved and he felt much better. Review of systems otherwise negative. Labs and vitals reviewed. Patient asked if he could be given a copy of his MRI disc to take along with him as he traveled often and felt that it would be beneficial to have this with him so that he could presented to any hospital he went to. He was counseled that he would have to go through medical records for this. Physical Exam Const alert, oriented x3 and no apparent distress General Appearance: cooperative HEENT normocephalic, head/scalp atraumatic, hearing grossly normal bilaterally, moist oral mucous membranes and oropharynx normal Eyes EOMs intact bilaterally and conjunctivae normal Neck supple Resp normal respiratory effort, no retractions, no use of accessory muscles and clear to auscultation bilaterally Cardio regular rate, regular rhythm, S1 normal heart sound, S2 normal heart sound and no murmurs GI normal to inspection, nondistended, normoactive bowel sounds, soft to palpation, non-tender and non-distended Extremity normal to inspection, full ROM and no clubbing, cyanosis or edema Neuro oriented x3, CN's II-XII intact bilaterally and moves all extremities Sensorium / Orientation: awake and alert Motor Exam: strength 5/5 throughout Psych affect normal Weight / BMI Weight Weight: 180 lb 5.41 oz Body Mass Index (BMI) 25.9 ABG / Lab / Microbiology Data 10/28/24 05:58 10/28/24 05:58 Laboratory: Laboratory Results - last 24 hr 10/28/24 05:58: WBC 6.8, RBC 4.92, Hgb 16.1, Hct 47.1, MCV 95.7 H, MCH 32.7 H, MCHC 34.2, RDW Std Deviation 47.0 H, RDW Coeff of Leda 13.2, Plt Count 164, MPV 11.9, Immature Gran % (Auto) 0.400, Neut % (Auto) 60.8, Lymph % (Auto) 23.7, M isabella % (Auto) 10.7 H, Eos % (Auto) 3.7, Baso % (Auto) 0.7, Absolute Neuts (auto) 4.1, Absolute Lymphs (auto) 1.60, Nucleated RBC % 0, Sodium 139, Potassium 4.1, Chloride 107, Carbon Dioxide 23.1, Anion Gap 9, BUN 18, Creatinine 0.76, Estim Creat Clear Calc 87.45, Est GFR (MDRD) Non-Af 96, BUN/Creatinine Ratio 23.8 H, Glucose 91, Calcium 8.8, Triglycerides 79, Cholesterol 120, LDL Cholesterol, Calc 57, VLDL Cholesterol 16, HDL Cholesterol 47, Cholesterol/HDL Ratio 2.56 Radiography Diagnostic Testing: Radiology Impression Lumbar Spine MRI 10/27/24 13:43 IMPRESSION: Disc space narrowing and desiccation of the L4-L5 disc. Minimal anterior listhesis of L4 on L5 with a central canal stenosis due to hypertrophy of the facet joints and ligamentum flava. Bilateral neural foraminal stenosis worse on the left side. Reading Location: [id number] D/C Instructions Discharge Activity: Return to Normal Activity Weight Bearing Status: Weight bearing as tolerated Call your doctor if you observe: Fever of 101 or Higher, Shortness of breath, Swelling in the ankles and Uncontrolled pain DC O2, CPAP, BIPAP Needs Home O2 Discharge instructions: No DC home with Oxygen: No Meaningful Use Info Meaningful Use Meaningful Use Diagnoses (Choose all that apply): None applicable Discharge Plan Admission Admit Date/Time: 10/27/24 12:18 Primary Reason for Your Visit: debility and weakness due to back pain Attending Provider: Daysi Bustamante Primary Care Provider: Care Physician,No Primary Instructions Patient Instructions: Causes of Lumbar (Low Back) Pain Discharge Orders/Prescriptions Prescriptions: New lidocaine 5 % Adhesive Patch,Medicated 1 patch topical DAILY Qty: 30 0RF Protocol: *Topical Application Instructions APPLICATION INSTRUCTIONS: apply to lower back acetaminophen 325 mg capsule 650 mg PO Q6H PRN (Reason: pain) Qty: 30 1RF Continued tamsulosin 0.4 mg capsule 0.4 mg PO Q24H Patient Comments: has not started taking Vevye 0.1 % drops 1 drp ophthalmic (eye) Q12H Discontinued acetaminophen 325 mg capsule 650 mg PO Q6H Referrals / Follow Up: Cain Bee MD [Med Staff - Active Staff] - 11/24/24 12:30 am (see to establish care with pain management) Annie Hassan MD [Med Staff - Active Staff] - Within 2 Weeks (see to establish care as PCP) Care Physician,No Primary [Primary Care Provider] - Disposition Disposition (needs filled in before D/C Order can be placed): Home, Self Care Charges/Coding Visit Charges Inpatient E&M: 83175 Disch Hosp >30min
== END 2024-10-28 15:08 | disposition home or self-care (01) ==
LOC: ED 12:14 → PCU 12:46
PROVIDERS: Admitting Provider Student in an Organized Health Care Education/Training Program; Emergency Provider Emergency Medicine; Visit Provider Student in an Organized Health Care Education/Training Program
DX: M54.42 Lumbago with sciatica, left side (principal); R53.1 Weakness; Z87.891 Personal history of nicotine dependence; R53.81 Other malaise; W19.XXXA Unspecified fall, initial encounter; R20.2 Paresthesia of skin; R03.0 Elevated blood-pressure reading, without diagnosis of hypertension; R29.890 Loss of height; Z79.899 Other long term (current) drug therapy
CPT/HCPCS: 36415; 72131; 72148; 80048; 80061; 81001; 85025; 96374; 96375; 99221; 99285; A4216; G0378; J2405

== ENCOUNTER 2025-02-04 11:21 | Emergency (ER) | payer MEDICARE, OTHER, SELFPAY ==
[2025-02-04 11:21] VITALS: BP 149/75; PULSE 68; RESP 16; TEMP 36.8; O2SAT 100; BMI 26.5
--- NOTE | 2025-02-04 12:10 | EX.ED.DYSGE1 ---
HPI History of Present Illness Chief Complaint: General Illness Detail of Chief Complaint: Not feeling well and has multiple complaints Informant: patient Narrative Narrative: Patient presents to the emergency department with multiple complaints. He states that he has not been sleeping well for the last 6 or 7 nights and that the apartment above him grandchild is visiting and been crying incessantly. Patient also recently found out that his friend is very ill and he is having a hard time sleeping at night and has increased anxiety. He complains of some muscle spasms at times and at times feels like his heart is racing. He had similar sleeping issues in the past when his family members and he was treated with Ambien and he did quite well with it. Patient has no heart history. Denies recent travel or surgery. Denies fever or chills or sweats or recent illness. [facility] Medical History Back pain Gastric ulcer Home Medications Medication Instructions Recorded Last Taken Type cyclosporine 0.1 % eye drops 1 drp ophthalmic (eye) Q12H 10/27/24 10/27/24 History (Vevye) tamsulosin 0.4 mg capsule 0.4 mg PO Q24H 10/27/24 Unknown History acetaminophen 325 mg capsule 650 mg (2 x 325 mg) PO Q6H PRN 10/28/24 Unknown Rx pain #30 caps lidocaine 5 % topical patch 1 patch topical DAILY #30 ea 10/28/24 Unknown Rx zolpidem 5 mg tablet (Ambien) 5 mg PO QHS #10 tabs 02/04/25 Unknown Rx Allergy/AdvReac Type Severity Reaction Status Date / Time No Known Allergies Allergy Verified 02/04/25 11:24 Social History household members: spouse current occupational status: retired Smoking Status: Former smoker alcohol intake: never ROS ROS ED Review of Systems ROS Unobtainable: other Constitutional Constitutional ED: Reports lethargy; Denies chills, fever(s), sweats or weight loss Eyes Eyes: Denies blurry vision, change in vision or diplopia ENT ENT ED: Denies rhinorrhea or sore throat Cardiovascular Cardiovascular: Reports racing heartbeat; Denies chest pain or orthopnea Respiratory/Chest Respiratory/Chest: Denies cough, dyspnea, dyspnea on exertion, orthopnea or sputum Gastrointestinal Gastrointestinal: Denies abdominal pain, diarrhea, nausea or vomiting Genitourinary Genitourinary ED: Denies dysuria, hematuria or urinary frequency Musculoskeletal Musculoskeletal: Reports other Details: Muscle spasm ; Denies arthralgias, back pain, myalgias or neck pain Integumentary Denies abscess, Abrasions or rash Neurologic Neurologic: Denies headache(s) or weakness Psychiatric Psychiatric: Reports anxiety; Denies depression or suicidal thoughts Endocrine Endocrinology: Denies polydipsia, polyphagia or polyuria Hematologic/Lymphatic Hematologic/Lymphatic: Denies easy bleeding, easy bruising or lymphadenopathy Allergic/Immunologic Allergic/Immunologic ED: Denies mouth swelling, tongue swelling or urticaria EXAM Physical Exam Const Vital Signs: 02/04/25 11:21 02/04/25 11:29 02/04/25 13:18 Temperature 98.3 F Temperature Source Oral Pulse Rate 68 64 Respiratory Rate 16 18 Respiratory Effort Normal Non-Labored Blood Pressure 149/75 H 131/75 H Blood Pressure Mean 99 93 Pulse Ox 100 98 Oxygen Delivery Method Room Air Positive well nourished and well developed General Appearance ED: well developed and NAD HEENT Reports TM's clear and moist mucous membranes normocephalic and atraumatic; Negative for trauma or tenderness Tympanic Membrane ED: Yes TM's clear Eyes PERRL and EOMs intact bilaterally General Eye ED: Negative for pale conjunctiva or scleral icterus Neck no lymphadenopathy, supple and no JVD General: Negative for tenderness Chest Wall inspection of chest normal and palpation of chest normal Chest: Negative for tenderness Resp normal respiratory effort and clear to auscultation bilaterally Effort and Inspection: Negative for respiratory distress or pain with movement Auscultation: Negative for rhonchi, wheezes or diminished lung sounds Cardio regular rate, regular rhythm, S1 normal heart sound, S2 normal heart sound and no murmurs Peripheral Pulses: pulses 2+ throughout GI normal to inspection, nondistended, normoactive bowel sounds, soft to palpation, non-tender, non-distended and no masses Back/Spine no CVA tenderness and no thoracic nor lumbar tenderness Extremity normal to inspection General Extremety ED: Negative for edema General Extremity: Negative for edema Neuro oriented x3, CN's II-XII intact bilaterally, no sensory deficits noted and gait normal Sensorium / Orientation: awake, alert, oriented to person, oriented to place and oriented to time Motor Exam: strength 5/5 throughout and strength abnormal Psych mental status grossly normal Skin no rashes or lesions noted and no wounds MDM MDM MDM Narrative Medical decision making narrative: Patient presents with multiple vague complaints due to not being able to sleep. He has some anxiety related to this. He would like to speak with social media strategist about outpatient services for possible counseling. Patient denies feeling suicidal or homicidal and clinically looks well. He had some nonspecific symptoms of some chest discomfort intermittently and heart racing that he thinks may be anxiety. I did do an EKG on arrival which showed a normal sinus rhythm with no acute ST segment changes. CBC with differential was unremarkable. Chemistries were normal. Troponin was 13. BUN was 20 and creatinine 0.73. I will have social media strategist talk to patient about services for outpatient counseling. He is requesting Ambien which he has had in the past to help him sleep and I will write him for 5 mg tablets of Ambien for 10 days. Lab Data Attestation: I reviewed the patient's lab results. Labs: Laboratory Results - last 24 hr 02/04/25 12:28 WBC 8.3 RBC 5.28 Hgb 17.2 H Hct 49.5 MCV 93.8 MCH 32.6 H MCHC 34.7 RDW Std Deviation 46.1 H RDW Coeff of Leda 13.3 Plt Count 179 MPV 12.3 H Immature Gran % (Auto) 0.200 Neut % (Auto) 67.8 Lymph % (Auto) 21.9 [place] % (Auto) 8.3 Eos % (Auto) 1.1 Baso % (Auto) 0.7 Absolute Neuts (auto) 5.6 Absolute Lymphs (auto) 1.81 Nucleated RBC % 0 Sodium 139 Potassium 4.1 Chloride 103 Carbon Dioxide 26.8 Anion Gap 9 BUN 20 H Creatinine 0.73 Estim Creat Clear Calc 87.45 Est GFR (MDRD) Non-Af 97 BUN/Creatinine Ratio 27.4 H Glucose 105 H Calcium 10.0 Troponin T High Sens 13 EKG Initial EKG: Attestation: I personally reviewed and interpreted this EKG as follows: Comments: Sinus rhythm with rate of 54 bpm with no acute ST segment change Discharge Plan Triage Chief Complaint: General Illness ED Provider: Dorian Kumar Dx/Rx/DC Orders Instructions: ED Anxiety Reaction, ED Insomnia Prescriptions: New zolpidem [Ambien] 5 mg tablet 5 mg PO QHS Qty: 10 0RF No Action tamsulosin 0.4 mg capsule 0.4 mg PO Q24H Patient Comments: has not started taking Vevye 0.1 % drops 1 drp ophthalmic (eye) Q12H lidocaine 5 % Adhesive Patch,Medicated 1 patch topical DAILY Qty: 30 0RF Protocol: *Topical Application Instructions APPLICATION INSTRUCTIONS: apply to lower back acetaminophen 325 mg capsule 650 mg PO Q6H PRN (Reason: pain) Qty: 30 1RF Primary Care Provider: Care Physician,No Primary Referrals: Jose R Villarreal MD [Med Staff - Active Staff, Family Practice] - 5-7 Days Care Physician,No Primary [Primary Care Provider, Medical] Print Language: Maori
[2025-02-04 12:43] LABS: Hematocrit 49.5 % (40-54); Hemoglobin 17.2 g/dL (13.0-16.5); Immature Granulocytes Count 0.020 X10^3/uL (0.0-0.0); Mean Corp Hgb Conc 34.7 g/dL (32-36); Mean Corpuscular Volume 93.8 fL (80-94); Mean Platelet Vol. 12.3 fl (6.2-12.0); NRBC Flagged by Analyzer 0 % (0-5); Platelet Count 179 K/mm3 (150-450); RBC Distribution Width CV 13.3 % (11.6-14.6); RBC Distribution Width SD 46.1 fl (35.1-43.9); Red Blood Count 5.28 M/mm3 (4.6-6.2); White Blood Count 8.3 K/mm3 (4.4-11.0)
[2025-02-04 12:59] LABS: Anion Gap 9 (5-15); BUN 20 mg/dL (4-19); BUN/Creat Ratio 27.4 RATIO (10-20); Calcium,Total 10.0 mg/dL (7.6-11.0); Carbon Dioxide 26.8 mmol/L (21.0-32.0); Chloride 103 mmol/L (98-108); Estimated Creatinine Clearance 87.45 ml/min (50-250); Glucose 105 mg/dL (70-99); Potassium 4.1 mmol/L (3.3-5.1); Troponin T High Sensitivity 13 ng/L (<=22)
[2025-02-04 13:18] VITALS: BP 131/75; PULSE 64; RESP 18; O2SAT 98
--- NOTE | 2025-02-04 13:39 | EKG12_ITS ---
Test Reason : Blood Pressure : */* mmHG Vent. Rate : 64 BPM Atrial Rate : 64 BPM P-R Int : 146 ms QRS Dur : 88 ms QT Int : 414 ms P-R-T Axes : 77 -9 -18 degrees QTcB Int : 427 ms Normal sinus rhythm Normal ECG Confirmed by MINI SAENZ, PADMINI ([id number]), continuity editor LINA FLORES ([id number]) on 02/07/2025 8:16:46 AM Referred By: Confirmed By: PADMINI MORSE MD
[2025-02-04 14:58] VITALS: BP 129/76; PULSE 61; RESP 16; TEMP 36.6; O2SAT 99
--- NOTE | 2025-02-04 15:00 | CM.ED ---
Social Work Reason for Consult: Mental Health Resources Referral Source: Dr. Kumar Spoke with provider who reports patient is interested in outpatient mental health resources. Chart reviewed and noted patient has expressed interest in this before, as well as resources on primary care providers. Noted patient is without a primary care provider at this time. Met with patient in room, introduced to self and social work role. Patient shares reason for presentation (insomnia after neighbors fernando has been staying in the next apartment and crying all night, keeping the patient up). Patient reports to feel better now that has been checked out, but thought having a counselor for some "generalized anxiety" may be helpful. Validated patient that counseling support for emotional health including anxiety can be helpful. Explored whether patient's symptoms are disrupting ability to function, attempting to ascertain whether IOP level of care may be helpful. Patient denies symptoms as threshold or intensive services, and more wants someone to talk with now and then. Patient states he is not in distress, no SI currently or in the past, and no HI. Addressed lack of PCP, which patient reports "this is in the works" stating all specialists are through the [facility] and [facility] is to be looking for a PCP for patient. Provided patient with a comprehensive provider list for this geographical region, as well as list of providers accepting new patients. Provided information on [facility] as an option for both primary care and mental health care - patient states "will look into into it." Provided patient with behavioral health resource guide and review some potential options for outpatient therapy for patient. - patient reports can call on own to make an appointment. SW offered to make appt but patient reported need to go, rather than wait for attempts at appointments to be made. Patient expressed appreciation for time and resources offered and provided. Provided this singer songwriter's name and contact number should patient have additional questions or concerns regarding resources or needing assist with referrals. No other services requested or indicted. -STACY Freedman
== END 2025-02-04 15:00 | disposition home or self-care (01) ==
PROVIDERS: Emergency Provider Emergency Medicine; Visit Provider Emergency Medicine
DX: F41.1 Generalized anxiety disorder (principal); G47.09 Other insomnia; R07.89 Other chest pain; Z87.891 Personal history of nicotine dependence
CPT/HCPCS: 80048; 84484; 85025; 93005; 99284

== ENCOUNTER 2025-03-22 08:46 | Emergency (ER) | payer MEDICARE, OTHER, SELFPAY ==
[2025-03-22 08:47] VITALS: BP 153/80; PULSE 74; RESP 18; TEMP 36.6; O2SAT 100; BMI 25.1
--- NOTE | 2025-03-22 09:12 | EX.ED.VIS.UR ---
HPI HPI - URI History of Present Illness Chief Complaint: Cold Sx Informant: patient Narrative Narrative: Patient is a 69-year-old male with a history of geographic tongue and deviated septum, presenting with URI symptoms and a foul odor in the left nostril. - Recently returned from a trip to [place], where he visited his 6-month-old grandson; wore a mask throughout the trip to prevent illness transmission. - Developed mild pharyngitis and rhinorrhea on Friday (6d ago), followed by a fever lasting approximately 12 hours; fever resolved, but continued to experience rhinorrhea and productive cough with yellow sputum until Friday. - Yesterday, began noticing a putrid odor in the left nostril, which is causing significant discomfort and sleep disturbances; has a history of sinus issues and recalls previous relief from nasal irrigation. - Reports exacerbation of geographic tongue, with unusual formations but no pain. Also has a bit of a dry mouth. - Denies significant fatigue, myalgias, or cephalalgia; able to perform daily activities but not exercising as usual. No dyspnea or thoracic discomfort; reports a sensation of fullness in the left ear, which has been a chronic issue. - received initial COVID-19 vaccinations but not the most recent booster. ROS ROS ED Constitutional Constitutional ED: Reports chills, fever(s) and malaise; Denies body ache(s) or fatigue Eyes Eyes: Denies change in vision ENT ENT ED: Reports nasal congestion, rhinorrhea and sore throat; Denies ear pain Cardiovascular Cardiovascular: Denies chest pain or palpitations Respiratory/Chest Respiratory/Chest: Reports cough; Denies dyspnea Gastrointestinal Gastrointestinal: Denies abdominal pain, diarrhea, nausea or vomiting Genitourinary Genitourinary ED: Denies dysuria or hematuria Musculoskeletal Musculoskeletal: Denies myalgias or neck pain Integumentary Denies abscess or rash Neurologic Neurologic: Denies headache(s), paresthesias or weakness Psychiatric Psychiatric: Denies depression or suicidal thoughts Endocrine Endocrinology: Denies polydipsia or polyuria [facility] Medical History H/O Mohs micrographic surgery for skin cancer Sciatica of left side Intractable low back pain Back pain Gastric ulcer Home Medications ?Medication ?Instructions ?Recorded ?Last Taken ?Type cyclosporine 0.1 % eye drops 1 p ophthalmic (eye) Q12H 10/27/24 10/27/24 History (Vevye) tamsulosin 0.4 mg capsule 0.4 mg PO Q24H 10/27/24 Unknown History acetaminophen 325 mg capsule 650 mg (2 x 325 mg) PO Q6H PRN 10/28/24 Unknown Rx pain #30 caps fluticasone propionate 50 2 spray intranasal BID 03/09/25 Unknown History mcg/actuation nasal spray,suspension omeprazole 40 mg capsule,delayed 40 mg PO QDAY 03/09/25 Unknown History release Allergy/AdvReac Type Severity Reaction Status Date / Time No Known Allergies Allergy Verified 03/22/25 08:49 Surgical History Hx of tonsillectomy Social History household members: spouse current occupational status: retired Smoking Status: Former smoker alcohol intake: never EXAM Physical Exam Const Vital Signs: 03/22/25 08:47 03/22/25 08:50 Temperature 97.9 F Temperature Source Temporal Pulse Rate 74 Respiratory Rate 18 Respiratory Effort Short of Breath Respiratory Pattern Normal Blood Pressure 153/80 H Blood Pressure Mean 104 Pulse Ox 100 Oxygen Delivery Method Room Air Positive well nourished and well developed General Appearance ED: well developed and NAD HEENT Reports moist mucous membranes HEENT Narrative: Septum is deviated to the right with a little bit of nasal turbinate edema no purulent discharge on either side. No sinus tenderness throughout. There is bit of a geographic tongue without any other abnormality or edema. No stridor. Normal voice. TMs clear bilaterally. normocephalic and atraumatic Throat: Negative for posterior oropharynx abnormal Eyes PERRL and EOMs intact bilaterally Neck no lymphadenopathy, supple and no meningeal signs Resp normal respiratory effort and clear to auscultation bilaterally Cardio no murmurs Rate: regular rate; Negative for tachycardic Rhythm: regular rhythm Neuro oriented x3, CN's II-XII intact bilaterally and no sensory deficits noted Sensorium / Orientation: alert Motor Exam: strength 5/5 throughout Skin Lesions: no lesions Rashes: no rashes MDM MDM MDM Narrative Medical decision making narrative: I offered a [id number] swab, explaining to the patient that the results would not necessarily change the treatment. He was amenable. The swab is positive for COVID and negative for everything else. The patient has had symptoms for about six days. He has no risk factors other than his age of 69, and his vital signs are normal. His pulse oximetry on room air is 100%. He has no symptoms suggestive of severe COVID sequelae, so I recommend supportive care, adequate hydration, and avoiding contact with others. Paxlovid is not indicated. Discharge Plan Triage Chief Complaint: Cold Sx ED Provider: Karlo Calderon Dx/Rx/DC Orders Clinical Impression: Upper respiratory tract infection due to COVID-19 virus Instructions: Coronavirus Disease 2019 (COVID-19): Caring for Yourself or Others Prescriptions: No Action omeprazole 40 mg capsule,delayed release(DR/EC) 40 mg PO QDAY fluticasone propionate 50 mcg/actuation spray,suspension 2 spray intranasal BID tamsulosin 0.4 mg capsule 0.4 mg PO Q24H Patient Comments: has not started taking Vevye 0.1 % drops 1 drp ophthalmic (eye) Q12H acetaminophen 325 mg capsule 650 mg PO Q6H PRN (Reason: pain) Qty: 30 1RF Primary Care Provider: Care Physician,No Primary Referrals: Doctor,Your [Non-Staff, None] - 1 Week if not improving Activity Restrictions/Additional Instructions: - Consider wearing earplugs at bedtime to block outside noise. - If you continue to have trouble sleeping, you may try a single dose of melatonin or [id number] diphenhydramine (Benadryl) at bedtime. - Continue taking your usual omeprazole as prescribed. - No antibiotics or further lab tests are needed at this time. - Avoid close contact with others while you?re symptomatic to reduce the risk of spreading COVID-19. Print Language: Telugu Disposition Disposition: Home, Self Care
[2025-03-22 10:45] VITALS: BP 140/82; PULSE 68; RESP 16; TEMP 36.6; O2SAT 97
--- NOTE | 2025-03-22 11:08 | CM.ED ---
Social Work Reason for visit: No PCP Patient stated that he does have a PCP but he was unable to get into see him for quite some time. Patient declined need for resources for local physicians. No further needs noted at this time. Erin Paz, BEHAVIORAL ASSISTANT, [employer]ASHION [employer]DEL
== END 2025-03-22 10:50 | disposition home or self-care (01) ==
PROVIDERS: Emergency Provider Emergency Medicine; Visit Provider Emergency Medicine
DX: U07.1 COVID-19 (principal); J06.9 Acute upper respiratory infection, unspecified; Z87.891 Personal history of nicotine dependence
CPT/HCPCS: 87631; 99282